=== PATIENT | male | born 1960 | race Caucasian/White ===

== ENCOUNTER 2021-10-04 19:39 | Emergency (ER) | payer BC, SELFPAY ==
[2021-10-04 19:41] VITALS: BP 171/86; PULSE 118; RESP 18; TEMP 37; O2SAT 96
[2021-10-04 19:51] VITALS: BP 165/85; PULSE 111; O2SAT 97
[2021-10-04 20:02] VITALS: BP 147/80; PULSE 108; O2SAT 98
[2021-10-04] MEDS: SODIUM CHLORIDE 0.9% IV 1,000 ML 999 ML IV CONT (20:03)
[2021-10-04 20:09] LABS: Basophils Absolute Auto 0.1 K/mm3 (0.0-0.1); Basophils Percent Auto 0.4 % (0.2-1.2); Eosinophils Absolute Auto 0.1 K/mm3 (0-0.3); Eosinophils Percent Auto 0.5 % (0-4.4); Hematocrit 49.7 % (42.0-52.0); Hemoglobin 16.3 g/dL (14.0-18.0); Immature Granulocyte Percent A 0.7 % (0-0.5); Lymphocytes Absolute Auto 0.69 K/mm3 (0.9-3.2); Mean Corpuscular HGB Conc 32.8 g/dl (32-36); Mean Corpuscular Hemoglobin 30.3 pg (26-34); Mean Corpuscular Volume 92.4 fl (80-100); Mean Platelet Volume 10.1 fl (7.4-10.4); Monocytes Percent Auto 7.1 % (2.6-8.5); Neutrophils Absolute Auto 11.9 K/mm3 (1.3-6.7); Neutrophils Percent Auto 86.3 % (45.5-73.1); Platelet Count Result 168 k/mm3 (150-375); Red Blood Count 5.38 M/mm3 (4.6-6.20); Red Cell Distribution Width 12.6 % (11.5-14.5); White Blood Count 13.8 K/mm3 (4.5-10.0)
[2021-10-04 20:21] LABS: Alanine Aminotransferase 23 U/L (4-50); Albumin Level 4.4 g/dL (3.5-5.1); Alkaline Phosphatase 104 U/L (38-126); Anion Gap 10 mmol/L (8-16); Aspartate Amino Transferase 24 U/L (17-59); Blood Urea Nitrogen 16 mg/dL (9-20); Calcium 9.8 mg/dL (8.4-10.2); Carbon Dioxide 22 mmol/L (22-30); Chloride 105 mmol/L (98-107); Estimated CRCL calculation 65 ml/min; Estimated Glomerular Filt Rate > 60; Glucose 157 mg/dL (65-110); Potassium 4.1 mmol/L (3.4-5.0); Sodium 137 mmol/L (137-145)
[2021-10-04 20:22] LABS: Lactic Acid Reflex 0.9 mmol/L (0.7-2.0)
[2021-10-04 21:00] VITALS: BP 142/76; PULSE 98; O2SAT 95
[2021-10-04 21:01] VITALS: BP 142/76
--- NOTE | 2021-10-04 21:58 | ED.MALEGU ---
HPI - Male Genitourinary General Chief complaint: Urogenital-Male Stated complaint: uti symptoms, fever Time Seen by Provider: 10/04/21 19:44 Source: patient History of Present Illness HPI Narrative: Patient presents with a urinary tract infection. Seen by his primary care doctor yesterday started on Bactrim he is continued have symptoms today and developing a fever to 102 he was concerned so he came to the ER for further evaluation. Patient ports abdominal pain that is constant achy radiates to his back no clear aggravating or alleviating factors. Reports his initial abdominal pain and back pain with onset of symptoms have improved over the past 24 hours. Denies any nausea or vomiting. Denies any cough or congestion. Related Data Home Medications Medication Instructions Recorded Confirmed B-complex with vitamin C 1 tablet PO DAILY 09/11/19 10/03/21 acetaminophen 325 mg tablet 650 mg PO ONCE PRN tablet 09/11/19 10/03/21 magnesium oxide 500 mg tablet 500 mg PO DAILY 09/11/19 10/03/21 omega-3 fatty acids 1,000 mg 1,000 mg PO DAILY 09/11/19 10/03/21 capsule vitamin B complex 1 tablet PO DAILY 09/11/19 10/03/21 zinc 50 mg tablet 50 mg PO DAILY 09/11/19 10/03/21 cholecalciferol (vitamin D3) 50 50 mcg PO DAILY 04/06/21 10/03/21 mcg (2,000 unit) capsule Allergies Allergy/AdvReac Type Severity Reaction Status Date / Time ciprofloxacin Allergy Unknown Unknown Verified 10/04/21 19:45 Penicillins Allergy Unknown Unknown Verified 10/04/21 19:45 Review of Systems Review of Systems: CONSTITUTIONAL: Denies fever, chills, or sweats. EYES: Denies visual changes, redness, or discharge. ENT: Denies rhinorrhea, congestion, sore throat, or otalgia. CARDIOVASCULAR: Denies chest pain, palpitations, or edema. RESPIRATORY: Denies cough or dyspnea. GASTROINTESTINAL: Reports abdominal pain that radiates to the back GENITOURINARY: Reports mild dysuria SKIN: Denies rash or itching. MUSCULOSKELETAL: Denies joint pain, or myalgia. NEUROLOGIC: Denies headache, numbness, dizziness, or weakness. PSYCHIATRIC: Denies anxiety or depression. All systems reviewed & are unremarkable except as noted in HPI and below PMFSH Past Medical History Medical History BPH NOS w/o ur obs/LUTS Chronic back pain CKD (chronic kidney disease) stage 3, GFR 30-59 ml/min Dyslipidemia Essential (primary) hypertension Hypertension Hypogonadism in male Hypothyroidism (acquired) Idiopathic peripheral neuropathy Nasal polyps 2008 Neck pain Open fracture of distal phalanx 07/2011 VIRAJ (obstructive sleep apnea) Secondary polycythemia Spinal stenosis Unspecified osteoarthritis, unspecified site Vitamin D deficiency Surgical History Surgical History H/O removal of cyst History of appendectomy 2004 History of cervical discectomy 09/2006 History of neck surgery C5-C6 2006 History of sinus surgery 09/2008 Social History Social History Smoking status: Never smoker Second hand tobacco smoke exposure: No Alcohol intake: never Substance use: never Substance use type: does not use Exam Narrative: GENERAL: Well-appearing, well-nourished, and in no acute distress. HEAD: Normocephalic, atraumatic. EYES: PERRLA and EOMI. ENT: Nares clear, no rhinorrhea or epistaxis. Mucous membranes moist. NECK: Supple. No masses. No JVD ABDOMEN: Minimal pain with palpation to suprapubic area soft, EXTREMITIES: Normal range of motion. No edema. SKIN: Warm, dry, no rash. NEURO: No focal deficits. Alert and oriented x3. PSYCH: Normal mood and affect. Course Reevaluation(s) Reevaluation #1: Patient reports feeling much improved results and plan reviewed with patient. Patient is comfortable outpatient plan. Vital Signs Vital signs: Vital Signs Temperature 37.0 C 10/04/21 19:41 Pulse Rate
[2021-10-04 22:00] VITALS: BP 135/76; TEMP 37
== END 2021-10-04 22:20 | disposition home or self-care (01) ==
PROVIDERS: Emergency Provider Emergency Medicine; PCP Family Medicine
DX: N39.0 Urinary tract infection, site not specified (principal); R31.9 Hematuria, unspecified; D72.829 Elevated white blood cell count, unspecified; R10.30 Lower abdominal pain, unspecified; M54.9 Dorsalgia, unspecified; M19.90 Unspecified osteoarthritis, unspecified site; I12.9 Hypertensive chronic kidney disease with stage 1 through stage 4 chronic kidney disease, or unspecified chronic kidney disease; N18.30 Chronic kidney disease, stage 3 unspecified; E78.5 Hyperlipidemia, unspecified; E03.9 Hypothyroidism, unspecified; E55.9 Vitamin D deficiency, unspecified; G60.9 Hereditary and idiopathic neuropathy, unspecified; G47.33 Obstructive sleep apnea (adult) (pediatric)
CPT/HCPCS: 36415; 80053; 83605; 85025; 96361; 96374; 99284; J0131; J7030

== ENCOUNTER 2021-10-05 09:01 | Emergency (ER) | payer BC, SELFPAY ==
--- NOTE | ~2021-10-05 | CT_ITS ---
EXAMINATION: CT abdomen pelvis w con INDICATION: Fever TECHNIQUE: Computed tomographic images of the abdomen and pelvis were obtained after the administrati on of 100 cc of Omnipaque 350 intravenous contrast. The dose-length product (DLP) was 776.59 mGy-cm. Automated exposure control and iterative reconstruction technique were employed. COMPARISON: 08/26/2013 FINDINGS: Minimal dependent atelectasis is present in the lung bases. The heart size is normal. The l iver, spleen, pancreas, gallbladder, and adrenal glands are normal. There is mild urothelial enhancem ent in the kidneys and ureters. No pathologically enlarged abdominal or pelvic lymph nodes are identi fied. There is no free intraperitoneal gas or evidence of bowel obstruction. There is mild lumbar spo ndylosis. There is a small fat-containing umbilical hernia. IMPRESSION: 1. Urothelial enhancement in the kidneys and ureters, consistent with urinary tract infection. Reviewed, dictated and finalized at location A. IMPRESSION: 1. Urothelial enhancement in the kidneys and ureters, consistent with urinary t ract infection.
[2021-10-05 09:06] VITALS: BP 131/79; PULSE 109; RESP 16; TEMP 37; O2SAT 97
--- NOTE | 2021-10-05 09:19 | ED.MALEGU ---
HPI - Male Genitourinary General Chief complaint: Urogenital-Male Stated complaint: bladder infection Time Seen by Provider: 10/05/21 09:04 History of Present Illness HPI Narrative: 61-year-old male presents the emergency room for evaluation unresolved urinary tract infection, back pain, nausea vomiting. Patient states Sunday he was diagnosed at his doctor's office with a urinary tract infection and was prescribed Bactrim. Patient was evaluated yesterday in the emergency room for similar symptoms but was also complaining of abdominal pain, back pain and vomiting. Patient states that he was given a liter of fluid and some antiemetics and sent home. Patient returns today complaining of fever, chills, worsening back pain, and nausea vomiting. Related Data Home Medications Medication Instructions Recorded Confirmed B-complex with vitamin C 1 tablet PO DAILY 09/11/19 10/03/21 acetaminophen 325 mg tablet 650 mg PO ONCE PRN tablet 09/11/19 10/03/21 magnesium oxide 500 mg tablet 500 mg PO DAILY 09/11/19 10/03/21 omega-3 fatty acids 1,000 mg 1,000 mg PO DAILY 09/11/19 10/03/21 capsule vitamin B complex 1 tablet PO DAILY 09/11/19 10/03/21 zinc 50 mg tablet 50 mg PO DAILY 09/11/19 10/03/21 cholecalciferol (vitamin D3) 50 50 mcg PO DAILY 04/06/21 10/03/21 mcg (2,000 unit) capsule Allergies Allergy/AdvReac Type Severity Reaction Status Date / Time ciprofloxacin Allergy Unknown Unknown Verified 10/05/21 09:11 Penicillins Allergy Unknown Unknown Verified 10/05/21 09:11 Review of Systems Review of Systems: CONSTITUTIONAL: Reports fever, chills EYES: Denies visual changes, redness, or discharge. ENT: Denies rhinorrhea, congestion, sore throat, or otalgia. CARDIOVASCULAR: Denies chest pain, palpitations, or edema. RESPIRATORY: Denies cough or dyspnea. GASTROINTESTINAL: Reports abdominal pain, back pain, nausea, vomiting GENITOURINARY: Reports dysuria SKIN: Denies rash or itching. MUSCULOSKELETAL: Denies back pain, joint pain, or myalgia. NEUROLOGIC: Denies headache, numbness, dizziness, or weakness. PSYCHIATRIC: Denies anxiety or depression. [facility] Past Medical History Medical History BPH NOS w/o ur obs/LUTS Chronic back pain CKD (chronic kidney disease) stage 3, GFR 30-59 ml/min Dyslipidemia Essential (primary) hypertension Hypertension Hypogonadism in male Hypothyroidism (acquired) Idiopathic peripheral neuropathy Nasal polyps 2009 Neck pain Open fracture of distal phalanx 07/2011 VIRAJ (obstructive sleep apnea) Secondary polycythemia Spinal stenosis Unspecified osteoarthritis, unspecified site Vitamin D deficiency Surgical History Surgical History H/O removal of cyst History of appendectomy 2004 History of cervical discectomy 09/2006 History of neck surgery C5-C6 2006 History of sinus surgery 09/2008 Social History Social History Smoking status: Never smoker Second hand tobacco smoke exposure: No Alcohol intake: never Substance use: never Substance use type: does not use Exam Narrative: GENERAL: Well-appearing, well-nourished, and in no acute distress. HEAD: Normocephalic, atraumatic. EYES: PERRLA and EOMI. CHEST: Clear to auscultation. No respiratory distress. No wheezes rales or rhonchi HEART: Regular rate and rhythm. No murmur heard. Normal peripheral pulses. ABDOMEN: CVA tenderness bilaterally EXTREMITIES: Normal range of motion. No edema. SKIN: Warm, dry, no rash. NEURO: No focal deficits. Alert and oriented x3. PSYCH: Normal mood and affect. Course Vital Signs Vital signs: Vital Signs Temperature 37.0 C 10/05/21 09:06 Pulse Rate 109 H 10/05/21 09:06 Respiratory Rate 16 10/05/21 09:06 Blood Pressure 131/79 10/05/21 09:06 Pulse Oximetry 97 10/05/21 09:06 Temperature 37.0 C 10/05/21 09:
[2021-10-05 09:36] LABS: Hematocrit 45.4 % (42.0-52.0); Mean Corpuscular Hemoglobin 30.4 pg (26-34); Mean Corpuscular Volume 91.9 fl (80-100); Mean Platelet Volume 9.8 fl (7.4-10.4); Platelet Count Result 152 k/mm3 (150-375); Red Blood Count 4.94 M/mm3 (4.6-6.20); Red Cell Distribution Width 12.7 % (11.5-14.5); White Blood Count 14.2 K/mm3 (4.5-10.0)
[2021-10-05] MEDS: ONDANSETRON INJ 4 MG/2 ML VIAL IV PUSH (09:40)
[2021-10-05] MEDS: SODIUM CHLORIDE 0.9% IV 1,000 ML 999 ML IV CONT (09:41)
[2021-10-05 09:49] LABS: Alanine Aminotransferase 21 U/L (4-50); Albumin Level 3.9 g/dL (3.5-5.1); Alkaline Phosphatase 105 U/L (38-126); Anion Gap 7 mmol/L (8-16); Aspartate Amino Transferase 22 U/L (17-59); Bilirubin,Total 1.4 mg/dL (0.2-1.3); Blood Urea Nitrogen 15 mg/dL (9-20); Calcium 9.2 mg/dL (8.4-10.2); Carbon Dioxide 22 mmol/L (22-30); Chloride 106 mmol/L (98-107); Estimated CRCL calculation 62 ml/min; Estimated Glomerular Filt Rate > 60; Glucose 168 mg/dL (65-110); Potassium 3.4 mmol/L (3.4-5.0); Sodium 135 mmol/L (137-145)
[2021-10-05 10:08] LABS: Band Neutrophils Percent 13 % (0-6); Lymphocytes Absolute Manual 0.85 K/mm3 (1.1-4.5); Monocytes Absolute Manual 0.85 K/mm3 (0.1-0.90); Monocytes Percent Manual 6 % (3-9); Neutrophils Absolute Manual 12.49 K/mm3 (1.3-6.7); Neutrophils Percent Manual 75 % (46-73); Total Cells Counted 100
[2021-10-05] MEDS: KETOROLAC 30 MG/ML VIAL (*BKC) IV PUSH (11:45)
== END 2021-10-05 11:45 | disposition home or self-care (01) ==
PROVIDERS: Emergency Provider Nurse Practitioner Family; PCP Family Medicine
DX: N39.0 Urinary tract infection, site not specified (principal); N40.0 Benign prostatic hyperplasia without lower urinary tract symptoms; I12.9 Hypertensive chronic kidney disease with stage 1 through stage 4 chronic kidney disease, or unspecified chronic kidney disease; N18.30 Chronic kidney disease, stage 3 unspecified; E78.5 Hyperlipidemia, unspecified; E03.9 Hypothyroidism, unspecified; G47.33 Obstructive sleep apnea (adult) (pediatric); D75.1 Secondary polycythemia; M19.90 Unspecified osteoarthritis, unspecified site; E55.9 Vitamin D deficiency, unspecified
CPT/HCPCS: 36415; 74177; 80053; 85025; 96361; 96365; 96375; 99284; J0131; J0696; J1885; J2405; J7030; Q9967

== ENCOUNTER 2021-10-19 14:40 | Inpatient (IN) | payer MEDICARE, BC, SELFPAY ==
[2021-10-19] VITALS (7 sets, daily range): BP systolic 106–129; BP diastolic 58–72; PULSE 83–122; RESP 16–20; TEMP 36.8–36.9; O2SAT 95–99; BMI 29.5
--- NOTE | ~2021-10-19 | CT_ITS ---
EXAMINATION: CT abdomen pelvis w con DATE: 10/19/2021 16:45 INDICATION: Lower abdominal and lower back pain TECHNIQUE: Computed tomography (CT) of the abdomen and pelvis was performed with 100 mL Omnipaque-300 intravenous contrast. Automated exposure control and iterative reconstruction technique were employe d. The dose-length product was 868.48 mGy-cm. COMPARISON: 10/05/2021. FINDINGS: Lower thorax: Unremarkable Liver: Mildly enlarged and low density. No mass. Biliary/Gallbladder: Gallbladder is normal. No bile duct dilation. Pancreas: No mass or duct dilation. Fatty infiltration. Spleen: Normal. Adrenals:No mass. Kidneys: Nonobstructive right mid pole calcification. Mild bilateral perinephric stranding. Mild bila teral ureterectasis and ureteral mucosal enhancement. GI tract: No small or large bowel dilation. Appendix not visualized Mesentery/Peritoneum: No ascites, mass, or free air. Retroperitoneum: No mass. Pelvis: Bladder distention with wall thickening and mild inflammatory change. Prostatomegaly. Soft Tissues: Soft tissues and body wall unremarkable. Bones: No acute osseous finding. IMPRESSION: Hepatomegaly and steatosis. Possible cystitis with bilateral ascending infection. Reviewed, dictated and finalized at location K. IMPRESSION: Hepatomegaly and steatosis. Possible cystitis with bilateral ascending infectio n.
--- NOTE | 2021-10-19 15:09 | PC.NURSE ---
pt unable to provide PMH or PSH d/t pain. pt alert and oriented, but noncompliant with assessment.
[2021-10-19 15:57] LABS: Basophils Absolute Auto 0.1 K/mm3 (0.0-0.1); Basophils Percent Auto 0.7 % (0.2-1.2); Eosinophils Percent Auto 0.1 % (0-4.4); Hematocrit 46.2 % (42.0-52.0); Hemoglobin 15.2 g/dL (14.0-18.0); Immature Granulocyte Absolute 0.19 K/mm3 (0.00-0.031); Immature Granulocyte Percent A 1.1 % (0-0.5); Lymphocytes Absolute Auto 0.56 K/mm3 (0.9-3.2); Lymphocytes Percent Auto 3.2 % (18.3-44.2); Mean Corpuscular HGB Conc 32.9 g/dl (32-36); Mean Corpuscular Hemoglobin 29.9 pg (26-34); Mean Corpuscular Volume 90.9 fl (80-100); Mean Platelet Volume 9.3 fl (7.4-10.4); Monocytes Absolute Auto 1.3 K/mm3 (0.1-0.6); Monocytes Percent Auto 7.5 % (2.6-8.5); Neutrophils Absolute Auto 15.4 K/mm3 (1.3-6.7); Neutrophils Percent Auto 87.4 % (45.5-73.1); Platelet Count Result 302 k/mm3 (150-375); Red Blood Count 5.08 M/mm3 (4.6-6.20); Red Cell Distribution Width 12.4 % (11.5-14.5); White Blood Count 17.6 K/mm3 (4.5-10.0)
[2021-10-19 16:07] LABS: Alanine Aminotransferase 26 U/L (6-50); Albumin Level 4.1 g/dL (3.5-5.1); Alkaline Phosphatase 85 U/L (38-126); Anion Gap 15 mmol/L (8-16); Aspartate Amino Transferase 29 U/L (17-59); Bilirubin,Total 1.7 mg/dL (0.2-1.3); Blood Urea Nitrogen 20 mg/dL (9-20); Calcium 9.6 mg/dL (8.4-10.2); Carbon Dioxide 19 mmol/L (22-30); Chloride 104 mmol/L (98-107); Estimated CRCL calculation 72 ml/min; Estimated Glomerular Filt Rate > 60; Glucose 165 mg/dL (65-110); Potassium 3.8 mmol/L (3.4-5.0); Sodium 138 mmol/L (137-145)
[2021-10-19] MEDS: SODIUM CHLORIDE 0.9% IV 1,000 ML 999 ML IV CONT (16:09)
[2021-10-19] MEDS: ONDANSETRON INJ 4 MG/2 ML VIAL IV PUSH ×2 (16:11→21:34)
[2021-10-19] MEDS: HYDROmorphone HCL INJ (*CRX) 1 MG/ML SYR 0.5 MG IV PUSH ×2 (16:11→21:30)
[2021-10-19 16:42] LABS: Appearance Urine Slightly Cloudy (Clear); Bilirubin Urine Negative (Negative); Blood Urine 1+ (Negative); Color Urine Yellow (Yellow); Glucose Urine UA Negative (Negative); Ketones Urine 2+ mg/dL (Negative); Leukocyte Esterase Ur 1+ LEU/UL (Negative); Nitrate Urine Positive (Negative); Protein Urine 2+ mg/dL (Negative); Specific Grav Ur 1.015 (1.001-1.035); Urobilinogen Urine 0.2 mg/dL (<2.0); pH Urine 7.5 (5.0-9.0)
[2021-10-19 16:47] LABS: Lactic Acid Reflex 2.7 mmol/L (0.7-2.0)
[2021-10-19 16:53] LABS: CRP 17.7 mg/dL (<1.0); Lipase 51 U/L (23-300)
--- NOTE | 2021-10-19 16:59 | ED.GENADULT ---
HPI - General Adult General Chief complaint: Back Pain/Injury Stated complaint: back pain Time Seen by Provider: 10/19/21 15:24 Source: patient, family, EMS and RN notes reviewed Mode of arrival: ambulatory Limitations: clinical condition History of Present Illness HPI narrative: Patient is 61 years old white male presented to the ED with pain at the flank area bilaterally started October 15. Gradually got worse. Was seen by his family physician today and his urine showed infection, was discharged home on antibiotic. On arrival to home started having nausea, vomiting, shaking, cold and hot feeling, called 911. The is telling me that patient been having intermittent urinary tract infection since October's first. Was different courses of antibiotic. Related Data Home Medications Medication Instructions Recorded Confirmed B-complex with vitamin C 1 tablet PO DAILY 09/11/19 10/19/21 acetaminophen 325 mg tablet 650 mg PO ONCE PRN tablet 09/11/19 10/19/21 magnesium oxide 500 mg tablet 500 mg PO DAILY 09/11/19 10/19/21 omega-3 fatty acids 1,000 mg 1,000 mg PO DAILY 09/11/19 10/19/21 capsule vitamin B complex 1 tablet PO DAILY 09/11/19 10/19/21 zinc 50 mg tablet 50 mg PO DAILY 09/11/19 10/19/21 cholecalciferol (vitamin D3) 50 50 mcg PO DAILY 04/06/21 10/19/21 mcg (2,000 unit) capsule Allergies Allergy/AdvReac Type Severity Reaction Status Date / Time ciprofloxacin Allergy Unknown Unknown Verified 10/19/21 10:57 Penicillins Allergy Unknown Unknown Verified 10/19/21 10:57 Review of Systems Review of Systems: All systems reviewed & are unremarkable except as noted in HPI and below PMFSH Past Medical History Medical History BPH NOS w/o ur obs/LUTS Chronic back pain CKD (chronic kidney disease) stage 3, GFR 30-59 ml/min Dyslipidemia Essential (primary) hypertension Hypertension Hypogonadism in male Hypothyroidism (acquired) Idiopathic peripheral neuropathy Nasal polyps 2008 Neck pain Open fracture of distal phalanx 07/2011 VIRAJ (obstructive sleep apnea) Secondary polycythemia Spinal stenosis Unspecified osteoarthritis, unspecified site Vitamin D deficiency Surgical History Surgical History H/O removal of cyst History of appendectomy 2004 History of cervical discectomy 09/2006 History of neck surgery C5-C6 2006 History of sinus surgery 09/2008 Social History Social History Smoking status: Never smoker Second hand tobacco smoke exposure: No Alcohol intake: never Substance use: never Substance use type: does not use Exam Narrative: General appearance: Well-developed, well-nourished, in pain, moaning, unable to talk Skin: Normal color Head: Normocephalic, nontraumatic Eyes: Clear conjunctiva ENT: Oropharynx normal, ears normal, nose normal Neck: Supple, nontender Chest and respiratory: Airway patent, no respiratory distress, no accessory muscle use Heart: Regular rate/rhythm Abdomen: Soft, nontender, no organomegaly, quiet bowel sounds Vascular: Normal peripheral pulses, normal capillary refill. Musculoskeletal: Normal range of motion, nontender back Neurologic: Alert and oriented ?3, [employer] is normal as tested, no gross motor deficit Course Consultations Consultation #1: Sarah hospitalist accepted patient admission Date: 10/19/21 Time: 17:53 Vital Signs Vital signs: Vital Signs Temperature 36.8 C 10/19/21 14:42 Pulse Rate 122 H 10/19/21 14:42 Respiratory Rate 18 10/19/21 14:42 Blood Pressure 106/59 L 10/19/21 14:42 Pulse Oximetry
[2021-10-19 17:16] LABS: Erythrocyte Sedimentation Rate 17 mm/hr (0-20)
[2021-10-19 17:26] LABS: Bacteria Urine Trace /hpf; Squamous Epithelial Cell Urine Few /hpf (Few); WBC Urine >75 /hpf
[2021-10-19 17:39] LABS: Add Urine Microscopic? YES
--- NOTE | 2021-10-19 18:29 | PC.NURSE ---
EDP made aware of bladder scan results. EDP to order sehpherd placement.
[2021-10-19 19:35] LABS: Reflex Lactic Acid Yes or No Add Lactic
[2021-10-19 20:23] LABS: Lactic Acid 1.3 mmol/L (0.7-2.0)
[2021-10-19] MEDS: SODIUM CHLORIDE 0.9% IV 1,000 ML 125 ML IV CONT (21:30)
--- NOTE | 2021-10-19 21:50 | PM.IMHP ---
H&P: HPI History of Present Illness Date/Time: Patient was placed observation status for expected length of stay less than 23 hours for management, will plan to re-evaluate tomorrow for improvement. 10/19/21 21:50 Chief Complaint: Flank pain Narrative: Mr. Sherman Is a 61-year-old gentleman who presented to the emergency room with complaints of flank pain. Patient has had multiple bouts with urinary tract infections since October 02. Patient had a urinalysis performed on October 02 and culture showed greater than 100,000 colonies of E coli. Patient's spouse believes that before culture had returned he was placed on Bactrim. Patient's states that after the culture had returned he was then placed on cephalexin. Patient states that he was feeling significantly improved and there was a repeat urinalysis performed on 10/14/2021 at his doctor's office and he was told was negative. Patient states that on Sunday of this week he began having trouble urinating. Patient states that he was having difficulty initiating his stream and then he would have a very weak stream of urine. Patient was to see Urology on 11/03/2021 for this issue. Patient states he does have a known history of BPH and had been taking 2 medications previously but he stopped both of them because he did not want take them any longer. Patient states on Sunday he then called his primary care provider and was seen there today and had a urinalysis performed and it was noted the urinalysis was worse than the initial 1 that was performed on 10/02 and patient was given multiple medications and he did get these filled. Patient's states they went home and patient started having fever and chills and rigors and they decided to call EMS to bring patient to the emergency rooor further evaluation. upon evaluation emergency room patient was noted to have hepatomegaly and steatosis. Possible cystitis with bilateral ascending infection. Patient was complaining of intense flank pain. Patient denied any nausea or vomiting. Patient denied any dysuria, hematuria, or urgency. Patient states his only past medical history was hypothyroidism. Patient then later states that he did have a history of BPH but quit taking all of his medications because he did not want take them any longer. Review of Systems Review of Systems: A 12 point review of systems was completed patient all pertinent positive and negative per HPI the remainder are unremarkable. [facility] Past Medical History Medical History BPH NOS w/o ur obs/LUTS Chronic back pain CKD (chronic kidney disease) stage 3, GFR 30-59 ml/min Dyslipidemia Essential (primary) hypertension Hypertension Hypogonadism in male Hypothyroidism (acquired) Idiopathic peripheral neuropathy Nasal polyps 2008 Neck pain Open fracture of distal phalanx 07/2011 VIRAJ (obstructive sleep apnea) Secondary polycythemia Spinal stenosis Unspecified osteoarthritis, unspecified site Vitamin D deficiency Surgical History Surgical History H/O removal of cyst History of appendectomy 2004 History of cervical discectomy 09/2006 History of neck surgery C5-C6 2006 History of sinus surgery 09/2008 Family History Family History (Updated 10/19/21 @ 21:42 by Noreen Pozo RN) Father Acute myocardial infarction Diabetes mellitus Sibling Diabetes mellitus Social History Social History Smoking status: Never smoker Second hand tobacco smoke exposure: No Alcohol intake: never Substance use: never Substance use type: does not use Spiritual care concerns: No Meds Home Medications and Allergies Home Medications Medication Instructions Recorded Confirmed Type B-complex with vitamin C 1 tablet PO DAILY 09/11/19 10/19/21 History acetaminophen 325 mg tablet 650 mg PO ONCE PRN tablet
[2021-10-19] MEDS: HYDROmorphone HCL INJ (*CRX) 1 MG/ML SYR IV PUSH (22:36)
--- NOTE | 2021-10-19 23:07 | ADMGEN ---
This patient, Austin Sherman, was admitted to Medical Room 342-01. Patient/family oriented to hospital policies and general routines including ID bracelet, bed and alarms, visiting hours, pain management, procedures, bathroom and other care routines, personal items, smoking policy, room service/diet, and visiting hours. Information on how to activate the Rapid Response Team has been discussed. Patient/Family are encouraged to report perceived risks to care and to ask questions if they do not understand what they are told or what they should do.
[2021-10-20] MEDS: HYDROmorphone HCL INJ (*CRX) 1 MG/ML SYR IV PUSH ×8 (00:21→21:13)
--- NOTE | 2021-10-20 00:51 | PCRCNOTE ---
RT spoke with Pt. about wearing a CPAP, Pt. states they wear a CPAP at home but does not want a CPAP tonight due to pain. Rt informed Pt. to let us know if pt. changes mind, and will reevaluate tomorrow.
[2021-10-20 04:28] VITALS: BP 106/60; PULSE 97; RESP 18; TEMP 36.2; O2SAT 96
[2021-10-20] MEDS: SODIUM CHLORIDE 0.9% IV 1,000 ML 125 ML IV CONT ×3 (04:30→23:05)
[2021-10-20 05:45] LABS: Basophils Absolute Auto 0.1 K/mm3 (0.0-0.1); Basophils Percent Auto 0.4 % (0.2-1.2); Eosinophils Percent Auto 0.1 % (0-4.4); Hematocrit 45.1 % (42.0-52.0); Hemoglobin 14.6 g/dL (14.0-18.0); Immature Granulocyte Absolute 0.32 K/mm3 (0.00-0.031); Immature Granulocyte Percent A 1.5 % (0-0.5); Lymphocytes Absolute Auto 1.41 K/mm3 (0.9-3.2); Lymphocytes Percent Auto 6.6 % (18.3-44.2); Mean Corpuscular HGB Conc 32.4 g/dl (32-36); Mean Corpuscular Hemoglobin 30.4 pg (26-34); Mean Platelet Volume 9.6 fl (7.4-10.4); Monocytes Absolute Auto 1.5 K/mm3 (0.1-0.6); Monocytes Percent Auto 6.8 % (2.6-8.5); Neutrophils Absolute Auto 17.9 K/mm3 (1.3-6.7); Neutrophils Percent Auto 84.6 % (45.5-73.1); Platelet Count Result 245 k/mm3 (150-375); Red Cell Distribution Width 12.8 % (11.5-14.5); White Blood Count 21.2 K/mm3 (4.5-10.0)
[2021-10-20 06:05] LABS: Alanine Aminotransferase 20 U/L (6-50); Albumin Level 3.7 g/dL (3.5-5.1); Alkaline Phosphatase 66 U/L (38-126); Anion Gap 9 mmol/L (8-16); Aspartate Amino Transferase 22 U/L (17-59); Bilirubin,Total 1.1 mg/dL (0.2-1.3); Blood Urea Nitrogen 16 mg/dL (9-20); Calcium 8.8 mg/dL (8.4-10.2); Carbon Dioxide 24 mmol/L (22-30); Chloride 105 mmol/L (98-107); Estimated CRCL calculation 55 ml/min; Estimated Glomerular Filt Rate 56; Glucose 118 mg/dL (65-110); Magnesium 2.2 mg/dL (1.6-2.3); Potassium 4.1 mmol/L (3.4-5.0); Sodium 138 mmol/L (137-145)
[2021-10-20] MEDS: HYDROcodone/acetaminophen (*CRX) 5-325 MG TABLET 1 TAB PO ×4 (06:39→19:57)
--- NOTE | 2021-10-20 06:58 | WPDURCON ---
Assessment and Plan Assessment and plan (1) Acute PN (pyelonephritis): Code(s): N10 - Acute pyelonephritis Status: Acute (2) BPH loc w urin obs/LUTS: Code(s): N40.1 - Benign prostatic hyperplasia with lower urinary tract symptoms Status: Acute Assessment and Plan: Longstanding underlying BPH with remote history of BPH. In past pt. non-compliant with both medical management for BPH and with follow-up care. I have not seen since 2018. I suspect his current bilateral pyelonephritis is an ascending infection resulting from incomplete bladder emptying as result of BPH. Agree with Ceftriaxone pending culture results. Will check bladder scan for PVR. Suggest both Tamsulosin 0.4mg qHS and Finasteride 5mg daily - not sure he'll agree. Urology Consult Note HPI Date Seen: 10/20/21 Requesting Physician: Chris Moreno MD Primary Care Provider: Babita Enriquez MD Consult Narrative Narrative: Austin Sherman is a 61 year old male who and who in the remote past but have not seen since 2018. Since difficult patient to has known prostatic hyperplasia and history of recurrent urinary tract infections. In the past he was noncompliant both with recommendations for medical management of his BPH and noncompliant with follow-up. When I last saw him in 2018 he was on both tamsulosin and finasteride for BPH but, states currently, that he quit taking those years ago. Now, he is admitted with a history of recurrent urinary tract infection over the past several months an acute episode of probable bilateral pyelonephritis. Specifically, he presents with bilateral flank pain and on admission was to have infected looking urine and a CT scan suggesting bilateral upper urinary tract infection. There is no hydronephrosis or acute kidney disease. Review of Systems Cardiovascular: Cardiovascular: Denies chest pain, Denies lightheadedness, Denies palpitations and Denies dyspnea Respiratory: Respiratory: Denies dyspnea Gastrointestinal: Gastrointestinal: Reports abdominal pain (bilateral flank pain), Denies diarrhea, Denies nausea and Denies vomiting Genitourinary: Genitourinary: Denies hematuria, Reports oliguria and Reports dysuria Endocrine: Endocrine: Denies palpitations PMFSH Past Medical History Medical History BPH NOS w/o ur obs/LUTS Chronic back pain CKD (chronic kidney disease) stage 3, GFR 30-59 ml/min Dyslipidemia Essential (primary) hypertension Hypertension Hypogonadism in male Hypothyroidism (acquired) Idiopathic peripheral neuropathy Nasal polyps 2009 Neck pain Open fracture of distal phalanx 07/2011 VIRAJ (obstructive sleep apnea) Secondary polycythemia Spinal stenosis Unspecified osteoarthritis, unspecified site Vitamin D deficiency Surgical History Surgical History H/O removal of cyst History of appendectomy 2004 History of cervical discectomy 09/2006 History of neck surgery C5-C6 2006 History of sinus surgery 09/2008 Family History Family History Father Acute myocardial infarction Diabetes mellitus Sibling Diabetes mellitus Social History Social History Smoking status: Never smoker Second hand tobacco smoke exposure: No Alcohol intake: never Substance use: never Substance use type: does not use Spiritual care concerns: No Meds Home Medications and Allergies Home Medications Medication Instructions Recorded Confirmed Type levothyroxine 88 mcg tablet 88 mcg PO DAILY #90 tablet 07/18/21 10/19/21 Rx Allergies Allergy/AdvReac Type Severity Reaction Status Date / Time ciprofloxacin Allergy Unknown Unknown Verified 10/19/21 10:57 Penicillins Allergy Unknown Unknown Verified 10/19/21 10:57 Vital Signs Vital Sig
[2021-10-20] MEDS: ENOXAPARIN 40 MG/0.4 ML SYRINGE SUB-Q (08:43)
[2021-10-20] MEDS: TAMSULOSIN HCL 0.4 MG CAPSULE PO (10:43)
[2021-10-20] MEDS: LEVOTHYROXINE SODIUM 88 MCG TABLET PO (10:44)
[2021-10-20] MEDS: FINASTERIDE 5 MG TABLET PO (10:44)
--- NOTE | 2021-10-20 10:53 | PM.IMPN ---
Progress Note: A&P Assessment and Plan (1) BPH loc w urin obs/LUTS: Code(s): N40.1 - Benign prostatic hyperplasia with lower urinary tract symptoms Status: Acute Assessment and Plan: Urology following as well. I have resumed his BPH medications but he likely will not taken due to medical noncompliance (2) Acute PN (pyelonephritis): Code(s): N10 - Acute pyelonephritis Status: Acute Assessment and Plan: Cultures pending, continue IV antibiotics (3) Essential (primary) hypertension: Code(s): I10 - Essential (primary) hypertension Status: Acute Assessment and Plan: Medical noncompliance, monitor. Patient has refused all medications in past (4) CKD (chronic kidney disease) stage 3, GFR 30-59 ml/min: Qualifiers: Chronic kidney disease stage 3 subtype: stage 3a (GFR 45-59) Qualified Code(s): N18.31 - Chronic kidney disease, stage 3a Code(s): N18.3 - Chronic kidney disease, stage 3 (moderate) Status: Acute Assessment and Plan: Monitor electrolytes kidney function (5) Dyslipidemia: Code(s): E78.5 - Hyperlipidemia, unspecified Status: Acute (6) Chronic back pain: Qualifiers: Back pain location: back pain in unspecified location Back pain laterality: unspecified Qualified Code(s): M54.9 - Dorsalgia, unspecified; G89.29 - Other chronic pain Code(s): M54.9 - Dorsalgia, unspecified; G89.29 - Other chronic pain Status: Acute (7) VIRAJ (obstructive sleep apnea): Code(s): G47.33 - Obstructive sleep apnea (adult) (pediatric) Status: Acute Subjective Date/time seen: 10/20/21 10:53 still having some flank and lower abd pain Review of Systems Review of Systems: 10 point ROS negative except as stated in HPI / Subjective Exam Narrative: General: alert and oriented Psych: appropriate mood nad affect Eyes: PERRLA Neck: Trachea midline, no new lesions Skin: no changes Lungs: CTA Cardiac: Normal S1,S2, no MGR ABD: soft, nd, nt, nbs Ext: no new lesions, no cce Vasc: Pulses intact Objective Data Vital Signs Vital Signs: Vital Signs - 24 hr 10/19/21 14:42 10/19/21 17:47 10/19/21 18:40 Temperature 98.2 F 98.4 F Pulse Rate 122 H 103 H 98 Respiratory Rate 18 16 16 Blood Pressure 106/59 L 129/69 129/65 Pulse Oximetry 99 95 96 10/19/21 19:27 10/19/21 20:39 10/19/21 21:26 Temperature 98.3 F Pulse Rate 100 94 83 Respiratory Rate 18 18 20 Blood Pressure 116/72 118/58 L 125/72 Pulse Oximetry 96 96 99 10/19/21 22:11 10/20/21 04:28 Temperature 97.2 F L Pulse Rate 97 Respiratory Rate 18 Blood Pressure 106/60 Pulse Oximetry 96 96 Intake/Output Intake/Output: Intake & Output 10/17/21 10/18/21 10/19/21 10/20/21 23:59 23:59 23:59 23:59 Intake Total 1150 2820 Output Total 300 2200 Balance 850 620 Meds/Results Medications: Active Medications Generic Name Dose Route Start Last Admin Trade Name Freq PRN Reason Stop Dose Admin Acetaminophen 650 mg 10/20/21 06:31 Acetaminophen 325 Mg Tablet PO Q6H PRN Mild Pain (1-3) or Fever Hydrocodone Bitart/Acetaminophen 1 tab 10/20/21 06:30 10/20/21 10:43 Hydrocodone/Acetaminophen (*Crx) 5-325 Mg Tablet PO 1 tab Q4H PRN Administration Pain Rated 4-6 Enoxaparin Sodium 40 mg 10/20/21 09:00 10/20/21 08:43 Enoxaparin 40 Mg/0.4 Ml Syringe SUB-Q 40 mg DAILY JERAD Administration Finasteride 5 mg 10/20/21 09:00 10/20/21 10:44 Finasteride 5 Mg Tablet PO 5 mg QAM JERAD Administration Hydromorphone HCl 1 mg 10/20/21 06:31 10/20/21 08:42 Hydromorphone Hcl Inj (*Crx) 1 Mg/Ml Syr IV PUSH 1 mg Q3H PRN Administration Pain Rated 7-10 Ceftriaxone Sodium/Dextrose 1 gm in 50 mls @ 100 mls/hr 10/19/21 17:00 10/19/21 18:12 Rocephin 1 Gm/D5w 50 Ml IVPB Infused Q24H JERAD Infusion Sodium Chloride 1,000 mls @ 125 mls/hr 10/19/21 17:50 10/20/21 04:30 Normal S
[2021-10-20] MEDS: ONDANSETRON INJ 4 MG/2 ML VIAL IV PUSH (12:20)
[2021-10-20 14:00] VITALS: BP 110/56; PULSE 99; RESP 18; TEMP 36.3; O2SAT 98
[2021-10-20 20:00] VITALS: PULSE 90; RESP 20; O2SAT 98
[2021-10-20 20:51] VITALS: BP 120/62; PULSE 90; RESP 20; TEMP 36.6; O2SAT 98
[2021-10-20 21:00] VITALS: O2SAT 97
[2021-10-21] MEDS: HYDROmorphone HCL INJ (*CRX) 1 MG/ML SYR IV PUSH ×3 (02:35→13:46)
[2021-10-21 04:42] VITALS: BP 124/62; PULSE 84; RESP 18; TEMP 36.3; O2SAT 98
[2021-10-21] MEDS: LEVOTHYROXINE SODIUM 88 MCG TABLET PO (04:52)
--- NOTE | 2021-10-21 08:12 | WPDUROPN2 ---
Progress Note: A&P Assessment and Plan (1) BPH loc w urin obs/LUTS: Code(s): N40.1 - Benign prostatic hyperplasia with lower urinary tract symptoms Status: Acute (2) Acute PN (pyelonephritis): Code(s): N10 - Acute pyelonephritis Status: Acute Assessment and Plan: E. coli in urine / blood cultures without growth so far Would suggest catheter out for voiding trial Sunday or Sunday. We talked about management options for his BPH (which seems to be the underlying reason for his urinary tract infections). He is opposed to long-term medical management and would like to pursue the possibility of doing a urolift. He need outpatient evaluation prior to scheduling that procedure, however. He should be discharged on both tamsulosin and finasteride. Subjective Subjective Date/Time Seen: 10/21/21 08:12 Feeling better today Review of Systems Cardiovascular: Cardiovascular: Denies chest pain, Denies lightheadedness, Denies palpitations and Denies dyspnea Respiratory: Respiratory: Denies dyspnea Gastrointestinal: Gastrointestinal: Denies diarrhea, Denies nausea and Denies vomiting Genitourinary: Genitourinary: Denies hematuria and Denies dysuria Endocrine: Endocrine: Denies palpitations Exam Const: General: no acute distress Resp: Effort & Inspection: normal respiratory effort GI: Inspection: non-distended GI Palp: No abdominal tenderness and No Guarding due to palpation present (GI) Auscultation: normal bowel sounds Urinary Catheter: Urinary Catheter: patent and draining and urine clear Objective Data Vital Signs Vital Signs: Vital Signs - 24 hr 10/20/21 14:00 10/20/21 20:00 10/20/21 20:51 Temperature 97.3 F L 97.8 F Pulse Rate 99 90 90 Respiratory Rate 18 20 20 Blood Pressure 110/56 L 120/62 Pulse Oximetry 98 98 98 10/20/21 21:00 10/21/21 04:42 Temperature 97.3 F L Pulse Rate 84 Respiratory Rate 18 Blood Pressure 124/62 Pulse Oximetry 97 98 Intake/Output Intake/Output: Intake & Output 10/18/21 10/19/21 10/20/21 10/21/21 23:59 23:59 23:59 23:59 Intake Total 1150 6250 2750 Output Total 300 4150 1800 Balance 850 2100 950 Meds/Results Medications: Active Medications Generic Name Dose Route Start Last Admin Trade Name Freq PRN Reason Stop Dose Admin Acetaminophen 650 mg 10/20/21 06:31 Acetaminophen 325 Mg Tablet PO Q6H PRN Mild Pain (1-3) or Fever Hydrocodone Bitart/Acetaminophen 1 tab 10/20/21 06:30 10/20/21 19:57 Hydrocodone/Acetaminophen (*Crx) 5-325 Mg Tablet PO 1 tab Q4H PRN Administration Pain Rated 4-6 Enoxaparin Sodium 40 mg 10/20/21 09:00 10/20/21 08:43 Enoxaparin 40 Mg/0.4 Ml Syringe SUB-Q 40 mg DAILY JERAD Administration Finasteride 5 mg 10/20/21 09:00 10/20/21 10:44 Finasteride 5 Mg Tablet PO 5 mg QAM JERAD Administration Hydromorphone HCl 1 mg 10/20/21 06:31 10/21/21 02:35 Hydromorphone Hcl Inj (*Crx) 1 Mg/Ml Syr IV PUSH 1 mg Q3H PRN Administration Pain Rated 7-10 Ceftriaxone Sodium/Dextrose 1 gm in 50 mls @ 100 mls/hr 10/19/21 17:00 10/20/21 17:37 Rocephin 1 Gm/D5w 50 Ml IVPB Infused Q24H JERAD Infusion Sodium Chloride 1,000 mls @ 125 mls/hr 10/19/21 17:50 10/20/21 23:05 Normal Saline Iv IV CONT 125 mls/hr .Q8H JERAD Administration Levothyroxine Sodium 88 mcg 10/20/21 06:30 10/21/21 04:52 Levothyroxine Sodium 88 Mcg Tablet PO 88 mcg DAILY@0630 JERAD Administration Ondansetron HCl 4 mg 10/19/21 17:49 10/20/21 12:20 Ondansetron Inj 4 Mg/2 Ml Vial IV PUSH 4 mg Q4H PRN Administration Nausea Tamsulosin HCl 0.4 mg 10/20/21 09:00 10/20/21 10:43 Tamsulosin Hcl 0.4 Mg Capsule PO 0.4 mg QAM JERAD Administration Radiology Results: ITS Impressions Abdomen/Pelvis CT 10/19/21 16:49 IMPRESSION: Hepatomegaly and steatosis. Possible cystitis with bilateral ascending infection. Quality VTE Prophylax
[2021-10-21] MEDS: ENOXAPARIN 40 MG/0.4 ML SYRINGE SUB-Q (09:13)
[2021-10-21] MEDS: HYDROcodone/acetaminophen (*CRX) 5-325 MG TABLET 1 TAB PO (09:14)
[2021-10-21] MEDS: FINASTERIDE 5 MG TABLET PO (09:14)
[2021-10-21] MEDS: TAMSULOSIN HCL 0.4 MG CAPSULE PO (09:14)
[2021-10-21] MEDS: SODIUM CHLORIDE 0.9% IV 1,000 ML 125 ML IV CONT ×2 (09:14→22:00)
[2021-10-21] MEDS: ONDANSETRON INJ 4 MG/2 ML VIAL IV PUSH (09:21)
--- NOTE | 2021-10-21 11:56 | PM.IMPN ---
Progress Note: A&P Assessment and Plan (1) BPH loc w urin obs/LUTS: Code(s): N40.1 - Benign prostatic hyperplasia with lower urinary tract symptoms Status: Acute Assessment and Plan: Urology following as well. I have resumed his BPH medications but he likely will not taken due to medical noncompliance (2) Acute PN (pyelonephritis): Code(s): N10 - Acute pyelonephritis Status: Acute Assessment and Plan: Cultures pending, continue IV antibiotics (3) Essential (primary) hypertension: Code(s): I10 - Essential (primary) hypertension Status: Acute Assessment and Plan: Medical noncompliance, monitor. Patient has refused all medications in past (4) CKD (chronic kidney disease) stage 3, GFR 30-59 ml/min: Qualifiers: Chronic kidney disease stage 3 subtype: stage 3a (GFR 45-59) Qualified Code(s): N18.31 - Chronic kidney disease, stage 3a Code(s): N18.3 - Chronic kidney disease, stage 3 (moderate) Status: Acute Assessment and Plan: Monitor electrolytes kidney function (5) Dyslipidemia: Code(s): E78.5 - Hyperlipidemia, unspecified Status: Acute (6) Chronic back pain: Qualifiers: Back pain location: back pain in unspecified location Back pain laterality: unspecified Qualified Code(s): M54.9 - Dorsalgia, unspecified; G89.29 - Other chronic pain Code(s): M54.9 - Dorsalgia, unspecified; G89.29 - Other chronic pain Status: Acute (7) VIRAJ (obstructive sleep apnea): Code(s): G47.33 - Obstructive sleep apnea (adult) (pediatric) Status: Acute Subjective Date/time seen: 10/21/21 11:56 Pain is better. Exam Narrative: General: alert and oriented Psych: appropriate mood nad affect Eyes: PERRLA Neck: Trachea midline, no new lesions Skin: no changes Lungs: CTA Cardiac: Normal S1,S2, no MGR ABD: soft, nd, nt, nbs Ext: no new lesions, no cce Vasc: Pulses intact Objective Data Vital Signs Vital Signs: Vital Signs - 24 hr 10/20/21 14:00 10/20/21 20:00 10/20/21 20:51 Temperature 97.3 F L 97.8 F Pulse Rate 99 90 90 Respiratory Rate 18 20 20 Blood Pressure 110/56 L 120/62 Pulse Oximetry 98 98 98 10/20/21 21:00 10/21/21 04:42 Temperature 97.3 F L Pulse Rate 84 Respiratory Rate 18 Blood Pressure 124/62 Pulse Oximetry 97 98 Intake/Output Intake/Output: Intake & Output 10/18/21 10/19/21 10/20/21 10/21/21 23:59 23:59 23:59 23:59 Intake Total 1150 6250 3800 Output Total 300 4150 1800 Balance 850 2100 1999 Meds/Results Medications: Active Medications Generic Name Dose Route Start Last Admin Trade Name Freq PRN Reason Stop Dose Admin Acetaminophen 650 mg 10/20/21 06:31 Acetaminophen 325 Mg Tablet PO Q6H PRN Mild Pain (1-3) or Fever Hydrocodone Bitart/Acetaminophen 1 tab 10/20/21 06:30 10/21/21 09:14 Hydrocodone/Acetaminophen (*Crx) 5-325 Mg Tablet PO 1 tab Q4H PRN Administration Pain Rated 4-6 Enoxaparin Sodium 40 mg 10/20/21 09:00 10/21/21 09:13 Enoxaparin 40 Mg/0.4 Ml Syringe SUB-Q 40 mg DAILY JERAD Administration Finasteride 5 mg 10/20/21 09:00 10/21/21 09:14 Finasteride 5 Mg Tablet PO 5 mg QAM JERAD Administration Hydromorphone HCl 1 mg 10/20/21 06:31 10/21/21 09:21 Hydromorphone Hcl Inj (*Crx) 1 Mg/Ml Syr IV PUSH 1 mg Q3H PRN Administration Pain Rated 7-10 Ceftriaxone Sodium/Dextrose 1 gm in 50 mls @ 100 mls/hr 10/19/21 17:00 10/20/21 17:37 Rocephin 1 Gm/D5w 50 Ml IVPB Infused Q24H JERAD Infusion Sodium Chloride 1,000 mls @ 125 mls/hr 10/19/21 17:50 10/21/21 09:14 Normal Saline Iv IV CONT 125 mls/hr .Q8H JERAD Administration Levothyroxine Sodium 88 mcg 10/20/21 06:30 10/21/21 04:52 Levothyroxine Sodium 88 Mcg Tablet PO 88 mcg DAILY@0630 JERAD Administration Ondansetron HCl 4 mg 10/19/21 17:49 10/21/21 09:21 Ondansetron Inj 4 Mg/2 Ml Vial IV PUSH 4 mg
[2021-10-21 13:59] VITALS: BP 109/63; PULSE 88; RESP 20; TEMP 36.2; O2SAT 98
[2021-10-21 15:44] VITALS: O2SAT 97
[2021-10-21] MEDS: LORazepam (*CRX) 0.5 MG TABLET PO ×2 (17:30→21:37)
[2021-10-21 20:00] VITALS: PULSE 88; RESP 20; O2SAT 97
[2021-10-21 22:00] VITALS: BP 122/73; PULSE 100; RESP 18; TEMP 37.9; O2SAT 95
[2021-10-22 06:00] VITALS: BP 149/78; PULSE 90; RESP 18; TEMP 36.9; O2SAT 97
[2021-10-22] MEDS: LEVOTHYROXINE SODIUM 88 MCG TABLET PO (06:00)
[2021-10-22] MEDS: SODIUM CHLORIDE 0.9% IV 1,000 ML 125 ML IV CONT ×2 (06:00→16:15)
[2021-10-22 08:00] VITALS: PULSE 90; RESP 18; O2SAT 97
[2021-10-22] MEDS: FINASTERIDE 5 MG TABLET PO (09:32)
[2021-10-22] MEDS: TAMSULOSIN HCL 0.4 MG CAPSULE PO (09:32)
[2021-10-22] MEDS: ENOXAPARIN 40 MG/0.4 ML SYRINGE SUB-Q (09:32)
--- NOTE | 2021-10-22 09:59 | PM.IMPN ---
Progress Note: A&P Assessment and Plan (1) BPH loc w urin obs/LUTS: Code(s): N40.1 - Benign prostatic hyperplasia with lower urinary tract symptoms Status: Acute Assessment and Plan: Urology following as well. I have resumed his BPH medications but he likely will not taken due to medical noncompliance (2) Acute PN (pyelonephritis): Code(s): N10 - Acute pyelonephritis Status: Acute Assessment and Plan: Cultures pending, continue IV antibiotics Low-grade temp Overnite. Blood cultures obtained. Monitor (3) Essential (primary) hypertension: Code(s): I10 - Essential (primary) hypertension Status: Acute Assessment and Plan: Medical noncompliance, monitor. Patient has refused all medications in past (4) CKD (chronic kidney disease) stage 3, GFR 30-59 ml/min: Qualifiers: Chronic kidney disease stage 3 subtype: stage 3a (GFR 45-59) Qualified Code(s): N18.31 - Chronic kidney disease, stage 3a Code(s): N18.3 - Chronic kidney disease, stage 3 (moderate) Status: Acute Assessment and Plan: Monitor electrolytes kidney function (5) Dyslipidemia: Code(s): E78.5 - Hyperlipidemia, unspecified Status: Acute (6) Chronic back pain: Qualifiers: Back pain location: back pain in unspecified location Back pain laterality: unspecified Qualified Code(s): M54.9 - Dorsalgia, unspecified; G89.29 - Other chronic pain Code(s): M54.9 - Dorsalgia, unspecified; G89.29 - Other chronic pain Status: Acute (7) VIRAJ (obstructive sleep apnea): Code(s): G47.33 - Obstructive sleep apnea (adult) (pediatric) Status: Acute Subjective Date/time seen: 10/22/21 09:59 Feeling better today. Low-grade temp Overnite Exam Narrative: General: alert and oriented Psych: appropriate mood nad affect Eyes: PERRLA Neck: Trachea midline, no new lesions Skin: no changes Lungs: CTA Cardiac: Normal S1,S2, no MGR ABD: soft, nd, nt, nbs Ext: no new lesions, no cce Vasc: Pulses intact Objective Data Vital Signs Vital Signs: Vital Signs - 24 hr 10/21/21 13:59 10/21/21 15:44 10/21/21 20:00 Temperature 97.2 F L Pulse Rate 88 88 Respiratory Rate 20 20 Blood Pressure 109/63 Pulse Oximetry 98 97 97 10/21/21 22:00 10/22/21 06:00 Temperature 100.2 F H 98.4 F Pulse Rate 100 90 Respiratory Rate 18 18 Blood Pressure 122/73 149/78 H Pulse Oximetry 95 97 Intake/Output Intake/Output: Intake & Output 10/19/21 10/20/21 10/21/21 10/22/21 23:59 23:59 23:59 23:59 Intake Total 1150 6250 5940 1580 Output Total 300 4150 4850 2150 Balance 850 2100 1090 -570 Meds/Results Medications: Active Medications Generic Name Dose Route Start Last Admin Trade Name Freq PRN Reason Stop Dose Admin Acetaminophen 650 mg 10/20/21 06:31 Acetaminophen 325 Mg Tablet PO Q6H PRN Mild Pain (1-3) or Fever Hydrocodone Bitart/Acetaminophen 1 tab 10/20/21 06:30 10/21/21 09:14 Hydrocodone/Acetaminophen (*Crx) 5-325 Mg Tablet PO 1 tab Q4H PRN Administration Pain Rated 4-6 Enoxaparin Sodium 40 mg 10/20/21 09:00 10/22/21 09:32 Enoxaparin 40 Mg/0.4 Ml Syringe SUB-Q 40 mg DAILY JERAD Administration Finasteride 5 mg 10/20/21 09:00 10/22/21 09:32 Finasteride 5 Mg Tablet PO 5 mg QAM JERAD Administration Ceftriaxone Sodium/Dextrose 1 gm in 50 mls @ 100 mls/hr 10/19/21 17:00 10/21/21 18:07 Rocephin 1 Gm/D5w 50 Ml IVPB Infused Q24H JERAD Infusion Sodium Chloride 1,000 mls @ 125 mls/hr 10/19/21 17:50 10/22/21 06:00 Normal Saline Iv IV CONT 125 mls/hr .Q8H JERAD Administration Levothyroxine Sodium 88 mcg 10/20/21 06:30 10/22/21 06:00 Levothyroxine Sodium 88 Mcg Tablet PO 88 mcg DAILY@0630 JERAD Administration Lorazepam 0.5 mg 10/21/21 16:04 10/21/21 21:37 Lorazepam (*Crx) 0.5 Mg Tablet PO 0.5 mg TID PRN Administration Anxiety Ondansetron HCl 4 mg 05/
--- NOTE | 2021-10-22 10:30 | WPDUROPN2 ---
Progress Note: A&P Assessment and Plan (1) BPH loc w urin obs/LUTS: Code(s): N40.1 - Benign prostatic hyperplasia with lower urinary tract symptoms Status: Acute Assessment and Plan: Given low grade fever recommend maintenance of catheter. Follow cultures, agree with rocephin. Discussed importance of catheter and plan for outpatient work up with Dr. Bautista for bladder outlet obstruction surgery. Subjective Subjective Date/Time Seen: 10/22/21 10:30 Interval history: Tm 100.2, recultured. Denies pain. He understands need for catheter. Exam Const: General: cooperative, healthy appearing and comfortable Resp: Effort & Inspection: normal respiratory effort, able to speak in complete sentences, no audible wheezes and no cough GI: Inspection: normal to inspection GI Palp: No abdominal tenderness Urinary Catheter: Urinary Catheter: patent and draining and urine clear Neuro: General: oriented to person, oriented to place, oriented to time and patient oriented x3 Objective Data Vital Signs Vital Signs: Vital Signs - 24 hr 10/21/21 13:59 10/21/21 15:44 10/21/21 20:00 Temperature 97.2 F L Pulse Rate 88 88 Respiratory Rate 20 20 Blood Pressure 109/63 Pulse Oximetry 98 97 97 10/21/21 22:00 10/22/21 06:00 Temperature 100.2 F H 98.4 F Pulse Rate 100 90 Respiratory Rate 18 18 Blood Pressure 122/73 149/78 H Pulse Oximetry 95 97 Intake/Output Intake/Output: Intake & Output 10/19/21 10/20/21 10/21/21 10/22/21 23:59 23:59 23:59 23:59 Intake Total 1150 6250 5940 1580 Output Total 300 4150 4850 2150 Balance 850 2100 1090 -570 Meds/Results Medications: Active Medications Generic Name Dose Route Start Last Admin Trade Name Freq PRN Reason Stop Dose Admin Acetaminophen 650 mg 10/20/21 06:31 Acetaminophen 325 Mg Tablet PO Q6H PRN Mild Pain (1-3) or Fever Hydrocodone Bitart/Acetaminophen 1 tab 10/20/21 06:30 10/21/21 09:14 Hydrocodone/Acetaminophen (*Crx) 5-325 Mg Tablet PO 1 tab Q4H PRN Administration Pain Rated 4-6 Enoxaparin Sodium 40 mg 10/20/21 09:00 10/22/21 09:32 Enoxaparin 40 Mg/0.4 Ml Syringe SUB-Q 40 mg DAILY JERAD Administration Finasteride 5 mg 10/20/21 09:00 10/22/21 09:32 Finasteride 5 Mg Tablet PO 5 mg QAM JERAD Administration Ceftriaxone Sodium/Dextrose 1 gm in 50 mls @ 100 mls/hr 10/19/21 17:00 10/21/21 18:07 Rocephin 1 Gm/D5w 50 Ml IVPB Infused Q24H JERAD Infusion Sodium Chloride 1,000 mls @ 125 mls/hr 10/19/21 17:50 10/22/21 06:00 Normal Saline Iv IV CONT 125 mls/hr .Q8H JERAD Administration Levothyroxine Sodium 88 mcg 10/20/21 06:30 10/22/21 06:00 Levothyroxine Sodium 88 Mcg Tablet PO 88 mcg DAILY@0630 JERAD Administration Lorazepam 0.5 mg 10/21/21 16:04 10/21/21 21:37 Lorazepam (*Crx) 0.5 Mg Tablet PO 0.5 mg TID PRN Administration Anxiety Ondansetron HCl 4 mg 10/19/21 17:49 10/21/21 09:21 Ondansetron Inj 4 Mg/2 Ml Vial IV PUSH 4 mg Q4H PRN Administration Nausea Tamsulosin HCl 0.4 mg 10/20/21 09:00 10/22/21 09:32 Tamsulosin Hcl 0.4 Mg Capsule PO 0.4 mg QAM JERAD Administration Radiology Results: ITS Impressions Abdomen/Pelvis CT 10/19/21 16:49 IMPRESSION: Hepatomegaly and steatosis. Possible cystitis with bilateral ascending infection. Quality VTE Prophylaxis VTE prophylaxis: mechanical ordered and pharmacologic ordered
[2021-10-22 14:18] VITALS: BP 151/76; PULSE 83; RESP 18; TEMP 36.9; O2SAT 100
[2021-10-22 19:53] VITALS: BP 139/78; PULSE 77; RESP 18; TEMP 36.6; O2SAT 99
[2021-10-22] MEDS: LORazepam (*CRX) 0.5 MG TABLET PO (21:19)
[2021-10-23] MEDS: SODIUM CHLORIDE 0.9% IV 1,000 ML 125 ML IV CONT ×2 (04:43→16:42)
[2021-10-23 05:12] VITALS: BP 134/71; PULSE 68; RESP 18; TEMP 36.8; O2SAT 97
[2021-10-23] MEDS: LEVOTHYROXINE SODIUM 88 MCG TABLET PO (06:09)
[2021-10-23] MEDS: ENOXAPARIN 40 MG/0.4 ML SYRINGE SUB-Q (08:23)
[2021-10-23] MEDS: FINASTERIDE 5 MG TABLET PO (08:23)
[2021-10-23] MEDS: TAMSULOSIN HCL 0.4 MG CAPSULE PO (08:23)
[2021-10-23] MEDS: HYDROcodone/acetaminophen (*CRX) 5-325 MG TABLET 1 TAB PO (08:44)
--- NOTE | 2021-10-23 11:04 | WPDUROPN2 ---
Progress Note: A&P Assessment and Plan (1) BPH loc w urin obs/LUTS: Code(s): N40.1 - Benign prostatic hyperplasia with lower urinary tract symptoms Status: Acute Assessment and Plan: 10/22/2021: Given low grade fever recommend maintenance of catheter. Follow cultures, agree with rocephin. Discussed importance of catheter and plan for outpatient work up with Dr. Bautista for bladder outlet obstruction surgery. 10/23/2021: -Given stable vitals and no fever>24 hrs, can attempt trial of void. DC Plascencia, patient must void twice with PVR<200mL by bladder scan. Discussed with floor nursing. -Patient agrees to continue flomax and finasteride after discharge until he undergoes bladder outlet obstruction surgery with Dr. Bautista. Subjective Subjective Date/Time Seen: 10/23/21 11:04 Interval history: SIDNEY AF-VSS, annoyed with catheter and patient requests trial of void. He would like to continue BPH medications until he has bladder outlet obstruction surgery with Dr. Bautista. Exam Narrative: NAD, A&Ox3 RRR eWOB S/NT/ND Plascencia draining clear yellow urine. Extr with no c/c/e Objective Data Vital Signs Vital Signs: Vital Signs - 24 hr 10/22/21 14:18 10/22/21 19:53 10/23/21 05:12 Temperature 98.5 F 98 F 98.3 F Pulse Rate 83 77 68 Respiratory Rate 18 18 18 Blood Pressure 151/76 H 139/78 134/71 Pulse Oximetry 100 99 97 Intake/Output Intake/Output: Intake & Output 10/20/21 10/21/21 10/22/21 10/23/21 23:59 23:59 23:59 23:59 Intake Total 6250 5940 3660 1640 Output Total 4150 4850 4500 2400 Balance 2100 6239 -392 -491 Meds/Results Medications: Active Medications Generic Name Dose Route Start Last Admin Trade Name Freq PRN Reason Stop Dose Admin Acetaminophen 650 mg 10/20/21 06:31 Acetaminophen 325 Mg Tablet PO Q6H PRN Mild Pain (1-3) or Fever Hydrocodone Bitart/Acetaminophen 1 tab 10/20/21 06:30 10/23/21 08:44 Hydrocodone/Acetaminophen (*Crx) 5-325 Mg Tablet PO 1 tab Q4H PRN Administration Pain Rated 4-6 Enoxaparin Sodium 40 mg 10/20/21 09:00 10/23/21 08:23 Enoxaparin 40 Mg/0.4 Ml Syringe SUB-Q 40 mg DAILY JERAD Administration Finasteride 5 mg 10/20/21 09:00 10/23/21 08:23 Finasteride 5 Mg Tablet PO 5 mg QAM JERAD Administration Ceftriaxone Sodium/Dextrose 1 gm in 50 mls @ 100 mls/hr 10/19/21 17:00 10/22/21 21:30 Rocephin 1 Gm/D5w 50 Ml IVPB Infused Q24H JERAD Infusion Sodium Chloride 1,000 mls @ 125 mls/hr 10/19/21 17:50 10/23/21 04:43 Normal Saline Iv IV CONT 125 mls/hr .Q8H JERAD Administration Levothyroxine Sodium 88 mcg 10/20/21 06:30 10/23/21 06:09 Levothyroxine Sodium 88 Mcg Tablet PO 88 mcg DAILY@0630 JERAD Administration Lorazepam 0.5 mg 10/21/21 16:04 10/22/21 21:19 Lorazepam (*Crx) 0.5 Mg Tablet PO 0.5 mg TID PRN Administration Anxiety Ondansetron HCl 4 mg 10/19/21 17:49 10/21/21 09:21 Ondansetron Inj 4 Mg/2 Ml Vial IV PUSH 4 mg Q4H PRN Administration Nausea Tamsulosin HCl 0.4 mg 10/20/21 09:00 10/23/21 08:23 Tamsulosin Hcl 0.4 Mg Capsule PO 0.4 mg QAM JERAD Administration Radiology Results: ITS Impressions Abdomen/Pelvis CT 10/19/21 16:49 IMPRESSION: Hepatomegaly and steatosis. Possible cystitis with bilateral ascending infection. Quality VTE Prophylaxis VTE prophylaxis: mechanical ordered and pharmacologic ordered
--- NOTE | 2021-10-23 11:31 | PM.IMPN ---
Progress Note: A&P Assessment and Plan (1) BPH loc w urin obs/LUTS: Code(s): N40.1 - Benign prostatic hyperplasia with lower urinary tract symptoms Status: Acute Assessment and Plan: Urology following as well. I have resumed his BPH medications but he likely will not taken due to medical noncompliance (2) Acute PN (pyelonephritis): Code(s): N10 - Acute pyelonephritis Status: Acute Assessment and Plan: Repeat blood cultures pending. No more fevers Overnite. Continue Plascencia per Urology. (3) Essential (primary) hypertension: Code(s): I10 - Essential (primary) hypertension Status: Acute Assessment and Plan: Medical noncompliance, monitor. Patient has refused all medications in past (4) CKD (chronic kidney disease) stage 3, GFR 30-59 ml/min: Qualifiers: Chronic kidney disease stage 3 subtype: stage 3a (GFR 45-59) Qualified Code(s): N18.31 - Chronic kidney disease, stage 3a Code(s): N18.3 - Chronic kidney disease, stage 3 (moderate) Status: Acute Assessment and Plan: Monitor electrolytes kidney function (5) Dyslipidemia: Code(s): E78.5 - Hyperlipidemia, unspecified Status: Acute Assessment and Plan: Chronic (6) Chronic back pain: Qualifiers: Back pain location: back pain in unspecified location Back pain laterality: unspecified Qualified Code(s): M54.9 - Dorsalgia, unspecified; G89.29 - Other chronic pain Code(s): M54.9 - Dorsalgia, unspecified; G89.29 - Other chronic pain Status: Acute Assessment and Plan: Chronic (7) VIRAJ (obstructive sleep apnea): Code(s): G47.33 - Obstructive sleep apnea (adult) (pediatric) Status: Acute Subjective Date/time seen: 10/23/21 11:31 Doing okay Exam Narrative: General: alert and oriented Psych: appropriate mood nad affect Eyes: PERRLA Neck: Trachea midline, no new lesions Skin: no changes Lungs: CTA Cardiac: Normal S1,S2, no MGR ABD: soft, nd, nt, nbs Ext: no new lesions, no cce Vasc: Pulses intact Objective Data Vital Signs Vital Signs: Vital Signs - 24 hr 10/22/21 14:18 10/22/21 19:53 10/23/21 05:12 Temperature 98.5 F 98 F 98.3 F Pulse Rate 83 77 68 Respiratory Rate 18 18 18 Blood Pressure 151/76 H 139/78 134/71 Pulse Oximetry 100 99 97 Intake/Output Intake/Output: Intake & Output 10/20/21 10/21/21 10/22/21 10/23/21 23:59 23:59 23:59 23:59 Intake Total 6250 5940 3660 1640 Output Total 4150 4850 4500 2400 Balance 2100 1090 -713 -850 Meds/Results Medications: Active Medications Generic Name Dose Route Start Last Admin Trade Name Freq PRN Reason Stop Dose Admin Acetaminophen 650 mg 10/20/21 06:31 Acetaminophen 325 Mg Tablet PO Q6H PRN Mild Pain (1-3) or Fever Hydrocodone Bitart/Acetaminophen 1 tab 10/20/21 06:30 10/23/21 08:44 Hydrocodone/Acetaminophen (*Crx) 5-325 Mg Tablet PO 1 tab Q4H PRN Administration Pain Rated 4-6 Enoxaparin Sodium 40 mg 10/20/21 09:00 10/23/21 08:23 Enoxaparin 40 Mg/0.4 Ml Syringe SUB-Q 40 mg DAILY JERAD Administration Finasteride 5 mg 10/20/21 09:00 10/23/21 08:23 Finasteride 5 Mg Tablet PO 5 mg QAM JERAD Administration Ceftriaxone Sodium/Dextrose 1 gm in 50 mls @ 100 mls/hr 10/19/21 17:00 10/22/21 21:30 Rocephin 1 Gm/D5w 50 Ml IVPB Infused Q24H JERAD Infusion Sodium Chloride 1,000 mls @ 125 mls/hr 10/19/21 17:50 10/23/21 04:43 Normal Saline Iv IV CONT 125 mls/hr .Q8H JERAD Administration Levothyroxine Sodium 88 mcg 10/20/21 06:30 10/23/21 06:09 Levothyroxine Sodium 88 Mcg Tablet PO 88 mcg DAILY@0630 JERAD Administration Lorazepam 0.5 mg 10/21/21 16:04 10/22/21 21:19 Lorazepam (*Crx) 0.5 Mg Tablet PO 0.5 mg TID PRN Administration Anxiety Ondansetron HCl 4 mg 10/19/21 17:49 10/21/21 09:21 Ondansetron Inj 4 Mg/2 Ml Vial IV PUSH 4 mg Q4H PRN Administration N
--- NOTE | 2021-10-23 13:28 | PC.NURSE ---
Per urology shepherd was discontinued this a.m. Two subsequent PVR's were obtained. The first showed 0ml on the bladder scan after multiple attempts. The second showed a PVR of 137ml.
[2021-10-23] MEDS: LORazepam (*CRX) 0.5 MG TABLET PO ×2 (13:49→21:03)
[2021-10-23 14:13] VITALS: BP 137/74; PULSE 63; RESP 16; TEMP 36.7; O2SAT 100
[2021-10-23 19:40] VITALS: BP 137/66; PULSE 62; RESP 18; TEMP 36.5; O2SAT 100
[2021-10-24] MEDS: SODIUM CHLORIDE 0.9% IV 1,000 ML 125 ML IV CONT ×2 (00:57→08:59)
[2021-10-24 04:55] VITALS: BP 137/69; PULSE 63; RESP 18; TEMP 36.3; O2SAT 99
[2021-10-24] MEDS: LEVOTHYROXINE SODIUM 88 MCG TABLET PO (05:51)
[2021-10-24 06:38] LABS: Hematocrit 44.5 % (42.0-52.0); Mean Corpuscular HGB Conc 31.5 g/dl (32-36); Mean Corpuscular Hemoglobin 29.9 pg (26-34); Mean Corpuscular Volume 95.1 fl (80-100); Mean Platelet Volume 9.3 fl (7.4-10.4); Platelet Count Result 314 k/mm3 (150-375); Red Blood Count 4.68 M/mm3 (4.6-6.20); Red Cell Distribution Width 12.7 % (11.5-14.5)
--- NOTE | 2021-10-24 06:47 | WPDUROPN2 ---
Progress Note: A&P Assessment and Plan (1) BPH loc w urin obs/LUTS: Code(s): N40.1 - Benign prostatic hyperplasia with lower urinary tract symptoms Status: Acute (2) Acute PN (pyelonephritis): Code(s): N10 - Acute pyelonephritis Status: Acute Assessment and Plan: Voiding well with catheter out Discharge anytime on Tamsulosin and Finasteride Subjective Subjective Date/Time Seen: 10/24/21 06:47 Comfortable Review of Systems Cardiovascular: Cardiovascular: Denies chest pain, Denies lightheadedness, Denies palpitations and Denies dyspnea Respiratory: Respiratory: Denies dyspnea Gastrointestinal: Gastrointestinal: Denies diarrhea, Denies nausea and Denies vomiting Genitourinary: Genitourinary: Denies hematuria and Denies dysuria Endocrine: Endocrine: Denies palpitations Exam Const: General: no acute distress Resp: Effort & Inspection: normal respiratory effort GI: Inspection: non-distended GI Palp: No abdominal tenderness and No Guarding due to palpation present (GI) Auscultation: normal bowel sounds Objective Data Vital Signs Vital Signs: Vital Signs - 24 hr 10/23/21 14:13 10/23/21 19:40 10/24/21 04:55 Temperature 98.1 F 97.7 F 97.3 F L Pulse Rate 63 62 63 Respiratory Rate 16 18 18 Blood Pressure 137/74 137/66 137/69 Pulse Oximetry 100 100 99 Intake/Output Intake/Output: Intake & Output 10/21/21 10/22/21 10/23/21 10/24/21 23:59 23:59 23:59 23:59 Intake Total 5940 3660 3670 1000 Output Total 4850 4500 3100 3125 Balance 1090 -840 570 -2125 Meds/Results Medications: Active Medications Generic Name Dose Route Start Last Admin Trade Name Freq PRN Reason Stop Dose Admin Acetaminophen 650 mg 10/20/21 06:31 Acetaminophen 325 Mg Tablet PO Q6H PRN Mild Pain (1-3) or Fever Hydrocodone Bitart/Acetaminophen 1 tab 10/20/21 06:30 10/23/21 08:44 Hydrocodone/Acetaminophen (*Crx) 5-325 Mg Tablet PO 1 tab Q4H PRN Administration Pain Rated 4-6 Enoxaparin Sodium 40 mg 10/20/21 09:00 10/23/21 08:23 Enoxaparin 40 Mg/0.4 Ml Syringe SUB-Q 40 mg DAILY JERAD Administration Finasteride 5 mg 10/20/21 09:00 10/23/21 08:23 Finasteride 5 Mg Tablet PO 5 mg QAM JERAD Administration Ceftriaxone Sodium/Dextrose 1 gm in 50 mls @ 100 mls/hr 10/19/21 17:00 10/23/21 17:12 Rocephin 1 Gm/D5w 50 Ml IVPB 0 mls/hr Q24H JERAD Infusion Sodium Chloride 1,000 mls @ 125 mls/hr 10/19/21 17:50 10/24/21 00:57 Normal Saline Iv IV CONT 125 mls/hr .Q8H JERAD Administration Levothyroxine Sodium 88 mcg 10/20/21 06:30 10/24/21 05:51 Levothyroxine Sodium 88 Mcg Tablet PO 88 mcg DAILY@0630 JERAD Administration Lorazepam 0.5 mg 10/21/21 16:04 10/23/21 21:03 Lorazepam (*Crx) 0.5 Mg Tablet PO 0.5 mg TID PRN Administration Anxiety Ondansetron HCl 4 mg 10/19/21 17:49 10/21/21 09:21 Ondansetron Inj 4 Mg/2 Ml Vial IV PUSH 4 mg Q4H PRN Administration Nausea Tamsulosin HCl 0.4 mg 10/20/21 09:00 10/23/21 08:23 Tamsulosin Hcl 0.4 Mg Capsule PO 0.4 mg QAM JERAD Administration Radiology Results: ITS Impressions Abdomen/Pelvis CT 10/19/21 16:49 IMPRESSION: Hepatomegaly and steatosis. Possible cystitis with bilateral ascending infection. Quality VTE Prophylaxis VTE prophylaxis: mechanical ordered and pharmacologic ordered
[2021-10-24 06:49] LABS: Anion Gap 10 mmol/L (8-16); Blood Urea Nitrogen 12 mg/dL (9-20); Calcium 9.2 mg/dL (8.4-10.2); Carbon Dioxide 27 mmol/L (22-30); Chloride 107 mmol/L (98-107); Estimated CRCL calculation 65 ml/min; Estimated Glomerular Filt Rate > 60; Glucose 112 mg/dL (65-110); Potassium 3.6 mmol/L (3.4-5.0); Sodium 144 mmol/L (137-145)
[2021-10-24] MEDS: ENOXAPARIN 40 MG/0.4 ML SYRINGE SUB-Q (08:59)
[2021-10-24] MEDS: FINASTERIDE 5 MG TABLET PO (08:59)
[2021-10-24] MEDS: TAMSULOSIN HCL 0.4 MG CAPSULE PO (08:59)
--- NOTE | 2021-10-24 10:49 | PM.DS ---
DS: Admitting Diagnosis Discharge Date October 24, 2021 Admitting Diagnosis BPH and hydronephrosis UTI DS: Discharge Diagnosis Discharge Diagnosis (1) BPH loc w urin obs/LUTS: Code(s): N40.1 - Benign prostatic hyperplasia with lower urinary tract symptoms Status: Acute Assessment and Plan: Follow-up with Urology (2) Acute PN (pyelonephritis): Code(s): N10 - Acute pyelonephritis Status: Acute Assessment and Plan: Follow-up with Urology, antibiotics on discharge (3) Essential (primary) hypertension: Code(s): I10 - Essential (primary) hypertension Status: Acute Assessment and Plan: Medical noncompliance, monitor. Patient has refused all medications in past (4) CKD (chronic kidney disease) stage 3, GFR 30-59 ml/min: Qualifiers: Chronic kidney disease stage 3 subtype: stage 3a (GFR 45-59) Qualified Code(s): N18.31 - Chronic kidney disease, stage 3a Code(s): N18.3 - Chronic kidney disease, stage 3 (moderate) Status: Acute Assessment and Plan: Monitor electrolytes kidney function (5) Dyslipidemia: Code(s): E78.5 - Hyperlipidemia, unspecified Status: Acute Assessment and Plan: Chronic (6) Chronic back pain: Qualifiers: Back pain location: back pain in unspecified location Back pain laterality: unspecified Qualified Code(s): M54.9 - Dorsalgia, unspecified; G89.29 - Other chronic pain Code(s): M54.9 - Dorsalgia, unspecified; G89.29 - Other chronic pain Status: Acute Assessment and Plan: Chronic (7) VIRAJ (obstructive sleep apnea): Code(s): G47.33 - Obstructive sleep apnea (adult) (pediatric) Status: Acute DS: Summary Hospital Course Hospital Course: See plan and discharge diagnoses Time Spent with Patient Time attestation: Total time spent providing and/or coordinating discharge services: Exam Narrative: General: alert and oriented Psych: appropriate mood nad affect Eyes: PERRLA Neck: Trachea midline, no new lesions Skin: no changes Lungs: CTA Cardiac: Normal S1,S2, no MGR ABD: soft, nd, nt, nbs Ext: no new lesions, no cce Vasc: Pulses intact DS: Data Data Completed and Pending Labs on day of discharge: Labs from last 24 hours 10/24/21 10/24/21 06:27 06:27 WBC 7.0 RBC 4.68 Hgb 14.0 Hct 44.5 MCV 95.1 MCH 29.9 MCHC 31.5 L RDW 12.7 Plt Count 314 MPV 9.3 Sodium 144 Potassium 3.6 Chloride 107 Carbon Dioxide 27 Anion Gap 10 BUN 12 Creatinine 1.10 Estim Creat Clear Calc 65 Estimated GFR > 60 Glucose 112 H Calcium 9.2 Preliminary micro results at discharge 10/22/21 08:45 Blood Culture - Preliminary Blood 10/22/21 08:44 Blood Culture - Preliminary Blood 10/19/21 16:29 Blood Culture - Preliminary Blood 10/19/21 16:29 Blood Culture - Preliminary Blood Discharge Plan Discharge Attending physician on discharge: Chris Moreno Consulting providers: Laron Toro Discharging Clinician: Chris Moreno Patient Disposition: Home, Self-Care Activity: no preference Diet: as tolerated Patient Instructions: Antibiotic Form Stand Alone Forms: General Discharge Information Follow-up/Referrals: Nitish Bautista MD [Physician] - Discharge Medications: New cefdinir 300 mg capsule 300 mg PO Q12H Qty: 10 RF: 0 Continued levothyroxine 88 mcg tablet 88 mcg PO DAILY Qty: 90 RF: 1 Date of admission: 10/20/21 09:05 Primary Care Provider: Tomasa Enriquez Admitting Provider: Chris Moreno Attending physician on admission: Chris Moreno Condition: Stable Quality VTE Prophylaxis VTE prophylaxis: mechanical ordered and pharmacologic ordered
== END 2021-10-24 11:38 | disposition home or self-care (01) | DRG 726 ==
LOC: ANHED 17:55 → ANH3MED 20:23
PROVIDERS: Nurse Practitioner Adult Health; Admitting Provider Chiropractor; Emergency Provider Emergency Medicine; PCP Family Medicine; Visit Provider Chiropractor
DX: N40.1 Benign prostatic hyperplasia with lower urinary tract symptoms (principal); N10 Acute pyelonephritis; B96.20 Unspecified Escherichia coli [E. coli] as the cause of diseases classified elsewhere; I12.9 Hypertensive chronic kidney disease with stage 1 through stage 4 chronic kidney disease, or unspecified chronic kidney disease; N18.31 Chronic kidney disease, stage 3a; E78.5 Hyperlipidemia, unspecified; M54.9 Dorsalgia, unspecified; G89.29 Other chronic pain; G47.33 Obstructive sleep apnea (adult) (pediatric); E55.9 Vitamin D deficiency, unspecified; M48.00 Spinal stenosis, site unspecified; G60.9 Hereditary and idiopathic neuropathy, unspecified; E03.9 Hypothyroidism, unspecified; Z90.49 Acquired absence of other specified parts of digestive tract; Z91.19 Patient's noncompliance with other medical treatment and regimen
CPT/HCPCS: 36415; 74177; 80048; 80053; 81001; 83605; 83690; 83735; 85025; 85027; 85652; 86140; 87040; 87077; 87086; 87088; 87186; 96361; 96365; 96367; 96372; 96375; 96376; 99285; A9270; G0378; J0131; J0696; J1170; J1650; J2405; J7030; Q9967

== ENCOUNTER 2021-12-22 01:42 | Day surgery (SDC) | payer BC, SELFPAY ==
[2021-12-15 14:16] VITALS: BMI 28.3
--- NOTE | 2021-12-15 14:22 | PC.NURSE ---
Report to the Outpatient Waiting Room, entrance under the green pavilion located off [facility], at time 0730 on date 12/22/21. OR Time: 0930. - You and your visitor will be asked a series of questions to screen for COVID 19 for your protection. - Only one visitor is allowed at this time. - The patient visitor is requested to leave or wait in car when not with patient. - A mask is required within the hospital. Patients may have clear liquids (water, carbonated beverages, clear teas, apple juice) until 3 hours prior to surgery with a maximum of 20 ounces. - No food from midnight until time of surgery Take the following medications with a SIP of water the morning of surgery: CIPRO, LEVOTHYROXINE Medications to discontinue per physician: N/A Date to take last dose: N/A Please no make-up, nail yi, hairspray, perfume, deodorant, or body powder the day of surgery. No jewelry (including any body piercings) or valuables the day of surgery, leave them at home. Please take a shower or bath the night before, or the morning of, surgery with an antibacterial soap. Wear comfortable, loose fitting clothing. - Jewelry must be removed prior to entering the operating room. Rings and piercings that are not removed may be cut off. - The hospital will not accept responsibility for valuables. - Please leave all valuables, including medications, at home the day of surgery. If you are going home after surgery, a licensed courtesy van driver must drive you home. - NO public transportation without another adult. - We recommend that an adult stay with you for 24 hours following discharge. - We also recommend that you do not drive, make important decision, drink alcoholic beverages, or take any drugs that were not prescribed by your health care provider for at least 24 hours after your discharge time. Follow any additional instructions given to you from your surgeon. If you or anyone in your household have experienced Covid symptoms in the past week, please notify your surgeon or the nurse liaison at the phone number below for possible testing. Telephone instructions given to PT - HENRIETTA WELLS and asked if any additional questions and then verbalized understanding. Patient advised to call surgeon office or pre surgery nurse liaison [phone] if any additional questions.
--- NOTE | 2021-12-19 07:02 | PM.HPGS ---
History of Present Illness History of Present Illness Consent: Risks, benefits, and alternatives have been discussed and questions answered. Patient agrees to proceed with procedure. Chief complaint: bph Narrative: Austin Sherman is a 61 year old male has been a patient in our practice since June 2017. He has progressive prostatism that has responded only partially to combination therapy with tamsulosin and finasteride. In addition to prostatism he has trouble with recurrent urinary tract infections. Patient cystoscopy shows a 2.5 cm prostatic urethra with no median bar. Transrectal ultrasound demonstrates a 34 g prostate recent PSA was 2.4. After discussion of therapeutic options including TURP and other minimally invasive procedures he presents for a urolift. He is aware the risk of this procedure including, but not limited to, hematuria, persistent voiding symptoms, erosion of foreign body into his bladder. Review of Systems Cardiovascular: Cardiovascular: Denies chest pain, Denies lightheadedness, Denies palpitations and Denies dyspnea Respiratory: Respiratory: Denies dyspnea Gastrointestinal: Gastrointestinal: Denies diarrhea, Denies nausea and Denies vomiting Genitourinary: Genitourinary: Denies hematuria and Denies dysuria Endocrine: Endocrine: Denies palpitations PMFSH Past Medical History Medical History BPH NOS w/o ur obs/LUTS Chronic back pain CKD (chronic kidney disease) stage 3, GFR 30-59 ml/min Dyslipidemia Essential (primary) hypertension controlled with lifestyle modifications Hypogonadism in male Hypothyroidism (acquired) Idiopathic peripheral neuropathy Nasal polyps 2008 Neck pain Open fracture of distal phalanx 07/2011 VIRAJ (obstructive sleep apnea) Secondary polycythemia Spinal stenosis Unspecified osteoarthritis, unspecified site Vitamin D deficiency Surgical History Surgical History H/O removal of cyst History of appendectomy 2004 History of cervical discectomy 09/2006 History of neck surgery C5-C6 2006 History of sinus surgery 09/2008 Family History Family History Father Acute myocardial infarction Diabetes mellitus Sibling Diabetes mellitus Social History Social History Smoking status: Never smoker Second hand tobacco smoke exposure: No Alcohol intake: never Substance use: never Substance use type: does not use Spiritual care concerns: No Meds Home Medications and Allergies Home Medications Medication Instructions Recorded Confirmed Type levothyroxine 88 mcg tablet 88 mcg PO DAILY #90 tabs 07/18/21 12/15/21 Rx finasteride 5 mg tablet 5 mg PO DAILY #30 tabs 10/24/21 12/15/21 Rx tamsulosin 0.4 mg capsule 0.4 mg PO DAILY #30 caps 10/24/21 12/15/21 Rx ciprofloxacin HCl 500 mg tablet 500 mg PO Q12H 11/22/21 12/15/21 History Allergies Allergy/AdvReac Type Severity Reaction Status Date / Time Penicillins Allergy Unknown Rash Verified 12/15/21 14:15 Exam Const: General: no acute distress Resp: Effort & Inspection: normal respiratory effort GI: Inspection: non-distended GI Palp: No abdominal tenderness and No Guarding due to palpation present (GI) Auscultation: normal bowel sounds Assessment and Plan Assessment and plan (1) BPH loc w urin obs/LUTS: Code(s): N40.1 - Benign prostatic hyperplasia with lower urinary tract symptoms Status: Acute Assessment and Plan: Placement of Urolift
[2021-12-22] VITALS (8 sets, daily range): BP systolic 111–148; BP diastolic 64–102; PULSE 53–65; RESP 10–19; TEMP 36.1–36.3; O2SAT 98–100
--- NOTE | 2021-12-22 06:40 | WPDHPUPDATE1 ---
History and Physical Update Update Date/Time: 12/22/21 06:40 History and Physical has been reviewed, including an updated exam of the patient. There are NO changes in the patient's condition. Risks, benefits, and alternatives have been discussed and questions answered. Patient agrees to proceed with procedure.
[2021-12-22] MEDS: LACTATED RINGERS 1,000 ML 30 ML IV CONT (08:00)
--- NOTE | 2021-12-22 08:31 | WPDANESEPPF ---
Anes - Initial Pre Proc Eval Procedure: Operation Date: 12/22/21 09:30 Proposed Procedures p Urolift - Nitish Bautista MD Date/Time: 12/22/21 08:31 Surgeon: Nitish Bautista MD Pre Op Diagnosis: bph Patient Data Age: 61 Gender: M Height: 1.8 m Weight: 91.8 kg Last Vital Signs Temp 36.3 C L 12/22/21 07:50 Pulse 64 12/22/21 07:50 Resp 18 12/22/21 07:50 BP 143/78 H 12/22/21 07:50 Pulse Ox 100 12/22/21 07:50 O2 Del Method Room Air 12/22/21 07:50 Allergies Allergy/AdvReac Type Severity Reaction Status Date / Time Penicillins Allergy Unknown Rash Verified 12/22/21 08:06 Home Medications Medication Instructions Recorded Confirmed Type levothyroxine 88 mcg tablet 88 mcg PO DAILY #90 tabs 07/18/21 12/22/21 Rx finasteride 5 mg tablet 5 mg PO DAILY #30 tabs 10/24/21 12/22/21 Rx tamsulosin 0.4 mg capsule 0.4 mg PO DAILY #30 caps 10/24/21 12/22/21 Rx ciprofloxacin HCl 500 mg tablet 500 mg PO Q12H 11/22/21 12/22/21 History Patient hx anesthesia problems: none Family hx anesthesia problems: none Results Review: All pre-operative results and documents have been reviewed as part of the pre-operative evaluation. [facility] Past Medical History Medical History BPH NOS w/o ur obs/LUTS Chronic back pain CKD (chronic kidney disease) stage 3, GFR 30-59 ml/min Dyslipidemia Essential (primary) hypertension controlled with lifestyle modifications Hypogonadism in male Hypothyroidism (acquired) Idiopathic peripheral neuropathy Nasal polyps 2008 Neck pain Open fracture of distal phalanx 07/2011 VIRAJ (obstructive sleep apnea) Secondary polycythemia Spinal stenosis Unspecified osteoarthritis, unspecified site Vitamin D deficiency Surgical History Surgical History H/O removal of cyst History of appendectomy 2004 History of cervical discectomy 09/2006 History of neck surgery C5-C6 2007 History of sinus surgery 09/2008 Family History Family History Father Acute myocardial infarction Diabetes mellitus Sibling Diabetes mellitus Social History Social History Smoking status: Never smoker Second hand tobacco smoke exposure: No Alcohol intake: never Substance use: never Substance use type: does not use Living arrangements: with family Spiritual care concerns: No Anes - Eval Final PreProcedure Day of Procedure 12/22/21 08:31 Patient weight: overweight Heart: regular rate and rhythm Lungs: clear to auscultation Airway: Mallampati scale class II Neurological: alert and oriented Last oral intake: >/= 8 hours ASA classification: III Emergent: no Anesthetic plan: proceed Anesthesia type and monitoring: general LMA and standard monitoring Results Review: All pre-operative results and documents have been reviewed as part of the pre-operative evaluation. Informed Consent: The patient's anesthetic plan and its attendant risks and benefits were discussed with the patient/family/POA. Questions were solicited and answers provided to the satisfaction of the patient/family/POA.
[2021-12-22] MEDS: ceFAZolin 2 GM/D5W 50 ML 2 GM/50 ML BAG IVPB (09:08)
--- NOTE | 2021-12-22 09:41 | P.OP_ITS ---
Procedure Note - Detailed Date of Procedure 12/22/21 Pre-op Diagnosis BPH Post-op Diagnosis Same Procedure Performed UroLift placement Surgeon Nitish Bautista MD Description of Procedure The patient was prepped and draped in a routine fashion after the uneventful induction of a general LMA anesthetic. A 20F cystoscope was inserted into the bladder. The cystoscopy bridge was replaced with a UroLift delivery device. The first treatment site was the patient's right side approximately 1.5cm distal to the bladder neck. The distal tip of the delivery device was then angled laterally approximately 20 degrees at this position to compress the lateral lobe. The trigger was pulled, thereby deploying a needle containing the implant through the prostate. The needle was then retracted, allowing one end of the implant to be delivered to the capsular surface of the prostate. The implant was then tensioned to assure capsular seating and removal of slack monofilament. The device was then angled back toward midline and slowly advanced proximally (typically 3 to 4 mm) until cystoscopic verification of the monofilament being centered in the delivery bay. The urethral end piece was then affixed to the monofilament thereby tailoring the size of the implant. Excess filament was then severed. The delivery device was then re-advanced into the bladder. The delivery device was then replaced with cystoscope and bridge and the implant location and opening effect was confirmed cystoscopically. The same procedure was then repeated on the left side, and two additional implants were delivered just proximal to the verumontanum, again one on right and one on left side of the prostate, following the same technique. Cystoscopy then revealed a persistent area of obstruction, and two more implants were delivered in the mid- prostate. Therefore, a total of 6 implants were delivered. A final cystoscopy was conducted first to inspect the location and state of each implant and second, to confirm the presence of a continuous anterior channel was present through the prostatic urethra with irrigation flow turned off. The bladder was then filled with 150 cc irrigation fluid to assist the patient in void trial after the procedure, and all instruments were removed. At this point the cystoscope was removed and the patient was taken to the PACU in good condition.
[2021-12-22] MEDS: fentaNYL CITRATE INJ (*CRX) 100 MCG/2 ML VIAL 25 MCG IV PUSH ×4 (10:07→10:23)
[2021-12-22] MEDS: oxyCODONE HCL (*CRX) 5 MG TAB IR PO (10:56)
== END 2021-12-22 11:31 | disposition home or self-care (01) ==
PROVIDERS: PCP Family Medicine; Visit Provider Urology
PROC: 0T7D8DZ Dilation of Urethra with Intraluminal Device, Via Natural or Artificial Opening Endoscopic (ICD-10-PCS; CPT 52441; principal; 2021-12-22 09:30)
DX: N40.1 Benign prostatic hyperplasia with lower urinary tract symptoms (principal); I12.9 Hypertensive chronic kidney disease with stage 1 through stage 4 chronic kidney disease, or unspecified chronic kidney disease; N18.30 Chronic kidney disease, stage 3 unspecified; E78.5 Hyperlipidemia, unspecified; E03.9 Hypothyroidism, unspecified; E11.42 Type 2 diabetes mellitus with diabetic polyneuropathy; G47.33 Obstructive sleep apnea (adult) (pediatric); D75.1 Secondary polycythemia; E55.9 Vitamin D deficiency, unspecified; M19.90 Unspecified osteoarthritis, unspecified site
CPT/HCPCS: 52441; 52442 ×5; A9270; J0690; J2250; J2405; J2704; J3010; J7120; L8699

== ENCOUNTER 2022-01-20 00:27 | Day surgery (SDC) | payer BC, SELFPAY ==
[2022-01-10 15:48] VITALS: BMI 28.7
--- NOTE | 2022-01-19 13:18 | PM.HPGS ---
History of Present Illness History of Present Illness Consent: Risks, benefits, and alternatives have been discussed and questions answered. Patient agrees to proceed with procedure. Chief complaint: neoplasm screening Narrative: Austin Sherman is a 61 year old male who was referred for colon cancer screening. His last colonoscopy was 10 years ago. Review of Systems Review of Systems: All systems reviewed & are unremarkable except as noted in HPI and below PMFSH Past Medical History Medical History BPH NOS w/o ur obs/LUTS Chronic back pain CKD (chronic kidney disease) stage 3, GFR 30-59 ml/min Dyslipidemia Essential (primary) hypertension controlled with lifestyle modifications Hypogonadism in male Hypothyroidism (acquired) Idiopathic peripheral neuropathy Nasal polyps 2008 Neck pain Open fracture of distal phalanx 07/2011 VIRAJ (obstructive sleep apnea) Secondary polycythemia Spinal stenosis Unspecified osteoarthritis, unspecified site Vitamin D deficiency Surgical History Surgical History H/O removal of cyst History of appendectomy 2004 History of cervical discectomy 09/2006 History of neck surgery C5-C6 2006 History of sinus surgery 09/2008 Family History Family History Father Acute myocardial infarction Diabetes mellitus Sibling Diabetes mellitus Social History Social History Smoking status: Never smoker Second hand tobacco smoke exposure: No Alcohol intake: never Substance use: never Substance use type: does not use Living arrangements: with family Spiritual care concerns: No Meds Home Medications and Allergies Home Medications Medication Instructions Recorded Confirmed Type levothyroxine 88 mcg tablet 88 mcg PO DAILY #90 tabs 07/18/21 01/10/22 Rx Allergies Allergy/AdvReac Type Severity Reaction Status Date / Time Penicillins Allergy Unknown Rash Verified 01/20/22 08:27 Exam Const: General: alert Orientation/consciousness: patient oriented x3 Resp: Auscultation: clear to auscultation bilaterally Cardio: Rhythm: regular rhythm GI: GI Palp: Yes Soft to palpation and No Tenderness to palpation present (GI) Neuro: General: patient oriented x3 Assessment and Plan Assessment and plan (1) Colon cancer screening: Code(s): Z12.11 - Encounter for screening for malignant neoplasm of colon Status: Acute Assessment and Plan: Colonoscopy with possible biopsy or polypectomy or cautery or injection of substances.
[2022-01-20 08:28] VITALS: BP 147/77; PULSE 67; RESP 18; TEMP 36.2; O2SAT 100
[2022-01-20] MEDS: LACTATED RINGERS 1,000 ML 150 ML IV CONT (08:36)
--- NOTE | 2022-01-20 08:51 | WPDANESEPPF ---
Anes - Initial Pre Proc Eval Procedure: Operation Date: 01/20/22 09:30 Proposed Procedures p Screening Colonoscopy - Austin Stanton MD Date/Time: 01/20/22 08:51 Surgeon: Austin Stanton MD Pre Op Diagnosis: neoplasm screening Patient Data Age: 61 Gender: M Height: 1.8 m Weight: 92.5 kg Last Vital Signs Temp 97.2 F L 01/20/22 08:28 Pulse 67 01/20/22 08:28 Resp 18 01/20/22 08:28 BP 147/77 H 01/20/22 08:28 Pulse Ox 100 01/20/22 08:28 O2 Del Method Room Air 01/20/22 08:28 Allergies Allergy/AdvReac Type Severity Reaction Status Date / Time Penicillins Allergy Unknown Rash Verified 01/20/22 08:27 Home Medications Medication Instructions Recorded Confirmed Type levothyroxine 88 mcg tablet 88 mcg PO DAILY #90 tabs 07/18/21 01/10/22 Rx Patient hx anesthesia problems: none Family hx anesthesia problems: none Results Review: All pre-operative results and documents have been reviewed as part of the pre-operative evaluation. [facility] Past Medical History Medical History BPH NOS w/o ur obs/LUTS Chronic back pain CKD (chronic kidney disease) stage 3, GFR 30-59 ml/min Dyslipidemia Essential (primary) hypertension controlled with lifestyle modifications Hypogonadism in male Hypothyroidism (acquired) Idiopathic peripheral neuropathy Nasal polyps 2009 Neck pain Open fracture of distal phalanx 07/2011 VIRAJ (obstructive sleep apnea) Secondary polycythemia Spinal stenosis Unspecified osteoarthritis, unspecified site Vitamin D deficiency Surgical History Surgical History H/O removal of cyst History of appendectomy 2004 History of cervical discectomy 09/2006 History of neck surgery C5-C6 2006 History of sinus surgery 09/2008 Family History Family History Father Acute myocardial infarction Diabetes mellitus Sibling Diabetes mellitus Social History Social History Smoking status: Never smoker Second hand tobacco smoke exposure: No Alcohol intake: never Substance use: never Substance use type: does not use Living arrangements: with family Spiritual care concerns: No Anes - Eval Final PreProcedure Day of Procedure 01/20/22 08:51 Patient weight: overweight Heart: regular rate and rhythm Lungs: clear to auscultation Airway: Mallampati scale class II Neurological: alert and oriented Last oral intake: >/= 8 hours ASA classification: III Emergent: no Anesthetic plan: proceed Anesthesia type and monitoring: general GIVS and standard monitoring Results Review: All pre-operative results and documents have been reviewed as part of the pre-operative evaluation. Informed Consent: The patient's anesthetic plan and its attendant risks and benefits were discussed with the patient/family/POA. Questions were solicited and answers provided to the satisfaction of the patient/family/POA.
[2022-01-20 09:41] VITALS: BP 108/71; PULSE 68; RESP 22; O2SAT 97
[2022-01-20 09:51] VITALS: BP 133/86; PULSE 62; RESP 18; O2SAT 99
[2022-01-20 10:01] VITALS: BP 141/86; PULSE 59; RESP 20; O2SAT 99
== END 2022-01-20 10:11 | disposition home or self-care (01) ==
PROVIDERS: PCP Family Medicine; Visit Provider Internal Medicine Gastroenterology
PROC: 0DJD8ZZ Inspection of Lower Intestinal Tract, Via Natural or Artificial Opening Endoscopic (ICD-10-PCS; CPT 45378; principal; 2022-01-20 09:30)
DX: Z12.11 Encounter for screening for malignant neoplasm of colon (principal); E03.9 Hypothyroidism, unspecified; N40.0 Benign prostatic hyperplasia without lower urinary tract symptoms; I12.9 Hypertensive chronic kidney disease with stage 1 through stage 4 chronic kidney disease, or unspecified chronic kidney disease; N18.30 Chronic kidney disease, stage 3 unspecified; G60.9 Hereditary and idiopathic neuropathy, unspecified; G47.33 Obstructive sleep apnea (adult) (pediatric); E55.9 Vitamin D deficiency, unspecified; D75.1 Secondary polycythemia
CPT/HCPCS: 45378; J2704; J7120

== ENCOUNTER 2022-04-22 05:48 | Emergency (ER) | payer BC, SELFPAY ==
--- NOTE | ~2022-04-22 | CT_ITS ---
EXAMINATION: CT abdomen pelvis wo con DATE: 04/22/2022 06:37 INDICATION: Left flank pain TECHNIQUE: Computed tomography (CT) of the abdomen and pelvis was performed without intravenous contr ast. Automated exposure control and iterative reconstruction technique were employed. The dose-length product was 595.17 mGy-cm. COMPARISON: 06/21/2021 FINDINGS: Lung bases are clear. Heart size is normal. Atherosclerotic coronary artery calcification. No pericar dial or pleural effusion. Liver, gallbladder, spleen and bilateral adrenal glands are normal. A few s cattered pancreatic calcifications likely sequela of chronic pancreatitis. 3 mm stone in upper pole c sienna of the left kidney. There is an additional 3 mm stone in the mid left ureter with more proximal mild left hydroureteronephrosis. Right kidney and ureter are normal with no right-sided urolithiasis. Small mural calcification at the junction of the bladder and the median umbilical ligament. There is also mild prostatomegaly with combination of prostatic calcifications and brachytherapy seeds. There are couple surgical clips at the tip the cecum with nonvisualized appendix consistent with prior brielle endectomy. Bowels are normal. No free intraperitoneal gas or fluid. No pathologically enlarged abdomi nal or pelvic lymphadenopathy. Mild thoracic and lumbar spondylosis with bridging osteophytes at mult iple levels consistent with diffuse idiopathic skeletal hyperostosis (DISH). IMPRESSION: 1. Nephrolithiasis with obstructing 3 mm stone in the mid left ureter with mild left hydroureteroneph rosis. Reviewed, dictated and finalized at location A. ULATION LIBRARIAN IMPRESSION: 1. Nephrolithiasis with obstructing 3 mm stone in the mid left ureter with mild left hydroureteronephrosis.
--- NOTE | 2022-04-22 06:19 | ED.GENADULT ---
HPI - General Adult General Chief complaint: Urogenital-Male <Eddie Valdez MD - Last Filed: 04/22/22 06:22> Stated complaint: LEFT FLANK PAIN <Eddie Valdez MD - Last Filed: 04/22/22 06:22> Time Seen by Provider: 04/22/22 06:18 <Eddie Valdez MD - Last Filed: 04/22/22 06:22> History of Present Illness HPI narrative: Patient is a 61-year-old gentleman presents emerged from with chief complaint of left flank pain. Patient reports that approximately 2 days ago started having pain in the left flank area reports it radiates to his left groin. The patient states pain is sharp reports that is not improved by anything patient states it feels similar to when he had a UTI before in the past. Patient states he took 2 doses of Macrobid that he had laying around at home patient reports that he has had some nausea with this patient reports the pain has not improved by anything. <Eddie Valdez MD - Last Filed: 04/22/22 06:22> Related Data Allergies/adverse reactions: Allergies Allergy/AdvReac Type Severity Reaction Status Date / Time Penicillins Allergy Unknown Rash Verified 01/20/22 08:27 <Eddie Valdez MD - Last Filed: 04/22/22 06:22> Review of Systems Review of Systems: A 10 system review of systems was completed on the patient and is negative except for what is stated in the HPI. Nursing and ancillary documentation was reviewed. <Eddie Valdez MD - Last Filed: 04/22/22 06:22> [facility] Past Medical History Medical History: Medical History BPH NOS w/o ur obs/LUTS Chronic back pain CKD (chronic kidney disease) stage 3, GFR 30-59 ml/min Dyslipidemia Essential (primary) hypertension controlled with lifestyle modifications Hypogonadism in male Hypothyroidism (acquired) Idiopathic peripheral neuropathy Nasal polyps 2009 Neck pain Open fracture of distal phalanx 07/2011 VIRAJ (obstructive sleep apnea) Secondary polycythemia Spinal stenosis Unspecified osteoarthritis, unspecified site Vitamin D deficiency <Eddie Valdez MD - Last Filed: 04/22/22 06:22> Surgical History Surgical History: Surgical History H/O removal of cyst History of appendectomy 2004 History of cervical discectomy 09/2006 History of neck surgery C5-C6 2006 History of sinus surgery 09/2008 <Eddie Valdez MD - Last Filed: 04/22/22 06:22> Family History Family History: Family History Father Acute myocardial infarction Diabetes mellitus Sibling Diabetes mellitus <Eddie Valdez MD - Last Filed: 04/22/22 06:22> Social History Social History: Social History Smoking status: Never smoker Second hand tobacco smoke exposure: No Alcohol intake: never Substance use: never Substance use type: does not use Spiritual care concerns: No <Eddie Valdez MD - Last Filed: 04/22/22 06:22> Exam Narrative: GENERAL: Well-appearing, well-nourished, and in no acute distress. HEAD: Normocephalic, atraumatic. EYES: PERRLA and EOMI. ENT: Nares clear, no rhinorrhea or epistaxis. Mucous membranes moist. NECK: Supple. CHEST: Clear to auscultation. No respiratory distress. HEART: Regular rate and rhythm. No murmur heard. Normal peripheral pulses. ABDOMEN: Soft, nontender, nondistended, normal active bowel sounds. EXTREMITIES: Normal range of motion. No edema. SKIN: Warm, dry, no rash. NEURO: No focal deficits. Alert and oriented x3. PSYCH: Normal mood and affect. <Eddie Valdez MD - Last Filed: 04/22/22 06:22> Course Vital Signs Vital signs: Vital Signs Pulse Rate 94 04/22/22 06:54 Respiratory Rate 18 04/22/22 06:54
[2022-04-22] MEDS: ONDANSETRON INJ 4 MG/2 ML VIAL IV PUSH (06:46)
[2022-04-22] MEDS: SODIUM CHLORIDE 0.9% IV 1,000 ML 999 ML IV CONT ×2 (06:46→08:44)
[2022-04-22 06:54] VITALS: BP 189/107; PULSE 94; RESP 18; O2SAT 99
[2022-04-22 06:54] LABS: Basophils Absolute Auto 0.1 K/mm3 (0.0-0.1); Basophils Percent Auto 0.5 % (0.2-1.2); Eosinophils Absolute Auto 0.1 K/mm3 (0-0.3); Eosinophils Percent Auto 0.8 % (0-4.4); Hemoglobin 17.1 g/dL (14.0-18.0); Immature Granulocyte Absolute 0.07 K/mm3 (0.00-0.031); Immature Granulocyte Percent A 0.5 % (0-0.5); Lymphocytes Absolute Auto 1.27 K/mm3 (0.9-3.2); Mean Corpuscular HGB Conc 32.9 g/dl (32-36); Mean Corpuscular Hemoglobin 29.8 pg (26-34); Mean Corpuscular Volume 90.8 fl (80-100); Mean Platelet Volume 9.7 fl (7.4-10.4); Monocytes Absolute Auto 0.8 K/mm3 (0.1-0.6); Monocytes Percent Auto 5.5 % (2.6-8.5); Neutrophils Absolute Auto 11.8 K/mm3 (1.3-6.7); Neutrophils Percent Auto 83.7 % (45.5-73.1); Platelet Count Result 223 k/mm3 (150-375); Red Blood Count 5.73 M/mm3 (4.6-6.20); Red Cell Distribution Width 12.6 % (11.5-14.5); White Blood Count 14.1 K/mm3 (4.5-10.0)
[2022-04-22 06:55] LABS: Appearance Urine Clear (Clear); Bilirubin Urine Negative (Negative); Blood Urine 2+ (Negative); Color Urine Yellow (Yellow); Glucose Urine UA Negative (Negative); Ketones Urine Negative (Negative); Leukocyte Esterase Ur Trace LEU/UL (Negative); Nitrate Urine Negative (Negative); Protein Urine Negative (Negative); Specific Grav Ur 1.015 (1.001-1.035); Urobilinogen Urine 0.2 mg/dL (<2.0); pH Urine 5.5 (5.0-9.0)
[2022-04-22 06:56] VITALS: TEMP 36.9
[2022-04-22 07:04] LABS: Alanine Aminotransferase 25 U/L (6-50); Albumin Level 4.7 g/dL (3.5-5.1); Alkaline Phosphatase 73 U/L (38-126); Anion Gap 13 mmol/L (8-16); Aspartate Amino Transferase 27 U/L (17-59); Bilirubin,Total 0.9 mg/dL (0.2-1.3); Blood Urea Nitrogen 19 mg/dL (9-20); Calcium 9.8 mg/dL (8.4-10.2); Carbon Dioxide 28 mmol/L (22-30); Chloride 99 mmol/L (98-107); Estimated CRCL calculation 48 ml/min; Estimated Glomerular Filt Rate 47; Glucose 131 mg/dL (65-110); Lipase 58 U/L (23-300); Sodium 140 mmol/L (137-145)
[2022-04-22 07:59] LABS: Add Urine Microscopic? YES; Mucus Urine Rare /lpf; Squamous Epithelial Cell Urine Rare /hpf (Few)
[2022-04-22] MEDS: TAMSULOSIN HCL 0.4 MG CAPSULE PO (08:45)
[2022-04-22] MEDS: KETOROLAC 30 MG/ML VIAL (*BKC) IV PUSH (08:45)
[2022-04-22 09:20] VITALS: BP 159/87; PULSE 88; RESP 16; O2SAT 98
== END 2022-04-22 09:20 | disposition home or self-care (01) ==
PROVIDERS: Emergency Medicine; Emergency Provider Emergency Medicine; PCP Family Medicine
DX: N13.2 Hydronephrosis with renal and ureteral calculous obstruction (principal); I12.9 Hypertensive chronic kidney disease with stage 1 through stage 4 chronic kidney disease, or unspecified chronic kidney disease; N18.30 Chronic kidney disease, stage 3 unspecified; E03.9 Hypothyroidism, unspecified; E55.9 Vitamin D deficiency, unspecified; G60.9 Hereditary and idiopathic neuropathy, unspecified; G47.33 Obstructive sleep apnea (adult) (pediatric); N40.0 Benign prostatic hyperplasia without lower urinary tract symptoms; M19.90 Unspecified osteoarthritis, unspecified site; D75.1 Secondary polycythemia
CPT/HCPCS: 36415; 74176; 80053; 81001; 83690; 85025; 87086; 96361; 96374; 96375; 99284; A9270; J0131; J1885; J2405; J7030

== ENCOUNTER 2022-04-26 00:58 | Day surgery (SDC) | payer BC, SELFPAY ==
[2022-04-25 17:17] VITALS: BMI 28.5
--- NOTE | 2022-04-25 17:44 | PC.NURSE ---
Report to the Outpatient Waiting Room, entrance under the green pavilion located off [facility], at 1315 on 04-26-22. Planned Procedure Time: 1515. Time changes happen often and if your time is changed the preop area will call you the afternoon before. - You and your visitor will be asked to self-screen and do not enter if you have any COVID symptoms. - Only one visitor is requested with a max of two and NO children visitors are allowed at this time. - The patient visitor may be requested to leave or wait in car when not with patient due to distancing restrictions. - A mask is optional within the hospital. Patients may have clear liquids (water, carbonated beverages, clear teas, apple juice) until 3 hours prior to surgery with a maximum of 20 ounces. 1215 - No food from midnight until time of surgery - Infants may have breast milk until 4 hours before surgery, infant formula 6 hours prior to surgery. - Children will be allowed to drink immediately following surgery. If applicable, please bring a bottle or sippy cup to assist with drinking. Juice, water, soda, and popsicles are readily available. For infants on formula, please bring formula the day of surgery. Pacifiers are allowed. Take the following medications with a SIP of water the morning of surgery: levothyroxine, [place] and Zofran if needed Medications to discontinue per physician: Vitamins and supplements Date to take last dose: 04-25-22 Please no make-up, nail lao, hairspray, perfume, deodorant, or body powder the day of surgery. No jewelry (including any body piercings) or valuables the day of surgery, leave them at home. Please take a shower or bath the night before, or the morning of, surgery with an antibacterial soap. Wear comfortable, loose fitting clothing. Children are encouraged to wear pajamas. - Jewelry must be removed prior to entering the operating room. Rings and piercings that are not removed may be cut off. - The hospital will not accept responsibility for valuables. - Please leave all valuables, including medications, at home the day of surgery. If you are going home after surgery, a licensed front end loader driver must drive you home. - NO public transportation without another adult if you receive anesthesia. - We recommend that an adult stay with you for 24 hours following discharge. - We also recommend that you do not drive, make important decision, drink alcoholic beverages, or take any drugs that were not prescribed by your health care provider for at least 24 hours after your discharge time. For Pediatric surgeries, we recommend two adults accompany the child home. Follow any additional instructions given to you from your surgeon. If you or anyone in your household have experienced Covid symptoms in the past week, please notify your surgeon or the nurse liaison at the phone number below for possible testing. Telephone instructions given to Jelani Sherman and asked if any additional questions and then verbalized understanding. Patient advised to call surgeon office or pre surgery nurse liaison [phone] if any additional questions.
[2022-04-26] VITALS (8 sets, daily range): BP systolic 143–157; BP diastolic 78–89; PULSE 61–88; RESP 11–20; TEMP 36.6–36.7; O2SAT 99–100
--- NOTE | ~2022-04-26 | XR_ITS ---
EXAMINATION: XR retrograde pyelo w/stent LT DATE: 04/26/2022 15:35 FILLING STATION LABORER INDICATION: LT RETRO/STENT . TECHNIQUE: 5 fluoroscopic images of the left abdomen and pelvis were obtained during left retrograde pyelography with stent placement performed by the surgeon. I was not present in the operating room. F luoroscopy exposure time was 46 seconds. DAP [id number] [id number]. COMPARISON: CT abdomen and pelvis 04/22/2022. FINDINGS: Wire and catheter access to the left collecting system. Post stent deployment the proximal coil proje cts over the left kidney in the distal coil is partially unfolded, projecting over the bladder. IMPRESSION: Fluoroscopic documentation of left retrograde pyelography with stent placement. Please refer to the o perative note for complete procedural details . Reviewed, dictated and finalized at location K. ING STATION LABORER IMPRESSION: Fluoroscopic documentation of left retrograde pyelography with stent placement. Please refer to the operative note for complete procedural details .
--- NOTE | 2022-04-26 13:01 | PM.HPGS ---
History of Present Illness History of Present Illness Consent: Risks, benefits, and alternatives have been discussed and questions answered. Patient agrees to proceed with procedure. Chief complaint: Lt Kidney Stones Narrative: Austin Sherman is a 61 year old male well known to me with a history of urolithiasis, among other urological issues. He was in the ER several days ago with left flank pain radiating his left lower quadrant. Imaging demonstrated obstructing 3 mm left proximal to mid ureteral stone. He continues to have intermittent pain prompting our decision for endoscopic intervention. He is aware the risk including, but not limited to, adverse cardiopulmonary events, need for ureteral stent placement, ureteral injury and persistent stone fragments that could require additional procedures. Review of Systems Review of Systems: All systems reviewed & are unremarkable except as noted in HPI and below PMFSH Past Medical History Medical History BPH NOS w/o ur obs/LUTS Chronic back pain CKD (chronic kidney disease) stage 3, GFR 30-59 ml/min Dyslipidemia Essential (primary) hypertension controlled with lifestyle modifications Hypogonadism in male Hypothyroidism (acquired) Idiopathic peripheral neuropathy Nasal polyps 2008 Neck pain Open fracture of distal phalanx 07/2011 VIRAJ (obstructive sleep apnea) Secondary polycythemia Spinal stenosis Unspecified osteoarthritis, unspecified site Vitamin D deficiency Surgical History Surgical History H/O removal of cyst History of appendectomy 2004 History of cervical discectomy 09/2006 History of neck surgery C5-C6 2006 History of sinus surgery 09/2008 Family History Family History Father Acute myocardial infarction Diabetes mellitus Sibling Diabetes mellitus Social History Social History Smoking status: Former smoker Tobacco type: cigarettes Second hand tobacco smoke exposure: No Additional smoking assessment comments: only a few cigarettes here and there in the past. Not a regular smoker Alcohol intake: never Substance use: never Substance use type: does not use Living arrangements: with family Spiritual care concerns: No Meds Home Medications and Allergies Home Medications Medication Instructions Recorded Confirmed Type levothyroxine 88 mcg tablet 88 mcg PO DAILY #90 tabs 01/31/22 04/25/22 Rx hydrocodone 5 mg-acetaminophen 325 1 tablet PO Q4H #20 tabs 04/22/22 04/25/22 Rx mg tablet ondansetron HCl 4 mg tablet 4 mg PO Q4H 3 doses #10 tabs 04/22/22 04/25/22 Rx tamsulosin 0.4 mg capsule (Flomax) 0.4 mg PO DAILY #10 caps 04/22/22 04/25/22 Rx cholecalciferol (vitamin D3) 125 125 mcg PO DAILY 04/25/22 04/25/22 History mcg (5,000 unit) tablet (Vitamin D3) ibuprofen 200 mg tablet 400 mg PO Q6H PRN Pain, Moderate 04/25/22 04/25/22 History omega-3 fatty acids 1,000 mg PO DAILY 04/25/22 04/25/22 History vitamin B complex (B 1 tablet PO DAILY 04/25/22 04/25/22 History Complex-Vitamin B12 tablet) Allergies Allergy/AdvReac Type Severity Reaction Status Date / Time Penicillins Allergy Intermediate Rash Verified 04/25/22 17:13 Exam Const: General: no acute distress Resp: Effort & Inspection: normal respiratory effort GI: Inspection: non-distended GI Palp: No abdominal tenderness and No Guarding due to palpation present (GI) Auscultation: normal bowel sounds Assessment and Plan Assessment and plan (1) Left ureteral stone: Code(s): N20.1 - Calculus of ureter Status: Acute Assessment and Plan: Cystoscopy, left ureteroscopy with stone extraction, possible laser lithotripsy, retrograde pyelogram and stent placement
[2022-04-26] MEDS: LACTATED RINGERS 1,000 ML 30 ML IV CONT (14:15)
--- NOTE | 2022-04-26 14:49 | WPDANESEPPF ---
Anes - Initial Pre Proc Eval Procedure: Operation Date: 04/26/22 15:15 Proposed Procedures p Cystoscopy, Left Ureteroscopy, Left Retrograde Pyelogram, Left Stone Extraction, Possible Left Stent Placement, Possible Holmium Laser - Nitish Bautista MD Date/Time: 04/26/22 14:49 Surgeon: Nitish Bautista MD Pre Op Diagnosis: Lt Kidney Stones Patient Data Age: 61 Gender: M Height: 1.8 m Weight: 94.4 kg Last Vital Signs Temp 36.6 C 04/26/22 13:58 Pulse 79 04/26/22 13:58 Resp 20 04/26/22 13:58 BP 147/83 H 04/26/22 13:58 Pulse Ox 99 04/26/22 13:58 O2 Del Method Room Air 04/26/22 13:58 Allergies Allergy/AdvReac Type Severity Reaction Status Date / Time Penicillins Allergy Intermediate Rash Verified 04/26/22 13:57 Home Medications Medication Instructions Recorded Confirmed Type levothyroxine 88 mcg tablet 88 mcg PO DAILY #90 tabs 01/31/22 04/26/22 Rx hydrocodone 5 mg-acetaminophen 325 1 tablet PO Q4H #20 tabs 04/22/22 04/26/22 Rx mg tablet ondansetron HCl 4 mg tablet 4 mg PO Q4H 3 doses #10 tabs 04/22/22 04/25/22 Rx tamsulosin 0.4 mg capsule (Flomax) 0.4 mg PO DAILY #10 caps 04/22/22 04/26/22 Rx cholecalciferol (vitamin D3) 125 125 mcg PO DAILY 04/25/22 04/26/22 History mcg (5,000 unit) tablet (Vitamin D3) ibuprofen 200 mg tablet 400 mg PO Q6H PRN Pain, Moderate 04/25/22 04/26/22 History omega-3 fatty acids 1,000 mg PO DAILY 04/25/22 04/26/22 History vitamin B complex (B 1 tablet PO DAILY 04/25/22 04/26/22 History Complex-Vitamin B12 tablet) Patient hx anesthesia problems: none Family hx anesthesia problems: none Results Review: All pre-operative results and documents have been reviewed as part of the pre-operative evaluation. [facility] Past Medical History Medical History BPH NOS w/o ur obs/LUTS Chronic back pain CKD (chronic kidney disease) stage 3, GFR 30-59 ml/min Dyslipidemia Essential (primary) hypertension controlled with lifestyle modifications Hypogonadism in male Hypothyroidism (acquired) Idiopathic peripheral neuropathy Nasal polyps 2009 Neck pain Open fracture of distal phalanx 07/2011 VIRAJ (obstructive sleep apnea) Secondary polycythemia Spinal stenosis Unspecified osteoarthritis, unspecified site Vitamin D deficiency Surgical History Surgical History H/O removal of cyst History of appendectomy 2004 History of cervical discectomy 09/2006 History of neck surgery C5-C6 2006 History of sinus surgery 09/2008 Family History Family History Father Acute myocardial infarction Diabetes mellitus Sibling Diabetes mellitus Social History Social History Smoking status: Former smoker Tobacco type: cigarettes Second hand tobacco smoke exposure: No Additional smoking assessment comments: only a few cigarettes here and there in the past. Not a regular smoker Alcohol intake: never Substance use: never Substance use type: does not use Living arrangements: with family Spiritual care concerns: No Anes - Eval Final PreProcedure Day of Procedure 04/26/22 14:49 Patient weight: overweight Heart: regular rate and rhythm Lungs: clear to auscultation Airway: Mallampati scale class II Neurological: alert and oriented Last oral intake: >/= 8 hours ASA classification: III Emergent: no Anesthetic plan: proceed Anesthesia type and monitoring: general LMA and standard monitoring Results Review: All pre-operative results and documents have been reviewed as part of the pre-operative evaluation. Informed Consent: The patient's anesthetic plan and its attendant risks and benefits were discussed with the patient/family/POA. Questions were solicited and answers provided to the satisfaction
[2022-04-26] MEDS: fentaNYL CITRATE INJ (*CRX) 100 MCG/2 ML VIAL 50 MCG IV PUSH (15:00)
--- NOTE | 2022-04-26 15:29 | WPDHPUPDATE1 ---
History and Physical Update Update Date/Time: 04/26/22 15:29 History and Physical has been reviewed, including an updated exam of the patient. There are NO changes in the patient's condition. Risks, benefits, and alternatives have been discussed and questions answered. Patient agrees to proceed with procedure.
[2022-04-26] MEDS: ceFAZolin 2 GM/D5W 50 ML 2 GM/50 ML BAG IVPB (15:35)
[2022-04-26] MEDS: LIDOCAINE HCL 2% GEL UROJET 10 ML PKG MUCOUS MEM (15:50)
--- NOTE | 2022-04-26 16:18 | W.PM.PROC2 ---
Procedure Note - Detailed Date of Procedure 04/26/22 Pre-op Diagnosis Left ureteral and renal stones Post-op Diagnosis Same Procedure Performed Cystoscopy, left ureteroscopy with laser lithotripsy, stone extraction and left ureteral stent placement Surgeon Nitish Bautista MD Anesthesia General Description of Procedure Patient is brought to the operative suite where he has prepped and draped in routine sterile fashion while in a dorsal lithotomy position after the uneventful induction of a general LMA anesthetic. 2% xylocaine jelly was introduced intraurethrally. Cystoscopy is undertaken with a 19 F rigid cystoscope. He has moderate lateral lobe hyperplasia with a 2 cm prostatic urethra. There was no intravesical foreign body or neoplasm. He has a single orthotopic ureteral orifice bilaterally. A 0.035 in glidewire was advanced into the left renal pelvis and the distal ureter was dilated with an 8 F 10 F ureteral dilator. Ureteroscopy was undertaken with a 7.5 F flexible ureteral scope. His 6 mm stone is still in the left proximal ureter. There was moderate ureteral edema. Using a 273 micron holmium laser fiber I dusted the stone and removed all significant pieces with a 1.9 F escape disposable stone basket. He had a smaller stone in his left kidney that I also lasered into small fragments. A 4.8 F double-J ureteral stent was positioned with the proximal coil in the kidney and distal coil in the bladder. Scopes and wires removed the patient was taken recovery room good condition. Drains Yes Packing No Pathology Yes Complications No immediate complications Condition Stable
== END 2022-04-26 17:50 | disposition home or self-care (01) ==
PROVIDERS: PCP Family Medicine; Visit Provider Urology
PROC: (CPT 52352; principal; 2022-04-26 15:15)
DX: N20.2 Calculus of kidney with calculus of ureter (principal); N40.0 Benign prostatic hyperplasia without lower urinary tract symptoms; I12.9 Hypertensive chronic kidney disease with stage 1 through stage 4 chronic kidney disease, or unspecified chronic kidney disease; N18.30 Chronic kidney disease, stage 3 unspecified; E03.9 Hypothyroidism, unspecified; G62.9 Polyneuropathy, unspecified; G47.33 Obstructive sleep apnea (adult) (pediatric); E55.9 Vitamin D deficiency, unspecified; M19.90 Unspecified osteoarthritis, unspecified site; E78.5 Hyperlipidemia, unspecified
CPT/HCPCS: 52356; 74420; 82365; 88300; A9270; C1769; C2617; J0690; J1100; J2250; J2405; J2704; J3010; J7120

== ENCOUNTER 2022-08-30 19:54 | Emergency (ER) | payer BC, SELFPAY ==
--- NOTE | 2022-08-30 20:01 | ED.UPPEXIN ---
HPI - Extremity Injury (Upper) General Chief Complaint: Extremity Injury, Upper Stated Complaint: Finger Injury Lt Hand Time Seen by Provider: 08/30/22 20:13 Source: patient and RN notes reviewed Mode of arrival: ambulatory Limitations: no limitations History of Present Illness HPI narrative: 61-year-old male presents with concern for injury to the 2nd digit of left hand. Reports he smashed the finger mid to by for this morning. Reports is bruised and swollen. He reports he worked all day without much pain. He has concern for the bruising and the swelling. MD complaint: injury to: left and finger Related Data Allergies Allergy/AdvReac Type Severity Reaction Status Date / Time Penicillins AdvReac Mild Rash Verified 08/30/22 19:56 Review of Systems Review of Systems: CONSTITUTIONAL: Denies malaise, chills, sweats, or fever. SKIN: Denies rash or itching, open skin, laceration, abrasion, redness, warmth MUSCULOSKELETAL: Reports bruising and swelling of the tip of the 2nd digit of the left hand NEUROLOGIC: Denies numbness, weakness All systems reviewed & are unremarkable except as noted in HPI and below PMFSH Past Medical History Medical History BPH NOS w/o ur obs/LUTS Chronic back pain CKD (chronic kidney disease) stage 3, GFR 30-59 ml/min Dyslipidemia Essential (primary) hypertension controlled with lifestyle modifications Hypogonadism in male Hypothyroidism (acquired) Idiopathic peripheral neuropathy Left ureteral stone (~04/2022) Nasal polyps 2008 Neck pain Open fracture of distal phalanx 07/2011 VIRAJ (obstructive sleep apnea) Secondary polycythemia Spinal stenosis Unspecified osteoarthritis, unspecified site Vitamin D deficiency Surgical History Surgical History H/O removal of cyst History of appendectomy 2004 History of cervical discectomy 09/2006 History of cystoscopy (~04/2022) Cystoscopy, left ureteroscopy with laser lithotripsy, stone extraction and left ureteral stent placement History of neck surgery C5-C6 2006 History of prostate surgery (~12/2021) UroLift placement History of sinus surgery 09/2008 Family History Family History Father Acute myocardial infarction Diabetes mellitus Sibling Diabetes mellitus Social History Social History Smoking status: Former smoker Tobacco type: cigarettes Second hand tobacco smoke exposure: No Additional smoking assessment comments: only a few cigarettes here and there in the past. Not a regular smoker Alcohol intake: never Substance use: never Substance use type: does not use Lack of Transportation: No Lack of Food: Never True Current Housing: I Have Housing Concerned About Future Housing: No Difficulty Paying Gas/Electric Bills: No Difficulty Paying for Meds: No Currently Unemployed: No Education: High School Diploma/GED Difficulty w/ Childcare or Family Care: No Living arrangements: with family Spiritual care concerns: No Comments At time of signature, agree with nursing past medical, surgical, social and family history. There is no relevant family history pertinent to the presenting complaint Exam Narrative: GENERAL: Well-appearing, well-nourished, and in no acute distress. HEAD: Normocephalic EYES: PERRLA, conjunctivae clear NECK: Supple. CHEST: Speaks in full sentences. No respiratory distress. HEART: Regular rate and rhythm. Normal and equal peripheral pulses. EXTREMITIES: 2nd digit of left hand has gross normal strength and sensation. 5/5 strength with digit flexion, extension. Range of motion normal. No clubbing, cyanosis. Distal digit is mildly edematous and ecchymotic circumferentially with mild tenderness. Skin intact. Normal digital cascade with flexion of fingers, medi
[2022-08-30 20:06] VITALS: BP 157/82; PULSE 91; RESP 18; TEMP 36.5; O2SAT 100
== END 2022-08-30 20:24 | disposition home or self-care (01) ==
PROVIDERS: Emergency Provider Nurse Practitioner; PCP Family Medicine
DX: S60.022A Contusion of left index finger without damage to nail, initial encounter (principal); X58.XXXA Exposure to other specified factors, initial encounter; N40.0 Benign prostatic hyperplasia without lower urinary tract symptoms; I12.9 Hypertensive chronic kidney disease with stage 1 through stage 4 chronic kidney disease, or unspecified chronic kidney disease; N18.30 Chronic kidney disease, stage 3 unspecified; E78.5 Hyperlipidemia, unspecified; G60.9 Hereditary and idiopathic neuropathy, unspecified; M48.00 Spinal stenosis, site unspecified; M19.90 Unspecified osteoarthritis, unspecified site
CPT/HCPCS: 99212; G0463

== ENCOUNTER 2022-09-29 06:52 | Outpatient (CLI) | payer BC, SELFPAY ==
--- NOTE | ~2022-09-29 | XR_ITS ---
Supine and upright views of the abdomen Clinical history: History renal stones COMPARISON: 10/18/2022 Findings: Bowel gas pattern is nonspecific. No evidence for obstruction or free air. Possible tiny le ft upper pole renal stone. Osseous structures are intact. Impression: Possible tiny left upper pole renal stone. Reviewed, dictated and finalized at location . Impression: Possible tiny left upper pole renal stone.
== END 2022-09-29 06:53 | disposition home or self-care (01) ==
PROVIDERS: PCP Family Medicine; Visit Provider Urology
DX: N20.1 Calculus of ureter (principal)
CPT/HCPCS: 74018

== ENCOUNTER 2022-11-29 14:29 | Emergency (ER) | payer BC, SELFPAY ==
[2022-11-29] VITALS (10 sets, daily range): BP systolic 159–183; BP diastolic 83–104; PULSE 84–92; RESP 13–26; O2SAT 94–98
--- NOTE | ~2022-11-29 | CT_ITS ---
EXAMINATION: CT brain wo con DATE: 11/29/2022 14:44 INDICATION: Left-sided numbness TECHNIQUE: Computed tomography (CT) of the head was performed without intravenous contrast. Sagittal and coronal reconstructions were performed. The mA was adjusted according to patient size. Iterative reconstruction technique was employed. The dose-length product was 605.33 mGy-cm. COMPARISON: None FINDINGS: No acute intracranial hemorrhage, acute infarction or abnormal extra axial fluid collection. Ventricl es are normal and symmetric. No mass/mass effect. Moderate scattered mucosal thickening in the parana ailin sinuses with small amount of posterior layering mucus/fluid in the right maxillary sinus. The orb its and mastoid air cells are normal. IMPRESSION: 1. No acute intracranial process. 2. Sinus disease with dependently layering fluid/mucus in the right maxillary sinus which could be se en with acute sinusitis. Reviewed, dictated and finalized at location A. IMPRESSION: 1. No acute intracranial process. 2. Sinus disease with dependently layering fluid/mucus in the right maxillary s inus which could be seen with acute sinusitis.
--- NOTE | ~2022-11-29 | XR_ITS ---
EXAMINATION: XR chest 1V portable INDICATION: Hypertension TECHNIQUE: Portable AP chest at 1525 hours COMPARISON: None available FINDINGS: The lungs are free of acute opacities. No pleural effusion or pneumothorax. The cardiomedia stinal silhouette is normal. Surgical changes are noted in the lower cervical spine. IMPRESSION: 1. No acute cardiopulmonary abnormality. Reviewed, dictated and finalized at location []
--- NOTE | 2022-11-29 14:38 | ECG_ITS ---
Measurements Intervals [place] Rate: 87 P: 44 VT: 196 QRS: -72 QRSD: 109 T: 11 QT: 345 QTc: 416 Interpretive Statements SINUS RHYTHM LEFT ANTERIOR FASCICULAR BLOCK [QRS AXIS <= -45, QR IN I, RS IN II] NO PREVIOUS ECG AVAILABLE FOR COMPARISON Electronically Signed On 11-30-2022 11:40:08 CDT by Frankie Lawrence M.D.
[2022-11-29 14:45] LABS: Glucose Point of Care 155 mg/dl (65-105)
--- NOTE | 2022-11-29 14:50 | ED.NEUROSD ---
HPI - Neuro Symptoms/Deficit General Chief Complaint: Neuro Symptoms/Deficit Stated Complaint: neuro symptoms Time Seen by Provider: 11/29/22 14:50 Source: patient and family History of Present Illness HPI Narrative: 62 years old white male noticed that the right eye been tearing yesterday and today. Around noon today his noticed that he had facial asymmetry with right facial drooping. Patient denies any fever, chills, nausea, vomiting, headache, numbness or tingling anywhere else except the right face. Last time was seen by his family physician 6 months ago, his blood pressure was okay at that time, today was seen by his family physician again for possible sinus infection and his blood pressure was elevated and was told to watch it a on arrival to the ED blood pressure was 183/104. With central chest discomfort, patient stated me very stressed and anxious and that is why my chest hurt Related Data Allergies Allergy/AdvReac Type Severity Reaction Status Date / Time Penicillins AdvReac Mild Rash Verified 11/29/22 08:47 Review of Systems Review of Systems: All systems reviewed & are unremarkable except as noted in HPI and below PMFSH Past Medical History Medical History BPH NOS w/o ur obs/LUTS Chronic back pain CKD (chronic kidney disease) stage 3, GFR 30-59 ml/min Dyslipidemia Essential (primary) hypertension controlled with lifestyle modifications Hypogonadism in male Hypothyroidism (acquired) Idiopathic peripheral neuropathy Left ureteral stone (~04/2022) Nasal polyps 2009 Neck pain Open fracture of distal phalanx 07/2011 VIRAJ (obstructive sleep apnea) Secondary polycythemia Spinal stenosis Unspecified osteoarthritis, unspecified site Vitamin D deficiency Surgical History Surgical History H/O removal of cyst History of appendectomy 2004 History of cervical discectomy 09/2006 History of cystoscopy (~04/2022) Cystoscopy, left ureteroscopy with laser lithotripsy, stone extraction and left ureteral stent placement History of neck surgery C5-C6 2006 History of prostate surgery (~12/2021) UroLift placement History of sinus surgery 09/2008 Family History Family History Father Acute myocardial infarction Diabetes mellitus Sibling Diabetes mellitus Social History Social History Smoking status: Never smoker Tobacco type: cigarettes Second hand tobacco smoke exposure: No Additional smoking assessment comments: only a few cigarettes here and there in the past. Not a regular smoker Alcohol intake: never Substance use: never Substance use type: does not use Lack of Transportation: No Lack of Food: Never True Current Housing: I Have Housing Concerned About Future Housing: No Difficulty Paying Gas/Electric Bills: No Difficulty Paying for Meds: No Currently Unemployed: No Education: High School Diploma/GED Difficulty w/ Childcare or Family Care: No Living arrangements: with family Spiritual care concerns: No Exam Narrative: General appearance: Well-developed, well-nourished Skin: Normal color Head: Normocephalic, nontraumatic Eyes: Clear conjunctiva ENT: Oropharynx normal, ears normal, nose normal Neck: Supple, nontender Chest and respiratory: Airway patent, no respiratory distress, no accessory muscle use Heart: Regular rate/rhythm Abdomen: Soft, nontender, no organomegaly, quiet bowel sounds Vascular: Normal peripheral pulses, normal capillary refill. Musculoskeletal: Normal range of motion, nontender back Neurologic: Alert and oriented ?3, right facial drooping, unable to raise right eyebrow, unable to close right eye, tearing right eye, flat right nasolabial fold, leaking air from the right side of the mouth when he tried to puff his cheeks, right corn
[2022-11-29 15:21] LABS: Basophils Absolute Auto 0.1 K/mm3 (0.0-0.1); Basophils Percent Auto 1.1 % (0.2-1.2); Eosinophils Absolute Auto 0.3 K/mm3 (0-0.3); Eosinophils Percent Auto 3.3 % (0-4.4); Hematocrit 52.6 % (42.0-52.0); Hemoglobin 17.6 g/dL (14.0-18.0); Immature Granulocyte Absolute 0.03 K/mm3 (0.00-0.031); Immature Granulocyte Percent A 0.4 % (0-0.5); Lymphocytes Absolute Auto 2.09 K/mm3 (0.9-3.2); Lymphocytes Percent Auto 25.6 % (18.3-44.2); Mean Corpuscular HGB Conc 33.5 g/dl (32-36); Mean Corpuscular Hemoglobin 30.7 pg (26-34); Mean Corpuscular Volume 91.6 fl (80-100); Mean Platelet Volume 10.2 fl (7.4-10.4); Monocytes Absolute Auto 0.5 K/mm3 (0.1-0.6); Monocytes Percent Auto 6.6 % (2.6-8.5); Neutrophils Absolute Auto 5.2 K/mm3 (1.3-6.7); Platelet Count Result 244 k/mm3 (150-375); Red Blood Count 5.74 M/mm3 (4.6-6.20); Red Cell Distribution Width 11.9 % (11.5-14.5); White Blood Count 8.2 K/mm3 (4.5-10.0)
[2022-11-29 15:32] LABS: INR 0.9; Prothrombin Time 12.7 Seconds (11.1-14.7)
[2022-11-29 15:33] LABS: Partial Thromboplastin Time 27.8 SECONDS (22.3-36.8)
[2022-11-29 15:36] LABS: Alanine Aminotransferase 33 U/L (6-50); Albumin Level 4.6 g/dL (3.5-5.1); Alkaline Phosphatase 77 U/L (38-126); Anion Gap 9 mmol/L (8-16); Aspartate Amino Transferase 34 U/L (17-59); Bilirubin,Total 0.7 mg/dL (0.2-1.3); Blood Urea Nitrogen 15 mg/dL (9-20); Calcium 9.5 mg/dL (8.4-10.2); Carbon Dioxide 31 mmol/L (22-30); Chloride 98 mmol/L (98-107); Estimated CRCL calculation 62 ml/min; Estimated Glomerular Filt Rate 56; Glucose 133 mg/dL (65-110); Potassium 4.2 mmol/L (3.4-5.0); Sodium 138 mmol/L (137-145)
[2022-11-29] MEDS: LORazepam INJ (*CRX) 2 MG/ML VIAL 1 MG IV PUSH (15:36)
[2022-11-29 15:42] LABS: Troponin I < 0.012 ng/mL (0.000-0.034)
== END 2022-11-29 16:03 | disposition home or self-care (01) ==
PROVIDERS: Emergency Provider Emergency Medicine; PCP Family Medicine
DX: G51.0 Bell's palsy (principal); J01.00 Acute maxillary sinusitis, unspecified; I12.9 Hypertensive chronic kidney disease with stage 1 through stage 4 chronic kidney disease, or unspecified chronic kidney disease; N18.30 Chronic kidney disease, stage 3 unspecified; R07.9 Chest pain, unspecified
CPT/HCPCS: 36415; 70450; 71045; 80053; 82948; 84484; 85025; 85610; 85730; 93005; 96374; 99284; J2060

== ENCOUNTER 2022-12-12 10:26 | Emergency (ER) | payer BC, SELFPAY ==
[2022-12-12 10:41] VITALS: BP 161/85; PULSE 74; RESP 18; TEMP 36.1; O2SAT 100
[2022-12-12 10:43] VITALS: BP 161/85; PULSE 74; RESP 18; TEMP 36.1; O2SAT 100
--- NOTE | 2022-12-12 10:58 | ED.EAR ---
HPI - Ear Problem General Chief complaint: Ear Stated complaint: rt jaw and ear pain Time Seen by Provider: 12/12/22 10:58 Source: patient Mode of arrival: ambulatory Limitations: no limitations History of Present Illness HPI Narrative: 62 yo M presents with c/o R ear pain radiating into R jaw. pt was seen at [facility] 11/29 and diagnosed with bells palsy. He did steroids. maxillary sinusitis was noted on his CT scan so he was also given augmentin which he completed. he has been doing PT and today the PT told him his ear and jaw pain are most likely a muscle spasm. pt called his PCP to be seen but was told to go to urgent care to check for ear infection. pt requesting muscle relaxant. also requesting more steroids. States steroids taking inflammation off the nerves related to my bells palsy and really helped with my pain . pt grabbing at ear during exam stating very painful. has appt with neurology in february. continues to have R sided facial droop. R eye does not completely close and has been using artificial tears. he reports no worsening of his R facial droop. Al systems reviewed and negative except as noted above. Related Data Allergies Allergy/AdvReac Type Severity Reaction Status Date / Time Penicillins AdvReac Mild Rash Verified 11/29/22 08:47 Review of Systems Review of Systems: CONSTITUTIONAL: Denies fever, chills, or sweats. EYES: Denies visual changes, redness, or discharge. ENT: Denies rhinorrhea, congestion, sore throat. reports R ear and jaw pain. CARDIOVASCULAR: Denies chest pain, palpitations, or edema. RESPIRATORY: Denies cough or dyspnea. GASTROINTESTINAL: Denies abdominal pain, nausea, vomiting, or diarrhea. GENITOURINARY: Denies dysuria or hematuria. SKIN: Denies rash or itching. MUSCULOSKELETAL: Denies back pain, joint pain, or myalgia. NEUROLOGIC: Denies headache, numbness, or weakness. PSYCHIATRIC: Denies anxiety or depression. All other systems reviewed are negative, except as documented in HPI. [facility] Past Medical History Medical History BPH NOS w/o ur obs/LUTS Chronic back pain CKD (chronic kidney disease) stage 3, GFR 30-59 ml/min Dyslipidemia Essential (primary) hypertension controlled with lifestyle modifications Hypogonadism in male Hypothyroidism (acquired) Idiopathic peripheral neuropathy Left ureteral stone (~04/2022) Nasal polyps 2009 Neck pain Open fracture of distal phalanx 07/2011 VIRAJ (obstructive sleep apnea) Secondary polycythemia Spinal stenosis Unspecified osteoarthritis, unspecified site Vitamin D deficiency Surgical History Surgical History H/O removal of cyst History of appendectomy 2005 History of cervical discectomy 09/2006 History of cystoscopy (~04/2022) Cystoscopy, left ureteroscopy with laser lithotripsy, stone extraction and left ureteral stent placement History of neck surgery C5-C6 2006 History of prostate surgery (~12/2021) UroLift placement History of sinus surgery 09/2008 Family History Family History Father Acute myocardial infarction Diabetes mellitus Sibling Diabetes mellitus Social History Social History Smoking status: Never smoker Tobacco type: cigarettes Second hand tobacco smoke exposure: No Additional smoking assessment comments: only a few cigarettes here and there in the past. Not a regular smoker Alcohol intake: never Substance use: never Substance use type: does not use Lack of Transportation: No Lack of Food: Never True Current Housing: I Have Housing Concerned About Future Housing: No Difficulty Paying Gas/Electric Bills: No Difficulty Paying for Meds: No Currently Unemployed: No Education: High School Diploma/GED Difficulty w/ Childcare or Family Care: No Living arrangements: w
== END 2022-12-12 11:25 | disposition home or self-care (01) ==
PROVIDERS: Emergency Provider Nurse Practitioner Family; PCP Family Medicine
DX: G51.0 Bell's palsy (principal); N18.30 Chronic kidney disease, stage 3 unspecified; E78.5 Hyperlipidemia, unspecified; I12.9 Hypertensive chronic kidney disease with stage 1 through stage 4 chronic kidney disease, or unspecified chronic kidney disease; E03.9 Hypothyroidism, unspecified
CPT/HCPCS: 99211; G0463

== ENCOUNTER 2022-12-27 10:30 | Outpatient (RCR) | payer BC, SELFPAY ==
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
--- NOTE | 2022-12-04 11:12 | OPREHPOC ---
Outpatient Therapy Plan of Care This is a Multidisciplinary Plan of Care that may contain components documented by all disciplines (PT, OT, and ST.) PT Problem 1 PT Problem #1 Knowledge Deficit PT Goal 1 Goal Pt will be independent in home program Target Visit 6 PT Problem 2 PT Problem #2 Impaired Strength PT Goal 1 Goal Pt will demo 50% improvement in tested facial actions Target Visit 6 PT Goal 2 Goal Pt will demo 75% improvement in facial actions Target Visit 12 PT Problem 3 PT Problem #3 Impaired Coordination PT Goal 1 Goal Pt will demo ability to perform a pucker of lips without deviation Target Visit 12 PT Problem 4 PT Problem #4 Impaired Strength PT Goal 1 Goal Pt will demo ability to perform bilateral puffed cheeks without airloss. Target Visit 12
--- NOTE | 2022-12-27 16:53 | PTOPDC ---
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 Pain is still worst at evening time, was throbbing badly woke him up and 3 am multiple nights. Took some ibuprofen last night and this helped but still wakes up with pain. Pt did 2 rounds of steroids for Lopez's Palsy and didn't have pain until after ceased the steroids. Pt reports is doing good with eating. Still has some droop but is happy with progress. Exercises and makes a lot of faces so is good exercise for his face. No issues with drooling food intake, or food pocketing. Reports everybody says I look good . right eyelid has not come down as it was previously. Self-percieved improvement: 90% in Lopez's Palsy Reported Pain Level Pain Score 2: Self Report Assessment PT Clinical Summary Pt has attended therapy consistently for Lopez's Palsy right sided facial weakness for 10 visits. Pt reports 2 rounds of steroids for this diagnosis , first prior to and second during therapy plan of care. Pt notes has had increased pain in right jaw and neck since after completion of steroid round. Screening today and history review shows decreased cervical ROM, multiple areas of increased muscle tone and tenderness, and temporomandibular clicking/deviation. Pt was educated on possibly attempting therapy for this as does not appear related directly to Lopez's Palsy as cause of jaw pain. Also suggested pt consider discussing neck therapy with pain management doctor as well as neurologist and primary care as options for referral source. Pt's presentation from his therapy for facial weakness however is greatly improved. Multiple muscle groups had no trace movement during initial evaluation and today's presentation pt appears 90% back to normal with muscle activation. Cont to demo some slight decreased range, decreased endurance of facial musculature, and slight abnormality with resting tone. However pt was also educated that he has yet to see a plateau in his progress, to continue his home exerci
== END 2022-12-29 11:04 | disposition home or self-care (01) ==
LOC: ANHHIPT 10:30
PROVIDERS: PCP Family Medicine; Visit Provider Family Medicine
DX: G51.0 Bell's palsy (principal)
CPT/HCPCS: 97014; 97110; 97112; 97140; 97162; G0283

== ENCOUNTER 2023-08-14 13:17 | Emergency (ER) | payer BC, SELFPAY ==
[2023-08-14 13:27] VITALS: BP 174/91; PULSE 88; RESP 20; TEMP 36.1; O2SAT 100
--- NOTE | 2023-08-14 13:32 | ED.CHESTPAIN ---
HPI - Chest Pain General Chief Complaint: Chest Pain Stated Complaint: chest pain Time Seen by Provider: 08/14/23 13:26 Source: patient Mode of arrival: ambulatory Limitations: no limitations History of Present Illness HPI narrative: 62-year-old male presents with concern of for chest pain. He reports chest pain started about an hour ago, reports it radiates to the left arm. He denies shortness of breath, nausea, back pain. He denies injury or trauma. He reports he has had EKGs in the past that showed a ?old heart attack? he cannot remember ever having a heart attack. He went to the emergency room at [facility] but the wait was too long so he came here. complaint: chest pain Related Data Allergies Allergy/AdvReac Type Severity Reaction Status Date / Time Penicillins AdvReac Mild Rash Verified 08/14/23 13:26 Review of Systems Review of Systems: CONSTITUTIONAL: Denies malaise CARDIOVASCULAR: Reports chest pain. Denioes palpitations or edema. RESPIRATORY: Denies cough or dyspnea. GASTROINTESTINAL: Denies abdominal pain, nausea, vomiting, NEUROLOGIC: Denies numbness, weakness, or headache. All systems reviewed & are unremarkable except as noted in HPI and below PMFSH Past Medical History Medical History BPH NOS w/o ur obs/LUTS Chronic back pain CKD (chronic kidney disease) stage 3, GFR 30-59 ml/min Dyslipidemia Essential (primary) hypertension controlled with lifestyle modifications Hypogonadism in male Hypothyroidism (acquired) Idiopathic peripheral neuropathy Left ureteral stone (~04/2022) Nasal polyps 2008 Neck pain Open fracture of distal phalanx 07/2011 VIRAJ (obstructive sleep apnea) Secondary polycythemia Spinal stenosis Unspecified osteoarthritis, unspecified site Vitamin D deficiency Surgical History Surgical History H/O removal of cyst History of appendectomy 2004 History of cervical discectomy 09/2006 History of cystoscopy (~04/2022) Cystoscopy, left ureteroscopy with laser lithotripsy, stone extraction and left ureteral stent placement History of neck surgery C5-C6 2007 History of prostate surgery (~12/2021) UroLift placement History of sinus surgery 09/2008 Family History Family History Father Acute myocardial infarction Diabetes mellitus Sibling Diabetes mellitus Social History Social History Smoking status: Never smoker Tobacco type: cigarettes Second hand tobacco smoke exposure: No Additional smoking assessment comments: only a few cigarettes here and there in the past. Not a regular smoker Alcohol intake: never Substance use: never Substance use type: does not use Lack of Transportation: No Lack of Food: Never True Current Housing: I Have Housing Concerned About Future Housing: No Difficulty Paying Gas/Electric Bills: No Difficulty Paying for Meds: No Currently Unemployed: No Education: High School Diploma/GED Difficulty w/ Childcare or Family Care: No Living arrangements: with family Spiritual care concerns: No Comments At time of signature, agree with nursing past medical, surgical, social and family history. There is no relevant family history pertinent to the presenting complaint Exam Narrative: GENERAL: Well-appearing, well-nourished, and in no acute distress. HEAD: Normocephalic, atraumatic. EYES: PERRLA, sclera clear, and EOMI. No nystagmus. ENT: Nares clear. Mucous membranes moist. NECK: Supple. CHEST: No respiratory distress. Clear to auscultation. No bony deformities, no asymmetry. Speaks in full sentences. HEART: Regular rate and rhythm. No murmur heard. Normal peripheral pulses. NEURO: Alert and oriented x3. PSYCH: Normal mood and affect Course Course Emergency Course: Patient is aware
[2023-08-14] MEDS: ASPIRIN 325 MG TABLET PO (13:36)
--- NOTE | 2023-08-14 13:47 | ECG_ITS ---
Measurements Intervals [place] Rate: 91 P: 36 NE: 216 QRS: -60 QRSD: 86 T: 17 QT: 341 QTc: 420 Interpretive Statements SINUS RHYTHM WITH FIRST DEGREE AV BLOCK PATTERN CONSISTENT WITH PULMONARY DISEASE INFERIOR ST ELEVATION MYOCARDIAL INFARCT- ACUTE POSTERIOR INFARCT, ACUTE BASELINE ARTIFACT- I, III, AVL, AVF, V5-V5 ABNORMAL ECG COMPARED TO ECG 11/29/2022 14:54:20 FIRST DEGREE AV BLOCK NOW PRESENT STEMI NOW PRESENT Electronically Signed On 08-14-2023 14:44:18 CDT by Farhat Flynn D.O.
--- NOTE | 2023-08-14 14:12 | WPDMODSED ---
Moderate Sedation Note-Pt Data Patient Data Diagnosis: STEMI Present Complaint: STEMI Procedure to be performed/Plan: Coronary angiography, left heart cath, +/- PCI Allergies Allergy/AdvReac Type Severity Reaction Status Date / Time Penicillins AdvReac Mild Rash Verified 08/14/23 13:26 Home Medications Medication Instructions Recorded Confirmed Type artificial tears with lanolin eye 1 applic RIGHT EYE HS #3.5 grams 11/29/22 08/14/23 Rx ointment artificial 1 drp RIGHT EYE QID PRN dry eyes 11/29/22 08/14/23 Rx tears([id number]-[id number]) #15 mL 0.1 %-0.3 %-0.2 % eye drops levothyroxine 88 mcg tablet 88 mcg PO DAILY #90 tabs 07/23/23 08/14/23 Rx Sedation/Anesthesia: No previous sedation/anesthesia problems (including family history). [facility] Past Medical History Medical History BPH NOS w/o ur obs/LUTS Chronic back pain CKD (chronic kidney disease) stage 3, GFR 30-59 ml/min Dyslipidemia Essential (primary) hypertension controlled with lifestyle modifications Hypogonadism in male Hypothyroidism (acquired) Idiopathic peripheral neuropathy Left ureteral stone (~04/2022) Nasal polyps 2008 Neck pain Open fracture of distal phalanx 07/2011 VIRAJ (obstructive sleep apnea) Secondary polycythemia Spinal stenosis Unspecified osteoarthritis, unspecified site Vitamin D deficiency Surgical History Surgical History H/O removal of cyst History of appendectomy 2004 History of cervical discectomy 09/2006 History of cystoscopy (~04/2022) Cystoscopy, left ureteroscopy with laser lithotripsy, stone extraction and left ureteral stent placement History of neck surgery C5-C6 2006 History of prostate surgery (~12/2021) UroLift placement History of sinus surgery 09/2008 Family History Family History Father Acute myocardial infarction Diabetes mellitus Sibling Diabetes mellitus Social History Social History Smoking status: Never smoker Tobacco type: cigarettes Second hand tobacco smoke exposure: No Additional smoking assessment comments: only a few cigarettes here and there in the past. Not a regular smoker Alcohol intake: never Substance use: never Substance use type: does not use Lack of Transportation: No Lack of Food: Never True Current Housing: I Have Housing Concerned About Future Housing: No Difficulty Paying Gas/Electric Bills: No Difficulty Paying for Meds: No Currently Unemployed: No Education: High School Diploma/GED Difficulty w/ Childcare or Family Care: No Living arrangements: with family Spiritual care concerns: No Mod Sed Physical Exam Physical Exam Pre Procedural Exam: Normal: Appearance, Lungs, Heart Rate, Heart Rhythm, Extremities and Skin Hours since solid foods: 0 Hours since liquid intake: 0 Mallampati Classification: class III Internal Medicine - PN: Obj Da Vital Signs Vital Signs: Vital Signs - 24 hr 08/14/23 13:27 Temperature 36.1 C L Pulse Rate 88 Respiratory Rate 20 Blood Pressure 174/91 H Pulse Oximetry 100 Oxygen Delivery Room Air ASA Classification/Sedation ASA Classification/Sedation ASA Class: IV Emergent: Yes Risks: Risks, benefits and alternatives explained and patient/family accepted plan for sedation. Patient re-evaluated immediately prior to sedation.
== END 2023-08-14 13:46 | disposition short-term general hospital (02) ==
PROVIDERS: Emergency Provider Nurse Practitioner
DX: R07.9 Chest pain, unspecified (principal); I12.9 Hypertensive chronic kidney disease with stage 1 through stage 4 chronic kidney disease, or unspecified chronic kidney disease; N18.30 Chronic kidney disease, stage 3 unspecified; E78.5 Hyperlipidemia, unspecified; E03.9 Hypothyroidism, unspecified
CPT/HCPCS: 93005; 99215; A9270; G0463

== ENCOUNTER 2023-08-14 13:58 | Inpatient (IN) | payer MEDICARE, BC, SELFPAY ==
[2023-08-14] VITALS (14 sets, daily range): BP systolic 108–163; BP diastolic 55–113; PULSE 58–88; RESP 14–20; TEMP 36.4–36.8; O2SAT 97–100; BMI 31.9
--- NOTE | 2023-08-14 14:01 | ECG_ITS ---
Measurements Intervals [place] Rate: 89 P: 36 [place]: 213 QRS: -58 QRSD: 117 T: 23 QT: 360 QTc: 439 Interpretive Statements SINUS RHYTHM WITH FIRST DEGREE AV BLOCK LEFT AXIS DEVIATION PATTERN CONSISTENT WITH PULMONARY DISEASE INFERIOR ST ELEVATION MYOCARDIAL INFARCT- ACUTE POSTERIOR INFARCT- ACUTE ABNORMAL ECG COMPARED TO ECG 11/29/2022 14:54:20 FIRST DEGREE AV BLOCK NOW PRESENT Electronically Signed On 08-14-2023 14:45:51 CDT by Farhat Flynn D.O.
--- NOTE | 2023-08-14 14:02 | ED.CHESTPAIN ---
HPI - Chest Pain General Chief Complaint: Chest Pain Stated Complaint: poss stemi Time Seen by Provider: 08/14/23 14:01 History of Present Illness HPI narrative: 62-year-old male with history of hypothyroidism presenting as a STEMI. Developed chest pain and pressure about 90 minutes ago. Went to Urgent Care we obtained an EKG that was concerning for STEMI so EMS was called for transfer. Repeat EKGs continue to show elevations in leads 2, 3, AVF reciprocal changes in V2 and aVL. EMS gave the patient a dose of nitro and he has received 2 doses of 324mg of aspirin. STEMI alert called and cardiology is at bedside on his arrival. Related Data Home Medications Medication Instructions Recorded Confirmed hydrocodone 7.5 mg-acetaminophen 1 tablet PO Q6H PRN Pain 08/14/23 08/14/23 325 mg tablet Allergies Allergy/AdvReac Type Severity Reaction Status Date / Time No Known Allergies Allergy Verified 08/14/23 16:55 Review of Systems Review of Systems: All systems reviewed & are unremarkable except as noted in HPI and below PMFSH Past Medical History Medical History BPH NOS w/o ur obs/LUTS Chronic back pain CKD (chronic kidney disease) stage 3, GFR 30-59 ml/min Dyslipidemia Essential (primary) hypertension controlled with lifestyle modifications Hypogonadism in male Hypothyroidism (acquired) Idiopathic peripheral neuropathy Left ureteral stone (~04/2022) Nasal polyps 2009 Neck pain Open fracture of distal phalanx 07/2011 VIRAJ (obstructive sleep apnea) Secondary polycythemia Spinal stenosis Unspecified osteoarthritis, unspecified site Vitamin D deficiency Surgical History Surgical History H/O removal of cyst History of appendectomy 2004 History of cervical discectomy 09/2006 History of cystoscopy (~04/2022) Cystoscopy, left ureteroscopy with laser lithotripsy, stone extraction and left ureteral stent placement History of neck surgery C5-C6 2006 History of prostate surgery (~12/2021) UroLift placement History of sinus surgery 09/2008 Family History Family History Father Diabetes mellitus Acute myocardial infarction Chronic obstructive pulmonary disease Congestive heart failure Hypertension Sibling Diabetes mellitus Mother Acute myocardial infarction Pulmonary fibrosis Hypertension Other Melanoma Social History Social History Smoking status: Never smoker Tobacco type: cigarettes Second hand tobacco smoke exposure: No Additional smoking assessment comments: only a few cigarettes here and there in the past. Not a regular smoker Alcohol intake: never Substance use: never Substance use type: does not use Do You Feel Safe in your Home?: Yes Lack of Transportation: No Lack of Food: Never True Current Housing: I Have Housing Concerned About Future Housing: No Difficulty Paying Gas/Electric Bills: No Difficulty Paying for Meds: No Currently Unemployed: No Education: Trade/Vocational Certificate Difficulty w/ Childcare or Family Care: No Living arrangements: with family Spiritual care concerns: No Exam Narrative: GENERAL: Nontoxic, no acute distress HEAD: Normocephalic, atraumatic. EYES: PERRLA and EOMI. ENT: grossly unremarkable NECK: Supple. CHEST: Clear to auscultation. No respiratory distress. HEART: tachycardic, regular rhythm Normal peripheral pulses. ABDOMEN: Soft, nontender, nondistended EXTREMITIES: No edema. SKIN: Warm, dry, no rash. NEURO: No focal deficits. Alert and oriented x3. PSYCH: Normal mood and affect. Course Vital Signs Vital signs: Vital Signs Temperature 98.2 F 08/14/23 14:03 Pulse Rate 86 08/14/23 14:03 Respiratory Rate 20 08/14/23 14:03 Blood Pressure 163/113 H 08/14/23 14:03 Pu
--- NOTE | 2023-08-14 14:07 | PC.NURSE ---
1352 STEMI paged O/H [phone] Rommel sent [phone] Called Interventional Cardio-Dr. Lawrence [phone] Called [facility] for Standby
[2023-08-14] MEDS: TICAGRELOR 90 MG TABLET 180 MG PO (14:08)
--- NOTE | 2023-08-14 14:13 | WPDMODSED ---
Moderate Sedation Note-Pt Data Patient Data Diagnosis: STEMI Present Complaint: STEMI Procedure to be performed/Plan: Coronary angiography, left heart cath, +/- PCI Allergies Allergy/AdvReac Type Severity Reaction Status Date / Time Penicillins AdvReac Mild Rash Verified 08/14/23 13:26 Home Medications Medication Instructions Recorded Confirmed Type artificial tears with lanolin eye 1 applic RIGHT EYE HS #3.5 grams 11/29/22 08/14/23 Rx ointment artificial 1 drp RIGHT EYE QID PRN dry eyes 11/29/22 08/14/23 Rx tears(xqcvgth-bxfrifri-prbymki) #15 mL 0.1 %-0.3 %-0.2 % eye drops levothyroxine 88 mcg tablet 88 mcg PO DAILY #90 tabs 07/23/23 08/14/23 Rx Sedation/Anesthesia: No previous sedation/anesthesia problems (including family history). [facility] Past Medical History Medical History BPH NOS w/o ur obs/LUTS Chronic back pain CKD (chronic kidney disease) stage 3, GFR 30-59 ml/min Dyslipidemia Essential (primary) hypertension controlled with lifestyle modifications Hypogonadism in male Hypothyroidism (acquired) Idiopathic peripheral neuropathy Left ureteral stone (~04/2022) Nasal polyps 2008 Neck pain Open fracture of distal phalanx 07/2011 VIRAJ (obstructive sleep apnea) Secondary polycythemia Spinal stenosis Unspecified osteoarthritis, unspecified site Vitamin D deficiency Surgical History Surgical History H/O removal of cyst History of appendectomy 2004 History of cervical discectomy 09/2006 History of cystoscopy (~04/2022) Cystoscopy, left ureteroscopy with laser lithotripsy, stone extraction and left ureteral stent placement History of neck surgery C5-C6 2006 History of prostate surgery (~12/2021) UroLift placement History of sinus surgery 09/2008 Family History Family History Father Acute myocardial infarction Diabetes mellitus Sibling Diabetes mellitus Social History Social History Smoking status: Never smoker Tobacco type: cigarettes Second hand tobacco smoke exposure: No Additional smoking assessment comments: only a few cigarettes here and there in the past. Not a regular smoker Alcohol intake: never Substance use: never Substance use type: does not use Lack of Transportation: No Lack of Food: Never True Current Housing: I Have Housing Concerned About Future Housing: No Difficulty Paying Gas/Electric Bills: No Difficulty Paying for Meds: No Currently Unemployed: No Education: High School Diploma/GED Difficulty w/ Childcare or Family Care: No Living arrangements: with family Spiritual care concerns: No Mod Sed Physical Exam Physical Exam Pre Procedural Exam: Normal: Appearance, Heart Rate, Heart Rhythm, Neuro Exam, Extremities and Skin Hours since solid foods: 0 Hours since liquid intake: 0 Mallampati Classification: class III Internal Medicine - PN: Obj Da Vital Signs Vital Signs: Vital Signs - 24 hr 08/14/23 14:03 08/14/23 14:03 Temperature 36.8 C Pulse Rate 86 Respiratory Rate 20 Blood Pressure 163/113 H Pulse Oximetry 98 98 Oxygen Delivery Room Air Room Air Labs 08/14/23 14:06 08/14/23 14:06 ASA Classification/Sedation ASA Classification/Sedation ASA Class: IV Emergent: Yes Risks: Risks, benefits and alternatives explained and patient/family accepted plan for sedation. Patient re-evaluated immediately prior to sedation.
[2023-08-14 14:14] LABS: Basophils Absolute Auto 0.1 K/mm3 (0.0-0.1); Basophils Percent Auto 1.1 % (0.2-1.2); Eosinophils Absolute Auto 0.2 K/mm3 (0-0.3); Eosinophils Percent Auto 2.5 % (0-4.4); Hematocrit 51.6 % (42.0-52.0); Hemoglobin 16.3 g/dL (14.0-18.0); Immature Granulocyte Absolute 0.02 K/mm3 (0.00-0.031); Immature Granulocyte Percent A 0.2 % (0-0.5); Lymphocytes Absolute Auto 1.62 K/mm3 (0.9-3.2); Lymphocytes Percent Auto 19.4 % (18.3-44.2); Mean Corpuscular HGB Conc 31.6 g/dl (32-36); Mean Corpuscular Hemoglobin 29.5 pg (26-34); Mean Corpuscular Volume 93.3 fl (80-100); Mean Platelet Volume 9.9 fl (7.4-10.4); Monocytes Absolute Auto 0.6 K/mm3 (0.1-0.6); Monocytes Percent Auto 6.6 % (2.6-8.5); Neutrophils Absolute Auto 5.9 K/mm3 (1.3-6.7); Neutrophils Percent Auto 70.2 % (45.5-73.1); Platelet Count Result 251 k/mm3 (150-375); Red Blood Count 5.53 M/mm3 (4.6-6.20); Red Cell Distribution Width 12.4 % (11.5-14.5); White Blood Count 8.4 K/mm3 (4.5-10.0)
--- NOTE | 2023-08-14 14:14 | PM.IMHP ---
H&P: HPI History of Present Illness Date/Time: 08/14/23 14:14 Chief Complaint: Chest pain Narrative: Patient is a 62 year old male with hypertension, hyperlipidemia, hypothyroidism, VIRAJ, BPH who was seen at [facility] for chest pain that began around 12:45PM today. EKG concerning for inferior ST elevations, therefore, patient transferred to [place] ER, where repeat EKG here concerning for inferior ST elevations. STEMI team activated. Patient still having chest pain upon arrival to the ER. Review of Systems Review of Systems: All systems reviewed & are unremarkable except as noted in HPI and below (HPI) [facility] Past Medical History Medical History (Updated 08/14/23 @ 16:16 by Frankie Lawrence MD) BPH NOS w/o ur obs/LUTS Chronic back pain CKD (chronic kidney disease) stage 3, GFR 30-59 ml/min Dyslipidemia Essential (primary) hypertension controlled with lifestyle modifications Hypogonadism in male Hypothyroidism (acquired) Idiopathic peripheral neuropathy Left ureteral stone (~04/2022) Nasal polyps 2008 Neck pain Open fracture of distal phalanx 07/2011 VIRAJ (obstructive sleep apnea) Secondary polycythemia Spinal stenosis Unspecified osteoarthritis, unspecified site Vitamin D deficiency Surgical History Surgical History H/O removal of cyst History of appendectomy 2004 History of cervical discectomy 09/2006 History of cystoscopy (~04/2022) Cystoscopy, left ureteroscopy with laser lithotripsy, stone extraction and left ureteral stent placement History of neck surgery C5-C6 2006 History of prostate surgery (~12/2021) UroLift placement History of sinus surgery 09/2008 Family History Family History (Updated 08/14/23 @ 16:39 by Brigitte Valles, RN) Father Diabetes mellitus Acute myocardial infarction Chronic obstructive pulmonary disease Congestive heart failure Hypertension Sibling Diabetes mellitus Mother Acute myocardial infarction Pulmonary fibrosis Hypertension Other Melanoma Social History Social History Smoking status: Never smoker Tobacco type: cigarettes Second hand tobacco smoke exposure: No Additional smoking assessment comments: only a few cigarettes here and there in the past. Not a regular smoker Alcohol intake: never Substance use: never Substance use type: does not use Do You Feel Safe in your Home?: Yes Lack of Transportation: No Lack of Food: Never True Current Housing: I Have Housing Concerned About Future Housing: No Difficulty Paying Gas/Electric Bills: No Difficulty Paying for Meds: No Currently Unemployed: No Education: Trade/Vocational Certificate Difficulty w/ Childcare or Family Care: No Living arrangements: with family Spiritual care concerns: No Meds Home Medications and Allergies Home Medications Medication Instructions Recorded Confirmed Type artificial tears with lanolin eye 1 applic RIGHT EYE HS #3.5 grams 11/29/22 08/14/23 Rx ointment artificial 1 drp RIGHT EYE QID PRN dry eyes 11/29/22 08/14/23 Rx tears(qszefzj-jjdkyctj-isclhyd) #15 mL 0.1 %-0.3 %-0.2 % eye drops levothyroxine 88 mcg tablet 88 mcg PO DAILY #90 tabs 07/23/23 08/14/23 Rx Allergies Allergy/AdvReac Type Severity Reaction Status Date / Time Penicillins AdvReac Mild Rash Verified 08/14/23 13:26 Vital Signs Vital Signs - 24 hr 08/14/23 14:03 08/14/23 14:03 Temperature 36.8 C Pulse Rate 86 Respiratory Rate 20 Blood Pressure 163/113 H Pulse Oximetry 98 98 Oxygen Delivery Room Air Room Air Exam Const: General: no acute distress HENMT: Mouth: Yes moist mucous membranes Eyes: General: appearance normal, both eyes and all related structures Sclera: sclerae normal Neck: Neck: supple Resp: Effort & Inspection: normal respiratory effort Cardio: Rate: regular rate Rhythm: regular rhythm S
[2023-08-14 14:26] LABS: Prothrombin Time 13.3 Seconds (11.1-14.7)
[2023-08-14 14:27] LABS: Partial Thromboplastin Time 28.2 Seconds (22.3-36.8)
[2023-08-14 14:28] LABS: Alanine Aminotransferase 32 U/L (6-50); Albumin Level 4.7 g/dL (3.5-5.1); Alkaline Phosphatase 68 U/L (38-126); Anion Gap 9 mmol/L (8-16); Aspartate Amino Transferase 35 U/L (17-59); Bilirubin,Total 0.8 mg/dL (0.2-1.3); Blood Urea Nitrogen 14 mg/dL (9-20); Calcium 9.7 mg/dL (8.4-10.2); Carbon Dioxide 25 mmol/L (22-30); Chloride 105 mmol/L (98-107); Estimated CRCL calculation 77 ml/min; Estimated Glomerular Filt Rate > 60; Glucose 252 mg/dL (65-110); Sodium 139 mmol/L (137-145)
[2023-08-14 14:46] LABS: Troponin I 0.092 ng/mL (0.000-0.034)
--- NOTE | 2023-08-14 16:22 | WPDCARDPROC ---
Cardiac Cath Procedure Note Date of procedure:: 08/14/23 Performing physician:: CATHETERIZATION LABORATORY REPORT Procedure Date: 08/14/2023 Oven Laborer: Frankie Lawrence M.D., [facility]? Referring Physician: Vianney Stein MD ([facility]) Anesthesia: Versed and Fentanyl were ordered and given in my presence at 14:22, procedure ended at 16:08. Supervision of nurse monitored moderate sedation with Versed and Fentanyl was provided for 106 minutes. Total of Versed 2mg, Fentanyl 150mcg, Morphine 2mg IV were administered by the Publications Production Supervisor RN Katie Sabillon. Pre-op Diagnosis: Inferior STEMI Post-op Diagnosis: 1. Co-dominant coronary artery system 2. The distal apical LAD has a significant 80-90% stenosis. This is best suited for medical management. 3. The left circumflex artery is a co-dominant vessel. OM-1 is a large caliber branch with significant 80-90% stenosis in the proximal portion. OM-2 is a small caliber branch that is subtotally occluded in its proximal portion with faint antegrade flow. Attempted to wire OM-2, however, was difficult to wire despite multiple attempts. Subsequent angiogram showed that the vessel had completely occluded off. Given this and the small caliber nature of the vessel, we did not pursue further intervention on this branch. S/p successful PCI of OM-1 with LETTY x 1 (2.75mm x 22mm Orsiro LETTY) 4. Successful PCI of proximal and mid RCA with LETTY x 2 (3.0mm x 22mm Orsiro LETTY post dilated to 3.5mm and 4.0mm x 13mm Orsiro LETTY in an overlapping fashion). The distal RCA at the bifurcation has a 70% stenosis. The RPDA is a very small caliber branch. The RPLV is a small caliber branch with diffuse mild disease. Given the small caliber branches, elected to only balloon angioplasty the distal RCA bifurcation with successful results. Procedure(s): 1. Moderate sedation 2. Ultrasound-guided access of the right common femoral artery 3. Coronary angiography 4. IVUS of OM 5. PCI of OM-1 with LETTY x 1 (2.75mm x 22mm Orsiro LETTY) 6. PCI of proximal and mid RCA with LETTY x 2 (3.0mm x 22mm Orsiro LETTY post dilated to 3.5mm and 4.0mm x 13mm Orsiro LETTY in an overlapping fashion). 7. IVUS of RCA 8. Balloon angioplasty of distal RCA bifurcation 9. Angioseal closure of the right common femoral artery Access Site: Right common femoral artery Brief History and Clinical Indications: Patient is a 62 year old male who is referred for [facility] for STEMI. All risks, benefits and alternatives to left heart catheterization with or without percutaneous coronary intervention was discussed at length with the patient. Risk of complications including but not limited to bleeding, infection, arrhythmia, stroke, worsening kidney function, blood loss, groin hematoma, limb loss, emergency coronary artery bypass grafting, and even were discussed with the patient and all questions were answered. The patient understood and wished to proceed. Time out called, patient name, date of , medical record number, allergies, procedure performed, identify Oven Laborer, patient and staff member concurred with accurate data, procedure carried on. Findings: LEFT HEART CATHETERIZATION FINDINGS: 1. Left main: The left main coronary artery is widely patent without any significant obstructive disease. 2. Left anterior descending: The LAD has diffuse mild disease. The first diagonal branch is a small caliber branch with 90-99% ostial disease. The second diagonal branch is a large caliber branch with luminal irregularities. The distal apical LAD has a significant 80-90% stenosis. 3. Left circumflex: The left circumflex artery is a co-dominant vessel with luminal irregularities. OM-1 is a large caliber branch with significant 80-90% stenosis in the proximal portion. OM-2 is a small caliber branch that is subtotally occluded in its proximal portion with faint antegrade flow. The LPDA has diffuse mild disease. 4. Right coronary artery: The RCA is a co-
[2023-08-14] MEDS: ATORVASTATIN 40 MG TABLET 80 MG PO (16:32)
[2023-08-14] MEDS: SODIUM CHLORIDE 0.9% IV 1,000 ML 125 ML IV CONT (16:32)
--- NOTE | 2023-08-14 16:42 | ADMGEN ---
This patient, Austin Sherman, was admitted to Intensive Care Unit-2. Patient/family oriented to hospital policies and general routines including ID bracelet, bed and alarms, visiting hours, pain management, procedures, bathroom and other care routines, personal items, smoking policy, room service/diet, and visiting hours. Information on how to activate the Rapid Response Team has been discussed. Patient/Family are encouraged to report perceived risks to care and to ask questions if they do not understand what they are told or what they should do.
[2023-08-14 16:44] LABS: Cholesterol 203 mg/dL (0-200); HDL Direct 29 mg/dL; Triglycerides 251 mg/dL (<150)
[2023-08-14 16:55] LABS: LDL Cholesterol Direct 143 mg/dL
[2023-08-14 17:16] LABS: Thyroid Stimulating Hormone 0.996 uIU/mL (0.465-4.680)
[2023-08-14 17:24] LABS: Hemoglobin A1C 5.6 % (<5.7)
[2023-08-14] MEDS: HYDROcodone/acetaminophen (*CRX) 7.5-325 MG TABLET 1 TAB PO (17:24)
[2023-08-14] MEDS: METOPROLOL SUCCINATE EXT REL 25 MG TABCR PO (17:24)
[2023-08-14 17:34] LABS: Basophils Absolute Auto 0.1 K/mm3 (0.0-0.1); Basophils Percent Auto 0.6 % (0.2-1.2); Eosinophils Absolute Auto 0.1 K/mm3 (0-0.3); Eosinophils Percent Auto 0.8 % (0-4.4); Hematocrit 47.9 % (42.0-52.0); Hemoglobin 15.5 g/dL (14.0-18.0); Immature Granulocyte Absolute 0.04 K/mm3 (0.00-0.031); Immature Granulocyte Percent A 0.3 % (0-0.5); Lymphocytes Absolute Auto 1.37 K/mm3 (0.9-3.2); Lymphocytes Percent Auto 11.9 % (18.3-44.2); Mean Corpuscular HGB Conc 32.4 g/dl (32-36); Mean Corpuscular Hemoglobin 29.8 pg (26-34); Mean Corpuscular Volume 92.1 fl (80-100); Mean Platelet Volume 9.7 fl (7.4-10.4); Monocytes Absolute Auto 0.6 K/mm3 (0.1-0.6); Monocytes Percent Auto 5.4 % (2.6-8.5); Neutrophils Absolute Auto 9.3 K/mm3 (1.3-6.7); Platelet Count Result 251 k/mm3 (150-375); Red Cell Distribution Width 12.4 % (11.5-14.5); White Blood Count 11.5 K/mm3 (4.5-10.0)
[2023-08-14 17:43] LABS: Anion Gap 9 mmol/L (8-16); Blood Urea Nitrogen 13 mg/dL (9-20); Calcium 9.6 mg/dL (8.4-10.2); Carbon Dioxide 25 mmol/L (22-30); Chloride 104 mmol/L (98-107); Estimated CRCL calculation 81 ml/min; Estimated Glomerular Filt Rate > 60; Glucose 142 mg/dL (65-110); Potassium 4.3 mmol/L (3.4-5.0); Sodium 138 mmol/L (137-145)
[2023-08-14 18:00] LABS: Troponin I 0.466 ng/mL (0.000-0.034)
[2023-08-14 19:34] LABS: MRSA (PCR) NOT DETECTED (NOT DETECTE)
[2023-08-14] MEDS: TICAGRELOR 90 MG TABLET PO (20:52)
[2023-08-14] MEDS: ACETAMINOPHEN 325 MG TABLET 650 MG PO (20:52)
[2023-08-15] VITALS (7 sets, daily range): BP systolic 108–150; BP diastolic 65–83; PULSE 54–79; RESP 13–22; TEMP 36.7–36.8; O2SAT 98–99
--- NOTE | 2023-08-15 | ECHO_ITS ---
Patient Info Name: Austin Sherman Age: 62 years : 1960 Gender: Male Ht: 71 in Wt: 247 lbs BSA: 2.41 m2 HR: 59 bpm BP: 108 / 65 mmHg Heart Rhythm: Sinus Rhythm Technical Quality: Fair Exam Date: 08/15/2023 8:59 AM Exam Location: Echo Lab Patient Status: Inpatient Admit Date: 08/14/2023 Staff Ordering Physician: Frankie Lawrence MD (ernestine/patito) Manager Patient: Coco Salas RDCS Attending Provider: Frankie Lawrence MD (ernestine/patito) Referring Physician: Howard EVANGELISTA; Exam Type: CA echo dop color flow w con Study Info Indications - stemi Complete two-dimensional, color flow and Doppler transthoracic echocardiogram is performed with contrast to opacify the left ventricle and to improve the deliniation of the left ventricle endocardial borders. Contrast/Agitated Saline Contrast/Ag. Saline: Definity Amount: 2.00 ml Administered By: oCco Salas RDCS Existing IV Access: Yes IV Access Condition: patent with no signs of infiltration Summary 1. Left ventricular chamber dimension is normal. 2. Left ventricular systolic function is normal, estimated at 60-65%. 3. There is mildly increased left ventricular wall thickness. 4. The left ventricular diastolic function is grade I diastolic dysfunction. 5. Right ventricular systolic function is normal. 6. No significant valvular disease. Left Ventricle Left ventricular chamber dimension is normal. Left ventricular systolic function is normal, estimated at 60-65%. There is mildly increased left ventricular wall thickness. The left ventricular diastolic function is grade I diastolic dysfunction. Right Ventricle Right ventricular chamber dimension is normal. Right ventricular systolic function is normal. Left Atria Left atrial chamber dimension is normal. Right Atria Right atrial chamber dimension is normal. Atrial Septum Intact interatrial septum visualized by color flow imaging. Aortic Valve The aortic valve is trileaflet. There is no aortic valve stenosis. There is trace aortic valve regurgitation. There is mild aortic valve calcification. Pulmonic Valve The pulmonic valve is not well visualized. Mitral Valve There is trace mitral valve regurgitation. Tricuspid Valve There is trace tricuspid valve regurgitation. Pericardium/Pleural The pericardium appears epicardial fat pad. There is no pericardial effusion. Inferior Vena Cava Normal inferior vena cava with >50% collapse upon inspiration consistent with normal right atrial pressure, 3 mmHg. Aorta The aortic root size at the sinus of Valsalva is normal. Left Ventricular Outflow Tract Name Value Normal LVOT 2D LVOT Diameter 1.99 cm LVOT Doppler LVOT Peak Gradient 7 mmHg LVOT Mean Gradient 4 mmHg LVOT VTI 26.49 cm LVOT VTI/AV VTI Ratio 0.88 LVOT Stroke Volume 82.39 ml LVOT CO 5.85 l/min LVOT CI 2.43 L/min/m2 Pulmonic Valve Name
[2023-08-15] MEDS: LEVOTHYROXINE SODIUM 88 MCG TABLET PO (05:54)
--- NOTE | 2023-08-15 07:00 | ECG_ITS ---
Measurements Intervals [place] Rate: 66 P: 19 SC: 212 QRS: -51 QRSD: 89 T: -34 QT: 364 QTc: 382 Interpretive Statements SINUS RHYTHM WITH FIRST DEGREE AV BLOCK PATTERN CONSISTENT WITH PULMONARY DISEASE VOLTAGE CRITERIA FOR LVH INFERIOR INFARCT, AGE INDETERMINATE CONSIDER LATERAL INFARCT, AGE INDETERMINATE BASELINE ARTIFACT- I, II, AVR, AVL, AVF, V1, V4-V6 ABNORMAL ECG COMPARED TO ECG 08/14/2023 14:04:39 NO SIGNIFICANT CHANGES Electronically Signed On 08-15-2023 9:09:07 CDT by Farhat Flynn D.O.
[2023-08-15] MEDS: ASPIRIN 81 MG ENTERIC TABLET PO (07:54)
[2023-08-15] MEDS: METOPROLOL SUCCINATE EXT REL 25 MG TABCR PO (07:54)
[2023-08-15] MEDS: ATORVASTATIN 40 MG TABLET 80 MG PO (07:54)
[2023-08-15] MEDS: TICAGRELOR 90 MG TABLET PO (07:54)
--- NOTE | 2023-08-15 08:17 | WPDCNINT ---
Assessment and Plan Assessment and plan (1) Essential (primary) hypertension: Code(s): I10 - Essential (primary) hypertension Status: Acute Assessment and Plan: Metoprolol start (2) STEMI (ST elevation myocardial infarction): Code(s): I21.3 - ST elevation (STEMI) myocardial infarction of unspecified site Status: Acute Assessment and Plan: Inferior STEMI status post PCI 5. PCI of OM-1 with LETTY x 1 (2.75mm x 22mm Orsiro LETTY) 6. PCI of proximal and mid RCA with LETTY x 2 (3.0mm x 22mm Orsiro LETTY post dilated to 3.5mm and 4.0mm x 13mm Orsiro LETTY in an overlapping fashion). 7. IVUS of RCA 8. Balloon angioplasty of distal RCA bifurcation Patient of chest pain-free and asymptomatic Continue aspirin beta-lawanda statin Brilinta Echo ordered and pending Continue telemetry monitoring Transfer out of ICU today (3) Dyslipidemia: Code(s): E78.5 - Hyperlipidemia, unspecified Status: Acute Assessment and Plan: Patient started on Lipitor (4) VIRAJ (obstructive sleep apnea): Code(s): G47.33 - Obstructive sleep apnea (adult) (pediatric) Status: Acute Assessment and Plan: CPAP ordered (5) Hypothyroidism (acquired): Code(s): E03.9 - Hypothyroidism, unspecified Status: Acute Assessment and Plan: Continue levothyroxine. TSH is normal range Plan DVT prophylaxis -patient ambulating Nutrition -heart healthy diet ordered Code Status - Full Code Transfer out of ICU today Editor News Consult Note Consult date: 08/15/23 Reason for consult: STEMI HPI: Austin Sherman is a 62 year old male with past medical history of hypertension hyperlipidemia hypothyroidism, neuropathy, BPH, VIRAJ yesterday presented to ER from [facility] with chief complaint of chest pain. Patient states chest pain started while he was eating lunch and was in the middle of the chest 8 out 10 severe sharp in quality radiated to left arm and was associated with nausea. [facility] and then to ER and was diagnosed with inferior STEMI. He was taken to cardiac catheterization lab and underwent 5. PCI of OM-1 with LETTY x 1 (2.75mm x 22mm Orsiro LETTY) 6. PCI of proximal and mid RCA with LETTY x 2 (3.0mm x 22mm Orsiro LETTY post dilated to 3.5mm and 4.0mm x 13mm Orsiro LETTY in an overlapping fashion). 7. IVUS of RCA 8. Balloon angioplasty of distal RCA bifurcation Patient states that initially chest pain improved but persisted but overnight completely resolved. At this point he denies any chest pain shortness a breath nausea vomiting. Review of system was positive for chronic neuropathy pain in both legs. Chronic nerve pain in both arms from cervical stenosis which he states is unchanged. Patient denies fever, chest pain, shortness of breath, cough, nausea vomiting, abdominal pain,, diarrhea, headache or constipation.. All other systems were reviewed and were negative Review of Systems Review of Systems: All systems reviewed & are unremarkable except as noted in HPI and below (hpi) [facility] Past Medical History Medical History BPH NOS w/o ur obs/LUTS Chronic back pain CKD (chronic kidney disease) stage 3, GFR 30-59 ml/min Dyslipidemia Essential (primary) hypertension controlled with lifestyle modifications Hypogonadism in male Hypothyroidism (acquired) Idiopathic peripheral neuropathy Left ureteral stone (~04/2022) Nasal polyps 2008 Neck pain Open fracture of distal phalanx 07/2011 VIRAJ (obstructive sleep apnea) Secondary polycythemia Spinal stenosis Unspecified osteoarthritis, unspecified site Vitamin D deficiency Surgical History Surgical History H/O removal of cyst History of appendectomy 2004 History of cervical discectomy 09/2006 History of cystoscopy (~04/2022) Cystoscopy, left ureteroscopy with laser lithotripsy, stone extraction and left
--- NOTE | 2023-08-15 09:54 | PM.DS ---
DS: Admitting Diagnosis Discharge Date 08/15/2023 Admitting Diagnosis Inferior STEMI DS: Discharge Diagnosis Discharge Diagnosis (1) STEMI (ST elevation myocardial infarction): Code(s): I21.3 - ST elevation (STEMI) myocardial infarction of unspecified site Status: Acute (2) Essential (primary) hypertension: Code(s): I10 - Essential (primary) hypertension Status: Acute (3) Dyslipidemia: Code(s): E78.5 - Hyperlipidemia, unspecified Status: Acute (4) Hypothyroidism (acquired): Code(s): E03.9 - Hypothyroidism, unspecified Status: Acute DS: Summary Hospital Course Reason for hospitalization: Inferior STEMI Hospital Course: Patient presented with an acute inferior STEMI. Emergent cardiac catheterization showed: 1. Co-dominant coronary artery system 2. The distal apical LAD has a significant 80-90% stenosis. This is best suited for medical management. 3. The left circumflex artery is a co-dominant vessel. OM-1 is a large caliber branch with significant 80-90% stenosis in the proximal portion. OM-2 is a small caliber branch that is subtotally occluded in its proximal portion with faint antegrade flow. Attempted to wire OM-2, however, was difficult to wire despite multiple attempts. Subsequent angiogram showed that the vessel had completely occluded off. Given this and the small caliber nature of the vessel, we did not pursue further intervention on this branch. S/p successful PCI of OM-1 with LETTY x 1 (2.75mm x 22mm Orsiro LETTY) 4. Successful PCI of proximal and mid RCA with LETTY x 2 (3.0mm x 22mm Orsiro LETTY post dilated to 3.5mm and 4.0mm x 13mm Orsiro LETTY in an overlapping fashion). The distal RCA at the bifurcation has a 70% stenosis. The RPDA is a very small caliber branch. The RPLV is a small caliber branch with diffuse mild disease. Given the small caliber branches, elected to only balloon angioplasty the distal RCA bifurcation with successful results. Patient did well after PCI. Echocardiogram showed normal LVEF 60-65%, no significant valvular disease. Patient to be on ASA 81mg once daily indefinitely. Loaded with Brilinta 180mg x 1 in the ED, continue with Brilinta 90mg BID for at least 1 year. Discussed starting statin, however, patient, states he has tried statins in the past and has tried Zetia and did not tolerate them at all because of muscle aches and pains. Will need to get him started on Repatha or Leqvio as an outpatient. Started beta lawanda Started Losartan for elevated blood pressures. Referral to cardiac rehab placed. Status at Discharge Cognitive/behavioral status at discharge: Stabe Functional status at discharge: independent ambulation Overall status at discharge: patient is back to baseline Time Spent with Patient Time attestation: Total time spent providing and/or coordinating discharge services: Exam Const: General: comfortable and no acute distress HENMT: Mouth: Yes moist mucous membranes Eyes: General: appearance normal, both eyes and all related structures Sclera: sclerae normal Neck: Neck: supple Resp: Effort & Inspection: normal respiratory effort Cardio: Rate: regular rate Rhythm: regular rhythm Skin: General skin exam: normal color Psych: Mental Status: mental status grossly normal Affect: normal affect DS: Data Data Completed and Pending Completed studies during hospitalization: Cardiac Cath Procedure Note Date of procedure:: 08/14/23 Performing physician:: CATHETERIZATION LABORATORY REPORT Procedure Date: 08/14/2023 Locomotive Electrician:?Frankie Lawrence M.D., [facility]? Referring Physician:?Vianney Stein MD ([facility]) Anesthesia: Versed and Fentanyl were ordered and given in my presence at 14:22, procedure ended at 16:08. Supervision of nurse monitored moderate sedation with Versed and Fentanyl was provided for 106 minutes. Total of Versed 2mg, Fentanyl 150mcg, Morphine 2mg IV were administered by the Pearl Stringer RN Ca
[2023-08-15] MEDS: PERFLUTREN LIPID MICROSPHERES 1.5 ML VIAL DILUTED TO 10 ML TOTAL VOLUME IV PUSH (10:25)
--- NOTE | 2023-08-15 10:47 | IVDEFINITY ---
Prior to administration of IV Definity the patient was educated on the risks and benefits of the imaging enhancing agent including potential adverse side effects. The patient verbalized understanding. Allergies were verified. No exclusion criteria were identified and at least one of the following inclusion criteria were met: 1) physician request, 2) patient technically difficult to image (per the [place] [employer]chocardi[employer] guidelines of two or more segments not discernable within the apical view), or 3) questionable left ventricular function. ?
[2023-08-15] MEDS: LOSARTAN POTASSIUM 25 MG TABLET PO (11:51)
== END 2023-08-15 12:44 | disposition home or self-care (01) | DRG 322 ==
LOC: ANHED 14:22 → ANHICU 14:36
PROVIDERS: Internal Medicine; Admitting Provider Internal Medicine; Emergency Provider Emergency Medicine; Visit Provider Internal Medicine
PROC: 02703Z6 Dilation of Coronary Artery, One Artery, Bifurcation, Percutaneous Approach (ICD-10-PCS; CPT 93454; principal; 2023-08-14 14:15)
PROC: 02703Z6 Dilation of Coronary Artery, One Artery, Bifurcation, Percutaneous Approach (ICD-10-PCS; 2023-08-14 14:15)
PROC: 02703Z6 Dilation of Coronary Artery, One Artery, Bifurcation, Percutaneous Approach (ICD-10-PCS; 2023-08-14 14:15)
PROC: 02703Z6 Dilation of Coronary Artery, One Artery, Bifurcation, Percutaneous Approach (ICD-10-PCS; 2023-08-14 14:15)
PROC: 02703Z6 Dilation of Coronary Artery, One Artery, Bifurcation, Percutaneous Approach (ICD-10-PCS; CPT 92979; 2023-08-14 14:15)
PROC: 02703Z6 Dilation of Coronary Artery, One Artery, Bifurcation, Percutaneous Approach (ICD-10-PCS; 2023-08-14 14:15)
DX: I21.19 ST elevation (STEMI) myocardial infarction involving other coronary artery of inferior wall (principal); I25.10 Atherosclerotic heart disease of native coronary artery without angina pectoris; I12.9 Hypertensive chronic kidney disease with stage 1 through stage 4 chronic kidney disease, or unspecified chronic kidney disease; N18.30 Chronic kidney disease, stage 3 unspecified; E78.5 Hyperlipidemia, unspecified; N40.0 Benign prostatic hyperplasia without lower urinary tract symptoms; E03.9 Hypothyroidism, unspecified; G47.33 Obstructive sleep apnea (adult) (pediatric); G60.9 Hereditary and idiopathic neuropathy, unspecified
CPT/HCPCS: 36415; 80048; 80053; 80061; 83036; 84443; 84484; 85025; 85610; 85730; 87641; 92978; 92979; 93005; 93454; 99215; 99285; A9270; C1725; C1753; C1760; C1769; C1874; C1887; C1894; C8929; C9600; C9606; G0269; G0463; J0583; J1200; J1644; J2250; J2270; J3010; J7030; Q9957

== ENCOUNTER 2024-08-25 09:53 | Outpatient (CLI) | payer MEDICARE, BC, SELFPAY ==
--- NOTE | ~2024-08-25 | CT_ITS ---
EXAMINATION: CT abdomen pelvis wo/w con DATE: 08/25/2024 10:37 INDICATION: Gross hematuria. TECHNIQUE: Computed tomography (CT) of the abdomen and pelvis was performed without and with intraven ous contrast using a total of 130 mL Omnipaque-350 intravenous contrast with a double-bolus technique for simultaneous opacification of the renal parenchyma and renal collecting system. Automated exposu re control and iterative reconstruction technique were employed. The dose-length product was 2283.66 mGy-cm. COMPARISON: CT abdomen and pelvis 04/22/2022 FINDINGS: The visualized portions of the lung bases demonstrate minimal atelectasis. No pleural effusion. The h eart size is normal. There are coronary artery calcifications. No pericardial effusion. There is diff use hepatic steatosis. The gallbladder, spleen, pancreas, and adrenal glands are normal. There is cor tical thinning of the kidneys. There are 5 mm and 6 mm stones in left kidney. There is a 13 mm stone in left renal pelvis. There is mild left hydronephrosis. There is fat stranding around left renal pel vis and urothelial thickening involving left renal pelvis, consistent with inflammation. The ureters are well opacified. There is diffuse bladder wall thickening, likely secondary to chronic outlet obst ruction from the mildly enlarged prostate. There are brachytherapy seeds in the prostate. There is a left inguinal hernia containing fat. There are no dilated loops of bowel. There are changes of append ectomy. There are no pathologically enlarged lymph nodes. There is no free intraperitoneal fluid. The re is moderate lumbar spondylosis. There are bridging endplate osteophytes at multiple levels in the spine, consistent with diffuse idiopathic skeletal hyperostosis (DISH). IMPRESSION: 1. 13 mm stone in left renal pelvis with inflammation and mild left hydronephrosis. 2. Nonobstructing left kidney stones. Reviewed, dictated and finalized at location A. IMPRESSION: 1. 13 mm stone in left renal pelvis with inflammation and mild left hydronephro sis. 2. Nonobstructing left kidney stones.
[2024-08-25 10:22] LABS: Estimated Glomerular Filt Rate 47
--- OUTSIDE RECORDS SUMMARY | 2024-08-25 11:13 | XMS_ITS | Encounter Summary ---
Author Organization [facility] Address [address] [place] [address] Care Team Providers Care Harvester Operator Name Role Phone Nitish Izquierdo DO Primary Care Provider [phone] Greta Garnica MD Unavailable [phone] Encounter Details Date Type Department Care Team (Late Contact Info) Description 09/01/2023 MyChart Message Enc [facility] Multispecialty Care - [facility] [address], [address] [place] [phone] Samantha Beltran APRN [address] [facility] [address] [place] [address] Stimulator Social History Tobacco Use Types Packs/Day Years Used Date Smoking Tobacco: Never Smokeless Tobacco: Never Alcohol Use Standard Drinks/Week Comments Not Currently 0 (1 standard drink = 0.6 oz pur e alcohol) PHQ-2 Answer Date Recorded Patient Health Questionnaire-2 Score 0 04/04/2023 Sex and Gender Information Value Date Recorded Sex Assigned at Male 12/26/2022 9:36 AM CDT Legal Sex Male 4:34 PM CDT Gender Identity Male 12/26/2022 9:36 AM CDT Sexual Orientation Straight 12/26/2022 9: 36 AM CDT documented as of this encounter Plan of Treatment Upcoming Encounters Date Type Department Care Team (Late st Contact Info) Description 08/28/2024 8:00 AM CDT Office Visit [facility] Multispecialty Care - [facility] [address], [address] [place] [address] Ethan Bermeo MD 3 [facility] [place] [place] [address] 09/03/2024 8:00 AM CDT Office Visit [facility] [address] [place] [address] Nitish Izquierdo DO [address] [place], [place] [id number] 09/19/2024 9:30 AM CDT Office Visit [facility] [address] [facility] [place] [address] [place] [address] Greta Garnica MD Three [facility]. [address] [place] [address] 04/07/2025 7:00 AM CHEMICAL MACHINE TENDER Office Visit [address] [address] Nitish Izquierdo DO [address] [place], [place] [id number] 04/09/2025 9:00 AM CHEMICAL MACHINE TENDER Office Visit [address] [address] Nitish Izquierdo DO [address] [place], [place] [id number] documented as of this encounter Visit Diagnoses Not on filedocumented in this encounter Care Teams Harvester Operator Relationship Specialty Start Date End Date Nitish Izquierdo DO 3 [facility] [address] [place] [phone] PCP - General FAMILY PRACTICE 04/03/23 Greta Garnica MD Three [facility]. [facility] [address] [place], [place] [id number] Consulting Physician INTERVENTIONAL CARDIOLOGY 08/30/23 documented as of this encounter
--- OUTSIDE RECORDS SUMMARY | 2024-08-25 11:13 | XMS_ITS | Encounter Summary ---
Author Organization [facility] Address [address] [place] [address] Care Team Providers Care Aluminum Molder Name Role Phone Nitish Izquierdo DO Primary Care Provider [phone] Greta Garnica MD Unavailable [phone] Encounter Details Date Type Department Care Team (Latest Contact Info) Description 09/21/2023 MyChart Message Enc [facility] Multispecialty Care - [facility] [address], [address] [place] [phone] Samantha Beltran APRN 3 [facility] [address] [place] [address] Up coming surgery Social History Tobacco Use Types Packs/Day Years [...] Description 08/28/2024 8:00 AM CDT Office Visit [facility] Multispecialty Care - [facility] [address], [address] [place] [address] Ethan Bermeo MD 3 [facility] [place] [address] 09/03/2024 8:00 AM CDT Office Visit [facility] [address] [place] [address] Nitish Izquierdo DO [address] [place], [place] [id number] 09/19/2024 9:30 AM CDT Office Visit [facility] THREE [facility] [place] [place] [address] Greta Garnica MD Three [facility]. [address] [place] [address] 04/07/2025 7:00 AM NEUROPATHOLOGIST Office Visit [address] [address] Nitish Izquierdo DO [address] [place], [place] [id number] 04/09/2025 9:00 AM NEUROPATHOLOGIST Office Visit [address] [address] Nitish Izquierdo DO [address] [place] [id number] documented as of this encounter Visit Diagnoses Not on filedocumented in this encounter Care Teams Aluminum Molder Relationship Specialty Start Date End Date Nitish Izquierdo DO 3 [facility] [address] [place] [phone] PCP - General FAMILY PRACTICE 04/03/23 Greta Garnica MD Three [facility]. [facility] [address] [place], [place] [phone] Consulting Physician INTERVENTIONAL CARDIOLOGY 08/30/23 documented as of this encounter
--- OUTSIDE RECORDS SUMMARY | 2024-08-25 11:13 | XMS_ITS | Clinical Summary ---
Author Organization [facility] Address [address] [place] [address] Care Team Providers Care Radiology Services Manager Name Role Phone Nitish Izquierdo DO Primary Care Provider [phone] Greta Garnica MD Unavailable [phone] Allergies Active Allergy Reactions Criticality Noted Date Comments Pravastatin Myalgias 11/26/2023 Medications BONE STIMULATOR, DME,Indications:S aye stenosis of cervical region Wear 4 hours daily. Can break up into multiple sessions totaling 4 hours. 1 Device 024 Active Calcium Carb-Cholecalcife rol (CALCIUM 500 + D3 OR) Take 1 tablet by mouth 2 (two) times a day. Active vitamin D3, cholecalciferol, 125 mcg capsule Take 1 capsule (125 mcg total) by mouth daily. Active Coenzyme Q10 (COQ-10) 200 MG Cap Take 200 mg by mouth daily. 30 capsule 3 024 Active oxyCODONE-acetami nophen (PERCOCET) 5-325 MG tabletIndications :Acute Pain < 7 Day Supply Take 1-2 tablets by mouth every 6 (six) hours as needed for Pain. Indications: Acute Pain < 7 Day Supply 50 tablet 024 Active naloxone (NARCAN) 4 MG/0.1ML nasal sprayIndications: S/P cervical spinal fusion 1 spray by Nasal route as needed for Opioid reversal. may repeat every 2 to 3 minutes in alternating nostrils until medical assistance becomes available 1 each 024 2024 Active diazePAM (VALIUM) 5 MG tabletIndications :S/P cervical spinal fusion Take 2 tablets (10 mg total) by mouth every 6 (six) hours as needed (Spasms). 30 tablet 024 Active metoprolol succinate ER (TOPROL-XL) 25 MG 24 hr tablet Take 1 tablet (25 mg total) by mouth every morning. 90 tablet 1 024 Active aspirin EC (ECOTRIN) 81 MG tablet Take 1 tablet (81 mg total) by mouth daily. 90 tablet 1 024 Active levothyroxine (SYNTHROID) 100 MCG tabletIndications :Acquired hypothyroidism Take 1 tablet (100 mcg total) by mouth every morning. 90 tablet 3 024 Active losartan (COZAAR) 50 MG tablet TAKE 1 TABLET(50 MG) BY MOUTH DAILY 90 tablet 1 025 Active clopidogrel (PLAVIX) 75 MG tablet TAKE 1 TABLET(75 MG) BY MOUTH DAILY 90 tablet 025 Active REPATHA SURECLICK 140 MG/ML injection (PEN)Indications: Coronary artery disease involving [place]a shoshone coronary artery of yomb[place] shoshone heart without angina pectoris ADMINISTER 1 ML(140 MG) UNDER THE SKIN EVERY 14 DAYS 2 mL 3 025 Active evolocumab (REPATHA SURECLICK) 140 MG/ML injection (PEN)Indications: Coronary artery disease involving [place]a shoshone coronary artery of y[place] shoshone heart without angina pectoris Inject 1 mL (140 mg total) into the skin every 14 (fourteen) days. 2 mL 3 024 2024 Discontinued Active Problems Problem Noted Date Diagnosed Date Pure hypercholesterolemia 03/20/2024 Right calf pain 01/09/2024 Lumbar radiculopathy 01/09/2024 S/P cervical spinal fusion 12/24/2023 Dyslipidemia 09/21/2023 Spinal stenosis of lumbar re gion without neurogenic claudication 08/27/2023 Facet hypertrophy of lumbar region 08/27/2023 Cord compression myelopathy ([facility]) Other cervical disc degenera tion, unspecified cervical region 08/27/2023 Radiculopathy, cervical region 08/27/2023 Myelomalacia ([facility]) 08/27/2023 History of fusion of cervical spine 08/27/2023 Coronary artery disease invo lving yomba shoshone coronary artery of yomba shoshone heart without angina pectoris 08/27/2023 Elevated PSA, less than 10 ng/ml 04/04/2023 Benign prostatic hyperplasia without lower urinary tract symptoms 04/04/2023 Myofascial pain syndrome 04/04/2023 Essential (primary) hypertension 04/04/2023 VIRAJ on CPAP 04/04/2023 Lumbar degenerative disc disease 04/04/2023 Class 1 obesity due to exces s calories without serious comorbidity with body mass index (BMI) of 30.0 to 30.9 in adult 04/04/2023 Mixed hyperlipidemia 04/04/2023 Acquired hypothyroidism 04/04/2023 Insomnia due to medical condition 04/04/2023 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 Resolved Problems Problem Noted Date Diagnosed Date Resolved Date Foraminal stenosis of cervical region 08/27/2023 01/09/2024 Spinal stenosis of cervical region 08/27/2023 01/09/2024 Encounters Date Type Department Care Team Description 08/11/[address] [address] Nitish Izquierdo, Information 07/28/[address] [address] Nitish Izquierdo, Structural Heart Team Notes; Orders 07/10/2024 Scan [facility] Scanned, [facility] 06/26/2024 Telephone [facility] [address] [address] Shannon Parr, ONE[place] Prior Authorization (repatha) 06/11/[address] [address] Nitish Izquierdo, DO Appointment Request (AWV- No coverage until 09/02/24. Appt. Needs rescheduled) from Last 3 Months Immunizations Name Administration Dates Next Due Influenza (Generic) 03/04/2013 Shingrix 07/20/2021,03/24/2021 Tdap (Generic) 04/10/2014 Family History Medical History Relation Comments Diabetes Father Heart Attack Father Heart Disease Father Open Heart Father Stent Cardiac Father Heart Attack Mother Heart Disease Mother Hypertension Mother Open Heart Mother Stent Cardiac Mother Cancer Sister Relation Status Comments Brother Alive Father (Age 84) Maternal Grandfather Maternal Grandmother Mother (Age 82) Paternal Grandfather Paternal Grandmother Sister (Age 65) Social History Tobacco Use Types Packs/Day Years Used Date Smoking Tobacco: Never Passive Smoke Exposure: Past Smokeless Tobacco: Never Tobacco Cessation:Counseling Given: Not Answered Alcohol Use Standard Drinks/Week Comments Not Currently 0 (1 standard drink = 0.6 oz pur e alcohol) B1300 Health Literacy Answer Date Recor ded How often do you need to hav e someone help you when you read instructions, pamphlets, or other written material from your doctor or pharmacy? Never 12/24/2023 [email or web address] Utilities Answer Date Recorded In the past 12 months has [facility] [employer], gas, oil, or water [employer] threatened to shut off services in your home? No 12/24/2023 Humiliation, Afraid, Rape, and Kick questionnair e Answer Date Recorded Within the last year, have y ou been afraid of your partner or ex-partner? No 12/24/2023 Within the last year, have y ou been humiliated or emotionally abused in other ways by your partner or ex-partner? No Within the last year, have y ou been kicked, hit, slapped, or otherwise physically hurt by your partner or ex-partner? No 12/24/2023 Within the last year, have y ou been raped or forced to have any kind of sexual activity by your partner or ex-partner? No 12/24/2023 Overall Financial Resource Strain (CARDIA) Answe r Date Recorded How hard is it for you to pa y for the very basics like food, housing, medical care, and heating? Not hard at all 12/24/2023 PHQ-2 Answer Date Recorded Patient Health Questionnaire-2 Score 0 04/09/2024 [facility] - Occupational Stress Questionnaire Answer Date Recorded Do you feel stress - tense, restless, nervous, or anxious, or unable to sleep at night because your mind is troubled all the time - these days? Not at all 12/24/2023 Exercise Vital Sign Answer Date Recorde d On average, how many days pe r week do you engage in moderate to strenuous exercise (like a brisk walk)? 0 days 12/24/2023 On average, how many minutes do you engage in exercise at this level? 0 min 12/24/2023 Hunger Vital Sign Answer Date Recorded Within the past 12 months, y ou worried that your food would run out before you got the money to buy more. Never true 12/24/19 24 Within the past 12 months, t he food you bought just didn't last and you didn't have money to get more. Never true 12/24/2023 PRAPARE - Transportation Answer Date Re corded In the past 12 months, has l ack of transportation kept you from medical appointments or from getting medications? No 12/03 In the past 12 months, has l ack of transportation kept you from meetings, work, or from getting things needed for daily living? No 12/24/2023 Housing Stability Vital Sign Answer Fadi e Recorded In the last 12 months, was t here a time when you were not able to pay the mortgage or rent on time? No 12/24/2023 In the past 12 months, how m any times have you moved where you were living? 1 12/24/2023 At any time in the past 12 m [facility], were you homeless or living in a detention (including now)? No 12/24/2023 Sex and Gender Information Value Date Recorded Sex Assigned at Male 12/26/2022 9:36 AM CDT Legal Sex Male 4:34 PM CDT Gender Identity Male 12/26/2022 9:36 AM CDT Sexual Orientation Straight 12/26/2022 9: 36 AM CDT Last Filed Vital Signs Vital Sign Reading Time Taken Comments Blood Pressure 119/78 04/09/2024 3:25 PM FIELD APPLICATION ENGINEER Pulse 71 04/09/2024 3:25 PM FIELD APPLICATION ENGINEER Temperature 36.6 C (97.8 F) 04/09/2024 3:25 PM FIELD APPLICATION ENGINEER Respiratory Rate 16 01/04/2024 12:3 4 PM CDT Oxygen Saturation 95% 04/09/2024 3:25 PM FIELD APPLICATION ENGINEER Inhaled Oxygen Concentration - - Weight 101.9 kg (224 lb 9.6 oz) 04/09/2024 3:25 PM FIELD APPLICATION ENGINEER Height 180.3 cm (5' 11 ) 04/09/2024 3:25 PM FIELD APPLICATION ENGINEER Body Mass Index 31.33 04/09/2024 3:25 PM FIELD APPLICATION ENGINEER Plan of Treatment Upcoming Encounters Date Type Department Care Team (Late st Contact Info) Description 08/28/2024 8:00 AM CDT Office Visit [facility] Mult[facility]pecialty Care - [facility] [address] [facility], [address] [place] [address] Ethan Bermeo MD [address] [place] [address] 09/03/2024 8:00 AM CDT Office Visit [address] [phone] Nitish Izquierdo DO [address] [place] [address] 09/19/2024 9:30 AM CDT Office Visit [facility] THREE [facility] [address] [place] [address] Greta Garnica MD Three [facility]. [facility] [address] [place] [address] 04/07/2025 7:00 AM FIELD APPLICATION ENGINEER Office Visit [address] [address] Nitish Izquierdo DO [address] [place] [address] 04/09/2025 9:00 AM FIELD APPLICATION ENGINEER Office Visit [address] [address] Nitish Izquierdo, DO [address] [place] [address] Health Maintenance Due Date Last Done Comments Colorectal Cancer Screening Colonoscopy (10 Years) 1958 Pneumococcal Vaccine: 65+ Years (1 of 2 - PCV) 1964 Pneumococcal Vaccine: Pediatrics (0 to 5 Years) and At-Risk Patients (6 to 64 Years) (1 of 2 - PCV) 1964 Hepatitis C 1976 RSV Immunization or 60+ Years (1 - Risk 60-74 years 1-dose series) 2018 COVID-19 Vaccine ( - 2023-2 5 season) 2024 Influenza Adult (#1) 2024 03/04/2013 DTaP, Tdap and Td Vaccines ( 2 - Td or Tdap) 04/10/2024 04/10/2014 PHQ-2 (Physician [place]) 06/04/2024 04/09/2024 Zoster Vaccines Completed 07/20/2021, 03/24/2021 Meningococcal B Vaccine Aged Out No l onger eligible based on patient's age to complete this topic Meningococcal Vaccine Aged Out No ellen ap eligible based on patient's age to complete this topic RSV Immunizations Under 20 Months Aged Out No longer eligible b ased on patient's age to complete this topic Goals Goal Patient Goal Type Associated Problems Recent Progress Patient-Stated? Author Family - family caregiver with be involved in care transitions and discharge planning Lifestyle No Danny Enriquez, RN Medical Devices Implanted Type Area Marketing Programs Specialist Device Identifier Shelf Expiration Date Model / Serial / Lot Putty Weidman Matrix Dbm/Dbf Bone 3ml - [id number] Implanted:Qty: 1 on 12/24/2023 by Ethan Bermeo MD at [facility] Bone N/A: Spine Cervical [employer] [id number] 10/11/2025 [id number] / [id number] / . Medtronic Endoskeleton Tc Interbody System Implanted:Qty: 1 on 12/24/2023 by Ethan Bermeo MD at [facility] Cage N/A: Spine Cervical [employer] [id number] 08/22/2028 [id number] -N / / [id number] Description:C4-5 Medtronic Endoskeleton Tc Interbody System Implanted:Qty: 1 on 12/24/2023 by Ethan Bermeo MD at [facility] Cage N/A: Spine Cervical [employer] [id number] 08/29/2028 0218-2900 -N / / [id number] Description:C3-4 47.5 Mm Elite Plate Implanted:Qty: 1 on 12/24/2023 by Ethan Bermeo MD at [facility] Plate N/A: Spine Cervical [employer] . [id number] / / . 4.0 X 14 Mm Screws Implanted:Qty: 6 on 12/24/2023 by Ethan Bermeo MD at [facility] Screw N/A: Spine Cervical [employer] . [id number] / / . Explanted Type Area Marketing Programs Specialist Device Identifier Shelf Expiration Date Model / Serial / Lot Plate Holding Pins Explanted:Qty: 1 on 12/24/2023 by Ethan Bermeo MD at [facility] Pin N/A: Spine Cervical [employer] . [id number] / / . Distration Pin 12mm - [id number] Explanted:Qty: 1 on 12/24/2023 by Ethan Bermeo MD at [facility] Pin N/A: Spine Cervical [employer] . DP-12-TB / / . Distration Pin 12mm - [id number] Explanted:Qty: 1 on 12/24/2023 by Ethan Bermeo MD at [facility] Pin N/A: Spine Cervical [employer] . DP-12-TB / / . [place] [address] [place] [address] MEDICARE Advance Directives * Full Code (Latest Code Status on File) Date Activated Date Inactivated Comments 12/24/2023 3:16 PM 12/27/2023 1:57 PM Care Teams Radiology Services Manager Relationship Specialty Start Date End Date Nitish Izquierdo DO 3 [facility] [address] [place] [phone] PCP - General FAMILY PRACTICE 04/03/23 Greta Garnica MD [address] [place], [place] [id number] Consulting Physician INTERVENTIONAL CARDIOLOGY 08/30/23
--- OUTSIDE RECORDS SUMMARY | 2024-08-25 11:13 | XMS_ITS | CONTINUITY OF CARE DOCUMENT ---
Author Name karen jones Address Unknown Organization [facility] Address [address] [place] [address] Phone [phone] Care Team Providers Care Information Architect Name Role Phone karen jones Unavailable Unavailable INSURANCE PROVIDERS Payer name Policy type / Coverage type [place] red green party ID [facility] [id number] insurance company [id number]
--- OUTSIDE RECORDS SUMMARY | 2024-08-25 11:13 | XMS_ITS | Clinical Summary ---
Author Organization [facility] Address [address] [place] [address] Care Team Providers Care Editor Map Name Role Phone Oneal Monzon MD Primary Care Provider [phone] Source Comments [facility] [employer],non-owned Affiliates and Associated Physician Practices is amultiple site organization consisting of ambulatory clinics and hospital sitesin [place], [place], [place] and [place]. This disclosure is being madepursuant to the Care Everywhere program and may not contain all information available regarding this patient. Last updated 18.[facility] [employer] Encounters Date Type Department Care Team Description 06/19/2024 Lab Requisition [facility] - DermPath Lab [address] [place] [address] Socorro Knight MD from Last 3 Months Social History Tobacco Use Types Packs/Day Years Used Date Smoking Tobacco: Never Assessed Sex and Gender Information Value Date Recorded Sex Assigned at Not on file Gender Identity Not on file Sexual Orientation Not on file Plan of Treatment Health Maintenance Due Date Last Done Comments COLOGUARD (AGES 45-75) - COL ON CA SCREENING 1958 COLON MONITORING 1958 COLONOSCOPY - COLON CA SCREENING 1958 CT COLONOGRAPHY - COLON CA SCREENING 1958 Colorectal Cancer Screening 1958 FIT - COLON CA SCREENING 1958 FLEX SIG - COLON CA SCREENING 1958 LIPID TESTING 1958 MEDICARE AWV 12 MONTHS 1958 HIV SCREENING 1973 HEPATITIS C SCREENING 09/02/1976 DTAP/TDAP/TD VACCINES (1 - Tdap) 1977 PNEUMOCOCCAL VACCINE 50+ (1 of 1 - PCV) 2008 ZOSTER VACCINE (1 of 2) 2008 COVID-19 VACCINE (1 - 2023-2 5 season) 2024 INFLUENZA VACCINE (#1) 2024 DEPRESSION SCREENING 06/04/2024 Respiratory Syncytial Virus (RSV) Vaccine Pt: or over 60 yrs (1 - 1-dose 75+ series) 2033 HEPATITIS B VACCINE Aged Out No longe r eligible based on patient's age to complete this topic HIB VACCINE Aged Out No longer eligi ble based on patient's age to complete this topic HPV VACCINE Aged Out No longer eligi ble based on patient's age to complete this topic MENINGOCOCCAL (Group B) VACC INE SHARED DECISION-MAKING Aged Out No longer eligibl e based on patient's age to complete this topic MENINGOCOCCAL GROUPS A/C/Y/W VACCINE Aged Out No longer eligible b ased on patient's age to complete this topic Procedures Procedure Name Priority Date/Time Associated Diagnosis Comments DERMATOPATHOLOGY Routine 06/19/2024 1:04 PM UNDERWATER PHOTOGRAPHER from Last 3 Months Results * DERMATOPATHOLOGY (06/19/2024 1:04 PM UNDERWATER PHOTOGRAPHER) Case Report Dermatopathology Report Case: [id number] Authorizing Provider: Socorro Knight MD Collected: 06/19/2024 01:04 PM Ordering Location: [facility] - Received: 06/20/2024 03:04 PM DermPath Lab Pathologist: Missy Rivera MD Specimens: A) - Skin, right ant thigh B) - Skin, right ant neck 5 3:54 PM UNDERWATER PHOTOGRAPHER DERMATOPATHOLOGY LABORATORY Final Diagnosis Specimen A. SKIN, right ant thigh: ACTINIC KERATOSIS, LICHENOID (L57.0) Specimen B. SKIN, right ant neck: ACTINIC KERATOSIS, FOCAL (L57.0) CHRONIC PERIFOLLICULITIS (L73.8) 5 3:54 PM UNDERWATER PHOTOGRAPHER DERMATOPATHOLOGY LABORATORY Clinical History A: R/O SCC B: Cyst vs NMSC 5 3:54 PM UNDERWATER PHOTOGRAPHER DERMATOPATHOLOGY LABORATORY Gross Description Specimen A: Received is one formalin filled container labeled with the patient's name and designated right ant thigh. The specimen consists of a shave biopsy measuring 7x7x1 mm. Jar 0. Specimen B: Received is one formalin filled container labeled with the patient's name and designated right ant neck. The specimen consists of a shave biopsy measuring 9x6x1 mm. Jar 0. 5 3:54 PM [facility] DERMATOPATHOLOGY LABORATORY Microscopic Description Specimen A. SKIN, right ant thigh: There is focal parakeratosis. The lower half of the epidermis shows focal disorderly maturation of keratinocytes with nuclear pleomorphism. The dermis shows a band-like, chronic inflammatory infiltrate with occasional apoptotic keratinocytes and some basal vacuolar alteration. Specimen B. SKIN, right ant neck: There is focal parakeratosis. The lower half of the epidermis shows disorderly maturation of keratinocytes with nuclear pleomorphism. 3:54 PM [facility] DERMATOPATHOLOGY LABORATORY Disclaimer An external and internal positive and negative controls are appropriate for the histochemical, immunohistochemical and immunofluorescence stain(s) in this case (if any), except where stated explicitly. The performance characteristics of the stain(s) cited in this report were developed and its performance characteristic determined by the Dermatopathology Laboratory at [facility], directed by Dr. Torrie Marin. These tests need not be, and therefore are not, approved by the [place] Food and Drug Administration. The tests are used for clinical purposes. Billing Codes Specimen Charges Stain Charges 04053 44074 1 1 3:54 PM UNDERWATER PHOTOGRAPHER DERMATOPATHOLOGY LABORATORY Embedded Images 3:54 PM UNDERWATER PHOTOGRAPHER DERMATOPATHOLOGY LABORATORY Pathology/Cytology TISSUE SPECIMEN FROM SKIN / Unknown 06/19/2024 1:04 PM UNDERWATER PHOTOGRAPHER 06/20/2024 3:04 PM UNDERWATER PHOTOGRAPHER Miscellaneous samples (specimen) TISSUE SPECIMEN FROM SKIN / Unknown 06/19/2024 1:04 PM UNDERWATER PHOTOGRAPHER 06/20/2024 3:04 PM UNDERWATER PHOTOGRAPHER Socorro Knight MD LAB - PATHOLOGY/CYT OLOGY ORDERABLES DERMATOPATHOLOGY LABORATORY [facility] - Department of Dermatology [facility] [address] [place] [address], [address] [phone] from Last 3 Months Care Teams Editor Map Relationship Specialty Start Date End Date Oneal Monzon MD [address] [place] [address] PCP - General 05/03/22
--- OUTSIDE RECORDS SUMMARY | 2024-08-25 11:13 | XMS_ITS | Encounter Summary ---
Author Organization [facility] Address [address] [place] [address] Care Team Providers Care Flight Surgeon Name Role Phone Nitish Izquierdo DO Primary Care Provider [phone] Greta Garnica MD Unavailable [phone] Encounter Details Date Type Department Care Team (Latest Contact Info) Description 10/15/2023 Concuityt Message Enc [facility] - [facility] [address] [facility], [address] [place] [phone] Samantha Beltran APRN [address] [facility] [address] [place] [address] Refill for Oxycodone/Acetamino phen Social History Tobacco Use Types Packs/Day Years [...] AM CDT documented as of this encounter Progress Notes * [employer] 10/15/2023 1:29 PM CDT Forwarding to Samantha documented in this encounter Plan of Treatment Upcoming Encounters Date Type Department Care Team (Late st Contact Info) Description 08/28/2024 8:00 AM CDT Office Visit [facility] [address] [facility], [address] [place] [address] Ethan Bermeo MD [address] [place] [address] 09/03/2024 8:00 AM CDT Office Visit [address] [phone] Nitish Izquierdo DO [address] [place] [address] 09/19/2024 9:30 AM CDT Office Visit [facility] THREE [facility] [place] [place] [address] Greta Garnica MD Three [facility]. [facility] [address] [place] [address] 04/07/2025 7:00 AM MARKETING OFFICER Office Visit [address] [phone] Nitish Izquierdo DO [address] [place] [address] 04/09/2025 9:00 AM MARKETING OFFICER Office Visit [address] [phone] Nitish Izquierdo DO [address] [place] [address] documented as of this encounter Visit Diagnoses Not on filedocumented in this encounter Care Teams Flight Surgeon Relationship Specialty Start Date End Date Nitish Izquierdo DO 3 [facility] [address] [place] [phone] PCP - General FAMILY PRACTICE 04/03/23 Greta Garnica MD Three [facility]. [facility] [address] [place], [place] [phone] Consulting Physician INTERVENTIONAL CARDIOLOGY 08/30/23 documented as of this encounter
--- OUTSIDE RECORDS SUMMARY | 2024-08-25 11:13 | XMS_ITS | Encounter Summary ---
Author Organization [facility] Address [address] [place] [address] Care Team Providers Care Board Handler Name Role Phone Nitish Izquierdo DO Primary Care Provider [phone] Greta Garnica MD Unavailable [phone] Encounter Details Date Type Department Care Team (Latest Contact Info) Description 09/21/2023 MyCePark Systemst Message Enc [facility] Medical Group Multispecialty Care - [facility] [address] [facility], [address] [place] [phone] Samantha Beltran APRN 3 [facility] [address] [place] [address] Upcoming Surgery Social History Tobacco Use Types Packs/Day Years [...] as of this encounter Progress Notes * Trixie Gupta MA - 09/21/2023 3:38 PM CDT Forwarding to Nessa documented in this encounter Plan of Treatment Upcoming Encounters Date Type Department Care Team (Late st Contact Info) Description 08/28/2024 8:00 AM CDT Office Visit [facility] Multispecialty Care - [facility] [address] [facility], [address] [place] [address] Ethan Bermeo MD [address] [place] [address] 09/03/2024 8:00 AM CDT Office Visit [address] [phone] Nitish Izquierdo DO [address] [place] [address] 09/19/2024 9:30 AM CDT Office Visit [facility] THREE [facility] [place] [address] [place] [address] Greta Garnica MD Three [facility]. [facility] [address] [place] [address] 04/07/2025 7:00 AM CHANNEL MARKETING PROGRAM MANAGER Office Visit [facility] [address] [place] [address] Nitish Izquierdo DO [address] [place] [address] 04/09/2025 9:00 AM CHANNEL MARKETING PROGRAM MANAGER Office Visit [address] [phone] Nitish Izquierdo DO [address] [place], [place] [phone] documented as of this encounter Visit Diagnoses Not on filedocumented in this encounter Care Teams Board Handler Relationship Specialty Start Date End Date Nitish Izquierdo DO 3 [facility] [address] [place] [phone] PCP - General FAMILY PRACTICE 04/03/23 Greta Garnica MD Three [facility]. [facility] [address] [place], [place] [phone] Consulting Physician INTERVENTIONAL CARDIOLOGY 08/30/23 documented as of this encounter
--- OUTSIDE RECORDS SUMMARY | 2024-08-25 11:13 | XMS_ITS | Encounter Summary ---
Author Organization [facility] Address [address] [place] [address] Care Team Providers Care Occupational Therapy Assistant Name Role Phone Oneal Monzon MD Primary Care Provider [phone] Encounter Details Date Type Department Care Team (Late st Contact Info) Description 06/19/2024 Lab Requisition [facility] - DermPath Lab [address] [facility], [facility] [place] [address] Socorro Knight MD [address] [facility] 3 [place] [address] Social History Tobacco Use Types Packs/Day Years Used Date Smoking Tobacco: Never Assessed Sex and Gender Information Value Date Recorded Sex Assigned at Not on file Gender Identity Not on file Sexual Orientation Not on file documented as of this encounter Plan of Treatment Not on file documented as of this encounter Procedures Procedure Name Priority Date/Time Associated Diagnosis Comments DERMATOPATHOLOGY Routine 06/19/2024 1:04 PM FLEECE TIER documented in this encounter Results * DERMATOPATHOLOGY (06/19/2024 1:04 PM FLEECE TIER) Case Report Dermatopathology Report Case: [id number] Authorizing Provider: Socorro Knight MD Collected: 06/19/2024 01:04 PM Ordering Location: [facility] - Received: 06/20/2024 03:04 PM DermPath Lab Pathologist: Missy Rivera MD Specimens: A) - Skin, right ant thigh B) - Skin, right ant neck 3:54 PM FLEECE TIER DERMATOPATHOLOGY LABORATORY Final Diagnosis Specimen A. SKIN, right ant thigh: ACTINIC KERATOSIS, LICHENOID (L57.0) Specimen B. SKIN, right ant neck: ACTINIC KERATOSIS, FOCAL (L57.0) CHRONIC PERIFOLLICULITIS (L73.8) 3:54 PM [facility] DERMATOPATHOLOGY LABORATORY Clinical History A: R/O SCC B: Cyst vs NMSC 3:54 PM [facility] DERMATOPATHOLOGY LABORATORY Gross Description Specimen A: Received [...] shave biopsy measuring 9x6x1 mm. Jar 0. 3:54 PM [facility] DERMATOPATHOLOGY LABORATORY Microscopic Description Specimen A. SKIN, [...] of keratinocytes with nuclear pleomorphism. 3:54 PM [facility] DERMATOPATHOLOGY LABORATORY Disclaimer An external and internal positive and negative controls are appropriate for the histochemical, immunohistochemical and immunofluorescence stain(s) in this case (if any), except where stated explicitly. The performance characteristics of the stain(s) cited in this report were developed and its performance characteristic determined by the Dermatopathology Laboratory at [facility], directed by Dr. Torrie Marin. These tests need not be, and therefore are not, approved by the [place] Food and Drug Administration. The tests are used for clinical purposes. Billing Codes Specimen Charges Stain Charges 90153 58274 1 1 3:54 PM FLEECE TIER DERMATOPATHOLOGY LABORATORY Embedded Images 3:54 PM [facility] DERMATOPATHOLOGY LABORATORY Pathology/Cytology TISSUE SPECIMEN FROM SKIN / Unknown 06/19/2024 1:04 PM FLEECE TIER 06/20/2024 3:04 PM FLEECE TIER Miscellaneous samples (specimen) TISSUE SPECIMEN FROM SKIN / Unknown 06/19/2024 1:04 PM FLEECE TIER 06/20/2024 3:04 PM FLEECE TIER Socorro Knight MD LAB - PATHOLOGY/CYT OLOGY ORDERABLES DERMATOPATHOLOGY LABORATORY [facility] - Department of Dermatology [facility], [address]rd Floor [address] [phone] documented in this encounter Visit Diagnoses Not on filedocumented in this encounter Care Teams Occupational Therapy Assistant Relationship Specialty Start Date End Date Oneal Monzon MD [address] [place] [address] PCP - General 05/03/22 documented as of this encounter
--- OUTSIDE RECORDS SUMMARY | 2024-08-25 11:13 | XMS_ITS | Encounter Summary ---
Author Organization [facility] Address [address] [place] [address] Care Team Providers Care Electronics Recycler Name Role Phone Nitish Izquierdo DO Primary Care Provider [phone] Greta Garnica MD Unavailable [phone] Encounter Details Date Type Department Care Team (Late st Contact Info) Description 11/13/2023 Abstract [facility] THREE [facility] [place] [address] [place] [address] Otilio Hall MA Social History Tobacco Use Types Packs/Day Years [...] Description 08/28/2024 8:00 AM CDT Office Visit [facility] Medical [facility] Multispecialty Care - [facility] 3 [facility], [address] [place] [phone] Ethan Bermeo MD 3 [place] [address] 09/03/2024 8:00 AM CDT Office Visit [facility] 5 [place] [phone] Nitish Izquierdo DO [address] [address] 09/19/2024 9:30 AM CDT Office Visit [facility] THREE [facility], [facility] [address] [place] [address] Greta Garnica MD Three [facility]. [facility] [address] [place] [address] 04/07/2025 7:00 AM ENTERPRISE APPLICATION ADMINISTRATOR Office Visit [facility] [address] [place] [address] Nitish Izquierdo DO [address] [place], [place] [phone] 04/09/2025 9:00 AM ENTERPRISE APPLICATION ADMINISTRATOR Office Visit [facility] [address] [place] [address] Nitish Izquierdo DO [address] [place] [address] documented as of this encounter Procedures Procedure Name Priority Date/Time Associated Diagnosis Comments LIPID PANEL Routine 11/12/2023 documented in this encounter Results * LIPID PANEL (11/12/2023) CHOLESTEROL 181 HDL 28 TRIGLYCERIDES 322 NON HDL CHOLESTEROL 153 LDL (CALCULATED) 110 11/12/2023 us Default History Genericprovider LABORATORY Final Result documented in this encounter Visit Diagnoses Not on filedocumented in this encounter Care Teams Electronics Recycler Relationship Specialty Start Date End Date Nitish Izquierdo DO 3 [facility] [address] [place] [address] PCP - General FAMILY PRACTICE 04/03/23 Greta Garnica MD Three [facility]. [facility] [address] [place] [address] Consulting Physician INTERVENTIONAL CARDIOLOGY 08/30/23 documented as of this encounter
--- OUTSIDE RECORDS SUMMARY | 2024-08-25 11:13 | XMS_ITS | Encounter Summary ---
Author Organization [facility] Address [address] [place] [address] Care Team Providers Care Chore Worker Name Role Phone Nitish Izquierdo DO Primary Care Provider [phone] Greta Garnica MD Unavailable [phone] Encounter Details Date Type Department Care Team (Latest Contact Info) Description 09/21/2023 MyChart Message Enc [facility] Medical Group Multispecialty Care - [facility] 3 [facility], [address] [place] [phone] Samantha Beltran APRN 3 [facility] [address] [place] [address] Physical Restrictions Social History Tobacco Use Types Packs/Day Years [...] Description 08/28/2024 8:00 AM CDT Office Visit [facility] Multispecialty Care - [facility] 3 [facility], [address] [place] [address] Ethan Bermeo MD 3 [place] [address] 09/03/2024 8:00 AM CDT Office Visit [facility] Family [facility] 5 [place] [address] Nitish Izquierdo DO [address] [place], [place] [phone] 09/19/2024 9:30 AM CDT Office Visit [facility] THREE [facility] [place] [address] [place] [address] Greta Garnica MD Three [facility]. [place] [address] [place] [address] 04/07/2025 7:00 AM PACKAGING INSPECTOR Office Visit [address] [address] Nitish Izquierdo DO [address] [place] [phone] 04/09/2025 9:00 AM PACKAGING INSPECTOR Office Visit [address] [address] Nitish Izquierdo DO [address] [place] [phone] documented as of this encounter Visit Diagnoses Not on filedocumented in this encounter Care Teams Chore Worker Relationship Specialty Start Date End Date Nitish Izquierdo DO 3 [facility] [address] [place] [phone] PCP - General FAMILY PRACTICE 04/03/23 Greta Garnica MD Three [facility]. [facility] [address] [place], [place] [phone] Consulting Physician INTERVENTIONAL CARDIOLOGY 08/30/23 documented as of this encounter
== END 2024-08-25 09:54 | disposition home or self-care (01) ==
PROVIDERS: PCP Family Medicine; Visit Provider Nurse Practitioner Family
DX: N13.2 Hydronephrosis with renal and ureteral calculous obstruction (principal); Z87.442 Personal history of urinary calculi
CPT/HCPCS: 74178; Q9967

== ENCOUNTER 2024-09-08 08:30 | Outpatient (CLI) | payer MEDICARE, BC, SELFPAY ==
--- NOTE | 2024-09-08 08:30 | ECG_ITS ---
Test Date: 2024-09-08 09:01:27 Measurements Intervals [place] Rate: 58 P: 10 OK: 219 QRS: -44 QRSD: 86 T: -18 QT: 373 QTc: 367 Interpretive Statements SINUS BRADYCARDIA WITH FIRST DEGREE AV BLOCK LOW QRS VOLTAGE IN PRECORDIAL LEADS POSSIBLE ANTERIOR MYOCARDIAL INFARCTION INFERIOR INFARCT, AGE INDETERMINATE BORDERLINE T WAVE ABNORMALITY- ANTERIOR LEADS BASELINE ARTIFACT- I, III, AVR, AVL, AVF ABNORMAL ECG No previous ECG available for comparison Electronically Signed On 09-08-2024 09:14:09 CDT by Farhat Flynn D.O.
--- OUTSIDE RECORDS SUMMARY | 2024-09-08 08:56 | XMS_ITS | Encounter Summary ---
Author Organization [facility] Address [address] [place] [address] Care Team Providers Care Bottler Name Role Phone Oneal Monzon MD Primary Care Provider [phone] Encounter Details Date Type Department Care Team (Late st Contact Info) Description 06/19/2024 Lab Requisition [facility] - DermPath Lab [address] [facility], [facility] [place] [address] Socorro Knight MD [address] [facility] 3 [place] [address] Social History Tobacco Use Types Packs/Day Years [...] Diagnosis Comments DERMATOPATHOLOGY Routine 06/19/2024 1:04 PM PAPER CUP MACHINE OPERATOR documented in this encounter Results * DERMATOPATHOLOGY (06/19/2024 1:04 PM PAPER CUP MACHINE OPERATOR) Case Report Dermatopathology Report Case: [id number] Authorizing Provider: Socorro Knight MD Collected: 06/19/2024 01:04 PM Ordering Location: [facility] Physician [facility] - Received: 06/20/2024 03:04 PM DermPath Lab Pathologist: Missy Rivera MD Specimens: A) - Skin, right ant thigh B) - Skin, right ant neck 3:54 PM PAPER CUP MACHINE OPERATOR DERMATOPATHOLOGY LABORATORY Final Diagnosis Specimen A. SKIN, right ant thigh: ACTINIC KERATOSIS, LICHENOID (L57.0) Specimen B. SKIN, right ant neck: ACTINIC KERATOSIS, FOCAL (L57.0) CHRONIC PERIFOLLICULITIS (L73.8) 3:54 PM [facility] DERMATOPATHOLOGY LABORATORY Clinical History A: R/O SCC B: Cyst vs NMSC 3:54 PM [facility] DERMATOPATHOLOGY LABORATORY Gross Description Specimen A: Received [...] measuring 9x6x1 mm. Jar 0. 3:54 PM [facility] DERMATOPATHOLOGY LABORATORY Microscopic Description Specimen A. SKIN, [...] of keratinocytes with nuclear pleomorphism. 3:54 PM [facility] DERMATOPATHOLOGY LABORATORY Disclaimer An external and internal positive and negative controls are appropriate for the histochemical, immunohistochemical and immunofluorescence stain(s) in this case (if any), except where stated explicitly. The performance characteristics of the stain(s) cited in this report were developed and its performance characteristic determined by the Dermatopathology Laboratory at [facility], directed by Dr. Torrie Marin. These tests need not be, and therefore are not, approved by the [place] Food and Drug Administration. The tests are used for clinical purposes. Billing Codes Specimen Charges Stain Charges 06128 48431 1 1 3:54 PM PAPER CUP MACHINE OPERATOR DERMATOPATHOLOGY LABORATORY Embedded Images 3:54 PM [facility] DERMATOPATHOLOGY LABORATORY Pathology/Cytology TISSUE SPECIMEN FROM SKIN / Unknown 06/19/2024 1:04 PM PAPER CUP MACHINE OPERATOR 06/20/2024 3:04 PM PAPER CUP MACHINE OPERATOR Miscellaneous samples (specimen) TISSUE SPECIMEN FROM SKIN / Unknown 06/19/2024 1:04 PM PAPER CUP MACHINE OPERATOR 06/20/2024 3:04 PM PAPER CUP MACHINE OPERATOR Socorro Knight MD LAB - PATHOLOGY/CYT OLOGY ORDERABLES DERMATOPATHOLOGY LABORATORY [facility] - Department of Dermatology [facility] Medicine [facility]5 [facility], 3rd Floor [address] [phone] documented in this encounter Visit Diagnoses Not on filedocumented in this encounter Care Teams Bottler Relationship Specialty Start Date End Date Oneal Monzon MD [address] [place] [address] PCP - General 05/03/22 documented as of this encounter
--- OUTSIDE RECORDS SUMMARY | 2024-09-08 08:56 | XMS_ITS | CONTINUITY OF CARE DOCUMENT ---
Author Name karen jones Address Unknown Organization [facility] Address [address] [place] [address] Phone [phone] Care Team Providers Care Jacket Preparer Name Role Phone karen jones Unavailable Unavailable INSURANCE PROVIDERS Payer name Policy type / Coverage type Shell red democrat ID [facility] [employer] insurance company [id number]
--- OUTSIDE RECORDS SUMMARY | 2024-09-08 08:56 | XMS_ITS | Clinical Summary ---
Author Organization [facility] Address [address] [place] [address] Care Team Providers Care Associate Director Qa Name Role Phone Oneal Monzon MD Primary Care Provider [phone] Source Comments [facility] [employer],non-owned Affiliates and Associated Physician Practices is amultiple site organization consisting of ambulatory clinics and hospital sitesin [place], [place], [place] and [place]. This disclosure is being madepursuant to the Care Everywhere program and may not contain all information available regarding this patient. Last updated 18.[facility] [employer] Encounters Date Type Department Care Team Description 06/19/2024 Lab Requisition [facility] Physician Group - DermPath Lab [address] [place] [address] Socorro Knight MD from Last 3 Months [...] Diagnosis Comments DERMATOPATHOLOGY Routine 06/19/2024 1:04 PM PRESS OPERATOR APPRENTICE from Last 3 Months Results * DERMATOPATHOLOGY (06/19/2024 1:04 PM PRESS OPERATOR APPRENTICE) Case Report Dermatopathology Report Case: [id number] Authorizing Provider: Socorro Knight MD Collected: 06/19/2024 01:04 PM Ordering Location: [facility] - Received: 06/20/2024 03:04 PM DermPath Lab Pathologist: Missy Rivera MD Specimens: A) - Skin, right ant thigh B) - Skin, right ant neck 5 3:54 PM PRESS OPERATOR APPRENTICE DERMATOPATHOLOGY LABORATORY Final Diagnosis Specimen A. SKIN, right ant thigh: ACTINIC KERATOSIS, LICHENOID (L57.0) Specimen B. SKIN, right ant neck: ACTINIC KERATOSIS, FOCAL (L57.0) CHRONIC PERIFOLLICULITIS (L73.8) 5 3:54 PM PRESS OPERATOR APPRENTICE DERMATOPATHOLOGY LABORATORY Clinical History A: R/O SCC B: Cyst vs NMSC 5 3:54 PM PRESS OPERATOR APPRENTICE DERMATOPATHOLOGY LABORATORY Gross Description Specimen A: Received [...] 9x6x1 mm. Jar 0. 5 3:54 PM [facility] DERMATOPATHOLOGY LABORATORY Microscopic Description Specimen [...] of keratinocytes with nuclear pleomorphism. 3:54 PM [facility] DERMATOPATHOLOGY LABORATORY Disclaimer An external and internal positive and negative controls are appropriate for the histochemical, immunohistochemical and immunofluorescence stain(s) in this case (if any), except where stated explicitly. The performance characteristics of the stain(s) cited in this report were developed and its performance characteristic determined by the Dermatopathology Laboratory at [facility], directed by Dr. Torrie Marin. These tests need not be, and therefore are not, approved by the [place] Food and Drug Administration. The tests are used for clinical purposes. Billing Codes Specimen Charges Stain Charges 08337 60426 1 1 3:54 PM PRESS OPERATOR APPRENTICE DERMATOPATHOLOGY LABORATORY Embedded Images 3:54 PM PRESS OPERATOR APPRENTICE DERMATOPATHOLOGY LABORATORY Pathology/Cytology TISSUE SPECIMEN FROM SKIN / Unknown 06/19/2024 1:04 PM PRESS OPERATOR APPRENTICE 06/20/2024 3:04 PM PRESS OPERATOR APPRENTICE Miscellaneous samples (specimen) TISSUE SPECIMEN FROM SKIN / Unknown 06/19/2024 1:04 PM PRESS OPERATOR APPRENTICE 06/20/2024 3:04 PM PRESS OPERATOR APPRENTICE Socorro Knight MD LAB - PATHOLOGY/CYT OLOGY ORDERABLES DERMATOPATHOLOGY LABORATORY [facility] - Department of Dermatology [facility] Medicine [address] [place] [address], [address] [phone] from Last 3 Months Care Teams Associate Director Qa Relationship Specialty Start Date End Date Oneal Monzon MD [address] [place] [address] PCP - General 05/03/22
[2024-09-08 10:49] LABS: Prothrombin Time 13.2 Seconds (11.1-14.7)
[2024-09-08 10:50] LABS: Partial Thromboplastin Time 29.1 Seconds (22.3-36.8)
== END 2024-09-08 08:31 | disposition home or self-care (01) ==
LOC: ANHSURGERY 08:36
PROVIDERS: Visit Provider Urology
DX: R94.31 Abnormal electrocardiogram [ECG] [EKG] (principal); R00.1 Bradycardia, unspecified; N20.0 Calculus of kidney; I10 Essential (primary) hypertension
CPT/HCPCS: 36415; 85610; 85730; 87086; 93005

== ENCOUNTER 2024-09-12 00:22 | Day surgery (SDC) | payer MEDICARE, BC, SELFPAY ==
--- NOTE | 2024-09-05 11:46 | PC.NURSE ---
Report to the Outpatient Waiting Room, entrance under the green pavilion located off [facility], at time __6:30 am on date __09/12/24 . Planned Procedure Time: __8:30 am .? Time changes happen often and if your time is changed the preop area will call you the afternoon before. - You and your visitor will be asked to self-screen and do not enter if you have any COVID symptoms. Please call surgeon if you need to reschedule. - A mask is optional within the hospital at this time. Patients may have clear liquids (water, carbonated beverages, clear teas, apple juice) until 3 hours prior to surgery ( 5:30 AM) with a maximum of 20 ounces. - No food from midnight until time of surgery and no smoking, or chewing tobacco (or any form of nicotine). No chewing gum, candy or mints. Take only the following medications with a SIP of water on the morning of surgery: ___LEVOTHYROXINE DO NOT STOP ANY OF YOUR OTHER PRESCRIPTION MEDICATIONS PRIOR TO SURGERY EXCEPT THE FOLLOWING Hold all vitamins and supplements for 3 days per anesthesiologist. Medications to discontinue per physician ____PT STATES HOLD ASPIRIN AND PLAVIX 7 DAYS STATES RILEY IS CHECKING WITH [employer]ER[employer] INSTRUCTIONAL ASSISTANT DR SNIDER Date to take last dose 09/04/24 Please no make-up, nail citizen of [place], hairspray, perfume, deodorant, or body powder the day of surgery.? No jewelry (including any body piercings) or valuables the day of surgery, leave them at home.? Please take a shower or bath the night before, or the morning of, surgery with an antibacterial soap.? Wear comfortable, loose fitting clothing.? Children are encouraged to wear pajamas. - Jewelry must be removed prior to entering the operating room.? Rings and piercings that are not removed may be cut off. - The hospital will not accept responsibility for valuables.? - Please leave all valuables, including medications, at home the day of surgery. If you are going home after surgery, a licensed charter and tour bus driver must drive you home.? - NO public transportation without another adult if you receive anesthesia. - We recommend that an adult stay with you for 24 hours following discharge. - We also recommend that you do not drive, make important decision, drink alcoholic beverages, or take any drugs that were not prescribed by your health care provider for at least 24 hours after your discharge time. Follow any additional instructions given to you from your surgeon. Telephone instructions given to __PATIENT and asked if any additional questions and then verbalized understanding. Patient advised to call surgeon office or pre surgery nurse liaison [phone] if any additional questions.
[2024-09-05 12:17] VITALS: BMI 31.4
[2024-09-12] VITALS (8 sets, daily range): BP systolic 110–134; BP diastolic 64–73; PULSE 56–78; RESP 13–18; TEMP 36.2–36.4; O2SAT 98–100; BMI 31.3
--- NOTE | ~2024-09-12 | XR_ITS ---
Supine and upright views of the abdomen Clinical history: Renal stone, lithotripsy COMPARISON: CT dated 08/25/2024 Findings: Bowel gas pattern is nonspecific. No evidence for obstruction or free air. 14 mm ovoid ston e present in the region of the left renal pelvis. Probable additional subcentimeter left renal stones present. Probable tiny subcentimeter right renal stones present. Suggestion of a 4 mm calcification to the right of the L4-L5 disc space, which could reflect mid right ureteral stone. Osseous structure s are intact. Impression: Left nephrolithiasis, as above, with 14 mm stone in the left renal pelvis region. Calcifications projecting right of the L4-L5 disc space. Mid right ureteral stones are potential cons ideration. Correlate clinically. Reviewed, dictated and finalized at [facility]. Impression: Left nephrolithiasis, as above, with 14 mm stone in the left renal pelvis regio n. Calcifications projecting right of the L4-L5 disc space. Mid right ureteral sto lul are potential consideration. Correlate clinically.
--- OUTSIDE RECORDS SUMMARY | 2024-09-12 00:25 | XMS_ITS | Encounter Summary ---
Author Organization [facility] - [facility] Address [address] [place] [address] Care Team Providers Care Cardiovascular Operating Room Nurse Name Role Phone Nitish Izquierdo DO Primary Care Provider [phone] Greta Garnica MD Unavailable [phone] Ethan Bermeo MD Unavailable [phone] Nitish Bautista MD Unavailable [phone] Encounter Details Date Type Department Care Team (Late st Contact Info) Description 09/01/2023 MyChart Message Enc [facility] Medical Group Multispecialty Care - [facility] [address] [facility], [address] [place] [address] Samantha Beltran APRN 3 [facility] [address] [place], [place] [phone] Stimulator Social History Tobacco Use Types Packs/Day [...] Care Team (Late st Contact Info) Description 09/19/2024 9:30 AM CDT Office Visit [facility] [address] [facility] [address] [address], [place] [address] [place] [address] Greta Garnica MD [address] [place] [address] [place] [address] 12/16/2024 8:45 AM CDT Appointment [place] [address] Ethan Bermeo MD 3 [place] [address] 12/18/2024 8:00 AM CDT Office Visit [facility] Multispecialty Care - [facility] [address] [facility], [address] [place] [address] Ethan Bermeo MD 3 [place] [address] 04/07/2025 7:00 AM TELECOM NETWORK MANAGER Office Visit [facility] Family [facility] [address] [place] [address] Nitish Izquierdo, DO [address] [place] [address] 04/09/2025 9:00 AM TELECOM NETWORK MANAGER Office Visit [facility] [address] [place] [address] Nitish Izquierdo DO [address] [address] 09/16/2025 8:00 AM CDT Office Visit [facility] Medical Group Family [facility] - [place] [address] [place] [address] Nitish Izquierdo DO 5 [place] [address] documented as of this encounter Visit Diagnoses Not on filedocumented in this encounter Care Teams Cardiovascular Operating Room Nurse Relationship Specialty Start Date End Date Nitish Izquierdo DO 3 [facility] [address] [place] [address] PCP - General FAMILY PRACTICE 04/03/23 Greta Garnica MD Three [facility] [address] [place] [address] Consulting Physician INTERVENTIONAL CARDIOLOGY 08/30/23 Ethan Bermeo MD 1 [place] [address] Surgeon NEUROLOGICAL SURGERY 09/03/24 Nitish Bautista MD [address] [facility] [address] [place] [address] Consulting Physician UROLOGY 09/03/24 documented as of this encounter
--- OUTSIDE RECORDS SUMMARY | 2024-09-12 00:25 | XMS_ITS | Encounter Summary ---
Author Organization [facility] - [facility] Address [address] [place] [address] Care Team Providers Care Infrastructure Director Name Role Phone Nitish Izquierdo DO Primary Care Provider [phone] Greta Garnica MD Unavailable [phone] Ethan Bermeo MD Unavailable [phone] Nitish Bautista MD Unavailable [phone] Encounter Details Date Type Department Care Team (Latest Contact Info) Description 10/15/2023 Arsenal Vas[employer] Message Enc [facility] Medical Group Multispecialty Care - [facility] [address] [facility], [address] [place] [address] Samantha Beltran APRN 3 [facility] [address] [place], [place] [phone] Refill for Oxycodone/Acetamino phen Social History Tobacco [...] Progress Notes * Trixie Gupta MA - 10/15/2023 1:29 PM CDT Forwarding to [facility] documented in this encounter Plan of Treatment Upcoming Encounters Date Type Department Care Team (Late st Contact Info) Description 09/19/2024 9:30 AM CDT Office Visit [facility] THREE [facility], [place] [address] [place] [address] Greta Garnica MD Three [facility]. [place] [address] [place] [address] 12/16/2024 8:45 AM CDT [place] [address] Ethan Bermeo MD 3 [place] [address] 12/18/2024 8:00 AM CDT Office Visit [facility] Multispecialty Care - [facility] [address] [facility], [address] [place] [address] Ethan Bermeo MD 3 [place] [address] 04/07/2025 7:00 AM MACHINE QUILT STUFFER Office Visit [facility] Family Medicine - [place] [address] [place] [address] Nitish Izquierdo DO [place] [phone] 04/09/2025 9:00 AM MACHINE QUILT STUFFER Office Visit [facility] 5 [place] [address] Nitish Izquierdo DO 5 [place], [place] [phone] 09/16/2025 8:00 AM CDT Office Visit [facility] [address] [place] [address] Nitish Izquierdo DO 5 [place], [place] [phone] documented as of this encounter Visit Diagnoses Not on filedocumented in this encounter Care Teams Infrastructure Director Relationship Specialty Start Date End Date Nitish Izquierdo DO 3 [facility] [address] [place] [address] PCP - General FAMILY PRACTICE 04/03/23 Greta Garnica MD Three [facility] [address] [place], [place] [phone] Consulting Physician INTERVENTIONAL CARDIOLOGY 08/30/23 Ethan Bermeo MD 1 [place] [address] Surgeon NEUROLOGICAL SURGERY 09/03/24 Nitish Bautista MD [address] [facility] [address] [facility] [address] [place] [address] Consulting Physician UROLOGY 09/03/24 documented as of this encounter
--- OUTSIDE RECORDS SUMMARY | 2024-09-12 00:25 | XMS_ITS | Clinical Summary ---
Author Organization [facility] Address [address] [place] [address] Care Team Providers Care Claims Specialist Name Role Phone Oneal Monzon MD Primary Care Provider [phone] Source Comments [facility] [employer],non-owned Affiliates and Associated Physician Practices is amultiple site organization consisting of ambulatory clinics and hospital sitesin [place], [place], [place] and [place]. This disclosure is being madepursuant to the Care Everywhere program and may not contain all information available regarding this patient. Last updated 18.[facility] [employer] Encounters Date Type Department Care Team Description 06/19/2024 Lab Requisition [facility] Physician Group - DermPath Lab [address] [place] [address] Socorro Knight MD from Last 3 Months [...] VACCINE (1 - 2023-2 5 season) 2024 DEPRESSION SCREENING 06/04/2024 INFLUENZA VACCINE (Season Ended) 2025 Respiratory Syncytial Virus (RSV) Vaccine Pt: or [...] Diagnosis Comments DERMATOPATHOLOGY Routine 06/19/2024 1:04 PM ANGLE SHEAR SET UP OPERATOR from Last 3 Months Results * DERMATOPATHOLOGY (06/19/2024 1:04 PM ANGLE SHEAR SET UP OPERATOR) Case Report Dermatopathology Report Case: [id number] Authorizing Provider: Socorro Knight MD Collected: 06/19/2024 01:04 PM Ordering Location: [facility] Phys[facility] - Received: 06/20/2024 03:04 PM DermPath Lab Pathologist: Missy Rivera MD Specimens: A) - Skin, right ant thigh B) - Skin, right ant neck 5 3:54 PM ANGLE SHEAR SET UP OPERATOR DERMATOPATHOLOGY LABORATORY Final Diagnosis Specimen A. SKIN, right ant thigh: ACTINIC KERATOSIS, LICHENOID (L57.0) Specimen B. SKIN, right ant neck: ACTINIC KERATOSIS, FOCAL (L57.0) CHRONIC PERIFOLLICULITIS (L73.8) 5 3:54 PM ANGLE SHEAR SET UP OPERATOR DERMATOPATHOLOGY LABORATORY Clinical History A: R/O SCC B: Cyst vs NMSC 5 3:54 PM ANGLE SHEAR SET UP OPERATOR DERMATOPATHOLOGY LABORATORY Gross Description Specimen A: Received [...] 9x6x1 mm. Jar 0. 5 3:54 PM [facility] DERMATOPATHOLOGY LABORATORY Microscopic Description Specimen A. [...] of keratinocytes with nuclear pleomorphism. 3:54 PM [facility] DERMATOPATHOLOGY LABORATORY Disclaimer An external and internal positive and negative controls are appropriate for the histochemical, immunohistochemical and immunofluorescence stain(s) in this case (if any), except where stated explicitly. The performance characteristics of the stain(s) cited in this report were developed and its performance characteristic determined by the Dermatopathology Laboratory at [facility], directed by Dr. Torrie Marin. These tests need not be, and therefore are not, approved by the [place] Food and Drug Administration. The tests are used for clinical purposes. Billing Codes Specimen Charges Stain Charges 96448 [id number] 1 1 3:54 PM ANGLE SHEAR SET UP OPERATOR DERMATOPATHOLOGY LABORATORY Embedded Images 3:54 PM ANGLE SHEAR SET UP OPERATOR DERMATOPATHOLOGY LABORATORY Pathology/Cytology TISSUE SPECIMEN FROM SKIN / Unknown 06/19/2024 1:04 PM ANGLE SHEAR SET UP OPERATOR 06/20/2024 3:04 PM ANGLE SHEAR SET UP OPERATOR Miscellaneous samples (specimen) TISSUE SPECIMEN FROM SKIN / Unknown 06/19/2024 1:04 PM ANGLE SHEAR SET UP OPERATOR 06/20/2024 3:04 PM ANGLE SHEAR SET UP OPERATOR Socorro Knight MD LAB - PATHOLOGY/CYT OLOGY ORDERABLES DERMATOPATHOLOGY LABORATORY [facility] - Department of Dermatology [facility] Medicine [address] [place] [address], [address] [phone] from Last 3 Months Care Teams Claims Specialist Relationship Specialty Start Date End Date Oneal Monzon MD [address] [place] [address] PCP - General 05/03/22
--- OUTSIDE RECORDS SUMMARY | 2024-09-12 00:25 | XMS_ITS | Encounter Summary ---
Author Organization [facility] Address [address] [place] [address] Care Team Providers Care Channel Rebuilder Name Role Phone Nitish Izquierdo DO Primary Care Provider [phone] Greta Garnica MD Unavailable [phone] Ethan Bermeo MD Unavailable [phone] Nitish Bautista MD Unavailable [phone] Encounter Details Date Type Department Care Team (Latest Contact Info) Description 09/21/2023 MyCPlink Searcht Message Enc [facility] Medical Group Multispecialty Care - [facility] [address] [facility], [address] [place] [address] Samantha Beltran APRN 3 [facility] [address] [place] [address] Upcoming Surgery Social History Tobacco Use Types [...] Description 09/19/2024 9:30 AM CDT Office Visit [facility] [address] [facility] [address] [place] [address] Greta Garnica MD Three [facility]. [facility] [address] [place] [address] 12/16/2024 8:45 AM CDT Appointment [facility] [address] Ethan Bermeo MD 3 [place] [address] 12/18/2024 8:00 AM CDT Office Visit [facility] Multispecialty Care - [facility] [address] [facility], [address] [place] [address] Ethan Bermeo MD 3 [place] [address] 04/07/2025 7:00 AM FACULTY PHYSICIAN Office Visit [facility] Family Medicine - [place] 5 [place] [address] Nitish Izquierdo DO 5 [place] [address] 04/09/2025 9:00 AM FACULTY PHYSICIAN Office Visit [facility] 5 [place] [address] Nitish Izquierdo DO [address] [place] [address] 09/16/2025 8:00 AM CDT Office Visit [facility] 5 [place] [address] Nitish Izquierdo DO [address] [place], [place] [address] documented as of this encounter Visit Diagnoses Not on filedocumented in this encounter Care Teams Channel Rebuilder Relationship Specialty Start Date End Date Nitish Izquierdo DO 3 [facility] [address] [place] [address] PCP - General FAMILY PRACTICE 04/03/23 Greta Garnica MD Three [facility] [address] [place], [place] [address] Consulting Physician INTERVENTIONAL CARDIOLOGY 08/30/23 Ethan Bermeo MD 1 [place], [place] [address] Surgeon NEUROLOGICAL SURGERY 09/03/24 Nitish Bautista MD [address] [facility] [address] [facility] [address] [place] [address] Consulting Physician UROLOGY 09/03/24 documented as of this encounter
--- OUTSIDE RECORDS SUMMARY | 2024-09-12 00:25 | XMS_ITS | Encounter Summary ---
Author Organization [facility] - [facility] Address [address] [place] [address] Care Team Providers Care Cook Ship Name Role Phone Nitish Izquierdo DO Primary Care Provider [phone] Greta Garnica MD Unavailable [phone] Ethan Bermeo MD Unavailable [phone] Nitish Bautista MD Unavailable [phone] Encounter Details Date Type Department Care Team (Latest Contact Info) Description 09/21/2023 MyCE-Buyt Message Enc [facility] Medical Group Multispecialty Care - [facility] [address] [facility], [address] [place] [address] Samantha Beltran APRN 3 [facility] [address] [place] [address] Up coming surgery Social History Tobacco Use [...] 09/19/2024 9:30 AM CDT Office Visit [facility] [address] [facility] [address], [place] [address] [place] [address] Greta Garnica MD Three [facility]. [place] [address] [place] [address] 12/16/2024 8:45 AM CDT Appointment [facility] [place] [address] Ethan Bermeo MD 3 [place] [address] 12/18/2024 8:00 AM CDT Office Visit [facility] Multispecialty Care - [facility] [address] [facility], [address] [place] [address] Ethan Bermeo MD 3 [place] [address] 04/07/2025 7:00 AM CAR CARDER Office Visit [facility] Family [facility] 5 [place] [address] Nitish Izquierdo DO [address] [place] [address] 04/09/2025 9:00 AM CAR CARDER Office Visit [facility] 5 [place] [address] Nitish Izquierdo DO [address] [place] [address] 09/16/2025 8:00 AM CDT Office Visit [facility] Medical Group Family Medicine - [place] 5 [place] [address] Nitish Izquierdo DO 5 [place] [address] documented as of this encounter Visit Diagnoses Not on filedocumented in this encounter Care Teams Cook Ship Relationship Specialty Start Date End Date Nitish Izquierdo DO 3 [facility] [address] [place] [phone] PCP - General FAMILY PRACTICE 04/03/23 Greta Garnica MD Three [facility] [address] [place], [place] [phone] Consulting Physician INTERVENTIONAL CARDIOLOGY 08/30/23 Ethan Bermeo MD 1 [place] [address] Surgeon NEUROLOGICAL SURGERY 09/03/24 Nitish Bautista MD [address] [facility] [address] [facility] [address] [place] [address] Consulting Physician UROLOGY 09/03/24 documented as of this encounter
--- OUTSIDE RECORDS SUMMARY | 2024-09-12 00:25 | XMS_ITS | Encounter Summary ---
Author Organization [facility] Address [address] [place] [address] Care Team Providers Care Is Manager Name Role Phone Nitish Izquierdo DO Primary Care Provider [phone] Greta Garnica MD Unavailable [phone] Ethan Bermeo MD Unavailable [phone] Nitish Bautista MD Unavailable [phone] Reason for Visit * Reason Comments Medicare Wellness Patient presents tod for their Medicare Annual Wellness Visit. Encounter Details Date Type Department Care Team (Late st Contact Info) Description 09/03/2024 8:00 AM CDT Office Visit [facility] Family Medicine [address] [address] Nitish Izquierdo DO [address] [place] [id number] Medicare Wellness (Patient presents today for their Medicare Annual Wellness Visit.) Social History Tobacco Use Types Packs/Day Years Used Date Smoking Tobacco: Never Passive Smoke Exposure: Past Smokeless Tobacco: Never Tobacco Cessation:Counseling Given: No Alcohol Use Standard Drinks/Week Comments Not Currently 0 (1 standard drink = 0.6 oz pur e alcohol) B1300 Health Literacy Answer Date Recor ded How often do you need to hav e someone help you when you read instructions, pamphlets, or other written material from your doctor or pharmacy? Never 12/24/2023 [facility] Utilities Answer Date Recorded In the past 12 months has th e [employer], gas, oil, or water [employer] threatened to shut off services in your [...] by your partner or ex-partner? No 12/24/2023 AUDIT-C Answer Date Recorded Q1: How often do you have a drink containing alcohol? Never 09/02/2024 Q2: How many drinks containi ng alcohol do you have on a typical day when you are drinking? Patient does not drink Q3: How often do you have si x or more drinks on one occasion? Never 09/02/2024 Overall Financial Resource Strain (CARDIA) Answe r Date Recorded How hard is it for you to pa y for the very basics like food, housing, medical care, and heating? Not hard at all 12/24/2023 PHQ-2 Answer Date Recorded Patient Health Questionnaire-2 Score 0 09/02/2024 [facility] - Occup[facility] Stress [...] the money to buy more. Never true 07/22/20 24 Within the past 12 months, t [...] any time in the past 12 m [facility], were you homeless or living in a correction (including now)? No 12/24/2023 Sex and Gender Information Value Date Recorded Sex Assigned at Male 12/26/2022 9:36 AM CDT Legal Sex Male 4:34 PM CDT Gender Identity Male 12/26/2022 9:36 AM CDT Sexual Orientation Straight 12/26/2022 9: 36 AM CDT documented as of this encounter Last Filed Vital Signs Vital Sign Reading Time Taken Comments Blood Pressure 121/77 09/03/2024 8:12 AM CDT Pulse 75 09/03/2024 8:12 AM CDT Temperature 37.2 C (98.9 F) 09/03/2024 8:12 AM CDT Respiratory Rate 16 09/03/2024 8:12 AM CDT Oxygen Saturation 98% 09/03/2024 8:12 AM CDT Inhaled Oxygen Concentration - - Weight 104.3 kg (229 lb 14.4 oz) 09/03/2024 8:12 AM CDT Height 180.3 cm (5' 11 ) 09/03/2024 8:12 AM CDT Body Mass Index 32.06 09/03/2024 8:12 AM CDT documented in this encounter Functional Status * Are you deaf or do you have serious difficulty hearing Answer Date of Assessment Author Status No 12/24/2023 3:25 PM CDT Marcia Haddad RN Active * Are you blind or do you have serious difficulty seeing, even when wearing glasses? Answer Date of Assessment Author Status No 12/24/2023 3:25 PM CDT Marcia Haddad RN Active * Do you have serious difficulty walking or climbing stairs? Answer Date of Assessment Author Status No 12/24/2023 3:25 PM CDT Marcia Haddad RN Active * Do you have difficulty dressing or bathing? Answer Date of Assessment Author Status No 12/24/2023 3:25 PM CDT Marcia Haddad RN Active * Because of a physical, mental, or emotional condition, do you have difficulty doing errands alone such as visiting a doctor's office or shopping? Answer Date of Assessment Author Status No 12/24/2023 3:25 PM MAGIT Marcia Haddad RN Active documented as of this encounter Mental Status * Because of a physical, mental, or emotional condition, do you have serious difficulty concentrating, remembering, or making decisions? Answer Entry Date Author Status No 12/24/2023 3:25 PM MAGIT Marcia Haddad RN Active documented in this encounter Patient Instructions * Patient Instructions* Margarita Theodore RN - 09/03/2024 8:00 AM CDT Images from the original note were not included. PERSONALIZED PREVENTION PLAN FOR [place] (Excerpt from [place] Statutory Short Form Power of Sales Service Coordinator for Health Care.) WHAT WILL HAPPEN IF I DO NOT CHOOSE A HEALTH CARE AGENT If you become unable to make your own health care decisions and have not named an agent in writing,your physician and other health care providers will ask a family member, friend, or guardian to make decisions for you. In [place], a law directs which of these individuals will be consulted. In that law, each of these individuals is called a surrogate There are reasons why you may want to name an agent rather than rely on a surrogate: - The person or people listed by this law may not be who you would want to make decisions for you. - Some family members or friends might not be able or willing to make decisions as you would want them to. - Family members and friends may disagree with one another about the best decisions. - Under some circumstances, a surrogate may not be able to make the same kinds of decisions that anagent can make. These are your preventive care screenings with due dates. Health Maintenance Topic Date Due Colorectal Cancer Screening Colonoscopy (10 Years) Never done Pneumococcal Vaccine: Pediatrics (0 to 5 Years) and At-Risk Patients (6 to 64 Years) (1 of 2 - PCV)Never done Pneumococcal Vaccine: 65+ Years (1 of 2 - PCV) Never done Hepatitis C Never done RSV Immunization or 60+ Years (1 - Risk 60-74 years 1-dose series) Never done COVID-19 Vaccine ( - 2023- season) Never done DTaP, Tdap and Td Vaccines (2 - Td or Tdap) 04/10/2024 Zoster Vaccines Completed PHQ-2 (KSKT) Completed Meningococcal Vaccine Aged Out Meningococcal B Vaccine Aged Out RSV Immunizations Under 20 Months Aged Out Recommended Covered Preventative Services Your PCP and clinical team will review the list below of recommended Medicare Part B Covered Preventative Services and follow up with you on future scheduling of any additional services COLORECTAL CANCER SCREENINGS Medicare covers these screenings to help find precancerous growths or find cancer early, when treatment is most effective. One or more of these tests may be covered: Multi-target stool DNA test: This lab test is generally covered once every 3 years if you meet all of these conditions: Are between ages 50-85. Show no signs or symptoms of colorectal disease including, but not limited to, lower gastrointestinal pain, blood in stool, positive guaiac fecal occult blood test or fecal immunochemical test. At average risk for developing colorectal cancer, meaning: Have no personal history of adenomatous polyps, colorectal cancer, inflammatory bowel disease, including Crohn???s Diseaseand ulcerative colitis. Have no family history of colorectal cancer or adenomatous polyps, familialadenomatous polyposis, or hereditary nonpolyposis colorectal cancer. You pay nothing for the test if the doctor or other qualified health care provider accepts assignment. Screening fecal occult blood test: This test is covered once every 12 months if you???re 50 or older. You pay nothing for the test if the doctor or other qualified health care provider accepts assignment. Screening flexible sigmoidoscopy: This test is generally covered once every 48 months if you???re 50 or older, or 120 months after a previous screening colonoscopy for those not at high risk. You paynothing for the test if the doctor or other qualified health care provider accepts assignment Screening colonoscopy: This test is generally covered once every 120 months (high risk every 24 months) or 48 months after a previous flexible sigmoidoscopy. There???s no minimum age. You pay nothingfor the test if the doctor or other qualified health care provider accepts assignment. Note: If a po lyp or other tissue is found and removed during the colonoscopy, you may have to pay 20% of the Medicare-approved amount for the doctor???s services and a copayment in a hospital outpatient setting. The Part B deductible doesn???t apply. Screening barium enema: This test is generally covered once every 48 months if you???re 50 or older(high risk every 24 months) when used instead of a sigmoidoscopy or colonoscopy. You pay 20% of theMedicare-approved amount for the doctor services. In a hospital outpatient setting, you also pay the hospital a copayment. The Part B deductible doesn???t apply. HEPATITIS C SCREENING TEST Medicare covers one Hepatitis C screening test if you meet one of these conditions: You???re at high risk because you have a current or past history of illicit injection drug use. You had a blood transfusion before 1991. You were born between [id number]. Medicare also covers yearly repeat screenings for certain people at high risk. Medicare will only cover Hepatitis C screening tests if they???re ordered by your health care provider. You pay nothing for the screening test if the doctor or other qualified health care provider accepts assignment. OBESITY SCREENING AND COUNSELING If you have a body mass index (BMI) of 30 or more, Medicare covers xdif-er-ogty individual behavioral therapy sessions to help you lose weight. This counseling may be covered if you get it in a primary care setting (like a doctor???s office), where it can be coordinated with your other care and a personalized prevention plan. You pay nothing for this service if the doctor or other qualified health care provider accepts assignment. PNEUMOCOCCAL SHOTS Medicare covers pneumococcal shots to help prevent pneumococcal infections (like certain types of pneumonia). The two shots protect against different strains of the bacteria. Medicare covers the first shot at any time, and also covers a different second shot if it???s given one year (or later) after the first shot. Talk with your doctor or other health care provider to see if you need one or bothof the pneumococcal shots. You pay nothing for these shots if the doctor or other qualified health care provider accepts assignment for giving the shots Based on your responses to the Health Risk Assessment and appointment today, your provider recommends the following: ADVANCE DIRECTIVES The Basics Written by the doctors and editors at [facility] What are advance directives? -- Advance directives are legal documents that allow you to spell out ahead of time what of types medical care you would want if you ever became unable to speak for yourself. These documents can help ensure that you get the care you want even if you have an unexpected serious illness or accident. The documents can also make things easier for the people who will need to make decisions for you if you ever become unable to make them for yourself. Are there different kinds of advance directives? -- Yes. The most useful kinds of advance directives are: Health care proxy (also called the durable power of [place] attorney for health care) - The health care proxy document allows you to choose someone to make medical decisions for you if you become unable to speak for yourself. The benefit of having this document is that it makes your choice of a decision-maker clear to your doctors and family members. When you choose a health care proxy, it is important to talk to the person you choose about the things that you do or don't want. That way your decision-maker knows what to do later on if he or she ever has to speak for you. Living will - A living will is the document that tells health care providers what type of care you want if you become unable to speak for yourself. For instance, a living will allows you to record inwriting whether you would want a feeding tube put in if you had a serious illness or accident. Do not resuscitate/do not intubate order (also called a DNR/DNI) - If you decide you do not want your heart restarted if it stops and you do not want a breathing tube put in if you stop breathing, you can ask for a DNR/DNI. This is a form that must be signed by a doctor. It tells all your health care providers that you have decided you do not want these treatments. Advance directives work best when they are part of a team effort that includes not only the person making the decisions, but also doctors, emergency health workers, and places like hospitals and nursing homes. The Physician Orders for Life Sustaining Treatment (POLST) is a form for people who already have a serious illness or are very weak and likely to need medical help. The POLST form spells out exactly what care should be given, and not given, based on your choices and wishes. It is signed by your doctor, and you can keep a copy at home to be used in the event of an emergency. A copy is also kept onfile at any hospital or other place where you might get medical care. Not every state has a POLST program. To find out if your state has one, you can go online to www.polst.org. How do I choose a health care proxy? -- Choose someone who: You know and trust Can separate his or her own wishes from your own You know would carry out your wishes if that became necessary Could be easily reached if he or she was needed Could handle it if other family members or loved ones wanted you to get treated differently than you would want Some people choose a second person as an alternate proxy, in case their first choice cannot be reached at the time decisions need to be made. Who should have an advance directive? -- Advance directives are a good idea for anyone, but they are especially important if: You are older than 65. You have a serious life-threatening illness, such as advanced cancer, or end- stage heart or liver failure. The person whom you would like as your health care proxy (decision-maker) is not a family member orlegally to you. If that is the case the person you would choose might not be allowed to make decisions for you. Unless there is a health care proxy, the law usually states that a person's closest family member has the right to make decisions for him or her. What kinds of decisions will I need to make? -- Your advance directives can have as much or as little detail as you want. But many people who have advance directives record their wishes about the following treatments: Breathing tubes - If you stop breathing or are having a very hard time breathing, you can get attached to a machine that will help you breathe. For that to happen, you will have to be intubated. That means that a tube will be put down your throat and into your lungs. Then the tube will be connected to a breathing machine. When the tube is in place, you will not be able to talk, at least at first. Plus, you will probably be sedated, meaning that you are on medicines that make you sleep. Sometimes a breathing machine is needed only for a short time. For instance, some people need the breathing machine just while they recover from a lung infection. When deciding about a breathing tube, consider whether you would want it at all, want it only for a short time, or want it no matter what. Also, keep in mind that any time a breathing machine is used, it is hard to know for sure if and when it will be able to be disconnected. Cardiopulmonary resuscitation (CPR) - If your heart stops beating suddenly, doctors might be able to restart it by pumping on your chest, putting in a breathing tube and pushing air into your lungs, giving you an electric shock (called defibrillation ), and/or giving you special medicines. Some people recover completely after having their heart restarted. Others have permanent brain damage from a lack of blood flow to the brain; this is most likely in people who have an advanced, serious illness. Feeding tubes - If you become unable to eat, you can have a tube put into your stomach or intestines that can deliver nutrients. A feeding tube can keep a person's body going while he or she heals and gets strong. But it can also keep a person alive for a long time even if there is no chance the person will recover. Can I change my mind? -- Yes. You can change your mind at any time. If you sign an advance directive and you decide you want a different kind of treatment or you no longer want the health care proxy you chose, all you have to do is tell your doctor or nurse about your new decision. If you want to name a new health care proxy or want to record new wishes, you can draw up new documents. How can I draw up an advance directive? -- The following table lists resources that can help you learn more about making your own advance directives (table 1). All topics are updated as new evidence becomes available and our peer review process is complete. This topic retrieved from [employer] on: Jun 11, 2018. Topic 77969 Version 11.0 table 1: Resources that can help you make advance directives Address Phone number Website [facility]AR [address] [place] [address] Toll-free: (144) ISZ-AAR [ ] http://assets.[facility].org/external_sites/ caregiving/multimedia/EG_AdvanceDirectives.html Aging with Dignity (Five Wishes form) [address] [place] [address] Toll-free: (961) 5WISHES [ ] www.agingwithdignity.org [employer] Toll-free: www.caringinfo.org [employer] [address] [place] [address] www.[employer].org HEALTHY DIET INFORMATION With a heart healthy food plan, you will learn to make better food choices. This diet may help you lower your blood cholesterol level, manage your blood pressure, and lower your risk for heart problems. Smaller portions may also be helpful. Sodium is a type of mineral found in many foods. It helps keep the balance of fluids in your body. Too much sodium can raise your blood pressure. It can also make you take on extra water. This is called edema. Pay careful attention to how much salt or sodium is in your food. You may need to avoid salt or eat foods with less sodium. Cholesterol is a fat-like, waxy substance in your blood. It is normal to have some cholesterol in your blood because your body makes it. You also get extra cholesterol from all animal products. Theseare foods like meats, eggs, and dairy products. Too much cholesterol can block or damage your bloodvessels. This can lead to a heart attack or stroke. Fats in your food have calories which give energy. Not all fats are bad. Some fats are healthy, like the fat found in fish, nuts, and olive oil. These are called unsaturated fats. They help manage body functions and lower cholesterol levels. Learn about the best fats to use in your diet and where to use them. Eating too much fat may make you more likely to weigh more than is healthy. This raises your risk of many heart problems. Fiber is found in plants. Meat and dairy products do not have fiber in them. Fiber can help you lower your unhealthy cholesterol level. You may need more water as you eat more fiber so you do not gethard stools. What lifestyle changes are needed? Eat a healthy diet and workout often. Try to use as many calories as you take in each day. What changes to diet are needed? Eat oily fish at least 2 times a week. These are fish like tuna, salmon, and mackerel. Limit sodium to no more than 2,300 mg of sodium per day. This is about 1 teaspoon (5 grams) of table salt. Use little or no salt when making food. Try other spices or seasoning instead. Limit how much cholesterol you eat to less than 300 mg per day. You can do this by having lean meats. Also eat lots of fruits, vegetables, and fat-free and low- fat dairy products. Limit how much trans fats you eat. Trans fats are found in many processed foods like stick margarine, shortening, and some fried foods. Also, lower how much hydrogenated fats you eat. They are used to make pastries, biscuits, cookies, crackers, chips, and many snack foods. Have no more than 1 drink per day of beer, wine, and mixed drinks (alcohol). Who should use this diet? A heart healthy diet is good for everyone. What foods are good to eat? Grains: Try to eat 6 to 8 servings of whole grain, high fiber foods each day. These are whole grainbread, cereals, brown rice, or pasta. Fruits and vegetables: Eat 4 to 5 servings each day. Try to pick many kinds and colors. Try to eat more that are fresh or frozen. Look for low sodium or salt- free if you choose canned. Rinse canned items before cooking or eating. Dried peas, beans, and lentils are also good. Dairy: Choose low fat (1%) or fat-free milk. Eat nonfat or low-fat products. Protein: Try to eat more low fat or lean meats like chicken and turkey. Eat less red meat and eat more fish, eggs, egg whites, and beans instead. Fats: Use good fats found in fish, nuts, and avocados. Try using olive oil, canola oil, and low-sodium and low-fat salad dressing and mayonnaise. Use corn, safflower, sunflower, and soybean oils. Condiments: Use low-sodium or salt-free broths, soups, soy sauce, and condiments. Pepper, herbs, spices, vinegar, lemon or point hope ira juices are great for seasoning. Sugar, cocoa powder, honey, syrup, and jams may be eaten in small amounts. Sweets: Low-fat, trans fat-free cookies, cakes, and pies; earle crackers; animal crackers; low-fatfig bars; and erik snaps. What foods should be limited or avoided? Grains: Salted breads, rolls, crackers, quick breads, self-rising flours, biscuit mixes, regular bread crumbs, instant hot cereals, commercially-prepared rice, pasta, stuffing mixes Fruits and vegetables: Commercially-prepared potatoes and vegetable mixes, regular canned vegetables and juices, vegetables frozen with sauce or pickled vegetables, processed fruits with salt or sodium Dairy: Whole milk, malted milk, chocolate milk, buttermilk Protein: Smoked, cured, salted, or canned meat, fish, or poultry such as hopson and sausages Fats: Cut back on solid fats like butter, lard, and margarine. Condiments and snacks: Salted and canned peas, beans, and olives; salted snack foods; fried foods; soda, juices, or other sweetened drinks; commercially- softened water. Miso, salsa, ketchup, barbequesauce, Worcestershire sauce, soy sauce, and teriyaki sauce are also high in salt. Sweets: High-fat baked goods such as muffins, donuts, pastries, commercial baked goods Helpful tips When you go to a grocery store, have a list or a meal plan. Do not shop when you are hungry to avoid cravings for foods. You need to know about the sodium and fat content of the food you eat. Read food labels with care. They will show you how much of each is in a serving. This amount is given as a percentage of the total amount you need each day. Reading the labels will help you make healthy food choices. Avoid fast foods. Watch your portions when eating out. Split an order or bring home half for another meal. Talk to a dietitian for help. Where can I learn more? [place] [employer] https://familydoctor.org/xguu-yoc-eawsgvdx-fdq-h-bhfqajj-heart/ [place] [employer] http://www.heart.org/HEARTORG/HealthyLiving/HealthyEating/Nutrition/Wowq-rmt-Lhd estyle-Recommendations_[facility]_305[address]_Article.jsp#.Wxf_Q6oUmUk EXERCISE As an older adult, regular physical activity is one of the most important things you can do for your health. It can prevent many of the health problems that seem to come with age. It also helps your muscles grow stronger so you can keep doing your day-to-day activities without becoming dependent onothers. Not doing any physical activity can be bad for you, no matter your age or health condition. Keep inmind, some physical activity is better than none at all. Your health benefits will also increase with the more physical activity that you do. If you're 65 years of age or older, are generally fit, and have no limiting health conditions you can follow these guidelines. For Important Health Benefits Older Adults Need at Least: 2 hours and 30 minutes ( 150 minutes) of moderate-intensity aerobic activity (i.e., brisk walking) every week and muscle-strengthening activities on 2 or more days a week that work all major muscle groups (legs, hips, back, abdomen, chest, shoulders, and arms). -or- 1 hour and 15 minutes (75 minutes) of vigorous-intensity aerobic activity (i.e., jogging or running) every week and muscle-strengthening activities on 2 or more days a week that work all major musclegroups (legs, hips, back, abdomen, chest, shoulders, and arms). -or- An equivalent mix of moderate- and vigorous-intensity aerobic activity and muscle-strengthening activities on 2 or more days a week that work all major muscle groups (legs, hips, back, abdomen, chest, shoulders, and arms). For Even Greater Health Benefits Older Adults Should Increase Their Activity to: 5 hours (300 minutes) each week of moderate-intensity aerobic activity and muscle-strengthening activities on 2 or more days a week that work all major muscle groups (legs, hips, back, abdomen, chest, shoulders, and arms). -or- 2 hours and 30 minutes (150 minutes) each week of vigorous-intensity aerobic activity and muscle-strengthening activities on 2 or more days a week that work all major muscle groups (legs, hips, back,abdomen, chest, shoulders, and arms). -or- An equivalent mix of moderate- and vigorous-intensity aerobic activity and muscle-strengthening activities on 2 or more days a week that work all major muscle groups (legs, hips, back, abdomen, chest, shoulders, and arms Aerobic activity - what counts? Aerobic activity or cardio gets you breathing harder and your heart beating faster. From pushing a sand sifter, to taking a dance class, to biking to the store - all types of activities count. As long as you're doing them at a moderate or vigorous intensity for at least 10 minutes at a time. Even something as simple as walking is a great way to get the aerobic activity you need, as long as it's at a moderately intense pace. Intensity is how hard your body is working during aerobic activity. How do you know if you're doing moderate or vigorous aerobic activity? On a 10-point scale, where sitting is 0 and working as hard as you can is 10, moderate-intensity aerobic activity is a 5 or 6. It will make you breathe harder and your heart beat faster. You'll also notice that you'll be able to talk, but not sing the words to your favorite song. Vigorous-intensity activity is a 7 or 8 on this scale. Your heart rate will increase quite a bit and you'll be breathing hard enough so that you won't be able to say more than a few words without stopping to catch your breath. You can do moderate- or vigorous-intensity aerobic activity, or a mix of the two each week. Intensity is how hard your body is working during aerobic activity. A rule of thumb is that 1 minute of vigorous-intensity activity is about the same as 2 minutes of moderate-intensity activity. Everyone's fitness level is different. This means that walking may feel like a moderately intense activity to you, but for others, it may feel vigorous. It all depends on you - the shape you're in, what you feel comfortable doing, and your health condition. What's important is that you do physical activities that are right for you and your abilities. Muscle-strengthening activities - what counts? Besides aerobic activity, you need to do things to make your muscles stronger at least 2 days a week. These types of activities will help keep you from losing muscle as you get older. To gain health benefits, muscle-strengthening activities need to be done to the point where it's hard for you to do another repetition without help. A repetition is one complete movement of an activity, like lifting a weight or doing one sit-up. Try to do 8--12 repetitions per activity that count as 1 set. Try to do at least 1 set of muscle-strengthening activities, but to gain even more benefits, do 2 or 3 sets. There are many ways you can strengthen your muscles, whether it's at home or the gym. The activities you choose should work all the major muscle groups of your body (legs, hips, back, chest, abdomen,shoulders, and arms). You may want to try: Lifting weights Working with resistance bands Doing exercises that use your body weight for resistance (push ups, sit ups) Heavy gardening (digging, shoveling) Yoga Reference: http://www.cdc.gov/physicalactivity/everyone/guidelines/olderadults.html FALL RISK Guidelines to help you prevent falls: There are several steps you can take to decrease fall risk at home. One suggestion is to remove tripping hazards like throw rugs, loose wires, clutter or other objects from the floor. Installing hand-rails for stairs and turning on night lights between the bedroom and bathroom at night are other helpful suggestions. If you have fallen in the bathroom, use of grab bars near the toilet and a shower stool or bench may help prevent a fall in this part of the home. Taking extra time when getting up from a sitting or lying position before starting to walk is especially helpful to those who have dizziness triggered by change in body position. There are also some steps that can be taken to reduce fall risk outdoors. Wearing well-fitting shoes with good traction is important when walking on either the pavement or the lawn. Avoid high heels or shoes with very thick soles, especially if you have peripheral neuropathy. If you have problems with balance or leg pain, using a cane or walker can also be helpful. Finally, be aware of possible tripping hazards outdoors including uneven pavement and slipping hazards like wet ground or pavement. PAIN During your health risk assessment you complained of pain. Pain can be an unpleasant feeling that happens in any part of the body. It can be mild or very bad. You may feel this pain always or it may just come and go. It may be dull, sharp, or throbbing. Pain can last for a long time or a short time. Pain can cause upset stomach and throwing up. When you are in pain you may not feel hungry. You may feel nervous. Pain can be acute or chronic. Acute pain tells you there may be an injury and you need to take careof yourself. Chronic pain lasts for a long period of time. What are the causes? Headache Back problems Arthritis Muscle strain Trauma, such as a blow to the body, fall, motor vehicle accident, or gunshot wound Infection Menstrual pain in women What are the main signs? Pain can be throbbing or shooting. Some people feel pain as dull and others as sharp. It may tingleor burn and shoot down an arm or leg. You may also notice that you are limited when moving a part of your body from pain. Sometimes, pain causes you to have muscle aches or spasms. Other people have headaches or are grouchy when in pain. Some people have loose stools when in pain. Some people have trouble sleeping when in pain. How does the doctor diagnose this health problem? Your doctor will ask you to talk about your pain. Tell the doctor: How your pain feels. Is it dull, sharp, burning, stabbing, or cramping? Where your pain is What causes your pain What makes your pain better or worse Your doctor may ask you to rate your pain. This means you would pick a number or picture that most closely describes your pain. The doctor may ask you to say what number your pain is between 0 and 10. Zero means you have no pain at all and 10 means you have the worst pain ever and you need to go [facility]. An exam will help your doctor find out where the pain is and what is causing it. Some simple blood tests may be done. This will help your doctor decide if any other tests are needed. How does the doctor treat this health problem? Mild drugs may be ordered to ease your pain. Sometimes, pain is a sign of some other problem in your body. In this case, drugs may not be ordered at all or only mild ones given. To treat mild to moderate pain: Acetaminophen Nonsteroidal anti-inflammatory drugs (NSAIDs) like aspirin or ibuprofen NSAIDs in a cream form can be used on the skin where you feel the pain Muscle relaxers may be used to loosen tight muscles To treat moderate to very bad pain: Weak opioid drugs like codeine Strong opioid drugs like morphine Ice, heat, rest, and elevating your painful body part may be used to ease pain and help with swelling from muscle pain. When Using Ice Place an ice pack or a bag of frozen peas wrapped in a towel over the painful part. Never put ice right on the skin. Do not leave the ice on more than 10 to 15 minutes at a time. When Using Heat Heat may be used later but not right away. Heat can make swelling worse. If your doctor tells you to use heat, put a heating pad on your painful part for no more than 20 minutes at a time. Never go to sleep with a heating pad on as this can cause lopez. Your doctor may suggest other types of pain control to help you. Some of these are massage, acupuncture, care tech, and relaxation. What drugs may be needed? The doctor may order drugs to: Help with pain and swelling Relax tight muscles Take your drugs as ordered by your doctor. Some of these drugs can be habit forming and may cause side effects. What can be done to prevent this health problem? The best thing you can do is talk to your doctor about any pain you have. Your doctor can help you make a plan to lower your pain. Some causes of pain get better by staying active and working out. Your doctor may send you to a physical therapist to help you work on strength exercises and stretching. SLEEP PROBLEMS Guidelines for good sleep hygiene: It is important to practice good sleep hygiene. Poor sleep hygiene is often a contributing factor to insomnia and may be associated with depression. A regular schedule for sleep and naps promotes good health at all ages. Older Adults: 65 or more years old should sleep 7 to 8 hours each day. General Many people have sleep problems and don't get enough sleep. You may not be able to fall asleep right away or stay asleep. You may wake up early and not be able to fall back to sleep. Sometimes, when you wake up in the morning you may not feel rested and then you may feel tired or sleepy all day. You may feel grouchy, forget things, or have trouble focusing. Sleep problems can last for a few days, weeks, or even months. For some people, sleep problems may not happen every day but a few times a week. Sleep problems may be caused by stress or a health problem. To improve your sleep, there are some simple things you can try: Teach your body that it is time to sleep. Do the same things each night before you go to bed to help you get ready for sleep. Read a book or listen to music before you fall asleep. Take a warm bath or shower to help relax you. Don't work on the computer or watch TV right before bed. The bright lights make your body think that it is time to be awake. Keep the same sleep schedule. Go to bed and get up at the same time each day, even on weekends. If you cannot fall asleep, get up and do a light activity until you feel sleepy. Try to read, writein a journal, or take deep and relaxing breaths. Create a good sleep area. Sleep in a dark and quiet room at a comfortable temperature. Use a fan or white noise machine to help block out noise. Consider ear plugs if your partner snores. Do not use your bedroom for things other than sleep or sex. Give children and pets their own separate area to sleep. Use a comfortable pillow and mattress. What you do during the day matters when you try to sleep at night. Adults and older children should avoid naps during the day. Taking a nap can make it hard to sleep at night. Avoid scary or violent TV shows, books, and computer games before bedtime. Make a list of things you need to do the next day before you go to bed. This may keep you from worrying about them. Find ways to manage stress. Learn to deep breathe and relax your muscles to help your body slow down and fall asleep. Things like yoga, meditation, or hubert chi may also be helpful. Talk to a counselorabout problems. This may help you to learn different ways to deal with and lower stress. Find time to get outside in the sun during the day. Avoid bright lights in the evening. Exercise each day, but not right before you go to bed. It is best to avoid exercise for 2 to 3 hours before bedtime. Encourage children to play quietly before bed. What will the results be? Better able to pay attention Less learning problems Fewer accidents Better overall health What lifestyle changes are needed? Do not drink or eat things with caffeine late in the day and before bedtime. Do not eat large or spicy meals close to bedtime. If you are hungry at bedtime, try a light snack of milk, sliced turkey, or fruit. Do not drink beer, wine, and mixed drinks (alcohol) before bedtime. Do not drink too much liquid before bedtime, including water. This may cause you to wake up during the night to use the bathroom. If you smoke, ask for help to limit or stop smoking. HEALTH STATUS Your Health Risk Assessment indicates you are feel you are not in good health. A healthy lifestyle helps keep the body fit and the mind alert. It helps protect you from disease, helps you fight disease, and helps prevent chronic disease (disease that doesn't go away) from getting worse. This is important as you get older and begin to notice twinges in muscles and joints and a decline in the strength and stamina you once took for granted. A healthy lifestyle includes good healthcare, good nutrition, weight control, recreation, and regular exercise. Avoid harmful substances and do what you can to keep safe. Another part of a healthy lifestyle is stay mentally active and socially involved. Good healthcare Have a physical checkup every year. If you have new symptoms, let us know right away. Don't wait until the next checkup. Take medicines exactly as prescribed and keep your medicines in a safe place. Tell us if your medicine causes problems. Healthy diet and weight control Eat 3 or 4 small, nutritious, low-fat, high-fiber meals a day. Include a variety of fruits, vegetables, and whole-grain foods. Make sure you get enough calcium in your diet. Calcium, vitamin D, and exercise help prevent osteoporosis (bone thinning). If you live alone, try eating with others when you can. That way you get a good meal and have company while you eat it. Try to keep a healthy weight. If you eat more calories than your body uses for energy, it will be stored as fat and you will gain weight. Recreation Recreation is not limited to sports and team events. It includes any activity that provides relaxation, interest, enjoyment, and exercise. Recreation provides an outlet for physical, mental, and social energy. It can give a sense of worth and achievement. It can help you stay healthy. Mental exercise and social involvement Mental and emotional health is as important as physical health. Keep in touch with friends and family. Stay as active as possible. Continue to learn and challenge yourself. Things you can do to stay mentally active are: Learn something new, like a foreign language or musical instrument. Play SCRABBLE or do crossword puzzles. If you cannot find people to play these games with you at home, you can play them with others on your computer through the Internet. Join a games club--anything from card games to chess or checkers or lawn bowling. Start a new hobby. Go back to school. Volunteer. Read. Keep up with world events. * Attachments The following attachments cannot be sent through Care Everywhere. * Fatigue (Nauruan) * Urinary incontinence in males ([place]) documented in this encounter Progress Notes * Margarita Theodore RN - 09/03/2024 8:00 AM CDT Images from the original note were not included. Medicare Annual Wellness Visit Chief Complaint: Austin is an 63-year-old male here for an annual wellness visit. Patient Care Team: Nitish Izquierdo DO as PCP - General (FAMILY PRACTICE) Greta Garnica MD as Consulting Physician (INTERVENTIONAL CARDIOLOGY) Ethan Bermeo MD as Surgeon (NEUROLOGICAL SURGERY) Nitish Bautista MD as Consulting Physician (UROLOGY) HEALTH RISK ASSESSMENT 09/02/2024 9:29 AM Medicare Wellness During the past 4 weeks, how much have you been bothered by emotional problems such as feeling anxious, depressed, irritable, sad or downhearted and blue? Not at all During the past 4 weeks, has your physical and emotional health limited your social activities withfamily friends, neighbors or groups? Not at all During the past 4 weeks, how much bodily pain have you generally had? Severe pain During the past 4 weeks, was someone able to help you if you needed and wanted help? Yes, as much as I wanted During the past 4 weeks, what was the hardest physical activity you could do for atleast 2 minutes?Moderate Can you get places out of walking distance without help? Yes Can you shop for groceries or clothes without help? Yes Can you prepare your own meals? Yes Can you do your own housework without help? Yes Can you handle your own money without help? Yes Do you need help eating, bathing, dressing, or getting around your home? No During the past 4 weeks, how would you rate your general health? Fair How have things been going for you during the past 4 weeks? Pretty well Are you having difficulties driving your car? No Do you always fasten your seatbeat when you are in a car? Yes Fall or dizzy when standing up Seldom Sexual problems Seldom Trouble eating well Never Teeth or dentures Never Problems using the telephone Never Tired or fatigued Often Do you currently smoke? No During the past 4 weeks, how many drinks of wine, beer or other alcoholic bevearges did you have? No alcohol at all Do you exercise for about 20 minutes 3 or more days a week? No, I usually do not exercise this much How often do you have trouble taking medicines the way you have been told to take them? I always take them as prescribed How confident are you that you can control and manage most of your health problems? Very confident In the past 6 months, have you experienced leaking of urine? Yes How much did leaking of urine make you change your daily activities or interfere with your sleep? Some of the time Does the patient live alone? No Does the patient have throw rugs in their home? Yes Does the patient's home have poor lighting? No Does the patient have grab bars in their bathroom? No Does the patient have handrails on stairs and steps in their home? Yes Does the patient's home have functioning smoke alarms? Yes Patient lives with his who would provide assistance if needed. He reports intermittently feeling tired or fatigued and attributes it to severe pain. Information provided on fatigue on AVS. Patient manages his medications by taking them from the bottles each day and denies any problems with this system. He reports intermittent urinary leaking after emptying his bladder or may loose control while he issleeping. Information provided on urinary incontinence on AVS. The throw rugs in patient's home are rubber backed and have not been a slip or trip hazard for him. He bathes in a walk-in shower that has a built in bench. He denies any difficulties entering or exiting with no grab bars. FALL RISK Fall Risk One or more falls in the last year:: (Patient-Rptd) No Feels unsteady when walking:: (Patient-Rptd) No Worried about falling:: (Patient-Rptd) No MINI-COG 09/03/2024 8:33 AM Mini-Cog 3 word recall 3 Clock Draw 2 Total Score = Word Recall Score + Clock Draw score 5 PHQ2/PHQ9 01/02/2023 3:03 PM 04/04/2023 9:12 AM 04/09/2024 3:26 PM 09/02/2024 9:29 AM PHQ2/PHQ 9 DEPRESSION SCREEN QUESTIONAIRE Little interest or pleasure in doing things Not at all Not at all Not at all Not at all Feeling down, depressed, or hopeless Not at all Not at all Not at all Not at all Patient Health Questionnaire-2 Score 0 0 0 0 Trouble falling or staying asleep, or sleeping too much Several days Feeling tired or having little energy Over half Poor appetite or overeating Not at all Feeling bad about yourself - or that you are a failure or have let yourself or your family down Notat all Trouble concentrating on things, such as reading the newspaper or watching television Not at all Moving or speaking so slowly that other people could have noticed? Or the opposite - being so fidgety or restless that you have been moving around a lot more than usual. Not at all Thoughts that you would be better off or hurting yourself in some way Not at all Patient Health Questionnaire-9 Score 3 How difficult have these problems made it for you to do your work, take care of things at home, or get along with other people? Not difficult at all Patient-reported SUBSTANCE USE SCREENING 09/02/2024 9:29 AM Audit C+2 Screening Q1: How often do you have a drink containing alcohol? Never Q2: How many drinks containing alcohol do you have on a typical day when you are drinking? None Q3: How often do you have six or more drinks on one occasion? Never How often have you used marijuana? 0 How often have you used an illegal drug or a prescription medication for non- medical reasons? For example, used for the feeling or experience it caused. 0 Audit-C Score 0 Substance Use Score 0 Alcohol and Substance Total Score 0 Patient-reported The ASCVD Risk score (Srinivasan LIANG, et al., 2019) failed to calculate for the following reasons: Risk score cannot be calculated because patient has a medical history suggesting prior/existing ASCVD HISTORY Past Medical History: Diagnosis Date Cervical stenosis of spine Coronary artery disease Heart attack ([facility]) 08/14/2023 3 stents, 2 angioplasties Hyperlipidemia Hypertension Hypothyroidism Kidney stone Obesity, unspecified VIRAJ (obstructive sleep apnea) CPAP Past Surgical History: Procedure Laterality Date APPENDECTOMY CARDIAC STENTS 08/14/2023 x3 EYE SURGERY KIDNEY STONE REMOVAL REMV CATARACT EXTRACAP,INSERT LENS Bilateral SCREENING COLONOSCOPY SINUS SURGERY PROC UNLISTED SPINAL FUSION,ANT,EA ADNL LEVEL C5-6 SPINE SURGERY SURG XR THUMB RT UROLIFT SYSTEM Family History Problem Relation Name Age of Onset Heart Attack Mother Bess Open Heart Mother Bess Stent Cardiac Mother Bess Heart Disease Mother Bess Hypertension Mother Bess Stent Cardiac Father Jose Guadalupe Open Heart Father Jose Guadalupe Heart Attack Father Jose Guadalupe Diabetes Father Jose Guadalupe Heart Disease Father Jose Guadalupe Cancer Sister Viviana Social History Socioeconomic History Marital status: Number of children: 0 Social History Narrative Patient lives at home with his and dog Social History Tobacco Use Smoking status: Never Passive exposure: Past Smokeless tobacco: Never Substance Use Topics Alcohol use: Not Currently Current Outpatient Medications Medication Sig Dispense Refill aspirin EC (ECOTRIN) 81 MG tablet Take 1 tablet (81 mg total) by mouth daily. 90 tablet 1 BONE STIMULATOR, DME, Wear 4 hours daily. Can break up into multiple sessions totaling 4 hours. 1 Device 0 Calcium Carb-Cholecalciferol (CALCIUM 500 + D3 OR) Take 1 tablet by mouth 2 (two) times a day. clopidogrel (PLAVIX) 75 MG tablet TAKE 1 TABLET(75 MG) BY MOUTH DAILY 90 tablet 0 Coenzyme Q10 (COQ-10) 200 MG Cap Take 200 mg by mouth daily. 30 capsule 3 levothyroxine (SYNTHROID) 100 MCG tablet Take 1 tablet (100 mcg total) by mouth every morning. 90 tablet 3 losartan (COZAAR) 50 MG tablet TAKE 1 TABLET(50 MG) BY MOUTH DAILY 90 tablet 1 metoprolol succinate ER (TOPROL-XL) 25 MG 24 hr tablet Take 1 tablet (25 mg total) by mouth every morning. 90 tablet 1 naloxone (NARCAN) 4 MG/0.1ML nasal spray 1 spray by Nasal route as needed for Opioid reversal. may repeat every 2 to 3 minutes in alternating nostrils until medical assistance becomes available 1 each PRN oxyCODONE-acetaminophen (PERCOCET) 5-325 MG tablet Take 1-2 tablets by mouth every 6 (six) hours asneeded for Pain. Indications: Chronic Pain 40 tablet 0 REPATHA SURECLICK 140 MG/ML injection (PEN) ADMINISTER 1 ML(140 MG) UNDER THE SKIN EVERY 14 DAYS 2 mL 3 vitamin D3, cholecalciferol, 125 mcg capsule Take 1 capsule (125 mcg total) by mouth daily. diazePAM (VALIUM) 5 MG tablet Take 2 tablets (10 mg total) by mouth every 6 (six) hours as needed (Spasms). (Patient not taking: Reported on 09/03/2024) 30 tablet 0 No current facility-administered medications for this visit. EXAM Filed Vitals: 09/03/24 0812 BP: 121/77 Pulse: 75 Resp: 16 Temp: 98.9 ??F (37.2 ??C) TempSrc: Core SpO2: 98% Weight: 104.3 kg (229 lb 14.4 oz) Height: 1.803 m (5' 11 ) Patient admits to problems with hearing. He has a history of tinnitus that states affects his hearing at times. ASSESSMENT AND PLAN The patient's current medical problems were reviewed. The following health maintenance schedule was reviewed with the patient and provided in printed form in the after visit summary: Health Maintenance Topic Date Due Colorectal Cancer Screening Colonoscopy (10 Years) Never done Pneumococcal Vaccine: Pediatrics (0 to 5 Years) and At-Risk Patients (6 to 64 Years) (1 of 2 - PCV)Never done Pneumococcal Vaccine: 65+ Years (1 of 2 - PCV) Never done Hepatitis C Never done RSV Immunization or 60+ Years (1 - Risk 60-74 years 1-dose series) Never done COVID-19 Vaccine (2023-25 season) Never done DTaP, Tdap and Td Vaccines (2 - Td or Tdap) 04/10/2024 Zoster Vaccines Completed PHQ-2 (Physician [place]) Completed Meningococcal Vaccine Aged Out Meningococcal B Vaccine Aged Out RSV Immunizations Under 20 Months Aged Out The patient is declining the Pneumonia, Tdap, RSV and COVID vaccines. The following list of Medicare Part B Covered Preventative Services and Identified Health Risks were discussed with the patient and will be reviewed with the patient???s PCP / care team for further follow up and scheduling. Colorectal cancer screenings (Patient states he had a colonoscopy approximately 2 years ago. Nurse will attempt to obtain documentation.) Hepatitis C screening test (Patient is declining screening) Obesity screening and counseling (BMI: 32.06) Pneumococcal shots Based on Austin's responses to the Health Risk Assessment, we disscussed the following risks. ADVANCE DIRECTIVE The patient was counseled and encouraged to create an Advance Directive. This will be further evaluated and addressed at a follow up visit. Patient does not have an advance directive. Patient does not wish to discuss Advance Care Planning. DIET The patient was counseled and encouraged to consider modifying their diet and eating habits. He wasprovided with information on recommended healthy diet options. (Patient was instructed on current BMI of 32.06 and a healthy BMI range of 18.5-25.) EXERCISE He is at risk for lack of exercise and has been provided with information to increase physical activity for the benefit of his well-being. FALL RISK He is at risk for falling and has been provided with information to reduce the risk of falling at home as well as outside the home. PAIN The patient was provided with information and appropriate referrals to address his pain problem. SLEEPING The patient was provided with suggestions to help him develop a regular sleeping pattern. (Patient states his problem sleeping is mostly related to pain.) UNSATISFACTORY HEALTH STATUS The patient was provided with suggestions to help him develop a healthy lifestyle. Specific health concerns will be addressed in detail at subsequent appointments. (Patient has concerns about his chronic severe pain for which a cause has never been diagnosed.) I reviewed all the information above with the patient and made screening recommendations based on my findings. MARGARITA THEODORE RN I reviewed the patient's history, vitals from today, answers to the assessment and the services recommended by MARGARITA THEODORE RN. I agree with the findings and recommendations. Cosigned by Jennifer Robbins NP at 09/04/2024 5:05 AM CDT documented in this encounter Plan of Treatment Upcoming Encounters Date Type Department Care Team (Late st Contact Info) Description 09/19/2024 9:30 AM CDT [facility] [address] [place] [address] Greta Garnica MD [facility]. [address] [place] [address] 12/16/2024 8:45 AM CDT App[place]ment [place] [address] Ethan Bermeo MD [address] [place] [address] 12/18/2024 8:00 AM CDT Office Visit [facility] Mult[facility] - [facility] [address] [facility], [address] [place] [phone] Ethan Bermeo MD [address] [place] [address] 04/07/2025 7:00 AM HEAD SETTER Office Visit [facility] [address] [place] [address] Nitish Izquierdo DO [address] [place] [address] 04/09/2025 9:00 AM HEAD SETTER Office Visit [address] [address] Nitish Izquierdo DO [address] [place] [address] 09/16/2025 8:00 AM CDT Office Visit [address] [address] Nitish Izquierdo DO [address] [place] [address] documented as of this encounter Goals Goal Patient Goal Type Associated Problems Recent Progress Patient-Stated? Author Family - family caregiver with be involved in care transitions and discharge planning Lifestyle No Danny Enriquez, RN documented as of this encounter Visit Diagnoses Diagnosis Routine general medical examination at a health care facility- Primary documented in this encounter Additional Health Concerns Assessment Noted Time PHQ-9 Depression Total Score: 3 09/03/19 25 9:29 AM CDT documented as of this encounter Care Teams Is Manager Relationship Specialty Start Date End Date Nitish Izquierdo DO 3 [facility] [address] [place] [address] PCP - General FAMILY PRACTICE 04/03/23 Greta Garnica MD Three [facility]. [address] [place], [place] [phone] Consulting Physician INTERVENTIONAL CARDIOLOGY 08/30/23 Ethan Bermeo MD 1 [place], [place] [phone] Surgeon NEUROLOGICAL SURGERY 09/03/24 Nitish Bautista MD [address] [facility] [address] [place] [phone] Consulting Physician UROLOGY 09/03/24 documented as of this encounter
--- OUTSIDE RECORDS SUMMARY | 2024-09-12 00:25 | XMS_ITS | CONTINUITY OF CARE DOCUMENT ---
Author Name karen jones Address Unknown Organization [facility] Address [address] [facility] [facility] [address] [place] [address] Phone [phone] Care Team Providers Care Fruit Raiser Name Role Phone karen jones Unavailable Unavailable INSURANCE PROVIDERS Payer name Policy type / Coverage type Hoople red green party ID [facility] [employer] insurance company [id number]
--- OUTSIDE RECORDS SUMMARY | 2024-09-12 00:25 | XMS_ITS | Encounter Summary ---
Author Organization [facility] Address [address] [place] [address] Care Team Providers Care Apparel Fashion Designer Name Role Phone Oneal Monzon MD Primary Care Provider [phone] Encounter Details Date Type Department Care Team (Late st Contact Info) Description 06/19/2024 Lab Requisition [facility] - DermPath Lab [address] [facility], [facility] [place] [address] Socorro Knight MD [address] [facility] 3 [place] [address] Social History Tobacco Use Types Packs/Day Years [...] Diagnosis Comments DERMATOPATHOLOGY Routine 06/19/2024 1:04 PM HUMAN GEOGRAPHY INSTRUCTOR documented in this encounter Results * DERMATOPATHOLOGY (06/19/2024 1:04 PM HUMAN GEOGRAPHY INSTRUCTOR) Case Report Dermatopathology Report Case: [id number] Authorizing Provider: Socorro Knight MD Collected: 06/19/2024 01:04 PM Ordering Location: [facility] Physician [facility] - Received: 06/20/2024 03:04 PM DermPath Lab Pathologist: Missy Rivera MD Specimens: A) - Skin, right ant thigh B) - Skin, right ant neck 3:54 PM HUMAN GEOGRAPHY INSTRUCTOR DERMATOPATHOLOGY LABORATORY Final Diagnosis Specimen A. SKIN, right ant thigh: ACTINIC KERATOSIS, LICHENOID (L57.0) Specimen B. SKIN, right ant neck: ACTINIC KERATOSIS, FOCAL (L57.0) CHRONIC PERIFOLLICULITIS (L73.8) 3:54 PM [facility] DERMATOPATHOLOGY LABORATORY Clinical History A: R/O SCC B: Cyst vs NMSC 3:54 PM [facility] DERMATOPATHOLOGY LABORATORY Gross Description Specimen [...] measuring 9x6x1 mm. Jar 0. 3:54 PM [facility] DERMATOPATHOLOGY LABORATORY Microscopic Description Specimen [...] of keratinocytes with nuclear pleomorphism. 3:54 PM [facility] DERMATOPATHOLOGY LABORATORY Disclaimer An external and internal positive and negative controls are appropriate for the histochemical, immunohistochemical and immunofluorescence stain(s) in this case (if any), except where stated explicitly. The performance characteristics of the stain(s) cited in this report were developed and its performance characteristic determined by the Dermatopathology Laboratory at [facility], directed by Dr. Torrie Marin. These tests need not be, and therefore are not, approved by the [place] Food and Drug Administration. The tests are used for clinical purposes. Billing Codes Specimen Charges Stain Charges 97755 35650 1 1 3:54 PM HUMAN GEOGRAPHY INSTRUCTOR DERMATOPATHOLOGY LABORATORY Embedded Images 3:54 PM [facility] DERMATOPATH[facility]Y LABORATORY Pathology/Cytology TISSUE SPECIMEN FROM SKIN / Unknown 06/19/2024 1:04 PM HUMAN GEOGRAPHY INSTRUCTOR 06/20/2024 3:04 PM HUMAN GEOGRAPHY INSTRUCTOR Miscellaneous samples (specimen) TISSUE SPECIMEN FROM SKIN / Unknown 06/19/2024 1:04 PM HUMAN GEOGRAPHY INSTRUCTOR 06/20/2024 3:04 PM HUMAN GEOGRAPHY INSTRUCTOR Socorro Knight MD LAB - PATHOLOGY/CYT OLOGY ORDERABLES DERMATOPATHOLOGY LABORATORY [facility] - Department of Dermatology [facility], 3rd Floor [address] [phone] documented in this encounter Visit Diagnoses Not on filedocumented in this encounter Care Teams Apparel Fashion Designer Relationship Specialty Start Date End Date Oneal Moznon MD [address] [place] [address] PCP - General 05/03/22 documented as of this encounter
--- OUTSIDE RECORDS SUMMARY | 2024-09-12 00:25 | XMS_ITS | Clinical Summary ---
Author Organization [facility] Address [address] [place] [address] Care Team Providers Care Bench Chemist Name Role Phone Nitish Izquierdo DO Primary Care Provider [phone] Greta Garnica MD Unavailable [phone] Ethan Bermeo MD Unavailable [phone] Nitish Bautista MD Unavailable [phone] Allergies Active Allergy Reactions Criticality Noted Date Comments Pravastatin Myalgias 11/26/2023 Medications BONE STIMULATOR, DME,Indications:Sp inal stenosis of cervical region Wear 4 hours daily. Can break up into multiple sessions totaling 4 hours. 1 Device 08/28/19 24 Active Calcium Carb-Cholecalcifer ol (CALCIUM 500 + D3 OR) Take 1 tablet by mouth 2 (two) times a day. Active vitamin D3, cholecalciferol, 125 mcg capsule Take 1 capsule (125 mcg total) by mouth daily. Active Coenzyme Q10 (COQ-10) 200 MG Cap Take 200 mg by mouth daily. 30 capsule 3 09/21/19 24 Active naloxone (NARCAN) 4 MG/0.1ML nasal sprayIndications:S /P cervical spinal fusion 1 spray by Nasal route as needed for Opioid reversal. may repeat every 2 to 3 minutes in alternating nostrils until medical assistance becomes available 1 each 12/26/19 24 025 Active diazePAM (VALIUM) 5 MG tabletIndications: S/P cervical spinal fusion Take 2 tablets (10 mg total) by mouth every 6 (six) hours as needed (Spasms). 30 tablet 01/09/20 24 Active Additional Information Patient not taking.Reported on 09/03/2024 metoprolol succinate ER (TOPROL-XL) 25 MG 24 hr tablet Take 1 tablet (25 mg total) by mouth every morning. 90 tablet 1 04/25/20 24 Active aspirin EC (ECOTRIN) 81 MG tablet Take 1 tablet (81 mg total) by mouth daily. 90 tablet 1 04/25/20 24 Active levothyroxine (SYNTHROID) 100 MCG tabletIndications: Acquired hypothyroidism Take 1 tablet (100 mcg total) by mouth every morning. 90 tablet 3 04/25/20 24 Active losartan (COZAAR) 50 MG tablet TAKE 1 TABLET(50 MG) BY MOUTH DAILY 90 tablet 1 06/20/19 25 Active clopidogrel (PLAVIX) 75 MG tablet TAKE 1 TABLET(75 MG) BY MOUTH DAILY 90 tablet 06/27/19 25 Active REPATHA SURECLICK 140 MG/ML injection (PEN)Indications:C oronary artery disease involving yuhaaviatam coronary artery of yuhaaviatam heart without angina pectoris ADMINISTER 1 ML(140 MG) UNDER THE SKIN EVERY 14 DAYS 2 mL 3 08/01/19 25 Active oxyCODONE-acetamin ophen (PERCOCET) 5-325 MG tabletIndications: Chronic Pain Take 1-2 tablets by mouth every 6 (six) hours as needed for Pain. Indications: Chronic Pain 40 tablet 08/29/19 25 Active oxyCODONE-acetamin ophen (PERCOCET) 5-325 MG tabletIndications: Acute Pain < 7 Day Supply Take 1-2 tablets by mouth every 6 (six) hours as needed for Pain. Indications: Acute Pain < 7 Day Supply 50 tablet 12/26/19 24 025 Discontin ued(Reord er) Active Problems Problem Noted Date Diagnosed Date Pure hypercholesterolemia 03/20/2024 Right calf pain 01/09/2024 Lumbar radiculopathy 01/09/2024 S/P cervical spinal fusion 12/24/2023 Dyslipidemia 09/21/2023 Spinal stenosis of lumbar re gion without neurogenic claudication 08/27/2023 Facet hypertrophy of lumbar region 08/27/2023 Cord compression myelopathy (CMS/HCC HHS/HCC) Other cervical disc degenera tion, unspecified cervical region 08/27/2023 Radiculopathy, cervical region 08/27/2023 Myelomalacia ([facility]) 08/27/2023 History of fusion of cervical spine 08/27/2023 Coronary artery disease invo lving yuhaaviatam coronary artery of yuhaaviatam heart without angina pectoris 08/27/2023 Elevated PSA, [...] Encounters Date Type Department Care Team Description 09/04/2024 Telephone [facility], [address] [address] Greta Garnica MD Surgical Clearance 09/03/2024 8:00 AM CDT Office Visit [facility] Family Medicine [address] [address] Nitish Izquierdo, DO Medicare Wellness (Patient presents today for their Medicare Annual Wellness Visit.) 09/03/2024 Travel 08/28/2024 8:26 AM CDT - 08/28/2024 11:59 PM CDT Hospital Encounter [facility] [place] [address] Ethan Bermeo MD Discharge Disposition: Home or Self Care (Routine Discharge) 08/28/2024 8:00 AM CDT Office Visit [facility] Multispecialty Care - [facility] [address] [facility], [address] [place] [address] Ethan Bermeo MD Follow Up (F/u xray) 08/28/2024 Travel 08/11/2024 Telephone [facility] [address] [place] [address] Nitish Izquierdo, DO Information 07/28/2024 Telephone [facility] [address] [place] [address] Nitish Izquierdo, DO Structural Heart Team Notes; Orders 07/10/2024 Scan [facility] HEALTH INFO SRVCS Scanned, Doc [facility] 06/26/2024 Telephone [facility], [place] [address] [place] [address] Shannon Parr, [facility] Prior Authorization (repatha) from Last 3 Months Immunizations Name Administration [...] from your doctor or pharmacy? Never 12/24/2023 C Utilities Answer Date Recorded In the past 12 months has th e electric, gas, oil, or water [employer] threatened to shut off services in your [...] Recorded Patient Health Questionnaire-2 Score 0 09/02/[address] [facility] - Occupational Stress Questionnaire Answer Date Recorded [...] any time in the past 12 m [facility], were you homeless or living in a jail (including now)? No 12/24/2023 Sex and Gender [...] Mass Index 32.06 09/03/2024 8:12 AM CDT Plan of Treatment Upcoming Encounters Date Type Department Care Team (Late st Contact Info) Description 09/19/2024 9:30 AM CDT [facility], [address] [address] Greta Garnica MD Three [facility]. [place] [address] [place] [address] 12/16/2024 8:45 AM CDT Appointment [facility] [place] [address] Ethan Bermeo MD [address] [place] [address] 12/18/2024 8:00 AM CDT Office Visit [facility] Multispecialty Care - [facility] [address] [facility], [address] [place] [address] Ethan Bermeo MD [address] [place] [address] 04/07/2025 7:00 AM WIRE TWISTING MACHINE OPERATOR Office Visit [address] [address] Nitish Izquierdo DO [address] [place] [address] 04/09/2025 9:00 AM WIRE TWISTING MACHINE OPERATOR Office Visit [address] [address] Nitish Izquierdo DO [address] [place] [address] 09/16/2025 8:00 AM CDT Office Visit [address] [address] Nitish Izquierdo DO [address] [place] [address] Health Maintenance Due Date Last Done Comments Colorectal Cancer Screening Colonoscopy (10 Years) 1960 Pneumococcal Vaccine: 65+ Years (1 of 2 - PCV) 1964 Hepatitis C 1976 RSV Immunization or 60+ Years (1 - Risk 60-74 years 1-dose series) 2018 COVID-19 Vaccine (1 - 2023-2 5 season) 2024 DTaP, Tdap and Td Vaccines ( 2 - Td or Tdap) 04/10/2024 04/10/2014 Annual Medicare Wellness Visit 09/04/2025 09/03/2024 Zoster Vaccines Completed 07/20/2021, 03/24/2021 PHQ-2 (Physician [place]) Completed 09/02/2024 Meningococcal B Vaccine Aged Out No l [...] Enriquez, RN Medical Devices Implanted Type Area Creative Writer Device Identifier Shelf Expiration Date Model / Serial / Lot Putty Alesha Matrix Dbm/Dbf Bone 3ml - [id number] Implanted:Qty: 1 on 12/24/2023 by Ethan Bermeo MD at [facility] Bone N/A: Spine Cervical [employer] [id number] 10/11/2025 [id number] / [id number] / . Medtronic Endoskeleton Tc Interbody System Implanted:Qty: 1 on 12/24/2023 by Ethan Bermeo MD at [facility] Cage N/A: Spine Cervical [employer] [id number] 08/22/2028 [id number] -N / / [id number] Description:C4-5 Medtronic Endoskeleton Tc Interbody System Implanted:Qty: 1 on 12/24/2023 by Ethan Bermeo MD at [facility] Cage N/A: Spine Cervical [employer] [id number] 08/29/2028 [id number] -N / / [id number] Description:C3-4 47.5 Mm Elite Plate Implanted:Qty: 1 on 12/24/2023 by Ethan Bermeo MD at [facility] Plate N/A: Spine Cervical [employer] . [id number] / / . 4.0 X 14 Mm Screws Implanted:Qty: 6 on 12/24/2023 by Ethan Bermeo MD at [facility] Screw N/A: Spine Cervical [employer] . [id number] / / . Explanted Type Area Creative Writer Device Identifier Shelf Expiration Date Model / Serial / Lot Plate Holding Pins Explanted:Qty: 1 on 12/24/2023 by Ethan Bermeo MD at [facility] Pin N/A: Spine Cervical [employer] . [id number] / / . Distration Pin 12mm - [id number] Explanted:Qty: 1 on 12/24/2023 by Ethan Bermeo MD at [facility] Pin N/A: Spine Cervical [employer] . DP-12-TB / / . Distration Pin 12mm - [id number] Explanted:Qty: 1 on 12/24/2023 by Ethan Bermeo MD at [facility] Pin N/A: Spine Cervical [employer] . DP-12-[id number] / / . Procedures Procedure Name Priority Date/Time Associated Diagnosis Comments XR CERV SPINE AP+LAT 2V Routine 08/28/2024 8:42 AM CDT S/P cervical spinal fusion from Last 3 Months Results * XR CERV SPINE AP+LAT 2V (08/28/2024 8:42 AM CDT) Anatomical Region Laterality Modality Spine Radiographic Terrie ging 09/08/2024 1:07 PM CDT Impressions 09/08/2024 1:11 PM CDT IMPRESSION: Unchanged appearance of the cervical spine. Referred By: Interpreted By: Melvin Rosario MD, 09/08/2024 1:07 PM Narrative 09/08/2024 1:11 PM CDT [address] [address] EXAM: XR CERV SPINE DATE: 08/28/2024 Comparison 02/20/2024 INDICATION: Cervical fusion September 2023 TECHNIQUE: 3 views FINDINGS: Anterior fusion C3-5 is unchanged. Portions of fusion hardware remain at C6. Normal vertebral body heights and alignment. Normal prevertebral soft tissue thickness. Procedure Note Melvin Rosario MD - 09/08/2024 [facility] [address] [place] [address] EXAM: XR CERV SPINE DATE: 08/28/2024 Comparison 02/20/2024 INDICATION: Cervical fusion September 2023 TECHNIQUE: 3 views FINDINGS: Anterior fusion C3-5 is unchanged. Portions of fusion hardwareremain at C6. Normal vertebral body heights and alignment. Normalprevertebral soft tissue thickness. IMPRESSION: Unchanged appearance of the cervical spine. Referred By: Interpreted By: Melvin Rosario MD, 09/08/2024 1:07 PM Ethan Bermeo MD GENERAL IMAGING Final Resul t from Last 3 Months Insurance MEDICARE Advance Directives * Full Code (Latest Code Status on File) Date Activated Date Inactivated Comments 12/24/2023 3:16 PM 12/27/2023 1:57 PM Care Teams Bench Chemist Relationship Specialty Start Date End Date Nitish Izquierdo DO 3 [facility] [address] [place] [phone] PCP - General FAMILY PRACTICE 04/03/23 Greta Garnica MD Three [facility] [address] [place], [place] [phone] Consulting Physician INTERVENTIONAL CARDIOLOGY 08/30/23 Ethan Bermeo MD [address] [place], [place] [id number] Surgeon NEUROLOGICAL SURGERY 09/03/24 Nitish Bautista MD [address] [facility] [address] [place] [address] Consulting Physician UROLOGY 09/03/24
--- OUTSIDE RECORDS SUMMARY | 2024-09-12 00:25 | XMS_ITS | Encounter Summary ---
Author Organization [facility] Address [address] [place] [address] Care Team Providers Care White Sourer Name Role Phone Nitish Izquierdo DO Primary Care Provider [phone] Greta Garnica MD Unavailable [phone] Ethan Bermeo MD Unavailable [phone] Nitish Bautista MD Unavailable [phone] Encounter Details Date Type Department Care Team (Late st Contact Info) Description 11/13/[address] [facility], [address] [address] Otilio Hall MA Social History Tobacco Use [...] 09/19/2024 9:30 AM CDT [facility] [address] [place] [address] Greta Garnica MD Three [facility]. [address] [place] [address] 12/16/2024 8:45 AM CDT Appointment [facility] [address] [facility] [address] Ethan Bermeo MD 3 [place] [address] 12/18/2024 8:00 AM CDT Office Visit [facility]ialty Care - [facility] 3 [facility], [address] [place] [address] Ethan Bermeo MD 3 [place] [address] 04/07/2025 7:00 AM NUMERICAL CONTROL ROUTER OPERATOR Office Visit [facility] 5 [place] [address] Nitish Izquierdo DO [address] [place] [address] 04/09/2025 9:00 AM NUMERICAL CONTROL ROUTER OPERATOR Office Visit [facility] - [address] [address] Nitish Izquierdo DO [address] [place] [address] 09/16/2025 8:00 AM CDT Office Visit [address] [address] Nitish Izquierdo DO [address] [place] [address] documented as of this encounter Procedures Procedure Name Priority Date/Time Associated Diagnosis Comments LIPID PANEL Routine 11/12/2023 documented in this encounter Results * LIPID PANEL (11/12/2023) CHOLESTEROL 181 HDL 28 TRIGLYCERIDES 322 NON HDL CHOLESTEROL 153 LDL (CALCULATED) 110 11/12/2023 us Default History Genericprovider LABORATORY Final Result documented in this encounter Visit Diagnoses Not on filedocumented in this encounter Care Teams White Sourer Relationship Specialty Start Date End Date Nitish Izquierdo DO 3 [facility] [address] [place] [phone] PCP - General FAMILY PRACTICE 04/03/23 Greta Garnica MD Three [facility]. [facility] [address] [place], [place] [address] Consulting Physician INTERVENTIONAL CARDIOLOGY 08/30/23 Ethan Bermeo MD 1 [place] [address] Surgeon NEUROLOGICAL SURGERY 09/03/24 Nitish Bautista MD [address] [place] [address] Consulting Physician UROLOGY 09/03/24 documented as of this encounter
--- OUTSIDE RECORDS SUMMARY | 2024-09-12 00:25 | XMS_ITS | Encounter Summary ---
Author Organization [facility] - [facility] Address [address] [place] [address] Care Team Providers Care Academic Affairs Manager Name Role Phone Nitish Izquierdo DO Primary Care Provider [phone] Greta Garnica MD Unavailable [phone] Ethan Bermeo MD Unavailable [phone] Nitish Bautista MD Unavailable [phone] Encounter Details Date Type Department Care Team (Latest Contact Info) Description 09/21/2023 MyCAcademic Eartht Message Enc [facility] Medical Group Multispecialty Care - [facility] 3 [facility], [address] [place] [phone] Samantha Beltran APRN 3 [facility] [address] [place] [address] Physical Restrictions Social History Tobacco Use Types [...] 09/19/2024 9:30 AM CDT Office Visit [facility] [address] [facility] [address], [address] [place] [address] Greta Garnica MD [address] [place] [address] 12/16/2024 8:45 AM CDT [place]ment [place] [address] Ethan Bermeo MD 3 [place] [address] 12/18/2024 8:00 AM CDT Office Visit [facility] Multispecialty Care - [facility] 3 [facility], [address] [place] [address] Ethan Bermeo MD 3 [place] [address] 04/07/2025 7:00 AM FITTING ROOM INSPECTOR Office Visit [facility] Family [facility] 5 [place] [phone] Nitish Izquierdo, DO [address] [place] [address] 04/09/2025 9:00 AM FITTING ROOM INSPECTOR Office Visit [facility] [place] 5 [place] [address] Nitish Izquierdo DO [address] [address] 09/16/2025 8:00 AM CDT Office Visit [facility] Medical Group Family Medicine - [place] 5 [place] [address] Nitish Izquierdo DO 5 [place] [address] documented as of this encounter Visit Diagnoses Not on filedocumented in this encounter Care Teams Academic Affairs Manager Relationship Specialty Start Date End Date Nitish Izquierdo DO 3 [facility] [address] [place] [address] PCP - General FAMILY PRACTICE 04/03/23 Greta Garnica MD Three [facility] [address] [place] [address] Consulting Physician INTERVENTIONAL CARDIOLOGY 08/30/23 Ethan Bermeo MD 1 [place] [address] Surgeon NEUROLOGICAL SURGERY 09/03/24 Nitish Bautista MD [address] [facility] [address] [place] [address] Consulting Physician UROLOGY 09/03/24 documented as of this encounter
--- NOTE | 2024-09-12 06:24 | WPDHPUPDATE1 ---
History and Physical Update Update Date/Time: 09/12/24 06:24 History and Physical has been reviewed, including an updated exam of the patient. There are NO changes in the patient's condition. Risks, benefits, and alternatives have been discussed and questions answered. Patient agrees to proceed with procedure.
--- NOTE | 2024-09-12 07:48 | WPDANESEPPF ---
Anes - Initial Pre Proc Eval Procedure: Operation Date: 09/12/24 08:30 Proposed Procedures p Left Extracorporeal Shock Wave Lithotripsy, - Nitish Bautista MD s Possible Cystoscopy, Left Stent Placement - Nitish Bautista MD Date/Time: 09/12/24 07:48 Surgeon: Nitish Bautista MD Pre Op Diagnosis: left renal pelvic stone Patient Data Age: 64 Gender: M Height: 1.8 m Weight: 101.8 kg Last Vital Signs Temp 36.2 C L 09/12/24 07:23 Pulse 65 09/12/24 07:23 BP 134/70 09/12/24 07:23 Pulse Ox 98 09/12/24 07:23 O2 Del Method Room Air 09/12/24 07:23 Allergies Allergy/AdvReac Type Severity Reaction Status Date / Time Jdfmnoj-WYS-ZvP Reductase AdvReac Joint Pain Verified 09/12/24 07:17 Inhibitor Home Medications ?Medication ?Instructions ?Recorded ?Confirmed ?Type hydrocodone 7.5 mg-acetaminophen 1 tablet PO Q6H PRN Pain 08/14/23 09/05/24 History 325 mg tablet aspirin 81 mg tablet,delayed 81 mg PO QAM #90 tabs 08/15/23 09/05/24 Rx release clopidogrel 75 mg tablet 75 mg PO DAILY 09/05/24 09/05/24 History evolocumab 140 mg/mL subcutaneous 140 mg subcut .every 2 wk 09/05/24 09/05/24 History syringe (Repatha Syringe) levothyroxine 100 mcg tablet 100 mcg PO DAILY 09/05/24 09/12/24 History losartan 50 mg tablet 50 mg PO HS 09/05/24 09/05/24 History Patient hx anesthesia problems: none Family hx anesthesia problems: none Results Review: All pre-operative results and documents have been reviewed as part of the pre-operative evaluation. [facility] Past Medical History Medical History Left ureteral stone (~04/2022) Idiopathic peripheral neuropathy Spinal stenosis Nasal polyps 2009 Open fracture of distal phalanx 07/2011 Essential (primary) hypertension controlled with lifestyle modifications Chronic back pain CKD (chronic kidney disease) stage 3, GFR 30-59 ml/min Dyslipidemia Vitamin D deficiency Unspecified osteoarthritis, unspecified site Hypogonadism in male Neck pain BPH NOS w/o ur obs/LUTS Secondary polycythemia Hypothyroidism (acquired) VIRAJ (obstructive sleep apnea) Surgical History Surgical History History of prostate surgery (~12/2021) UroLift placement History of cystoscopy (~04/2022) Cystoscopy, left ureteroscopy with laser lithotripsy, stone extraction and left ureteral stent placement H/O removal of cyst History of appendectomy 2004 History of neck surgery C5-C6 2007 History of cervical discectomy 09/2006 History of sinus surgery 09/2008 Family History Family History Father Diabetes mellitus Acute myocardial infarction Chronic obstructive pulmonary disease Congestive heart failure Hypertension Sibling Diabetes mellitus Mother Acute myocardial infarction Pulmonary fibrosis Hypertension Other Melanoma Social History Social History Smoking status: Never smoker Tobacco type: cigarettes Second hand tobacco smoke exposure: No Additional smoking assessment comments: only a few cigarettes here and there in the past. Not a regular smoker Alcohol intake: never Substance use: never Substance use type: does not use Do You Feel Safe in your Home?: Yes Lack of Transportation: No Lack of Food: Never True Current Housing: I Have Housing Concerned About Future Housing: No Difficulty Paying Gas/Electric Bills: No Difficulty Paying for Meds: No Currently Unemployed: No Education: Trade/Vocational Certificate Difficulty w/ Childcare or Family Care: No Living arrangements: with family Spiritual care concerns: No Anes - Eval Final PreProcedure Day of Procedure 09/12/24 07:48 Patient weight: obese Heart: regular rate and rhythm Lungs: decreased breath sounds Airway: Mallampati scale class II Neurological: alert and oriented Last oral intake: >/= 8 hours ASA classification: III Emergent: no Anesthetic plan: proceed Anesthesia type and monitoring: general LMA and standard monitoring Results Review: All pre-operative results and documents have been reviewed as part of the pre-operative evaluation. Informed Consent: The patient's anesthetic plan and its attendant risks and benefits were discussed with the patient/family/POA. Questions were solicited and answers provided to the satisfaction of the patient/family/POA.
[2024-09-12] MEDS: LACTATED RINGERS 1,000 ML 30 ML IV CONT ×2 (07:54→10:04)
[2024-09-12] MEDS: ceFAZolin 2 GM/D5W 50 ML 2 GM/50 ML BAG IVPB (08:29)
[2024-09-12] MEDS: LIDOCAINE 2% GEL UROJET 10 ML PKG MUCOUS MEM (08:39)
--- NOTE | 2024-09-12 09:03 | W.PM.PROC2 ---
Procedure Note - Detailed Date of Procedure 09/12/24 Pre-op Diagnosis Left renal pelvic stone Post-op Diagnosis Same Procedure Performed Cysto, left stent placement, left ESWL Surgeon Nitish Bautista MD Anesthesia General Description of Procedure The patient was brought to the operative suite where he was placed in the supine position on the Dornier lithotripter table. Flexible cystoscopy was undertaken with a 16F flexible cystoscopy. There were no urethral strictures. The prostatic urethra estimated length was 1.5cm. There was mild obstruction of the prostatic urethra with no median lobe enlargement. The bladder mucosa was normal and there was a single, orthotopic ureteral orifice bilaterally. A 0.035 glidewire was advanced into the left renal pelvis under fluoroscopy. A 4.8F J-J ureteral stent was positioned with the proximal coil in the renal pelvis and the distal coil in the bladder. The patient was then repositioned in the supine position with the focal point of the lithotriptor on a 14mm left renal calculus. A total of 2500 shocks were delivered at a power setting of 4. There appeared to be good fragmentation of the stone. The patient tolerated the procedure well and was taken to the recovery room in good condition. Drains No Packing No Pathology None sent Complications No immediate complications Condition Stable
[2024-09-12] MEDS: fentaNYL CITRATE INJ (*CRX) 100 MCG/2 ML VIAL 25 MCG IV PUSH ×8 (09:38→09:56)
[2024-09-12] MEDS: oxyCODONE HCL (*CRX) 5 MG TAB IR PO (10:43)
--- NOTE | 2024-09-12 11:19 | SUR.PHASEII ---
Called Dr. Bautista and left a message requesting a medication for spasms.
== END 2024-09-12 11:20 | disposition home or self-care (01) ==
PROVIDERS: Visit Provider Urology
PROC: (CPT 50590; principal; 2024-09-12 08:30)
PROC: (CPT 52352; 2024-09-12 08:30)
DX: N20.0 Calculus of kidney (principal)
CPT/HCPCS: 52332; 50590; 74018; A9270; C1769; C2617; J0690; J2003; J2250; J2405; J2704; J3010; J7120

== ENCOUNTER 2024-09-23 14:26 | Outpatient (CLI) | payer MEDICARE, BC, SELFPAY ==
--- NOTE | ~2024-09-23 | XR_ITS ---
XR abdomen/kub 1V Ordering provider: Nitish Bautista MD History: . FU LEFT STONE . Comparison: None. FINDINGS: BOWEL: Nonobstructive bowel gas pattern. ORGANOMEGALY: None. SIGNIFICANT PATHOLOGIC CALCIFICATIONS: Stone in the left kidney Left double-J stent. OTHER: No free air is seen under the diaphragm. Degenerative changes of the spine. Attempt of sacralization of L5 with pseudoarthrosis. Bilateral hip osteoarthritic changes. IMPRESSION: NO ACUTE ABDOMINAL FINDINGS. Stone in the left kidney with left double-J stent Reviewed, dictated and finalized at location A.
--- OUTSIDE RECORDS SUMMARY | 2024-09-23 16:44 | XMS_ITS | Encounter Summary ---
Author Organization [facility] Address [address] [place] [address] Care Team Providers Care Statistical Methods Professor Name Role Phone Nitish Izquierdo DO Primary Care Provider [phone] Greta Garnica MD Unavailable [phone] Ethan Bermeo MD Unavailable [phone] Nitish Bautista MD Unavailable [phone] Encounter Details Date Type Department Care Team (Late st Contact Info) Description 09/17/2024 Results Follow-Up [address] [address] Aixa Prajapati, RN LIPID PANEL Social History Tobacco Use Types Packs/Day Years Used Date Smoking Tobacco: Never Passive Smoke Exposure: Past Smokeless Tobacco: Never Alcohol Use Standard Drinks/Week Comments Not Currently 0 (1 standard drink = 0.6 oz pur e alcohol) B1300 Health Literacy Answer Date Recor ded How often do you need to hav e someone help you when you read instructions, pamphlets, or other written material from your doctor or pharmacy? Never 12/24/2023 [facility] Utilities Answer Date Recorded In the past 12 months has th e electric, gas, oil, or water company threatened to shut off services in your [...] Recorded Patient Health Questionnaire-2 Score 0 09/02/2024 [facility] - Occupational Stress Questionnaire Answer Date [...] time in the past 12 [facility], were you homeless or living in a [place] health care facility (including now)? No 12/24/2023 Sex and Gender Information Value Date Recorded Sex Assigned at Male 12/26/2022 9:36 AM CDT Legal Sex Male 4:34 PM CDT Gender Identity Male 12/26/2022 9:36 AM CDT Sexual Orientation Straight 12/26/2022 9: 36 AM CDT documented as of this encounter Functional Status * Are you deaf or do you have serious difficulty hearing Answer Date of Assessment Author Status No 12/24/2023 3:25 PM CDT Marcia Haddad RN Active * Are you blind or do you have serious difficulty seeing, even when wearing glasses? Answer Date of Assessment Author Status No 12/24/2023 3:25 PM MAGIT Marcia Haddad RN Active * Do you have serious difficulty walking or climbing stairs? Answer Date of Assessment Author Status No 12/24/2023 3:25 PM MAGIT Marcia Haddad RN Active * Do you have difficulty dressing or bathing? Answer Date of Assessment Author Status No 12/24/2023 3:25 PM MAGIT Marcia Haddad RN Active * Because of [...] Date Author Status No 12/24/2023 3:25 PM CDT Haddad, Marcia K , RN Active documented in this encounter Plan of Treatment Upcoming Encounters Date Type Department Care Team (Late st Contact Info) Description 09/29/2024 8:00 AM CDT Appointment [facility] ONE [facility] [place] [address] Greta Garnica MD Three [facility]. [address] [place] [address] 12/16/2024 8:45 AM CDT Appointment [facility] [address] [facility] [place] [place] [address] Ethan Bermeo MD 3 [place] [address] 12/18/2024 8:00 AM CDT Office Visit [facility] Mult[facility]pecialty Care - [facility] 3 [facility], [address] [place] [address] Ethan Bermeo MD 3 [place] [address] 03/20/2025 9:00 AM CDT Office Visit [facility] THREE [facility], [address] [place] [address] Maryann Falk PA-C 3 [facility], [address] [place] [address] 04/07/2025 7:00 AM YARD PIPE GRADER Office Visit [facility] Family Medicine - [address] [address] Nitish Izquierdo DO [address] [place] [address] 04/09/2025 9:00 AM YARD PIPE GRADER Office [facility] 5 [place] [address] Nitish Izquierdo DO [address] [place], [place] [address] 09/16/2025 8:00 AM CDT Office Visit [address] [address] Nitish Izquierdo, DO 5 [facility] [place], [place] [address] documented as of this encounter Goals Goal Patient Goal Type Associated Problems Recent Progress Patient-Stated? Author Family - family caregiver with be involved in care transitions and discharge planning Lifestyle No Danny Enriquez RN documented as of this encounter Visit Diagnoses Not on filedocumented in this encounter Additional Health Concerns Assessment Noted Time PHQ-9 Depression Total Score: 3 09/03/19 25 9:29 AM CDT documented as of this encounter Care Teams Statistical Methods Professor Relationship Specialty Start Date End Date Nitish Izquierdo DO 3 [facility] [address] [place] [address] PCP - General FAMILY PRACTICE 04/03/23 Greta Garnica MD Three [facility]. [facility] [address] [place] [address] Consulting Physician INTERVENTIONAL CARDIOLOGY 08/30/23 Ethan Bermeo MD 1 [place], [place] [address] Surgeon NEUROLOGICAL SURGERY 09/03/24 Nitish Bautista MD [address] [facility] [address] [place] [address] Consulting Physician UROLOGY 09/03/24 documented as of this encounter
--- OUTSIDE RECORDS SUMMARY | 2024-09-23 16:44 | XMS_ITS | Encounter Summary ---
Author Organization [facility] Address [address] [place] [address] Care Team Providers Care Cub Reporter Name Role Phone Nitish Izquierdo DO Primary Care Provider [phone] Greta Garnica MD Unavailable [phone] Ethan Bermeo MD Unavailable [phone] Nitish Bautista MD Unavailable [phone] Encounter Details Date Type Department Care Team (Latest Contact Info) Description 09/21/2023 MyCRow Sham Bowt Message Enc [facility] Medical Group Multispecialty Care - [facility] 3 [facility], [address] [place] [address] Samantha Beltran APRN 3 [facility] [address] [place] [address] Up coming surgery Social History [...] Info) Description 09/29/2024 8:[address] [facility] ONE [facility] [address] Greta Garnica MD Three [facility]. [address] [place] [address] 12/16/2024 8:45 AM CDT Appointment [place] [address] Ethan Bermeo MD 3 [place] [address] 12/18/2024 8:00 AM CDT Office Visit [facility] 3 [facility], [address] [place] [address] Ethan Bermeo MD 3 [place] [address] 03/20/2025 9:00 AM CDT Office Visit [facility] THREE [facility], [address] [place] [address] Maryann Falk PA-C 3 [facility], [address] [place] [address] 04/07/2025 7:00 AM LANDSCAPE DRAFTER Office Visit [facility] Family Medicine - [address] [address] Nitish Izquierdo, DO [address] [place] [address] 04/09/2025 9:00 AM LANDSCAPE DRAFTER Office Visit [facility] 5 [place] [address] Nitish Izquierdo DO [address] [address] 09/16/2025 8:00 AM CDT Office Visit [address] [address] Nitish Izquierdo DO [address] [address] documented as of this encounter Visit Diagnoses Not on filedocumented in this encounter Care Teams Cub Reporter Relationship Specialty Start Date End Date Nitish Izquierdo DO 3 [facility] [address] [place] [address] PCP - General FAMILY PRACTICE 04/03/23 Greta Garnica MD Three [facility]. [address] [place], [place] [address] Consulting Physician INTERVENTIONAL CARDIOLOGY 08/30/23 Ethan Bermeo MD 1 [place], [place] [address] Surgeon NEUROLOGICAL SURGERY 09/03/24 Nitish Bautista MD [address] [place] [address] Consulting Physician UROLOGY 09/03/24 documented as of this encounter
--- OUTSIDE RECORDS SUMMARY | 2024-09-23 16:44 | XMS_ITS | Encounter Summary ---
Author Organization [facility] - [facility] Address [address] [place] [address] Care Team Providers Care Geospatial Image Analyst Name Role Phone Nitish Izquierdo DO Primary Care Provider [phone] Greta Garnica MD Unavailable [phone] Ethan Bermeo MD Unavailable [phone] Nitish Bautista MD Unavailable [phone] Encounter Details Date Type Department Care Team (Late st Contact Info) Description 09/01/2023 MyChart Message Enc [facility] Medical Group Multispecialty Care - [facility] 3 [facility], [address] [place] [address] Samantha Beltran APRN 3 [facility] [address] [place], [place] [id number] Stimulator Social History Tobacco Use Types Packs/Day [...] Description 09/29/2024 8:[address] [facility] ONE [facility] [place] [address] Greta Garnica MD Three [facility]. [address] [place] [address] 12/16/2024 8:45 AM CDT [place] [address] Ethan Bermeo MD 3 [place] [address] 12/18/2024 8:00 AM CDT Office Visit [facility] 3 [facility], [address] [place] [address] Ethan Bermeo MD 3 [place] [address] 03/20/2025 9:00 AM CDT Office Visit [facility] THREE [facility], [address] [place] [address] Maryann Falk PA-C 3 [facility], [address] [place] [address] 04/07/2025 7:00 AM DIGESTER Office Visit [facility] Family Medicine - [address] [address] Nitish Izquierdo, DO [address] [place] [address] 04/09/2025 9:00 AM DIGESTER Office Visit [facility] 5 [place] [address] Nitish Izquierdo DO [address] [address] 09/16/2025 8:00 AM CDT Office Visit [facility] 5 [place] [address] Nitish Izquierdo DO [address] [address] documented as of this encounter Visit Diagnoses Not on filedocumented in this encounter Care Teams Geospatial Image Analyst Relationship Specialty Start Date End Date Nitish Izquierdo DO 3 [facility] [address] [place] [address] PCP - General FAMILY PRACTICE 04/03/23 Greta Garnica MD Three [facility]. [address] [place], [place] [address] Consulting Physician INTERVENTIONAL CARDIOLOGY 08/30/23 Ethan Bermeo MD 1 [facility] [place] [place] [address] Surgeon NEUROLOGICAL SURGERY 09/03/24 Nitish Bautista MD [address] [place] [address] Consulting Physician UROLOGY 09/03/24 documented as of this encounter
--- OUTSIDE RECORDS SUMMARY | 2024-09-23 16:44 | XMS_ITS | Encounter Summary ---
Author Organization [facility] Address [address] [place] [address] Care Team Providers Care Athletic Events Scorer Name Role Phone Nitish Izquierdo DO Primary Care Provider [phone] Greta Garnica MD Unavailable [phone] Ethan Bermeo MD Unavailable [phone] Nitish Bautista MD Unavailable [phone] Encounter Details Date Type Department Care Team (Late st Contact Info) Description 11/13/2023 Abstract [facility], [address] [address] Otilio Hall MA Social History Tobacco Use [...] Info) Description 09/29/2024 8:00 AM CDT Appointment [facility] [place] [address] Greta Garnica MD Three [facility]. [place] [address] [place] [address] 12/16/2024 8:45 AM CDT Appointment [place] [address] [facility] [place] [address] Ethan Bermeo MD 3 [place] [address] 12/18/2024 8:00 AM CDT Office Visit [facility]ialty Care - [facility] [address] [facility], [address] [place] [address] Ethan Bermeo MD 3 [place] [address] 03/20/2025 9:00 AM CDT Office Visit [facility], [place] [address] [place] [address] Maryann Falk PA-C [address] [facility], [address] [place] [address] 04/07/2025 7:00 AM MIXER TENDER Office Visit [facility] - [address] [phone] Nitish Izquierdo DO [address] [place] [address] 04/09/2025 9:00 AM MIXER TENDER Office Visit [facility] - [address] [place] [address] Nitish Izquierdo DO [address] [place], [place] [phone] 09/16/2025 8:00 AM CDT Office Visit [facility] - [place] [address] [place] [address] Nitish Izquierdo DO [address] [place], [place] [id number] documented as of this encounter Procedures Procedure Name Priority Date/Time Associated Diagnosis Comments LIPID PANEL Routine 11/12/2023 documented in this encounter Results * LIPID PANEL (11/12/2023) CHOLESTEROL 181 HDL 28 TRIGLYCERIDES 322 NON HDL CHOLESTEROL 153 LDL (CALCULATED) 110 11/12/2023 us Default History Genericprovider LABORATORY Final Result documented in this encounter Visit Diagnoses Not on filedocumented in this encounter Care Teams Athletic Events Scorer Relationship Specialty Start Date End Date Nitish Izquierdo DO 3 [facility] [address] [place] [address] PCP - General FAMILY PRACTICE 04/03/23 Greta Garnica MD Three [facility]. [facility] [address] [place] [address] Consulting Physician INTERVENTIONAL CARDIOLOGY 08/30/23 Ethan Bermeo MD 1 [place], [place] [id number] Surgeon NEUROLOGICAL SURGERY 09/03/24 Nitish Bautista MD [address] [facility] [address] [place] [phone] Consulting Physician UROLOGY 09/03/24 documented as of this encounter
--- OUTSIDE RECORDS SUMMARY | 2024-09-23 16:44 | XMS_ITS | Encounter Summary ---
Author Organization [facility] Address [address] [place] [address] Care Team Providers Care Sewing Machine Operator Paper Bags Name Role Phone Oneal Monzon MD Primary Care Provider [phone] Encounter Details Date Type Department Care Team (Late st Contact Info) Description 06/19/2024 Lab Requisition [facility] - [facility] Lab [address] [facility], [facility] [place] [address] Socorro Knight MD [address] [facility] 3 [place] [address] Social History Tobacco Use Types Packs/Day Years Used Date Smoking Tobacco: Never Assessed Sex and Gender Information Value Date Recorded Sex Assigned at Not on file Legal Sex Male 10:52 AM HEALTHCARE MANAGER Gender Identity Not on file Sexual Orientation Not on file documented as of this encounter Plan of Treatment Not on file documented as of this encounter Procedures Procedure Name Priority Date/Time Associated Diagnosis Comments DERMATOPATHOLOGY Routine 06/19/2024 1:04 PM HEALTHCARE MANAGER documented in this encounter Results * DERMATOPATHOLOGY (06/19/2024 1:04 PM HEALTHCARE MANAGER) Case Report Dermatopathology Report Case: [id number] Authorizing Provider: Socorro Knight MD Collected: 06/19/2024 01:04 PM Ordering Location: [facility] Physician [facility] - Received: 06/20/2024 03:04 PM [facility] Lab Pathologist: Missy Rivera MD Specimens: A) - Skin, right ant thigh B) - Skin, right ant neck 3:54 PM HEALTHCARE MANAGER DERMATOPATHOLOGY LABORATORY Final Diagnosis Specimen A. SKIN, right ant thigh: ACTINIC KERATOSIS, LICHENOID (L57.0) Specimen B. SKIN, right ant neck: ACTINIC KERATOSIS, FOCAL (L57.0) CHRONIC PERIFOLLICULITIS (L73.8) 3:54 PM [facility] DERMATOPATHOLOGY LABORATORY Clinical History A: R/O SCC B: Cyst vs NMSC 3:54 PM [facility] DERMATOPATHOLOGY LABORATORY Gross Description Specimen A: [...] measuring 9x6x1 mm. Jar 0. 3:54 PM [facility] DERMATOPATHOLOGY LABORATORY Microscopic Description Specimen A. [...] of keratinocytes with nuclear pleomorphism. 3:54 PM [facility] DERMATOPATHOLOGY LABORATORY Disclaimer An external and internal positive and negative controls are appropriate for the histochemical, immunohistochemical and immunofluorescence stain(s) in this case (if any), except where stated explicitly. The performance characteristics of the stain(s) cited in this report were developed and its performance characteristic determined by the Dermatopathology Laboratory at [facility], directed by Dr. Torrie Marin. These tests need not be, and therefore are not, approved by the [place] Food and Drug Administration. The tests are used for clinical purposes. Billing Codes Specimen Charges Stain Charges 03267 68428 1 1 3:54 PM [facility] DERMATOPATHOLOGY LABORATORY Embedded Images 3:54 PM [facility] DERMATOPATHOLOGY [facility]ORATORY Pathology/Cytology TISSUE SPECIMEN FROM SKIN / Unknown 06/19/2024 1:04 PM HEALTHCARE MANAGER 06/20/2024 3:04 PM HEALTHCARE MANAGER Miscellaneous samples (specimen) TISSUE SPECIMEN FROM SKIN / Unknown 06/19/2024 1:04 PM HEALTHCARE MANAGER 06/20/2024 3:04 PM HEALTHCARE MANAGER Socorro Knight MD LAB - PATHOLOGY/CYTOLOGY OR DERABLES Final Result DERMATOPATHOLOGY LABORATORY [facility] - Department of Dermatology [facility] Specialized Medicine [address] [place] [address], [address] [place] [address], [facility] [phone] documented in this encounter Visit Diagnoses Not on filedocumented in this encounter Care Teams Sewing Machine Operator Paper Bags Relationship Specialty Start Date End Date Oneal Monzon MD [address] [place] [address] PCP - General 05/03/22 documented as of this encounter
--- OUTSIDE RECORDS SUMMARY | 2024-09-23 16:44 | XMS_ITS | Encounter Summary ---
Author Organization [facility] Address [address] [place] [address] Care Team Providers Care Vat Overhauler Name Role Phone Nitish Izquierdo DO Primary Care Provider [phone] Greta Garnica MD Unavailable [phone] Ethan Bermeo MD Unavailable [phone] Nitish Bautista MD Unavailable [phone] Encounter Details Date Type Department Care Team (Latest Contact Info) Description 09/21/2023 MyCVir2ust Message Enc [facility] Multispecialty Care - [facility] 3 [facility], [address] [place] [phone] Samantha Beltran APRN [address] [facility] [address] [place] [address] Upcoming Surgery Social History Tobacco [...] Info) Description 09/29/2024 8:00 AM CDT Appointment [facility] [address] [facility] [place] [address] Greta Garnica MD Three [facility]. [facility] [address] [place] [address] 12/16/2024 8:45 AM CDT Appointment [facility] [address] [facility] [place] [address] Ethan Bermeo MD 3 [place] [address] 12/18/2024 8:00 AM CDT Office Visit [facility] Multispecialty Care - [facility] 3 [facility] [address], [address] [place] [address] Ethan Bermeo MD 3 [facility] [place] [address] 03/20/2025 9:00 AM CDT Office Visit [facility] [place] [address] [place] [address] Maryann Falk PA-C 3 [facility], [address] [place] [address] 04/07/2025 7:00 AM MOTOR COACH OPERATOR Office Visit [facility] [address] [place] [address] Nitish Izquierdo DO [address] [place], [place] [phone] 04/09/2025 9:00 AM MOTOR COACH OPERATOR Office Visit [address] [address] Nitish Izquierdo DO [address] [place] [address] 09/16/2025 8:00 AM CDT Office Visit [address] [address] Nitish Izquierdo DO [address] [address] documented as of this encounter Visit Diagnoses Not on filedocumented in this encounter Care Teams Vat Overhauler Relationship Specialty Start Date End Date Nitish Izquierdo DO 3 [facility] [address] [place] [phone] PCP - General FAMILY PRACTICE 04/03/23 Greta Garnica MD Three [facility]. [facility] [address] [place], [place] [address] Consulting Physician INTERVENTIONAL CARDIOLOGY 08/30/23 Ethan Bermeo MD 1 [place] [address] Surgeon NEUROLOGICAL SURGERY 09/03/24 Nitish Bautista MD [address] [address] Consulting Physician UROLOGY 09/03/24 documented as of this encounter
--- OUTSIDE RECORDS SUMMARY | 2024-09-23 16:44 | XMS_ITS | Clinical Summary ---
Author Organization [facility] Address [address] [place] [address] Care Team Providers Care Core Laying Machine Operator Name Role Phone Nitish Izquierdo DO Primary Care Provider [phone] Greta Garnica MD Unavailable [phone] Ethan Bermeo MD Unavailable [phone] Nitish Bautista MD Unavailable [phone] Allergies Active Allergy Reactions Criticality Noted Date [...] Additional Information Patient not taking.Reported on 09/03/2024 aspirin EC (ECOTRIN) 81 MG tablet Take 1 tablet (81 mg total) by mouth daily. 90 tablet 1 04/25/20 24 Active levothyroxine (SYNTHROID) 100 MCG tabletIndications: Acquired hypothyroidism Take 1 tablet (100 mcg total) by mouth every morning. 90 tablet 3 04/25/20 24 Active losartan (COZAAR) 50 MG tablet TAKE 1 TABLET(50 MG) BY MOUTH DAILY 90 tablet 1 06/20/19 25 Active REPATHA SURECLICK 140 MG/ML injection (PEN)Indications:C oronary artery disease involving shoalwater coronary artery of shoalwater heart without angina pectoris ADMINISTER 1 ML(140 MG) UNDER THE SKIN EVERY 14 DAYS 2 mL 3 08/01/19 25 Active oxyCODONE-acetamin ophen (PERCOCET) 5-325 MG tabletIndications: Chronic Pain Take 1-2 tablets by mouth every 6 (six) hours as needed for Pain. Indications: Chronic Pain 40 tablet 08/29/19 25 Active metoprolol succinate ER (TOPROL-XL) 25 MG 24 hr tablet Take 0.5 tablets (12.5 mg total) by mouth every morning. NEW DOSE 09/19/2024 OV 45 tablet 1 09/20/19 25 Active oxyCODONE-acetamin ophen (PERCOCET) 5-325 MG tabletIndications: Acute Pain < 7 Day Supply Take 1-2 tablets by mouth every 6 (six) hours as needed for Pain. Indications: Acute Pain < 7 Day Supply 50 tablet 12/26/19 24 025 Discontin ued(Reord er) metoprolol succinate ER (TOPROL-XL) 25 MG 24 hr tablet Take 1 tablet (25 mg total) by mouth every morning. 90 tablet 1 04/25/20 24 025 Discontin ued(Reord er) clopidogrel (PLAVIX) 75 MG tablet TAKE 1 TABLET(75 MG) BY MOUTH DAILY 90 tablet 06/27/19 25 025 Discontin ued(Order ing Physician ) Active Problems Problem Noted Date Diagnosed Date Pure hypercholesterolemia 03/20/2024 Right calf pain 01/09/2024 Lumbar radiculopathy 01/09/2024 S/P cervical spinal fusion 12/24/2023 Dyslipidemia 09/21/2023 Spinal stenosis of lumbar re gion without neurogenic claudication 08/27/2023 Facet hypertrophy of lumbar region 08/27/2023 Cord compression myelopathy ([facility]) Other cervical disc degenera tion, unspecified cervical region 08/27/2023 Radiculopathy, cervical region 08/27/2023 Myelomalacia ([facility]) 08/27/2023 History of fusion of cervical spine 08/27/2023 Coronary artery disease invo lving shoalwater coronary artery of sho[place] heart without angina pectoris 08/27/2023 Elevated PSA, [...] Encounters Date Type Department Care Team Description 09/19/2024 9:30 AM CDT Office Visit [facility] THREE [facility], [address] [address] Greta Garnica MD Coronary Artery Disease (6 mo follow up) 09/19/2024 Travel 09/17/2024 7:08 AM CDT - 09/17/2024 11:59 PM CDT Hospital Encounter [facility] [address] [place] [address] Greta Garnica MD Discharge Disposition: Home or Self Care (Routine Discharge) 09/17/2024 Results Follow-Up [facility], [address] [place] [address] Aixa Prajapati RN LIPID PANEL 09/17/2024 Travel 09/04/2024 Telephone [facility], [facility] [address] [place] [address] Greta Garnica MD Surgical Clearance 09/03/2024 8:00 AM CDT Office Visit [facility] [address] [place] [phone] Nitish Izquierdo, DO Medicare Wellness (Patient presents today for their Medicare Annual Wellness Visit.) 09/03/2024 Travel 08/28/2024 8:26 AM CDT - 08/28/2024 11:59 PM CDT Hospital Encounter [facility] Diagnostic Imaging [facility] [address] Ethan Bermeo MD Discharge Disposition: Home or Self Care (Routine Discharge) 08/28/2024 8:00 AM CDT Office Visit [facility] Multispecialty Care - [facility] 3 [facility], [address] [place] [address] Ethan Bermeo MD Follow Up (F/u xray) 08/28/2024 Travel 08/11/[address] [phone] Nitish Izquierdo, DO Information 07/28/[address] [phone] Nitish Izquierdo, DO Structural Heart Team Notes; Orders 07/10/2024 Scan [facility] INFO SRVCS Scanned, [facility] 06/26/2024 Telephone [facility], [facility] [address] [place] [address] Shannon Parr, ARMOR SENIOR SERGEANT Prior Authorization (repatha) from Last 3 Months Immunizations Immunization Administration Dates Next Due Influenza (Generic) 03/04/2013 [...] from your doctor or pharmacy? Never 12/24/2023 [facility] Utilities Answer Date Recorded In the past 12 months has [facility] [place], gas, oil, or water [employer] threatened to shut off services in your [...] Recorded Patient Health Questionnaire-2 Score 0 09/02/2024 [facility] - Occupational [...] any time in the past 12 m [facility], were you homeless or living in a nursing home (including now)? No 12/24/2023 Sex and Gender Information Value Date Recorded Sex Assigned at Male 12/26/2022 9:36 AM CDT Legal Sex Male 4:34 PM CDT Gender Identity Male 12/26/2022 9:36 AM CDT Sexual Orientation Straight 12/26/2022 9: 36 AM CDT Last Filed Vital Signs Vital Sign Reading Time Taken Comments Blood Pressure 120/76 09/19/2024 9:25 AM CDT Pulse 72 09/19/2024 9:25 AM CDT Temperature 37.2 C (98.9 F) 09/03/2024 8:12 AM CDT Respiratory Rate 16 09/03/2024 8:12 AM CDT Oxygen Saturation 98% 09/19/2024 9:25 AM CDT Inhaled Oxygen Concentration - - Weight 103.9 kg (229 lb) 09/19/2024 9:25 AM CDT Height 180.3 cm (5' 11 ) 09/19/2024 9:25 AM CDT Body Mass Index 31.94 09/19/2024 9:25 AM CDT Plan of Treatment Upcoming Encounters Date Type Department Care Team (Late st Contact Info) Description 09/29/2024 8:00 AM CDT Appointment [facility] [place] [address] Greta Garnica MD [facility] [address] [place] [address] 12/16/2024 8:45 AM CDT Appointment [place] [address] Ethan Bermeo MD 3 [place] [address] 12/18/2024 8:00 AM CDT Office Visit [facility] Multispecialty Care - [facility] 3 [facility], [address] [place] [address] Ethan Bermeo MD 3 [place] [address] 03/20/2025 9:00 AM CDT [facility], [address] [place] [address] Maryann Falk PA-C 3 [facility], [address] [place] [address] 04/07/2025 7:00 AM MARIONETTE PERFORMER Office Visit [facility] [address] [place] [address] Nitish Izquierdo DO [address] [place] [address] 04/09/2025 9:00 AM MARIONETTE PERFORMER Office Visit [address] [address] Nitish Izquierdo DO [address] [place] [address] 09/16/2025 8:00 AM CDT Office Visit [facility] [address] [place] [address] Nitish Izquierdo DO [address] [place] [address] Health Maintenance Due Date Last Done Comments Colorectal Cancer Screening Colonoscopy (10 Years) 1958 Hepatitis C 1976 Pneumococcal Vaccine: 50+ Years (1 of 2 - PCV) 1977 RSV Immunization or 60+ Years (1 - Risk 60-74 years 1-dose series) 2018 COVID-19 Vaccine (2023-2 5 season) 2024 DTaP, Tdap and Td Vaccines ( 2 - Td or Tdap) 04/10/2024 04/10/2014 Annual Medicare Wellness Visit 09/04/2025 09/03/2024 Zoster Vaccines Completed 07/20/2021, 03/24/2021 PHQ-2 (Physician [place]) Completed 09/02/2024 Meningococcal B Vaccine Aged Out [...] Enriquez, RN Medical Devices Implanted Type Area Maternal Fetal Physician Device Identifier Shelf Expiration Date Model / Serial / Lot Putty Jones Matrix Dbm/Dbf Bone 3ml - [id number] Implanted:Qty: 1 on 12/24/2023 by Ethan Bermeo MD at [facility] Bone N/A: Spine Cervical [employer] [id number] 10/11/2025 [id number] / [id number] / . Medtronic Endoskeleton Tc Interbody System Implanted:Qty: 1 on 12/24/2023 by Ethan Bermeo MD at [facility] Cage N/A: Spine Cervical [employer] [id number] 08/22/2028 [id number] -N / / [id number] Description:C4-5 Medtronic Endoskeleton Tc Interbody System Implanted:Qty: 1 on 12/24/2023 by Ethan Bermeo MD at [facility] Cage N/A: Spine Cervical [employer] [id number] 08/29/2028 [id number] -N / / [id number] Description:C3-4 47.5 Mm Elite Plate Implanted:Qty: 1 on 12/24/2023 by Ethan Bermeo MD at [facility] Plate N/A: Spine Cervical [employer] . [id number] / / . 4.0 X 14 Mm Screws Implanted:Qty: 6 on 12/24/2023 by Ethan Bermeo MD at [facility] Screw N/A: Spine Cervical [employer] . [id number] / / . Explanted Type Area Maternal Fetal Physician Device Identifier Shelf Expiration Date Model / Serial / Lot Plate Holding Pins Explanted:Qty: 1 on 12/24/2023 by Ethan Bermeo MD at [facility] Pin N/A: Spine Cervical [employer] . [id number] / / . Distration Pin 12mm - [id number] Explanted:Qty: 1 on 12/24/2023 by Ethan Bermeo MD at [facility] Pin N/A: Spine Cervical [employer] . DP-12-TB / / . Distration Pin 12mm - [id number] Explanted:Qty: 1 on 12/24/2023 by Ethan Bermeo MD at [facility] Pin N/A: Spine Cervical [employer] . DP-12-TB / / . Procedures Procedure Name Priority Date/Time Associated Diagnosis Comments LIPID PANEL Routine 09/17/2024 7:19 AM CDT Pure hypercholesterolemia XR CERV SPINE AP+LAT 2V Routine 08/28/2024 8:42 AM CDT S/P cervical spinal fusion from Last 3 Months Results * (ABNORMAL) LIPID PANEL (09/17/2024 7:19 AM CDT) CHOLESTEROL 98 <200.0 MG/DL 09/17/2024 7:[address] [facility] TRIGLYCERIDES 115 <150 MG/DL 09/17/2024 7:[address] [facility] HDL 40(L) >40.0 MG/DL 09/17/2024 7:[address] [facility] LDL (CALCULATED) 35 <100 MG/DL 09/18/19 25 7:[address] [facility] NON HDL CHOLESTEROL 58 <130 MG/DL 09/17 7:[address] [facility] CHOL/HDL RATIO 2.4 0.0 - 4.5 09/17/2024 7:[address] [facility] VLDL CALCULATION 23 5 - 55 MG/DL 09/17/2024 7:[address] [facility] LIPID INTERPRETATION 09/17/2024 7:[address] [facility] Comment: [facility] CONCENSUS REPORT RECOMMENDATIONS: ADULT CHILD LOW RISK: CHOLESTEROL <200 <170 TRIGLYCERIDE <150 --- HDL >=60 --- LDL <100 <110 BORDERLINE: CHOLESTEROL 200-239 170-199 TRIGLYCERIDE 150-199 --- HDL 40-59 --- LDL 100-159 110-129 HIGH RISK: CHOLESTEROL >=240 >=200 TRIGLYCERIDE >=200 --- HDL <40 --- LDL >=160 >=130 09/17/2024 7:19 AM CDT us Greta Garnica MD LABORATORY Final Result Performing Organization Address City/State/[facility] Co de Phone Number [facility] [address] [place] [address], * XR CERV SPINE AP+LAT 2V (08/28/2024 8:42 AM CDT) Anatomical Region Laterality Modality Spine Radiographic Terrie ging 09/08/2024 1:07 PM CDT Impressions 09/08/2024 1:11 PM CDT IMPRESSION: Unchanged appearance of the cervical spine. Referred By: Interpreted By: Melvin Rosario MD, 09/08/2024 1:07 PM Narrative 09/08/2024 1:11 PM CDT [address] [address] EXAM: XR CERV SPINE DATE: 08/28/2024 Comparison 02/20/2024 INDICATION: Cervical fusion September 2023 TECHNIQUE: 3 views FINDINGS: Anterior fusion C3-5 is unchanged. Portions of fusion hardware remain at C6. Normal vertebral body heights and alignment. Normal prevertebral soft tissue thickness. Procedure Note Melvin Rosario MD - 09/08/[address] [address] EXAM: XR CERV SPINE DATE: 08/28/2024 Comparison [...] 3:16 PM 12/27/2023 1:57 PM Care Teams Core Laying Machine Operator Relationship Specialty Start Date End Date Nitish Izquierdo DO 3 [facility] [address] [place] [phone] PCP - General FAMILY PRACTICE 04/03/23 Greta Garnica MD [facility] [address] [place], [place] [phone] Consulting Physician INTERVENTIONAL CARDIOLOGY 08/30/23 Ethan Bermeo MD 1 [place], [place] [id number] Surgeon NEUROLOGICAL SURGERY 09/03/24 Nitish Bautista MD [address] [facility] [address] [place] [address] Consulting Physician UROLOGY 09/03/24
--- OUTSIDE RECORDS SUMMARY | 2024-09-23 16:44 | XMS_ITS | Encounter Summary ---
Author Organization [facility] - [facility] Address [address] [place] [address] Care Team Providers Care Pet Training Instructor Name Role Phone Nitish Izquierdo DO Primary Care Provider [phone] Greta Garnica MD Unavailable [phone] Ethan Bermeo MD Unavailable [phone] Nitish Bautista MD Unavailable [phone] Encounter Details Date Type Department Care Team (Latest Contact Info) Description 09/21/2023 [employer] Groupt Message Enc [facility] Medical Group Multispecialty Care - [facility] 3 [facility], [address] [place] [phone] Samantha Beltran APRN 3 [facility] [address] [place] [address] Physical Restrictions Social History Tobacco [...] CDT Appointment [facility] [address] [facility] [place] [address] Greta Garnica MD Three [facility]. [address] [place] [address] 12/16/2024 8:45 AM CDT [place]ment [place] [address] Ethan Bermeo MD 3 [place] [address] 12/18/2024 8:00 AM CDT Office Visit [facility] - [facility] [address] [facility], [address] [place] [phone] Ethan Bermeo MD 3 [place] [address] 03/20/2025 9:00 AM CDT Office Visit [facility] THREE [facility], [address] [place] [address] Maryann Falk PA-C 3 [facility], [address] [place] [address] 04/07/2025 7:00 AM BUNCHER OPERATOR Office Visit [facility] Family Medicine - [address] [address] Nitish Izqueirdo, DO [address] [place] [address] 04/09/2025 9:00 AM BUNCHER OPERATOR Office Visit [facility] [address] [place] [address] Nitish Izquierdo DO [address] [place] [address] 09/16/2025 8:00 AM CDT Office Visit [facility] [address] [place] [address] Nitish Izquierdo DO [address] [place] [address] documented as of this encounter Visit Diagnoses Not on filedocumented in this encounter Care Teams Pet Training Instructor Relationship Specialty Start Date End Date Nitish Izquierdo DO 3 [facility] [address] [place] [address] PCP - General FAMILY PRACTICE 04/03/23 Greta Garnica MD Three [facility]. [address] [place], [place] [id number] Consulting Physician INTERVENTIONAL CARDIOLOGY 08/30/23 Ethan Bermeo MD 1 [facility] [place], [place] [address] Surgeon NEUROLOGICAL SURGERY 09/03/24 Nitish Bautista MD [address] [place] [address] Consulting Physician UROLOGY 09/03/24 documented as of this encounter
--- OUTSIDE RECORDS SUMMARY | 2024-09-23 16:44 | XMS_ITS | Encounter Summary ---
Author Organization [facility] - [facility] Address [address] [place] [address] Care Team Providers Care Freight Hustler Name Role Phone Nitish Izquierdo DO Primary Care Provider [phone] Greta Garnica MD Unavailable [phone] Ethan Bermeo MD Unavailable [phone] Nitish Bautista MD Unavailable [phone] Encounter Details Date Type Department Care Team (Latest Contact Info) Description 10/15/2023 Bracketrt Message Enc [facility] Medical Group Multispecialty Care - [facility] 3 [facility], [address] [place] [phone] Samantha Beltran APRN 3 [facility] [address] [place], [place] [phone] Refill for Oxycodone/Acetamino phen Social History Tobacco [...] - 10/15/2023 1:29 PM CDT Forwarding to [facility] documented in this encounter Plan of Treatment Upcoming Encounters Date Type Department Care Team (Late st Contact Info) Description 09/29/2024 8:00 AM CDT Appointment [facility] [address] [facility] [place] [address] Greta Garnica MD Three [facility]. [facility] [address] [place] [address] 12/16/2024 8:45 AM CDT [place] [address] Ethan Bermeo MD 3 [place] [address] 12/18/2024 8:00 AM CDT Office Visit [facility], [address] [place] [address] Ethan Bermeo MD 3 [place] [address] 03/20/2025 9:00 AM CDT Office Visit [facility] [address] [facility] [place] [address] [place] [address] Maryann Falk PA-C 3 [facility], [address] [place] [address] 04/07/2025 7:00 AM TEXTILES PRINTER Office Visit [facility] 5 [place] [address] Nitish Izquierdo, DO [address] [place], [place] [id number] 04/09/2025 9:00 AM TEXTILES PRINTER Office Visit [address] [address] Nitish Izquierdo DO [address] [place], [place] [phone] 09/16/2025 8:00 AM CDT Office Visit [address] [address] Nitish Izquierdo DO [address] [place] [id number] documented as of this encounter Visit Diagnoses Not on filedocumented in this encounter Care Teams Freight Hustler Relationship Specialty Start Date End Date Nitish Izquierdo DO 3 [facility] [address] [place] [phone] PCP - General FAMILY PRACTICE 04/03/23 Greta Garnica MD Three [facility]. [address] [place], [place] [address] Consulting Physician INTERVENTIONAL CARDIOLOGY 08/30/23 Ethan Bermeo MD 1 [place] [address] Surgeon NEUROLOGICAL SURGERY 09/03/24 Nitish Bautista MD [address] [facility] [address] [address] Consulting Physician UROLOGY 09/03/24 documented as of this encounter
--- OUTSIDE RECORDS SUMMARY | 2024-09-23 16:44 | XMS_ITS | CONTINUITY OF CARE DOCUMENT ---
Author Name karen jones Address Unknown Organization [facility] Address [address] [facility] [address] [place] [address] Phone [phone] Care Team Providers Care Purler Name Role Phone karen jones Unavailable Unavailable INSURANCE PROVIDERS Payer name Policy type / Coverage type [place] red constitution party ID [facility] [employer] insurance company [id number]
--- OUTSIDE RECORDS SUMMARY | 2024-09-23 16:44 | XMS_ITS | Clinical Summary ---
Author Organization [facility] Address [address] [place] [address] Care Team Providers Care Hospice Office Coordinator Name Role Phone Oneal Monzon MD Primary Care Provider [phone] Source Comments [facility],non-owned Affiliates and Associated Physician Practices is amultiple site organization consisting of ambulatory clinics and hospital sitesin [place], [place], [place] and [place]. This disclosure is being madepursuant to the Care Everywhere program and may not contain all information available regarding this patient. Last updated 18.[facility] Social History Tobacco Use Types Packs/Day Years Used Date Smoking Tobacco: Never Assessed Sex and Gender Information Value Date Recorded Sex Assigned at Not on file Legal Sex Male 10:52 AM MILLING MACHINE OPERATOR Gender Identity Not on file Sexual Orientation [...] TESTING 1958 MEDICARE AWV 12 MONTHS 1958 HEPATITIS C SCREENING 09/02/1976 DTAP/TDAP/TD VACCINES (1 - Tdap) 1977 PNEUMOCOCCAL VACCINE 50+ (1 of 1 - PCV) 2008 ZOSTER VACCINE (1 of 2) 2008 COVID-19 VACCINE ( - 2023-2 5 season) 2024 DEPRESSION SCREENING [...] on patient's age to complete this topic Insurance [facility] MEDICARE [facility] Care Teams Hospice Office Coordinator Relationship Specialty Start Date End Date Oneal Monzon MD [address] [place] [address] PCP - General 05/03/22
== END 2024-09-23 14:27 | disposition home or self-care (01) ==
PROVIDERS: Visit Provider Urology
DX: N20.1 Calculus of ureter (principal)
CPT/HCPCS: 74018

== ENCOUNTER 2024-11-22 08:21 | Outpatient (CLI) | payer MEDICARE, BC, SELFPAY ==
[2024-11-22 09:30] LABS: Prothrombin Time 12.9 Seconds (11.1-14.7)
[2024-11-22 09:31] LABS: Partial Thromboplastin Time 26.5 Seconds (22.3-36.8)
[2024-11-22 09:47] LABS: Anion Gap 8 mmol/L (4-12); Blood Urea Nitrogen 20 mg/dL (9-20); Calcium 9.9 mg/dL (8.4-10.2); Carbon Dioxide 33 mmol/L (22-30); Chloride 98 mmol/L (98-107); Estimated Glomerular Filt Rate 57; Glucose 112 mg/dL (65-110); Potassium 4.1 mmol/L (3.4-5.0); Sodium 139 mmol/L (137-145)
== END 2024-11-22 08:22 | disposition home or self-care (01) ==
PROVIDERS: Anesthesiology; Visit Provider Urology
DX: N20.0 Calculus of kidney (principal); N18.30 Chronic kidney disease, stage 3 unspecified; Z01.818 Encounter for other preprocedural examination
CPT/HCPCS: 36415; 80048; 85610; 85730; 87086

== ENCOUNTER 2024-11-28 00:37 | Day surgery (SDC) | payer MEDICARE, BC, SELFPAY ==
[2024-11-21 14:52] VITALS: BMI 31.0
--- NOTE | 2024-11-21 15:24 | PC.NURSE ---
Report to the Outpatient Waiting Room, entrance under the green pavilion located off [facility], at time ___11:00AM____ on date ___11/28/24____. Planned Procedure Time: ___1:00PM .? Time changes happen often and if your time is changed the preop area will call you the afternoon before. - You and your visitor will be asked to self-screen and do not enter if you have any COVID symptoms. Please call surgeon if you need to reschedule. - A mask is optional within the hospital at this time. Patients may have clear liquids (water, carbonated beverages, clear teas, apple juice) until 3 hours prior to surgery (10:00AM) with a maximum of 20 ounces. - No food from midnight until time of surgery and no smoking, or chewing tobacco (or any form of nicotine). No chewing gum, candy or mints. Take only the following medications with a SIP of water on the morning of surgery: LEVOTHYROXINE MAY TAKE HYDROCODONE OR OXYCODONE NEEDED FOR PAIN. DO NOT STOP ANY OF YOUR OTHER PRESCRIPTION MEDICATIONS PRIOR TO SURGERY EXCEPT THE FOLLOWING Hold all vitamins and supplements for 3 days per anesthesiologist. LAST DOSE 11/24/24. Medications to discontinue per physician ____HOLD ASPIRIN 7 DAYS PRE-OP PER DR MAO Date to take last dose 11/20/24. Please no make-up, nail german, hairspray, perfume, deodorant, or body powder the day of surgery.? No jewelry (including any body piercings) or valuables the day of surgery, leave them at home.? Please take a shower or bath the night before, or the morning of, surgery with an antibacterial soap.? Wear comfortable, loose fitting clothing.? - Jewelry must be removed prior to entering the operating room.? Rings and piercings that are not removed may be cut off. - The hospital will not accept responsibility for valuables.? - Please leave all valuables, including medications, at home the day of surgery. If you are going home after surgery, a licensed set key driver must drive you home.? - NO public transportation without another adult if you receive anesthesia. - We recommend that an adult stay with you for 24 hours following discharge. - We also recommend that you do not drive, make important decision, drink alcoholic beverages, or take any drugs that were not prescribed by your health care provider for at least 24 hours after your discharge time. Follow any additional instructions given to you from your surgeon. Telephone instructions given to ____PATIENT and asked if any additional questions and then verbalized understanding. Patient advised to call surgeon office or pre surgery nurse liaison [phone] if any additional questions.
--- NOTE | 2024-11-26 10:00 | P.HP_ITS ---
History of Present Illness History of Present Illness Consent: Risks, benefits, and alternatives have been discussed and questions answered. Patient agrees to proceed with procedure. Chief complaint: Lt Renal Stones Narrative: Austin Sherman is a 64 year old male With a history of recurrent urolithiasis. Underwent ESWL for a large stone in his left kidney in September. Following stent removal he remains symptomatic from small residual fragment. After discussion of options he has elected for repeat left ESWL Review of Systems Cardiovascular: Cardiovascular: Denies chest pain, Denies lightheadedness, Denies palpitations and Denies dyspnea Respiratory: Respiratory: Denies dyspnea Gastrointestinal: Gastrointestinal: Denies diarrhea, Denies nausea and Denies vomiting Genitourinary: Genitourinary: Denies hematuria and Denies dysuria Endocrine: Endocrine: Denies palpitations PMFSH Past Medical History Medical History Left ureteral stone (~04/2022) Idiopathic peripheral neuropathy Spinal stenosis Nasal polyps 2008 Open fracture of distal phalanx 07/2011 Essential (primary) hypertension controlled with lifestyle modifications Chronic back pain CKD (chronic kidney disease) stage 3, GFR 30-59 ml/min Dyslipidemia Vitamin D deficiency Unspecified osteoarthritis, unspecified site Hypogonadism in male Neck pain BPH NOS w/o ur obs/LUTS Secondary polycythemia Hypothyroidism (acquired) VIRAJ (obstructive sleep apnea) Surgical History Surgical History History of prostate surgery (~12/2021) UroLift placement History of cystoscopy (~04/2022) Cystoscopy, left ureteroscopy with laser lithotripsy, stone extraction and left ureteral stent placement H/O removal of cyst History of appendectomy 2004 History of neck surgery C5-C6 2007 History of cervical discectomy 09/2006 History of sinus surgery 09/2008 Family History Family History Father Diabetes mellitus Acute myocardial infarction Chronic obstructive pulmonary disease Congestive heart failure Hypertension Sibling Diabetes mellitus Mother Acute myocardial infarction Pulmonary fibrosis Hypertension Other Melanoma Social History Social History Smoking status: Never smoker Tobacco type: cigarettes Second hand tobacco smoke exposure: No Additional smoking assessment comments: only a few cigarettes here and there in the past. Not a regular smoker Alcohol intake: never Substance use: never Substance use type: does not use Do You Feel Safe in your Home?: Yes Lack of Transportation: No Lack of Food: Never True Current Housing: I Have Housing Concerned About Future Housing: No Difficulty Paying Gas/Electric Bills: No Difficulty Paying for Meds: No Currently Unemployed: No Education: Trade/Vocational Certificate Difficulty w/ Childcare or Family Care: No Living arrangements: with family Additional living arrangements comments: Spiritual care concerns: No Meds Home Medications and Allergies Home Medications ?Medication ?Instructions ?Recorded ?Confirmed ?Type hydrocodone 7.5 mg-acetaminophen 1 tablet PO Q6H PRN Pain 08/14/23 11/21/24 History 325 mg tablet aspirin 81 mg tablet,delayed 81 mg PO QAM #90 tabs 08/15/23 11/21/24 Rx release evolocumab 140 mg/mL subcutaneous 140 mg subcut .every 2 wk 09/05/24 11/21/24 History syringe (Repatha Syringe) levothyroxine 100 mcg tablet 100 mcg PO DAILY 09/05/24 11/21/24 History losartan 50 mg tablet 50 mg PO HS 09/05/24 11/21/24 History hyoscyamine sulfate 0.125 mg tablet 0.125 mg PO Q6H PRN bladder spasms 09/12/24 11/21/24 Rx #20 tabs oxycodone-acetaminophen 5 mg-325 1 - 2 tablet PO Q6H PRN pain #20 09/12/24 11/21/24 Rx mg tablet (Percocet) tabs calcium 600 mg (as 2 tablet PO DAILY 11/21/24 11/21/24 History carbonate)-vitamin D3 5 mcg (200 unit) tablet (Calcium 600 + D(3)) cholecalciferol (vitamin D3) 125 5,000 unit PO DAILY 11/21/24 11/21/24 History mcg (5,000 unit) capsule diphenhydramine 25 1 tablet PO HS 11/21/24 11/21/24 History mg-acetaminophen 500 mg tablet (Acetaminophen PM) hydrochlorothiazide 25 mg tablet 25 mg PO QAM 11/21/24 11/21/24 History magnesium 250 mg tablet 750 mg PO DAILY 11/21/24 11/21/24 History potassium 99 mg tablet 99 mg PO DAILY 11/21/24 11/21/24 History Allergies Allergy/AdvReac Type Severity Reaction Status Date / Time Xxkpfoc-WBJ-IeH Reductase AdvReac Joint Pain Verified 11/21/24 14:46 Inhibitor Exam Const: General: no acute distress Resp: Effort & Inspection: normal respiratory effort GI: Inspection: non-distended GI Palp: No abdominal tenderness and No Guarding due to palpation present (GI) Auscultation: normal bowel sounds Assessment and Plan Assessment and plan (1) Kidney stone on left side: Code(s): N20.0 - Calculus of kidney Status: Inactive Assessment and Plan: * Left ESWL
[2024-11-28] VITALS (7 sets, daily range): BP systolic 105–131; BP diastolic 60–79; PULSE 60–75; RESP 15–20; TEMP 36.1–36.4; O2SAT 97–100
--- NOTE | ~2024-11-28 | XR_ITS ---
XR abdomen/kub 1V Ordering provider: Nitish Bautista MD History: . ESWL . Comparison: July 26, 2024 FINDINGS: BOWEL: Nonobstructive bowel gas pattern. ORGANOMEGALY: None. SIGNIFICANT PATHOLOGIC CALCIFICATIONS: Possible tiny stone in the left kidney upper pole. Status post removal of the left double-J stent. OTHER: No free air is seen under the diaphragm. Degenerative changes of the spine. Bilateral sacroiliitis. Bilateral hip osteoarthritic changes. IMPRESSION: NO ACUTE ABDOMINAL FINDINGS. Status post removal of the left double-J stent. Reviewed, dictated and finalized at location A.
--- NOTE | 2024-11-28 06:22 | WPDHPUPDATE1 ---
History and Physical Update Update Date/Time: 11/28/24 06:22 History and Physical has been reviewed, including an updated exam of the patient. There are NO changes in the patient's condition. Risks, benefits, and alternatives have been discussed and questions answered. Patient agrees to proceed with procedure.
--- NOTE | 2024-11-28 12:23 | P.PNAN_ITS ---
Anes - Initial Pre Proc Eval Procedure: Operation Date: 11/28/24 13:00 Proposed Procedures p Left Extracorporeal Shock Wave Lithotripsy - Nitish Bautista MD Date/Time: 11/28/24 12:23 Surgeon: Nitish Bautista MD Pre Op Diagnosis: Lt Renal Stones Patient Data Age: 64 Gender: M Height: 1.8 m Weight: 101.4 kg Last Vital Signs Temp 36.4 C 11/28/24 11:20 Pulse 69 11/28/24 11:20 Resp 18 11/28/24 11:20 BP 129/73 11/28/24 11:20 Pulse Ox 98 11/28/24 11:20 O2 Del Method Room Air 11/28/24 11:20 Allergies Allergy/AdvReac Type Severity Reaction Status Date / Time Yolsvfc-JHP-ZgU Reductase AdvReac Joint Pain Verified 11/28/24 11:16 Inhibitor Home Medications ?Medication ?Instructions ?Recorded ?Confirmed ?Type hydrocodone 7.5 mg-acetaminophen 1 tablet PO Q6H PRN Pain 08/14/23 11/28/24 Hist ory 325 mg tablet aspirin 81 mg tablet,delayed 81 mg PO QAM #90 tabs 08/15/23 11/28/24 Rx release evolocumab 140 mg/mL subcutaneous 140 mg subcut .every 2 wk 09/05/24 11/21/24 History syringe (Repatha Syringe) levothyroxine 100 mcg tablet 100 mcg PO DAILY 09/05/24 11/28/24 History losartan 50 mg tablet 50 mg PO HS 09/05/24 11/28/24 History hyoscyamine sulfate 0.125 mg tablet 0.125 mg PO Q6H PRN bladder spasms 09/12/24 11/28/24 Rx #20 tabs oxycodone-acetaminophen 5 mg-325 1 - 2 tablet PO Q6H PRN pain #20 09/12/24 11/21/24 Rx mg tablet (Percocet) tabs calcium 600 mg (as 2 tablet PO DAILY 11/21/24 11/28/24 History carbonate)-vitamin D3 5 mcg (200 unit) tablet (Calcium 600 + D(3)) cholecalciferol (vitamin D3) 125 5,000 unit PO DAILY 11/21/24 11/28/24 History mcg (5,000 unit) capsule diphenhydramine 25 1 tablet PO HS 11/21/24 11/21/24 History mg-acetaminophen 500 mg tablet (Acetaminophen PM) hydrochlorothiazide 25 mg tablet 25 mg PO QAM 11/21/24 11/28/24 History magnesium 250 mg tablet 750 mg PO DAILY 11/21/24 11/28/24 History potassium 99 mg tablet 99 mg PO DAILY 11/21/24 11/28/24 History Patient hx anesthesia problems: none Family hx anesthesia problems: none Results Review: All pre-operative results and documents have been reviewed as part of the pre- operative evaluation. [facility] Past Medical History Medical History Left ureteral stone (~04/2022) Idiopathic peripheral neuropathy Spinal stenosis Nasal polyps 2009 Open fracture of distal phalanx 07/2011 Essential (primary) hypertension controlled with lifestyle modifications Chronic back pain CKD (chronic kidney disease) stage 3, GFR 30-59 ml/min Dyslipidemia Vitamin D deficiency Unspecified osteoarthritis, unspecified site Hypogonadism in male Neck pain BPH NOS w/o ur obs/LUTS Secondary polycythemia Hypothyroidism (acquired) VIRAJ (obstructive sleep apnea) Surgical History Surgical History History of prostate surgery (~12/2021) UroLift placement History of cystoscopy (~04/2022) Cystoscopy, left ureteroscopy with laser lithotripsy, stone extraction and left ureteral stent placement H/O removal of cyst History of appendectomy 2004 History of neck surgery C5-C6 2007 History of cervical discectomy 09/2006 History of sinus surgery 09/2008 Family History Family History Father Diabetes mellitus Acute myocardial infarction Chronic obstructive pulmonary disease Congestive heart failure Hypertension Sibling Diabetes mellitus Mother Acute myocardial infarction Pulmonary fibrosis Hypertension Other Melanoma Social History Social History Smoking status: Never smoker Tobacco type: cigarettes Second hand tobacco smoke exposure: No Additional smoking assessment comments: only a few cigarettes here and there in the past. Not a regular smoker Alcohol intake: never Substance use: never Substance use type: does not use Do You Feel Safe in your Home?: Yes Lack of Transportation: No Lack of Food: Never True Current Housing: I Have Housing Concerned About Future Housing: No Difficulty Paying Gas/Electric Bills: No Difficulty Paying for Meds: No Currently Unemployed: No Education: Trade/Vocational Certificate Difficulty w/ Childcare or Family Care: No Living arrangements: with family Additional living arrangements comments: Spiritual care concerns: No Anes - Eval Final PreProcedure Day of Procedure 11/28/24 12:23 Patient weight: obese Heart: regular rate and rhythm Lungs: clear to auscultation Airway: Mallampati scale class II Neurological: alert and oriented Last oral intake: >/= 8 hours ASA classification: III Emergent: no Anesthetic plan: proceed Anesthesia type and monitoring: general LMA and standard monitoring Results Review: All pre-operative results and documents have been reviewed as part of the pre- operative evaluation. Informed Consent: The patient's anesthetic plan and its attendant risks and benefits were discussed with the patient/family/POA. Questions were solicited and answers p rovided to the satisfaction of the patient/family/POA.
[2024-11-28] MEDS: ceFAZolin 2 GM/D5W 50 ML 2 GM/50 ML BAG IVPB (12:33)
[2024-11-28] MEDS: LACTATED RINGERS 1,000 ML 30 ML IV CONT (12:42)
--- NOTE | 2024-11-28 12:46 | W.PM.PROC2 ---
Procedure Note - Detailed Date of Procedure 11/28/24 Pre-op Diagnosis Lt Renal Stones Post-op Diagnosis Same Procedure Performed Left ESWL Surgeon Nitish Bautista MD Anesthesia General Description of Procedure The patient was brought to the operative suite where he was placed in the supine position on the Dornier lithotripsy table. patient has 2 small residual fragments in his left kidney. With the Lithotripter a total of 2500 shocks were delivered at a power setting of 1-4 at least 2 small stones. There appeared to be good fragmentation of the stone. The patient tolerated the procedure well and was taken to the recovery room in good condition. Drains No Packing No Pathology None sent Complications No immediate complications Condition Stable
--- NOTE | 2024-11-28 15:36 | SUR.PHASEII ---
patient states painful right forearm from IV instructed to keep an eye on it and report to primary any problems.
== END 2024-11-28 14:39 | disposition home or self-care (01) ==
PROVIDERS: Visit Provider Urology
PROC: (CPT 50590; principal; 2024-11-28 13:00)
DX: N20.0 Calculus of kidney (principal); E55.9 Vitamin D deficiency, unspecified; E29.1 Testicular hypofunction; N40.0 Benign prostatic hyperplasia without lower urinary tract symptoms; D75.1 Secondary polycythemia; E03.9 Hypothyroidism, unspecified; G47.33 Obstructive sleep apnea (adult) (pediatric); I12.9 Hypertensive chronic kidney disease with stage 1 through stage 4 chronic kidney disease, or unspecified chronic kidney disease; N18.30 Chronic kidney disease, stage 3 unspecified; G60.9 Hereditary and idiopathic neuropathy, unspecified; M48.00 Spinal stenosis, site unspecified; G89.29 Other chronic pain; M54.9 Dorsalgia, unspecified; M19.90 Unspecified osteoarthritis, unspecified site; E66.9 Obesity, unspecified; Z68.31 Body mass index [BMI] 31.0-31.9, adult; Z79.891 Long term (current) use of opiate analgesic; Z79.82 Long term (current) use of aspirin; Z98.890 Other specified postprocedural states; Z98.1 Arthrodesis status; Z87.891 Personal history of nicotine dependence; Z80.8 Family history of malignant neoplasm of other organs or systems; Z82.49 Family history of ischemic heart disease and other diseases of the circulatory system
CPT/HCPCS: 50590; 74018; J0690; J2003; J2405; J2704; J3010; J7120

== ENCOUNTER 2024-12-19 18:09 | Emergency (ER) | payer MEDICARE, BC, SELFPAY ==
--- NOTE | ~2024-12-19 | XR_ITS ---
EXAM: XR wrist RT min 3V DATE: 12/19/2024 18:33 HISTORY: Dorsiflexion of rt wrist, pain and swelling . COMPARISON: None available. FINDINGS: Normal mineralization. No fracture or dislocation. No lytic or blastic lesion. Mild scatte red degenerative changes. No erosion or periosteal change. Soft tissue swelling about the wrist. IMPRESSION: No acute osseous finding in the right wrist. Reviewed, dictated and finalized at location K.
--- OUTSIDE RECORDS SUMMARY | 2024-12-19 18:12 | XMS_ITS | Encounter Summary ---
Author Organization [facility] Address [address] [place] [address] Care Team Providers Care Mechanical Estimator Name Role Phone Oneal Monzon MD Primary Care Provider [phone] Encounter Details Date Type Department Care Team (Late st Contact Info) Description 06/19/2024 Lab Requisition [facility] - DermPath Lab [address] [facility], [facility] [place] [address] Socorro Knight MD [address] [facility] 3 [place] [address] Social History Tobacco Use Types Packs/Day Years Used Date Smoking Tobacco: Never Assessed Sex and Gender Information Value Date Recorded Sex Assigned at Not on file Legal Sex Male 10:52 AM SHOE HANDLER Gender Identity Not on file Sexual Orientation Not on file documented as of this encounter Plan of Treatment Not on file documented as of this encounter Procedures Procedure Name Priority Date/Time Associated Diagnosis Comments DERMATOPATHOLOGY Routine 06/19/2024 1:04 PM SHOE HANDLER documented in this encounter Results * DERMATOPATHOLOGY (06/19/2024 1:04 PM SHOE HANDLER) Case Report Dermatopathology Report Case: [id number] Authorizing Provider: Socorro Knight MD Collected: 06/19/2024 01:04 PM Ordering Location: [facility] Physician [facility] - Received: 06/20/2024 03:04 PM DermPath Lab Pathologist: Missy Rivera MD Specimens: A) - Skin, right ant thigh B) - Skin, right ant neck 3:54 PM SHOE HANDLER DERMATOPATHOLOGY LABORATORY Final Diagnosis Specimen A. SKIN, right ant thigh: ACTINIC KERATOSIS, LICHENOID (L57.0) Specimen B. SKIN, right ant neck: ACTINIC KERATOSIS, FOCAL (L57.0) CHRONIC PERIFOLLICULITIS (L73.8) 3:54 PM [facility] DERMATOPATHOLOGY LABORATORY at [address]54 SHOE HANDLER Clinical History A: R/O SCC B: Cyst vs NMSC 3:54 PM [facility] DERMATOPATHOLOGY LABORATORY Gross Description Specimen [...] measuring 9x6x1 mm. Jar 0. 3:54 PM [facility] DERMATOPATHOLOGY [...] characteristic determined by the Dermatopathology Laboratory at [facility], directed by Dr. Torrie Marin. These tests need not be, and therefore are not, approved by the [place] Food and Drug Administration. The tests are used for clinical purposes. Billing Codes Specimen Charges Stain Charges 54175 73884 1 1 3:54 PM [facility] DERMATOPATHOLOGY LABORATORY Embedded Images 3:54 PM [facility] DERMATOPATHOLOGY LABORATORY Pathology/Cytology TISSUE SPECIMEN FROM SKIN / Unknown 06/19/2024 1:04 PM SHOE HANDLER 06/20/2024 3:04 PM SHOE HANDLER Miscellaneous samples (specimen) TISSUE SPECIMEN FROM SKIN / Unknown 06/19/2024 1:04 PM SHOE HANDLER 06/20/2024 3:04 PM SHOE HANDLER Socorro Knight MD LAB - PATHOLOGY/CYTOLOGY OR DERABLES Final Result DERMATOPATHOLOGY LABORATORY [facility] - Department of Dermatology [facility] Specialized Medicine [address] [place] [address], 3rd [place] [address], [facility] [phone] documented in this encounter Visit Diagnoses Not on filedocumented in this encounter Care Teams Mechanical Estimator Relationship Specialty Start Date End Date Oneal Monzon MD [address] [place] [phone] PCP - General 05/03/22 documented as of this encounter
--- OUTSIDE RECORDS SUMMARY | 2024-12-19 18:12 | XMS_ITS | Encounter Summary ---
Author Organization [facility] Address [address] [place] [address] Care Team Providers Care Leak Operator Paraffin Plant Name Role Phone Nitish Izquierdo DO Primary Care Provider [phone] Greta Garnica MD Unavailable [phone] Ethan Bermeo MD Unavailable [phone] Nitish Bautista MD Unavailable [phone] Encounter Details Date Type Department Care Team (Latest Contact Info) Description 10/15/2023 I3 Precisiont Message Enc [facility] Medical Group Multispecialty Care - [facility] [address] [facility], [address] [place] [phone] Samantha Beltran APRN 3 [facility] [address] [place], [place] [phone] Refill for Oxycodone/Acetamino phen Social History Tobacco [...] Care Team (Late st Contact Info) Description 12/26/2024 3:00 PM CDT Appointment [facility] [place] [address] [place] [address] Ethan Bermeo MD 3 [place] [address] 01/02/2025 8:30 AM CDT Appointment [facility] [address] [place] [address] Ethan Bermeo MD 3 [place] [address] [place] [address] [place] [address] 03/20/2025 9:00 AM CDT Office Visit [facility] [address] [facility] [place] [address] [place] [address] Maryann Falk PA-C 3 [facility], [address] [place] [address] 03/20/2025 9:40 AM CDT Office Visit [facility] Medical Group Multispecialty Care - [facility] [address] [facility], [address] [place] [address] Ethan Bermeo MD 3 [place] [address] 04/07/2025 7:00 AM SUPERINTENDENT W[employer] Office Visit [address] [address] Nitish Izquierdo, [address] [place] [address] 04/09/2025 9:00 AM [employer] Office Visit [address] [address] Nitish Izquierdo DO [address] [place] [address] 09/16/2025 8:00 AM CDT Office Visit [address] [address] Nitish Izquierdo DO [address] [place], [place] [phone] documented as of this encounter Visit Diagnoses Not on filedocumented in this encounter Care Teams Leak Operator Paraffin Plant Relationship Specialty Start Date End Date Nitish Izquierdo DO 3 [facility] [address] [place] [phone] PCP - General FAMILY PRACTICE 04/03/23 Greta Garnica MD Three [facility] [address] [place], [place] [phone] Consulting Physician INTERVENTIONAL CARDIOLOGY 08/30/23 Ethan Bermeo MD 1 [place] [address] Surgeon NEUROLOGICAL SURGERY 09/03/24 Nitish Bautista MD [address] [facility] [address] [place] [address] Consulting Physician UROLOGY 09/03/24 documented as of this encounter
--- OUTSIDE RECORDS SUMMARY | 2024-12-19 18:12 | XMS_ITS | Encounter Summary ---
Author Organization [facility] Address [address] [place] [address] Care Team Providers Care Curing Machine Operator Name Role Phone Nitish Izquierdo DO Primary Care Provider [phone] Greta Garnica MD Unavailable [phone] Ethan Bermeo MD Unavailable [phone] Nitish Bautista MD Unavailable [phone] Reason for Referral * Imaging (Routine) - Authorized Specialty Diagnoses / Procedures Referred By Jair ahn Referred To Contact RADIOLOGY Diagnoses Radiculopathy, lumbar region Procedures MRI LUMB SPINE WO CON Ethan Bermeo MD 3 [place] [address] Phone: tel: fax: Referral ID Status Reason Start Date Expiration Date V isits Requested Visits Authorized [id number] Authorized 12/18/2024 12/18/2025 1 1 * Physical Medicine (Routine) - New Request Specialty Diagnoses / Procedures Referred By Jair ahn Referred To Contact PHYSICAL THERAPY Diagnoses Radiculopathy, lumbar region Procedures OFFICE/OUTPATIENT NEW LOW MDM 30-44 MINUTES OFFICE/OUTPT VISIT,NEW,LEVL IV OFFICE/OUTPT VISIT,NEW,LEVL V OFFICE/OUTPT VISIT,EST,LEVL III OFFICE/OUTPT VISIT,EST,LEVL IV OFFICE/OUTPT VISIT,PALAK TRIANA Abdulaziz S, MD [address] [place] [address] Phone: tel: fax: Referral ID Status Reason Start Date Expiration Date Visits Requested Visits Authorized [id number] New Request Physical Therapy 12/18/2024 01/17/2026 1 1 Scheduling Instructions Please send a referral to [place] Reason for Visit * Reason Comments Follow Up F/u CT Scan Encounter Details Date Type Department Care Team (Late st Contact Info) Description 12/18/2024 8:00 AM CDT Office Visit [facility] Medical Group Multispecialty Care - [address], [address] [place] [address] Ethan Bermeo MD [address] [place] [address] Follow Up (F/u CT Scan) Social History Tobacco Use Types Packs/Day Years [...] from your doctor or pharmacy? Never 12/24/2023 [facility] Utilities Answer Date Recorded In the past 12 months has e [employer], gas, oil, or water [employer] threatened to shut off services in your [...] Recorded Patient Health Questionnaire-2 Score 0 09/02/2024 [facility] - Occupational Stress Questionnaire Answer [...] any time in the past 12 m [facility], were you homeless or living [...] Sign Reading Time Taken Comments Blood Pressure 128/76 12/18/2024 8:01 AM CDT Pulse 77 12/18/2024 8:01 AM CDT Temperature 36.8 C (98.2 F) 12/18/2024 8:01 AM CDT Respiratory Rate - - Oxygen Saturation 97% 12/18/2024 8:01 AM CDT Inhaled Oxygen Concentration - - Weight 101 kg (222 lb 9.6 oz) 12/18/2024 8:01 AM CDT Height 180.3 cm (5' 11) 12/18/2024 8:01 AM CDT Body Mass Index 31.05 12/18/2024 8:01 AM CDT documented in this encounter Functional [...] 3:25 PM CDT Marcia Haddad RN Active documented as of this encounter Mental Status * Because of a physical, mental, or emotional condition, do you have serious difficulty concentrating, remembering, or making decisions? Answer Entry Date Author Status No 12/24/2023 3:25 PM CDT Marcia Haddad RN Active documented in this encounter Progress Notes * Dasia Rivas LPN - 12/18/2024 8:00 AM CDT PCP-- Nitish Izquierdo, DO 12/24/23 Removal of upper part of C5-6 hardware, C3-4,C4-5 ACDF 12/16/24 CT Cervical Spine wo con Still has constant soreness in posterior neck worse when turning neck to right side Bone stimulator--4 hours daily Calcium 1200 mg daily Vitamin D3 5000 units daily No smoking * Ethan Bermeo MD - 12/18/2024 8:00 AM CDT Images from the original note were not included. Neurosurgery Established Patient Post-Op Office Visit Note CHIEF COMPLAINT Chief Complaint Patient presents with Follow Up F/u CT Scan Review of patient's allergies indicates: Allergen Reactions Pravastatin Myalgias Medications Taking[1] Filed Vitals: 12/18/24 0801 BP: 128/76 Pulse: 77 Temp: 98.2 ??F (36.8 ??C) SpO2: 97% Weight: 101 kg (222 lb 9.6 oz) Height: 1.803 m (5' 11) ENCOUNTER DIAGNOSES SNOMED CT(R) 1. S/P cervical spinal fusion HISTORY OF CERVICAL SPINE FUSION 2. Radiculopathy, lumbar region LUMBAR RADICULOPATHY HPI / NEURO EXAM / IMAGING / DIAGNOSTICS / DISCUSSION/PLAN Austin Sherman is a 64-year-old male. H/o prior cervical fusion in 2006. Reported postoperatively doing well with residual chronic numbness of his entire left hand and all fingers. Now status postremoval anterior cervical plate fixation, C3-4, C4-5 ACDF, anterior plate fixation, IOM, performed 12/27/2023. Preoperative 50% diffuse cervical spinal pain, 50% interscapular pain radiating to his shoulders resolved. He reports fullness in his neck when he rotates. Preoperative numbness to left hand and all fingers that preexisted his initial cervical fusion without notable change. He came today to review the results of the CT scan. His main complaint is lower back pain and bilateral hip pain in addition to right leg numbness which are both chronic. He had multiple rounds of injections by pain management in the past with transient relief. He was accompanied by his . Physical Exam: Alert and oriented x 3 Imaging: I reviewed the cervical spine CT and it shows intact hardware and satisfactory fusion. Plan: Discontinue bone stimulator and vitamin D. MRI lumbar spine to reevaluate his lumbar spine given his previous MRIs more than a-year-old. Referral to physical therapy for lumbar radiculopathy. I spent 40 minutes today reviewing the patient's medical record, obtaining history, performing an exam, reviewing imaging, ordering medications, tests, and/or procedures, documenting in the medical record, counseling and educating the patient/family/caregiver and coordination of care. WINIFRED BERMEO MD 12/18/2024 [1] Outpatient Medications Marked as Taking for the 12/18/24 encounter (Office Visit) with Ethan Bermeo MD Medication Sig Dispense Refill hydroCHLOROthiazide (HYDRODIURIL) 25 MG tablet Take 1 tablet (25 mg total) by mouth daily. HYDROcodone-acetaminophen (NORCO) 5-325 MG tablet Take by mouth every 6 (six) hours as needed. hyoscyamine (LEVSIN) 0.125 MG tablet TAKE 1 TABLET BY MOUTH EVERY 6 HOURS NEEDED FOR BLADDER SPASMS hyoscyamine (LEVSIN/SL) 0.125 MG SL tablet DISSOLVE 1 TABLET UNDER THE TONGUE EVERY 6 HOURS NEEDED FOR BLADDER SPASMS documented in this encounter Plan of Treatment Upcoming Encounters Date Type Department Care Team (Late st Contact Info) Description 12/26/2024 3:[address] [facility] [address] [place] [address] Ethan Bermeo MD 3 [place] [address] 01/02/2025 8:[address] [facility] [address] [place] [address] Ethan Bermeo MD 3 [place] [address] [place] [address] [place] [address] 03/20/2025 9:00 AM CDT Office Visit [facility] THREE [facility] [place] [address] [place] [address] Maryann Falk PA-C 3 [facility], [address] [place] [address] 03/20/2025 9:40 AM CDT Office Visit [facility] Multispecialty Care - [facility] 3 [facility], [address] [place] [address] Ethan Bermeo MD 3 [place] [address] 04/07/2025 7:00 AM SECURITY ALARM INSTALLER Office Visit [facility] Family Medicine - [place] [address] [place] [address] Nitish Izquierdo DO [address] [place] [address] 04/09/2025 9:00 AM SECURITY ALARM INSTALLER Office [facility] [address] [place] [phone] Nitish Izquierdo, [address] [place] [address] 09/16/2025 8:00 AM CDT Office Visit [facility] [address] [place] [address] Nitish Izquierdo, [address] [place] [address] Scheduled Orders Name Type Priority Associated Diagnoses Orde r Schedule MRI LUMB SPINE WO CON MRI Routine Radiculopathy, lumbar region Expected: 12/18/2024, Expires: 12/18/2025 Scheduled Referrals Name Type Priority Associated Diagnoses Orde r Schedule Ambulatory referral to Physical Therapy Referral Routine Radiculopathy, lumbar region Ordered: 12/18/2024 documented as of this encounter Goals Goal Patient Goal Type Associated Problems Recent Progress Patient-Stated? Author Family - family caregiver with be involved in care transitions and discharge planning Lifestyle No Danny Enriquez RN documented as of this encounter Visit Diagnoses Diagnosis S/P cervical spinal fusion- Primary Arthrodesis status Radiculopathy, lumbar region Thoracic or lumbosacral neuritis or radiculitis, unspecified documented in this encounter Additional Health Concerns Assessment Noted Time PHQ-9 Depression Total Score: 3 09/03/19 25 9:29 AM CDT documented as of this encounter Care Teams Curing Machine Operator Relationship Specialty Start Date End Date Nitish Izquierdo DO [address] [address] PCP - General FAMILY PRACTICE 04/03/23 Greta Garnica MD Three [facility] [address] [place] [address] Consulting Physician INTERVENTIONAL CARDIOLOGY 08/30/23 Ethan Bermeo MD 1 [place] [address] Surgeon NEUROLOGICAL SURGERY 09/03/24 Nitish Bautista MD [address] [facility] [address] [place] [address] Consulting Physician UROLOGY 09/03/24 documented as of this encounter
--- OUTSIDE RECORDS SUMMARY | 2024-12-19 18:12 | XMS_ITS | Encounter Summary ---
Author Organization [facility] Address [address] [place] [address] Care Team Providers Care Weight Caller Name Role Phone Nitish Izquierdo DO Primary Care Provider [phone] Greta Garnica MD Unavailable [phone] Ethan Bermeo MD Unavailable [phone] Nitish Bautista MD Unavailable [phone] Encounter Details Date Type Department Care Team (Latest Contact Info) Description 12/18/2024 Travel Social History Tobacco Use Types Packs/Day Years [...] from your doctor or pharmacy? Never 12/24/2023 [facility] Utilities Answer Date Recorded In the past 12 months has e [employer], gas, oil, or water [employer] threatened to shut off services in your [...] Recorded Patient Health Questionnaire-2 Score 0 09/02/2024 [facility] - Occupational Stress Questionnaire Answer Date [...] any time in the past 12 m [facility], were you homeless or living in a halfway (including now)? No 12/24/2023 Sex and Gender [...] Haddad RN Active documented in this encounter Plan of Treatment Upcoming Encounters Date Type Department Care Team (Late st Contact Info) Description 12/26/2024 3:00 PM CDT Appointment [facility] [address] [place] [address] Ethan Bermeo MD 3 [place] [address] 01/02/2025 8:30 AM CDT Appointment [facility] [address] [place] [address] Ethan Bermeo MD 3 [place] [address] [place] [address] [place] [address] 03/20/2025 9:00 AM CDT Office Visit [facility] [address] [facility] [place] [address] [place] [address] Maryann Falk PA-C 3 [facility], [address] [place] [address] 03/20/2025 9:40 AM CDT Office Visit [facility] Multispecialty Care - [facility] 3 [facility], [address] [place] [address] Ethan Bermeo MD 3 [place] [address] 04/07/2025 7:00 AM CURTAIN SUPERVISOR Office Visit [facility] Medical [facility] [place] 5 [facility] [place] [address] Nitish Izquierdo DO [address] [address] 04/09/2025 9:00 AM CURTAIN SUPERVISOR Office Visit [facility] 5 [place] [address] Nitish Izquierdo, DO 5 [place], [place] [phone] 09/16/2025 8:00 AM CDT Office Visit [facility] 5 [place] [address] Nitish Izquierdo, DO 5 [place] [address] documented as of this encounter Goals Goal [...] documented as of this encounter Care Teams Weight Caller Relationship Specialty Start Date End Date Nitish Izquierdo DO 3 [facility] [address] [place] [address] PCP - General FAMILY PRACTICE 04/03/23 Greta Garnica MD Three [facility] [address] [place], [place] [address] Consulting Physician INTERVENTIONAL CARDIOLOGY 08/30/23 Ethan Bermeo MD 1 [place], [place] [phone] Surgeon NEUROLOGICAL SURGERY 09/03/24 Nitish Bautista MD [address] [facility] [address] [place] [address] Consulting Physician UROLOGY 09/03/24 documented as of this encounter
--- OUTSIDE RECORDS SUMMARY | 2024-12-19 18:12 | XMS_ITS | Encounter Summary ---
Author Organization [facility] Address [address] [place] [address] Care Team Providers Care Elevator Erector Helper Name Role Phone Nitish Izquierdo DO Primary Care Provider [phone] Greta Garnica MD Unavailable [phone] Ethan Bermeo MD Unavailable [phone] Nitish Bautista MD Unavailable [phone] Encounter Details Date Type Department Care Team (Latest Contact Info) Description 09/21/2023 [email or web address] Message Enc [facility] Medical Group Multispecialty Care - [facility] 3 [facility], [address] [place] [phone] Samantha Beltran APRN 3 [facility] [address] [place] [address] Physical Restrictions Social History Tobacco [...] Description 12/26/2024 3:[address] [facility] [address] [place] [address] Ethan Bermeo MD 3 [place] [address] 01/02/2025 8:[address] [facility] [address] [place] [address] Ethan Bermeo MD 3 [place] [address] [place] [address] [place] [address] 03/20/2025 9:00 AM CDT Office Visit [facility] THREE [facility] [place] [address] [place] [address] Maryann Falk PA-C 3 [facility], [address] [place] [address] 03/20/2025 9:40 AM CDT Office Visit [facility] Multispecialty Care - [facility] 3 [facility], [address] [place] [address] Ethan Bermeo MD 3 [place] [address] 04/07/2025 7:00 AM ELECTRIC APPLIANCE INSTALLER Office Visit [facility] 5 [place] [address] Nitish Izquierdo DO [address] [place], [place] [phone] 04/09/2025 9:00 AM ELECTRIC APPLIANCE INSTALLER Office Visit [address] [address] Nitish Izquierdo DO [address] [place], [place] [address] 09/16/2025 8:00 AM CDT Office Visit [address] [address] Nitish Izquierdo DO [address] [place], [place] [address] documented as of this encounter Visit Diagnoses Not on filedocumented in this encounter Care Teams Elevator Erector Helper Relationship Specialty Start Date End Date Nitish Izquierdo DO 3 [facility] [address] [place] [address] PCP - General FAMILY PRACTICE 04/03/23 Greta Garnica MD Three [facility] [address] [place], [place] [phone] Consulting Physician INTERVENTIONAL CARDIOLOGY 08/30/23 Ethan Bermeo MD 1 [place], [place] [phone] Surgeon NEUROLOGICAL SURGERY 09/03/24 Nitish Bautista MD [address] [facility] [address] [facility] [address] [place] [address] Consulting Physician UROLOGY 09/03/24 documented as of this encounter
--- OUTSIDE RECORDS SUMMARY | 2024-12-19 18:12 | XMS_ITS | Clinical Summary ---
Author Organization [facility] Address [address] [facility] [place] [address] Care Team Providers Care Apartment Leasing Agent Name Role Phone Oneal Monzon MD Primary Care Provider [phone] Source Comments [facility],non-owned Affiliates and Associated Physician Practices is amultiple site organization consisting of ambulatory clinics and hospital sitesin [place], [place], [place] and [place]. This disclosure is being madepursuant to the Care Everywhere program and may not contain all information available regarding this patient. Last updated 18.[facility] Social History Tobacco Use Types Packs/Day Years Used Date Smoking Tobacco: Never Assessed Sex and Gender Information Value Date Recorded Sex Assigned at Not on file Legal Sex Male 10:52 AM CYLINDER DEVALVER Gender Identity Not on file Sexual Orientation [...] season) 2024 DEPRESSION SCREENING 06/04/2024 INFLUENZA VACCINE (#1) 2025 Respiratory Syncytial Virus (RSV) Vaccine Pt: [...] patient's age to complete this topic Insurance [facility] MEDICARE [facility] Care Teams Apartment Leasing Agent Relationship Specialty Start Date End Date Oneal Monzon MD [address] [place] [address] PCP - General 05/03/22
--- OUTSIDE RECORDS SUMMARY | 2024-12-19 18:12 | XMS_ITS | Encounter Summary ---
Author Organization [facility] - [facility] Address [address] [place] [address] Care Team Providers Care Area Coordinator Name Role Phone Nitish Izquierdo DO Primary Care Provider [phone] Greta Garnica MD Unavailable [phone] Ethan Bermeo MD Unavailable [phone] Nitish Bautista MD Unavailable [phone] Encounter Details Date Type Department Care Team (Latest Contact Info) Description 09/21/2023 MyCChoreMonstert Message Enc [facility] Medical Group Multispecialty Care - [facility] [address] [facility], [address] [place] [phone] Samantha Beltran APRN 3 [facility] [address] [place] [address] Up coming surgery Social History [...] 3:[address] [facility] [address] [place] [address] Ethan Bermeo MD 3 [place] [address] 01/02/2025 8:[address] [facility] [address] [place] [address] Ethan Bermeo MD 3 [place] [address] [place] [address] [place] [address] 03/20/2025 9:00 AM CDT Office Visit [facility] THREE [facility] [place] [address] [place] [address] Maryann Falk PA-C 3 [facility], [address] [place] [address] 03/20/2025 9:40 AM CDT Office Visit [facility] Multispecialty Care - [facility] [address] [facility], [address] [place] [phone] Ethan Bermeo MD 3 [place] [address] 04/07/2025 7:00 AM PARTS CONSULTANT Office Visit [facility] [address] [place] [address] Nitish Izquierdo DO [address] [place], [place] [phone] 04/09/2025 9:00 AM PARTS CONSULTANT Office Visit [address] [address] Nitish Izquierdo DO [address] [address] 09/16/2025 8:00 AM CDT Office Visit [address] [address] Nitish Izquierdo DO [address] [place], [place] [id number] documented as of this encounter Visit Diagnoses Not on filedocumented in this encounter Care Teams Area Coordinator Relationship Specialty Start Date End Date Nitish Izquierdo DO 3 [facility] [address] [place] [phone] PCP - General FAMILY PRACTICE 04/03/23 Greta Garnica MD Three [facility] [address] [place], [place] [phone] Consulting Physician INTERVENTIONAL CARDIOLOGY 08/30/23 Ethan Bermeo MD 1 [place], [place] [phone] Surgeon NEUROLOGICAL SURGERY 09/03/24 Nitish Bautista MD [address] [facility] [address] [facility] [address] [place] [address] Consulting Physician UROLOGY 09/03/24 documented as of this encounter
--- OUTSIDE RECORDS SUMMARY | 2024-12-19 18:12 | XMS_ITS | Encounter Summary ---
Author Organization [facility] - [facility] Address [address] [place] [address] Care Team Providers Care Marine Rigger Name Role Phone Nitish Izquierod DO Primary Care Provider [phone] Greta Garnica MD Unavailable [phone] Ethan Bermeo MD Unavailable [phone] Nitish Bautista MD Unavailable [phone] Encounter Details Date Type Department Care Team (Latest Contact Info) Description 09/21/2023 MyCIntizat Message Enc [facility] Medical Group Multispecialty Care - [facility] 3 [facility], [address] [place] [phone] Samantha Beltran APRN 3 [facility] [address] [place] [address] Upcoming Surgery Social History Tobacco [...] Description 12/26/2024 3:[address] [facility] [address] [place] [address] Ethan Bermeo MD 3 [place] [address] 01/02/2025 8:30 AM CDT Appointment [facility] [address] [place] [address] Ethan Bermeo MD 3 [place] [address] [place] [address] [place] [address] 03/20/2025 9:00 AM CDT Office Visit [facility] THREE [facility] [place] [address] [place] [address] Maryann Falk PA-C 3 [facility], [address] [place] [address] 03/20/2025 9:40 AM CDT Office Visit [facility] Medical Group Multispecialty Care - [facility] [address] [facility], [address] [place] [address] Ethan Bermeo MD 3 [place] [address] 04/07/2025 7:00 AM CHEMICAL PUMPER Office Visit [address] [address] Nitish Izquierdo, DO [address] [place] [address] 04/09/2025 9:00 AM CHEMICAL PUMPER Office Visit [address] [address] Nitish Izquierdo DO [address] [place], [place] [phone] 09/16/2025 8:00 AM CDT Office Visit [address] [address] Nitish Izquierdo DO [address] [place], [place] [id number] documented as of this encounter Visit Diagnoses Not on filedocumented in this encounter Care Teams Marine Rigger Relationship Specialty Start Date End Date Nitish Izquierdo DO 3 [facility] [address] [place] [phone] PCP - General FAMILY PRACTICE 04/03/23 Greta Garnica MD Three [facility] [address] [place] [address] Consulting Physician INTERVENTIONAL CARDIOLOGY 08/30/23 Ethan Bermeo MD 1 [place] [address] Surgeon NEUROLOGICAL SURGERY 09/03/24 Nitish Bautista MD [address] [facility] [address] [place] [phone] Consulting Physician UROLOGY 09/03/24 documented as of this encounter
--- OUTSIDE RECORDS SUMMARY | 2024-12-19 18:12 | XMS_ITS | Encounter Summary ---
Author Organization [facility] Address [address] [place] [address] Care Team Providers Care Glassware Finisher Name Role Phone Nitish Izquierdo DO Primary Care Provider [phone] Greta Garnica MD Unavailable [phone] Ethan Bermeo MD Unavailable [phone] Nitish Bautista MD Unavailable [phone] Encounter Details Date Type Department Care Team (Late st Contact Info) Description 11/13/2023 Abstract [facility] [address] Otilio Hall MA Social History Tobacco Use [...] Info) Description 12/26/2024 3:00 PM CDT Appointment [facility] [address] [place] [phone] Ethan Bermeo MD 3 [place] [address] 01/02/2025 8:30 AM CDT Appointment [facility] [address] [place] [address] Ethan Bermeo MD 3 [place] [address] [place] [address] [place] [address] 03/20/2025 9:00 AM CDT Office Visit [facility] THREE [facility] [place] [address] [place] [address] Maryann Falk PA-C 3 [facility], [address] [place] [address] 03/20/2025 9:40 AM CDT Office Visit [facility] Multispecialty Care - [facility] 3 [facility], [address] [place] [address] Ethan Bermeo MD 3 [place] [address] 04/07/2025 7:00 AM AUTO BODY PAINTER Office Visit [facility] Medical [facility] [place] [address] [place] [address] Nitish Izquierdo DO [address] [place] [address] 04/09/2025 9:00 AM AUTO BODY PAINTER Office Visit [facility] 5 [place] [address] Nitish Izquierdo DO [address] [address] 09/16/2025 8:00 AM CDT Office Visit [facility] 5 [place] [address] Nitish Izquierdo DO [address] [place], [place] [phone] documented as of this encounter Procedures Procedure Name Priority Date/Time Associated Diagnosis Comments LIPID PANEL Routine 11/12/2023 documented in this encounter Results * LIPID PANEL (11/12/2023) CHOLESTEROL 181 HDL 28 TRIGLYCERIDES 322 NON HDL CHOLESTEROL 153 LDL (CALCULATED) 110 11/12/2023 us Default History Genericprovider LABORATORY Final Result documented in this encounter Visit Diagnoses Not on filedocumented in this encounter Care Teams Glassware Finisher Relationship Specialty Start Date End Date Nitish Izquierdo DO 3 [facility] [address] [place] [address] PCP - General FAMILY PRACTICE 04/03/23 Greta Garnica MD Three [facility]. [facility] [address] [place], [place] [phone] Consulting Physician INTERVENTIONAL CARDIOLOGY 08/30/23 Ethan Bermeo MD 1 [place], [place] [phone] Surgeon NEUROLOGICAL SURGERY 09/03/24 Nitish Bautista MD [address] [facility] [address] [facility] [address] [place] [address] Consulting Physician UROLOGY 09/03/24 documented as of this encounter
--- OUTSIDE RECORDS SUMMARY | 2024-12-19 18:12 | XMS_ITS | Encounter Summary ---
Author Organization [facility] Address [address] [place] [address] Care Team Providers Care Legal Office Administrator Name Role Phone Nitish Izquierdo DO Primary Care Provider [phone] Greta Garnica MD Unavailable [phone] Ethan Bermeo MD Unavailable [phone] Nitish Bautista MD Unavailable [phone] Encounter Details Date Type Department Care Team (Late st Contact Info) Description 09/01/2023 MyChart Message Enc [facility] Medical Group Multispecialty Care - [facility] 3 [facility], [address] [place] [address] Samantha Beltran APRN 3 [facility] [address] [place], [place] [phone] Stimulator Social History Tobacco Use Types Packs/Day [...] 3:[address] [facility] [address] [place] [address] Ethan Bermeo MD 3 [place] [address] 01/02/2025 8:[address] [facility] [address] [place] [address] Ethan Bermeo MD 3 [place] [address] [place] [address] [place] [address] 03/20/2025 9:00 AM CDT Office Visit [facility] THREE [facility] [place] [address] [place] [address] Maryann Falk PA-C 3 [facility], [address] [place] [address] 03/20/2025 9:40 AM CDT Office Visit [facility] Multispecialty Care - [facility] 3 [facility], [address] [place] [address] Ethan Bermeo MD 3 [place] [address] 04/07/2025 7:00 AM DIRECTOR PUBLIC Office Visit [facility] 5 [place] [address] Nitish Izquierdo DO [address] [place], [place] [phone] 04/09/2025 9:00 AM DIRECTOR PUBLIC Office Visit [address] [address] Nitish Izquierdo DO [address] [place], [place] [phone] 09/16/2025 8:00 AM CDT Office Visit [address] [address] Nitish Izquierdo DO [address] [place], [place] [address] documented as of this encounter Visit Diagnoses Not on filedocumented in this encounter Care Teams Legal Office Administrator Relationship Specialty Start Date End Date Nitish Izquierdo DO 3 [facility] [address] [place] [address] PCP - General FAMILY PRACTICE 04/03/23 Greta Garnica MD Three [facility] [address] [place], [place] [phone] Consulting Physician INTERVENTIONAL CARDIOLOGY 08/30/23 Ethan Bermeo MD 1 [place], [place] [address] Surgeon NEUROLOGICAL SURGERY 09/03/24 Nitish Bautista MD [address] [facility] [address] [facility] 200 [place] [address] Consulting Physician UROLOGY 09/03/24 documented as of this encounter
--- OUTSIDE RECORDS SUMMARY | 2024-12-19 18:12 | XMS_ITS | Clinical Summary ---
Author Organization [facility] Address [address] [place] [address] Care Team Providers Care Arc Welding Machine Operator Name Role Phone Nitish Izquierdo DO Primary Care Provider [phone] Greta Garnica MD Unavailable [phone] Ethan Bermeo MD Unavailable [phone] Nitish Bautista MD Unavailable Allergies Active Allergy Reactions Criticality Noted Date [...] mouth daily. 30 capsule 3 024 Active naloxone (NARCAN) 4 MG/0.1ML nasal [...] as needed (Spasms). 30 tablet 024 Active Additional Information Patient not taking.Reported on 09/03/2024 levothyroxine (SYNTHROID) 100 MCG tabletIndications :Acquired hypothyroidism Take 1 tablet (100 mcg total) by mouth every morning. 90 tablet 3 024 Active oxyCODONE-acetami nophen (PERCOCET) 5-325 MG tabletIndications :Chronic Pain Take 1-2 tablets by mouth every 6 (six) hours as needed for Pain. Indications: Chronic Pain 40 tablet 025 Active metoprolol succinate ER (TOPROL-XL) 25 MG 24 hr tablet Take 0.5 tablets (12.5 mg total) by mouth every morning. NEW DOSE 09/19/2024 OV 45 tablet 1 025 Active losartan (COZAAR) 50 MG tablet TAKE 1 TABLET(50 MG) BY MOUTH DAILY 90 tablet 1 025 Active ASPIRIN LOW DOSE 81 MG tablet TAKE 1 TABLET BY MOUTH DAILY 90 tablet 1 025 Active REPATHA SURECLICK 140 MG/ML injection (PEN)Indications: Coronary artery disease involving [place] coronary artery of [place] heart without angina pectoris ADMINISTER 1 ML(140 MG) UNDER THE SKIN EVERY 14 DAYS 2 mL 3 Active hydroCHLOROthiazi de (HYDRODIURIL) 25 MG tablet Take 1 tablet (25 mg total) by mouth daily. Active HYDROcodone-aceta minophen (NORCO) 5-325 MG tablet Take by mouth every 6 (six) hours as needed. Active hyoscyamine (LEVSIN/SL) 0.125 MG SL tablet DISSOLVE 1 TABLET UNDER THE TONGUE EVERY 6 HOURS NEEDED FOR BLADDER SPASMS 025 Active hyoscyamine (LEVSIN) 0.125 MG tablet TAKE 1 TABLET BY MOUTH EVERY 6 HOURS NEEDED FOR BLADDER SPASMS 025 Active REPATHA SURECLICK 140 MG/ML injection (PEN)Indications: Coronary artery disease involving [place] coronary artery of [place] heart without angina pectoris ADMINISTER 1 ML(140 MG) UNDER THE SKIN EVERY 14 DAYS 2 mL 3 025 2024 Discontinued Active Problems Problem Noted Date Diagnosed Date Pure hypercholesterolemia 03/20/2024 Right calf pain 01/09/2024 Lumbar radiculopathy 01/09/2024 S/P cervical spinal fusion 12/24/2023 Dyslipidemia 09/21/2023 Spinal stenosis of lumbar re gion without neurogenic claudication 08/27/2023 Facet hypertrophy of lumbar region 08/27/2023 Cord compression myelopathy ([facility]) Other cervical disc degenera tion, unspecified cervical region 08/27/2023 Radiculopathy, cervical region 08/27/2023 Myelomalacia ([facility]) 08/27/2023 History of fusion of cervical spine 08/27/2023 Coronary artery disease invo lving [place] coronary artery of [place] heart without angina pectoris 08/27/2023 Elevated PSA, [...] Encounters Date Type Department Care Team Description 12/18/2024 8:00 AM CDT Office Visit [facility] Medical [facility] Multispecialty Care - [facility] [address] [facility], [address] [place] [id number] Ethan Bermeo MD Follow Up (F/u CT Scan) 12/18/2024 Travel 12/16/2024 8:30 AM CDT - 12/16/2024 11:59 PM CDT Hospital Encounter [facility] [place] [address] [place] [address] Ethan Bermeo MD Arrived Discharge Disposition: Home or Self Care (Routine Discharge) 12/16/2024 Travel 11/28/2024 Scan HEALTH INFO SRVCS Scanned, [facility] Procedure (SCAN) 09/29/2024 7:26 AM CDT - 09/29/2024 11:59 PM CDT Hospital Encounter [facility] [address] Greta Garnica MD Discharge Disposition: Home or Self Care (Routine Discharge) 09/29/2024 Results Follow-Up [facility], [address] [address] Ariana Strauss, RN USV ART REST W JAMEL LOW EXT 09/29/2024 Travel 09/23/2024 Scan [facility] HEALTH INFO SRVCS Scanned, [facility] Image (SCAN) 09/19/2024 9:30 AM CDT Office Visit [facility], [address] [address] Greta Garnica MD Coronary Artery Disease (6 mo follow up) 09/19/2024 Travel from Last 3 Months Immunizations Immunization Administration [...] from your doctor or pharmacy? Never 12/24/2023 [facility] Utilities Answer Date Recorded In [...] Recorded Patient Health Questionnaire-2 Score 0 09/02/2024 [employer] [facility] [employer] - Occupational Stress [...] any time in the past 12 m [facility], were you homeless or living in a long term (including now)? No 12/24/2023 Sex and Gender [...] F) 12/18/2024 8:01 AM CDT Respiratory Rate 16 09/03/2024 8:12 AM CDT Oxygen Saturation 97% 12/18/2024 8:01 AM CDT Inhaled Oxygen Concentration - - Weight 101 kg (222 lb 9.6 oz) 12/18/2024 8:01 AM CDT Height 180.3 cm (5' 11) 12/18/2024 8:01 AM CDT Body Mass Index 31.05 12/18/2024 8:01 AM CDT Plan of Treatment Upcoming Encounters Date Type Department Care Team (Late st Contact Info) Description 12/26/2024 3:[address] [facility] [address] [place] [address] Ethan Bermeo MD [address] [place] [address] 01/02/2025 8:[address] [facility] [address] [place] [address] Ethan Bermeo MD [address] [place] [address] [place] [address] [place] [address] 03/20/2025 9:00 AM CDT Office Visit [facility], [address] [place] [address] Maryann Falk PA-C [address] [facility], [address] [place] [address] 03/20/2025 9:40 AM CDT Office Visit [facility] Multispecialty Care - [facility] [address] [facility], [address] [place] [phone] Ethan Bermeo MD [address] [place] [address] 04/07/2025 7:00 AM HANDYMAN Office Visit [facility] Medical Group Family Medicine - [address] [phone] Nitish Izquierdo DO [address] [place], [place] [id number] 04/09/2025 9:00 AM HANDYMAN Office Visit [facility] [address] [place] [address] Nitish Izquierdo DO [address] [place], [place] [id number] 09/16/2025 8:00 AM CDT Office Visit [address] [address] Nitish Izquierdo DO [address] [place], [place] [id number] Health Maintenance Due Date Last Done Comments Colorectal Cancer Screening Colonoscopy (10 Years) 1960 Hepatitis C 1976 Pneumococcal Vaccine: 50+ Years (1 of 2 - PCV) 1977 RSV Immunization or 60+ Years (1 - Risk 60-74 years 1-dose series) 2018 COVID-19 Vaccine ( - 2023-2 5 season) 2024 DTaP, Tdap and Td Vaccines ( 2 - Td or Tdap) 04/10/2024 04/10/2014 Annual Medicare Wellness Visit 09/04/2025 09/03/2024 Zoster Vaccines Completed 07/20/2021, 03/24/2021 PHQ-2 (Physician [place]) Completed 09/02/2024 Meningococcal B Vaccine Aged Out [...] Enriquez, RN Medical Devices Implanted Type Area Loading Unit Operator Powder Charging Device Identifier Shelf Expiration Date Model / Serial / Lot Putty Colony Matrix Dbm/Dbf Bone 3ml - [id number] Implanted:Qty: 1 on 12/24/2023 by Ethan Bermeo MD at [facility] Bone N/A: Spine Cervical [employer] [id number] 10/11/2025 [id number] / [id number] / . Medtronic Endoskeleton Tc Interbody System Implanted:Qty: 1 on 12/24/2023 by Ethan Bermeo MD at [facility] Cage N/A: Spine Cervical [employer] [id number] 08/22/2028 [id number] -N / / [id number] Description:C4-5 Medtronic Endoskeleton Tc Interbody System Implanted:Qty: 1 on 12/24/2023 by Ethan Bermeo MD at [facility] Cage N/A: Spine Cervical [employer] [id number] 08/29/2028 [id number] -N / / [id number] Description:C3-4 47.5 Mm Elite Plate Implanted:Qty: 1 on 12/24/2023 by Ethan Bermeo MD at [facility] Plate N/A: Spine Cervical [employer] . [id number] / / . 4.0 X 14 Mm Screws Implanted:Qty: 6 on 12/24/2023 by Ethan Bermeo MD at [facility] Screw N/A: Spine Cervical [employer] . [id number] / / . Explanted Type Area Loading Unit Operator Powder Charging Device Identifier Shelf Expiration Date Model / Serial / Lot Plate Holding Pins Explanted:Qty: 1 on 12/24/2023 by Ethan Bermeo MD at [facility] Pin N/A: Spine Cervical [employer] . [id number] / / . Distration Pin 12mm - [id number] Explanted:Qty: 1 on 12/24/2023 by Ethan Bermeo MD at [facility] Pin N/A: Spine Cervical [employer] . DP-12-TB / / . Distration Pin 12mm - [id number] Explanted:Qty: 1 on 12/24/2023 by Ethan Bermeo MD at [facility] Pin N/A: Spine Cervical [employer] . DP-12-TB / / . Procedures Procedure Name Priority Date/Time Associated Diagnosis Comments PROCEDURE GENERIC (SCAN ORDER) 11/28/2024 USV ART REST W JAMEL LOW EXT Routine 09/29/2024 8:32 AM CDT Pain in both lower extremities Claudication IMAGE GENERIC 09/23/2024 from Last 3 Months Results * PROCEDURE GENERIC (SCAN ORDER) (11/28/2024) 11/28/2024 us [facility] Scanned SCANNING Final Resu lt * USV ART REST W JAMEL LOW EXT (09/29/2024 8:32 AM CDT) Anatomical Region Laterality Modality Extremity Vascular Ultraso und 09/29/2024 7:40 AM CDT Narrative 10/02/2024 7:21 AM CDT ARTERIAL DOPPLER - JAMEL BILATERAL LOWER EXTREMITY VASCULAR LAB Pat.Name: HENRIETTA SHERMAN Pat.ID: [id number] .Date: 09/29/2024 Exam Time: 7:40:00 AM Study Type:DEANA VS Arterial Doppler Legs ALEXANDRA Age: 2 1960,64Y Sex: M Sonogrphr: Manjula Alvarez RVT/Tanna Emery Pat. Stat.:Outpatient History / Clinical:Bilateral calf claudication Procedures: Doppler waveforms, Digit PPG, Systolic Pressures w/JAMEL Race: W ++++++++++++++++++++++++++++++++++++ SUMMARY: ++++++++++++++++++++++++++++++++++++ Kehinde JAMEL Criteria: >1.30 = falsely elevated, calcified vessels; 1.00-1.29 = no signif ischemia at rest ; .80-.99 = mild PAD, asymptomatic; .50-.79 = moderate PAD, claudication; <.50 = severe PAD, rest pain; <.30 = critical PAD, necrosis, poor healing (Digits: DBI >.60 Normal; <.60 Abnormal) (Positive Stress eval: JAMEL decrease of >.20 or >20% pressure drop) Right leg: Common Femoral waveform is triphasic, high amplitude; Popliteal triphasic, high amplitude; Posterior Tibial triphasic, high amplitude with JAMEL 1.23 ; DP/Anterior Tibial triphasic, high amplitude with JAMEL 1.09 . Digit flow by PPG is high amplitude with DBI 0.943 . Left leg: Common Femoral waveform is triphasic, high amplitude; Popliteal triphasic, high amplitude; Posterior Tibial triphasic, high amplitude with JAMEL 1.32 ; DP/Anterior Tibial triphasic, high amplitude with JAMEL 1.27 . Digit flow by PPG is high amplitude with DBI 0.993 . Post heel raise stress test, right JAMEL decreases 0.1; left JAMEL decreases 0.17. Patient maintained exercise for 60 heel raises, and experienced bilateral calf pain. CONCLUSION: There is no evidence of hemodynamically significant arterial disease at rest or after exercise. Bilateral ankle brachial indices and toe brachial indices are within normal limits. ++++++++++++++++++++++++++++++++++++ MEASUREMENTS: ++++++++++++++++++++++++++++++++++++ PRESSURES Right Brachial Brach P 141 mmHg Right Ankle DP AnkleDP P 153 mmHg Right Ankle PT AnklePT P 174 mmHg Right Great Toe GreatToe P 133 mmHg Right JAMEL PT JAMEL PT 1.23 Right JAMEL DP JAMEL DP 1.09 Right TBI TBI 0.943 Left Brachial Brach P 140 mmHg Left Ankle DP AnkleDP P 179 mmHg Left Ankle PT AnklePT P 186 mmHg Left Great Toe GreatToe P 140 mmHg Left JAMEL PT JAMEL PT 1.32 Left JAMEL DP JAMEL DP 1.27 Left TBI TBI 0.993 STRESS 1 Minute 1 Min ARM 157 mmHg 1 Min JAMEL 1.13 1 Min Ankle 177 mmHg 1 Min LT JAMEL 1.15 1 Min LT Ankle 181 mmHg <Electronic Signature> 10/02/2024 07:21 AM Jessica Dong M.D. Procedure Note Jessica Dong MD - 10/02/2024 ARTERIAL DOPPLER - JAMEL BILATERAL LOWER EXTREMITY VASCULAR LAB Pat.Name: HENRIETTA SHERMANN Pat.ID: [id number] .Date: 09/29/2024 Exam Time: 7:40:00 AM Study Type:DEANA VS Arterial Doppler Legs ALEXANDRA Age: 2 1960,64Y Sex: M Sonogrphr: Manjula Alvarez RVT/Tanna Forte. Stat.:Outpatient History / Clinical:Bilateral calf claudication Procedures: Doppler waveforms, Digit PPG, Systolic Pressures w/JAMEL Race: W ++++++++++++++++++++++++++++++++++++ SUMMARY: ++++++++++++++++++++++++++++++++++++ Kehinde JAMEL Criteria: >1.30 = falsely elevated, calcified vessels; 1.00-1.29 = no signif ischemia at rest ; .80-.99 = mild PAD, asymptomatic; .50-.79 = moderate PAD, claudication; <.50 = severe PAD, rest pain; <.30 = critical PAD, necrosis, poor healing (Digits: DBI >.60 Normal; <.60 Abnormal) (Positive Stress eval: JAMEL decrease of >.20 or >20% pressure drop) Right leg: Common Femoral waveform is triphasic, high amplitude; Popliteal triphasic, high amplitude; Posterior Tibial triphasic, high amplitude with JAMEL 1.23 ; DP/Anterior Tibial triphasic, high amplitude with JAMEL 1.09 . Digit flow by PPG is high amplitude with DBI 0.943 . Left leg: Common Femoral waveform is triphasic, high amplitude; Popliteal triphasic, high amplitude; Posterior Tibial triphasic, high amplitude with JAMEL 1.32 ; DP/Anterior Tibial triphasic, high amplitude with JAMEL 1.27 . Digit flow by PPG is high amplitude with DBI 0.993 . Post heel raise stress test, right JAMEL decreases 0.1; left JAMEL decreases 0.17. Patient maintained exercise for 60 heel raises, and experienced bilateral calf pain. CONCLUSION: There is no evidence of hemodynamically significant arterial disease at rest or after exercise. Bilateral ankle brachial indices and toe brachial indices are within normal limits. ++++++++++++++++++++++++++++++++++++ MEASUREMENTS: ++++++++++++++++++++++++++++++++++++ PRESSURES Right Brachial Brach P 141 mmHg Right Ankle DP AnkleDP P 153 mmHg Right Ankle PT AnklePT P 174 mmHg Right Great Toe GreatToe P 133 mmHg Right JAMEL PT JAMEL PT 1.23 Right JAMEL DP JAMEL DP 1.09 Right TBI TBI 0.943 Left Brachial Brach P 140 mmHg Left Ankle DP AnkleDP P 179 mmHg Left Ankle PT AnklePT P 186 mmHg Left Great Toe GreatToe P 140 mmHg Left JAMEL PT JAMEL PT 1.32 Left JAMEL DP JAMEL DP 1.27 Left TBI TBI 0.993 STRESS 1 Minute 1 Min ARM 157 mmHg 1 Min JAMEL 1.13 1 Min Ankle 177 mmHg 1 Min LT JAMEL 1.15 1 Min LT Ankle 181 mmHg <Electronic Signature> 10/02/2024 07:21 AM Jessica Dong M.D. Greta Garnica MD VAS Final Result * IMAGE GENERIC (09/23/2024) Anatomical Region Laterality Modality Other 09/23/2024 [facility] Scanned SCANNING Final Resu lt from Last 3 Months Insurance MEDICARE Advance Directives * Full Code (Latest Code Status on File) Date Activated Date Inactivated Comments 12/24/2023 3:16 PM 12/27/2023 1:57 PM Care Teams Arc Welding Machine Operator Relationship Specialty Start Date End Date Nitish Izquierdo DO 3 [facility] [address] [place] [id number] PCP - General FAMILY PRACTICE 04/03/23 Greta Garnica MD [facility] [address] [place], [place] [address] Consulting Physician INTERVENTIONAL CARDIOLOGY 08/30/23 Ethan Bermeo MD [address] [place], [place] [id number] Surgeon NEUROLOGICAL SURGERY 09/03/24 Nitish Bautista MD [address] [place] [phone] Consulting Physician UROLOGY 09/03/24
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
[2024-12-19 18:20] VITALS: BP 150/81; PULSE 96; RESP 16; TEMP 37.2; O2SAT 100
== END 2024-12-19 19:00 | disposition home or self-care (01) ==
PROVIDERS: Emergency Provider Nurse Practitioner
DX: S63.501A Unspecified sprain of right wrist, initial encounter (principal); V28.49XA Other motorcycle driver injured in noncollision transport accident in traffic accident, initial encounter; I12.9 Hypertensive chronic kidney disease with stage 1 through stage 4 chronic kidney disease, or unspecified chronic kidney disease; N18.30 Chronic kidney disease, stage 3 unspecified; N40.0 Benign prostatic hyperplasia without lower urinary tract symptoms; E03.9 Hypothyroidism, unspecified; G60.9 Hereditary and idiopathic neuropathy, unspecified; E55.9 Vitamin D deficiency, unspecified
CPT/HCPCS: 73110; 99213; G0463

== ENCOUNTER 2024-12-20 10:48 | Outpatient (CLI) | payer MEDICARE, BC, SELFPAY ==
--- NOTE | ~2024-12-20 | XR_ITS ---
Supine and upright views of the abdomen Clinical history: Renal stone Findings: Bowel gas pattern is nonspecific. No evidence for obstruction or free air. Possible small l eft lower pole renal stone. Questionable tiny stone projecting just lateral of the right L1 transvers e process. Stable calcifications right lower quadrant.. Osseous structures are intact. Impression: Questionable tiny stone projecting just lateral of the right L1 transverse process. Possible small left lower pole renal stone. Stable right lower quadrant calcifications, nonspecific. Reviewed, dictated and finalized at location M. Impression: Questionable tiny stone projecting just lateral of the right L1 transverse proc ess. Possible small left lower pole renal stone. Stable right lower quadrant calcifications, nonspecific.
--- OUTSIDE RECORDS SUMMARY | 2024-12-20 10:51 | XMS_ITS | Encounter Summary ---
Author Organization [facility] Address [address] [place] [address] Care Team Providers Care Public Health Informatician Name Role Phone Oneal Monzon MD Primary Care Provider [phone] Encounter Details Date Type Department Care Team (Late st Contact Info) Description 06/19/2024 Lab Requisition [facility] - DermPath Lab [address] [facility], [facility] [place] [address] Socorro Knight MD [address] [facility] 3 [place] [address] Social History Tobacco Use Types Packs/Day Years Used Date Smoking Tobacco: Never Assessed Sex and Gender Information Value Date Recorded Sex Assigned at Not on file Legal Sex Male 10:52 AM CHIEF DEPUTY CLERK/BAILIFF Gender Identity Not on file Sexual Orientation Not on file documented as of this encounter Plan of Treatment Not on file documented as of this encounter Procedures Procedure Name Priority Date/Time Associated Diagnosis Comments DERMATOPATHOLOGY Routine 06/19/2024 1:04 PM CHIEF DEPUTY CLERK/BAILIFF documented in this encounter Results * DERMATOPATHOLOGY (06/19/2024 1:04 PM CHIEF DEPUTY CLERK/BAILIFF) Case Report Dermatopathology Report Case: [id number] Authorizing Provider: Socorro Knight MD Collected: 06/19/2024 01:04 PM Ordering Location: [facility] - Received: 06/20/2024 03:04 PM DermPath Lab Pathologist: Missy Rivera MD Specimens: A) - Skin, right ant thigh B) - Skin, right ant neck 3:54 PM CHIEF DEPUTY CLERK/BAILIFF DERMATOPATHOLOGY LABORATORY Final Diagnosis Specimen A. SKIN, right ant thigh: ACTINIC KERATOSIS, LICHENOID (L57.0) Specimen B. SKIN, right ant neck: ACTINIC KERATOSIS, FOCAL (L57.0) CHRONIC PERIFOLLICULITIS (L73.8) 3:54 PM [facility] DERMATOPATH[facility]Y [facility]ORATORY at 1554 CHIEF DEPUTY CLERK/BAILIFF Clinical History A: R/O SCC B: Cyst [...] determined by the Dermatopathology Laboratory at [facility], directed by Dr. Torrie Marin. These tests need not be, and therefore are not, approved by the [place] Food and Drug Administration. The tests are used for clinical purposes. Billing Codes Specimen Charges Stain Charges 96550 58919 1 1 3:54 PM [facility] DERMATOPATHOLOGY LABORATORY Embedded Images 3:54 PM [facility] DERMATOPATH[facility]Y [facility]ORATORY Pathology/Cytology TISSUE SPECIMEN FROM SKIN / Unknown 06/19/2024 1:04 PM CHIEF DEPUTY CLERK/BAILIFF 06/20/2024 3:04 PM CHIEF DEPUTY CLERK/BAILIFF Miscellaneous samples (specimen) TISSUE SPECIMEN FROM SKIN / Unknown 06/19/2024 1:04 PM CHIEF DEPUTY CLERK/BAILIFF 06/20/2024 3:04 PM CHIEF DEPUTY CLERK/BAILIFF Socorro Knight MD LAB - PATHOLOGY/CYTOLOGY OR DERABLES Final Result DERMATOPATHOLOGY LABORATORY [facility] - Department of Dermatology [facility] Specialized Medicine [address] [place] [address], [address] [place] [address], [facility] [phone] documented in this encounter Visit Diagnoses Not on filedocumented in this encounter Care Teams Public Health Informatician Relationship Specialty Start Date End Date Oneal Monzon MD [address] [place] [phone] PCP - General 05/03/22 documented as of this encounter
--- OUTSIDE RECORDS SUMMARY | 2024-12-20 10:51 | XMS_ITS | Clinical Summary ---
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 ADMINISTER 1 ML(140 [...] MG/ML injection (PEN)Indications: Coronary artery disease involving p[place]enta coronary artery of p[place]enta heart without angina pectoris ADMINISTER 1 ML(140 MG) UNDER THE SKIN EVERY 14 DAYS 2 mL 3 025 2024 Discontinued Active Problems Problem Noted Date Diagnosed Date Pure hypercholesterolemia 03/20/2024 Right calf pain 01/09/2024 Lumbar radiculopathy 01/09/2024 S/P cervical spinal fusion 12/24/2023 Dyslipidemia 09/21/2023 Spinal stenosis of lumbar re gion without neurogenic claudication 08/27/2023 Facet hypertrophy of lumbar region 08/27/2023 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 Multispecialty Care - [facility] [address] [facility] [facility] [address], [address] [place] [phone] Ethan Bermeo MD Follow Up (F/u CT Scan) 12/18/2024 Travel 12/16/2024 8:30 AM CDT - 12/16/2024 11:59 PM CDT Hospital Encounter [facility] [place] [address] Ethan Bermeo MD Discharge Disposition: Home or Self Care (Routine Discharge) 12/16/2024 Travel 11/28/2024 Scan [facility] INFO SRVCS Scanned, Doc Med Group Procedure (SCAN) 09/29/2024 7:26 AM CDT - 09/29/2024 11:59 PM CDT Hospital Encounter [facility] [place] [address] Greta Garnica MD Discharge Disposition: Home or Self Care (Routine Discharge) 09/29/2024 Results [facility] [address] [facility] [place] [address] Ariana Strauss, RN USV ART REST W JAMEL LOW EXT 09/29/2024 Travel 09/23/2024 Scan [facility] INFO SRVCS Scanned, Doc Med Group Image (SCAN) from Last 3 Months Immunizations Immunization Administration [...] from your doctor or pharmacy? Never 12/24/2023 [employer] Utilities Answer Date Recorded In the past 12 months has [facility] [employer], [employer] water systems, or [employer] threatened to shut off services in your [...] Recorded Patient Health Questionnaire-2 Score 0 09/02/2024 [facility] - [...] any time in the past 12 m [facility], were you homeless or living in a senior care (including now)? No 12/24/2023 Sex and Gender [...] Info) Description 12/26/2024 3:00 PM CDT Appointment [facility] [address] [place], [place] [id number] Ethan Bermeo MD [address] [place] [address] 01/02/2025 8:30 AM CDT Appointment [facility] [address] [place] [address] Ethan Bermeo MD [address] [place] [address] [place] [address] [place] [address] 03/20/2025 9:00 AM CDT Office Visit [facility] [place] [address] [facility] [place] [address] Maryann Falk PA-C [address] [facility], [address] [place] [address] 03/20/2025 9:40 AM CDT Office Visit [facility] Multispecialty Care - [facility] [address] [facility], [address] [place] [address] Ethan Bermeo MD [address] [place] [address] 04/07/2025 7:00 AM TRUCK AND TRANSPORT MECHANIC Office Visit [facility] Family Medicine - [address] [phone] Nitish Izquierdo DO [address] [place] [address] 04/09/2025 9:00 AM TRUCK AND TRANSPORT MECHANIC Office Visit [facility] - [address] [address] Nitish Izquierdo DO [address] [place], [place] [phone] 09/16/2025 8:00 AM CDT Office Visit [facility] Family Medicine - [place] [address] [place] [address] Nitish Izquierdo DO [address] [place] [address] Health Maintenance Due Date Last Done Comments [...] Zoster Vaccines Completed 07/20/2021, 03/24/2021 PHQ-2 (Physician [place]) Completed 09/02/2024 Meningococcal B Vaccine Aged Out [...] Enriquez, RN Medical Devices Implanted Type Area Decision Support Analyst Device Identifier Shelf Expiration Date Model / Serial / Lot Putty [place] Matrix Dbm/Dbf Bone 3ml - [id number] Implanted:Qty: 1 on 12/24/2023 by Ethan Bermeo MD at [facility] Bone N/A: Spine Cervical [employer] [id number] 10/11/2025 [id number] / [id number] / . Medtronic Endoskeleton Tc Interbody System Implanted:Qty: 1 on 12/24/2023 by Ethan Bermeo MD at [facility] Cage N/A: Spine Cervical [employer] [id number] 08/22/2028 [id number] -N / / [id number] Description:C4-5 Medtronic Endoskeleton Tc Interbody System Implanted:Qty: 1 on 12/24/2023 by Ethan Bermeo MD at [facility] Cage N/A: Spine Cervical [employer] [id number] 08/29/2028 [id number] -N / / [id number] Description:C3-4 47.5 Mm Elite Plate Implanted:Qty: 1 on 12/24/2023 by Ethan Bermeo MD at [facility] Plate N/A: Spine Cervical [employer] . [id number] / / . 4.0 X 14 Mm Screws Implanted:Qty: 6 on 12/24/2023 by Ethan Bermeo MD at [facility] Screw N/A: Spine Cervical [employer] . [id number] / / . Explanted Type Area Decision Support Analyst Device Identifier Shelf Expiration Date Model / Serial / Lot Plate Holding Pins Explanted:Qty: 1 on 12/24/2023 by Ethan Bermeo MD at [facility] Pin N/A: Spine Cervical [employer] . [id number] / / . Distration Pin 12mm - [id number] Explanted:Qty: 1 on 12/24/2023 by Ethan Bermeo MD at [facility] Pin N/A: Spine Cervical [employer] . DP-12-TB / / . Distration Pin 12mm - [id number] Explanted:Qty: 1 on 12/24/2023 by Ethan Bermeo MD at [facility] Pin N/A: Spine Cervical [employer] . DP-12-TB / / . [...] [facility] Pat.Name: RUSSELL HENRIETTA KAYLEE Pat.ID: [id number] .Date: 09/29/2024 Exam Time: 7:40:00 AM Study Type:DEANA VS Arterial Doppler Legs ALEXANDRA Age: 4 1960,64Y Sex: M Sonogrphr: Manjula Alvarez Silvia/Tanna Emery Pat. Stat.:Outpatient History / Clinical:Bilateral calf [...] EXTREMITY [facility]ASC[facility] Pat.Name: HENRIETTA SHERMAN Pat.ID: [id number] .Date: 09/29/2024 Exam Time: 7:40:00 AM Study Type:DEANA VS Arterial Doppler Legs ALEXANDRA Age: 4 1960,64Y Sex: M Sonogrphr: Manjula Alvarez [facility]/Tanna Emery Pat. Stat.:Outpatient History / Clinical:Bilateral calf [...] AM Jessica Dong M.D. Greta Garnica MD [facility] Final Result * IMAGE GENERIC (09/23/2024) Anatomical Region Laterality Modality Other 09/23/2024 us Doc Med Group Scanned SCANNING Final Resu lt from Last 3 Months Insurance MEDICARE Advance Directives * Full Code (Latest Code Status on File) Date Activated Date Inactivated Comments 12/24/2023 3:16 PM 12/27/2023 1:57 PM Care Teams Valet Runner Relationship Specialty Start Date End Date Nitish Izquierdo DO [address] [facility] [address] [place] [address] PCP - General FAMILY PRACTICE 04/03/23 Greta Garnica MD [address] [facility] [address] [place] [address] Consulting Physician INTERVENTIONAL CARDIOLOGY 08/30/23 Ethan Bermeo MD [address] [place] [address] Surgeon NEUROLOGICAL SURGERY 09/03/24 Nitish Bautista MD [address] [facility] [address] [place] [address] Consulting Physician UROLOGY 09/03/24
--- OUTSIDE RECORDS SUMMARY | 2024-12-20 10:51 | XMS_ITS | Clinical Summary ---
Author Organization [facility] Address [address] [facility] [address] [place] [address] Care Team Providers Care Regulatory Internship Name Role Phone Oneal Monzon MD Primary Care Provider [phone] [facility],non-owned Affiliates and Associated Physician Practices is amultiple site organization consisting of ambulatory clinics and hospital sitesin [place], [place] and [place]. This disclosure is being madepursuant to the Care Everywhere program and may not contain all information available regarding this patient. Last updated 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
--- OUTSIDE RECORDS SUMMARY | 2024-12-20 10:51 | XMS_ITS | Encounter Summary ---
Author Organization [facility] Address [address] [place] [address] Care Team Providers Care Slot Floor Supervisor Name Role Phone Nitish Izquierdo DO Primary Care Provider [phone] Greta Garnica MD Unavailable [phone] Ethan Bermeo MD Unavailable [phone] Nitish Bautista MD Unavailable [phone] Encounter Details Date Type Department Care Team (Late st Contact Info) Description 11/13/2023 Abstract [facility] [address] Otilio Hall MA Social History [...] Info) Description 12/26/2024 3:00 PM CDT Appointment [facility] [address] [id number] Ethan Bermeo MD 3 [place] [address] 01/02/2025 8:30 AM CDT Appointment [facility] [address] [place] [address] Ethan Bermeo MD 3 [place] [address] [place] [address] [place] [address] 03/20/2025 9:00 AM CDT Office [facility] THREE [facility] [place] [address] [place] [address] Maryann Falk PA-C 3 [facility], [address] [place] [address] 03/20/2025 9:40 AM CDT Office Visit [facility] Multispecialty Care - [facility] 3 [facility], [address] [place] [address] Ethan Bermeo MD 3 [place] [address] 04/07/2025 7:00 AM CLOTH EXAMINER Office Visit [facility] Medical [facility] [place] [address] [place] [address] Nitish Izquierdo DO [address] [place] [address] 04/09/2025 9:00 AM CLOTH EXAMINER Office Visit [facility] 5 [place] [address] Nitish Izquierdo DO [address] [place] [address] 09/16/2025 8:00 AM CDT Office Visit [facility] 5 [place] [address] Nitish Izquierdo DO [address] [place], [place] [address] documented as of this encounter Procedures Procedure Name Priority Date/Time Associated Diagnosis Comments LIPID PANEL Routine 11/12/2023 documented in this encounter Results * LIPID PANEL (11/12/2023) CHOLESTEROL 181 HDL 28 TRIGLYCERIDES 322 NON HDL CHOLESTEROL 153 LDL (CALCULATED) 110 11/12/2023 us Default History Genericprovider LABORATORY Final Result documented in this encounter Visit Diagnoses Not on filedocumented in this encounter Care Teams Slot Floor Supervisor Relationship Specialty Start Date End Date Nitish Izquierdo DO 3 [facility] [address] [place] [address] PCP - General FAMILY PRACTICE 04/03/23 Greta Garnica MD Three [facility]. [facility] [address] [place], [place] [phone] Consulting Physician INTERVENTIONAL CARDIOLOGY 08/30/23 Ethan Bermeo MD 1 [place], [place] [id number] Surgeon NEUROLOGICAL SURGERY 09/03/24 Nitish Bautista MD 6812 [facility] [address] [facility] [address] [place] [address] Consulting Physician UROLOGY 09/03/24 documented as of this encounter
--- OUTSIDE RECORDS SUMMARY | 2024-12-20 10:51 | XMS_ITS | Encounter Summary ---
Author Organization [facility] Address [address] [place] [address] Care Team Providers Care Glove Turner And Former Automatic Name Role Phone Nitish Izquierdo DO Primary Care Provider [phone] Greta Garnica MD Unavailable [phone] Ethan Bermeo MD Unavailable [phone] Nitish Bautista MD Unavailable [phone] Encounter Details Date Type Department Care Team (Latest Contact Info) Description 09/21/2023 MyCM2TECHt Message Enc [facility] Medical Group Multispecialty Care - [facility] 3 [facility], [address] [place] [address] Samantha Beltran APRN 3 [facility] [address] [place] [address] Physical Restrictions Social History Tobacco [...] 3:[address] [facility] [address] [place] [address] Ethan Bermeo MD 3 [place] [address] 01/02/2025 8:[address] [facility] [address] [place] [address] Ethan Bermeo MD 3 [place] [address] [place] [address] [place] [address] 03/20/2025 9:00 AM CDT Office Visit [facility] THREE [facility] [place] [address] [place] [address] Maryann Falk PA-C 3 [facility], [address] [place] [address] 03/20/2025 9:40 AM CDT Office Visit [facility] Multispecialty Care - [facility] 3 [facility], [address] [place] [address] Ethan Bermeo MD 3 [place] [address] 04/07/2025 7:00 AM GEM SETTER Office Visit [facility] 5 [place] [address] Nitish Izquierdo DO [address] [place], [place] [address] 04/09/2025 9:00 AM GEM SETTER Office Visit [address] [address] Nitish Izquierdo DO [address] [place], [place] [address] 09/16/2025 8:00 AM CDT Office Visit [address] [address] Nitish Izquierdo DO [address] [place] [address] documented as of this encounter Visit Diagnoses Not on filedocumented in this encounter Care Teams Glove Turner And Former Automatic Relationship Specialty Start Date End Date Nitish Izquierdo DO 3 [facility] [address] [place] [address] PCP - General FAMILY PRACTICE 04/03/23 Greta Garnica MD Three [facility] [address] [place], [place] [phone] Consulting Physician INTERVENTIONAL CARDIOLOGY 08/30/23 Ethan Bermeo MD 1 [place], [place] [address] Surgeon NEUROLOGICAL SURGERY 09/03/24 Niitsh Bautista MD 6812 [facility] [address] [facility] 200 [place] [address] Consulting Physician UROLOGY 09/03/24 documented as of this encounter
--- OUTSIDE RECORDS SUMMARY | 2024-12-20 10:51 | XMS_ITS | Encounter Summary ---
Author Organization [facility] Address [address] [place] [address] Care Team Providers Care Hospital Admissions Officer Name Role Phone Nitish Izquierdo DO Primary Care Provider [phone] Greta Garnica MD Unavailable [phone] Ethan Bermeo MD Unavailable [phone] Nitish Bautista MD Unavailable [phone] Encounter Details Date Type Department Care Team (Latest Contact Info) Description 09/21/2023 MyCPanTerra Networkst Message Enc [facility] Medical Group Multispecialty Care - [facility] 3 [facility], [address] [place] [address] Samantha Beltran APRN 3 [facility] [address] [place] [address] Upcoming Surgery Social History Tobacco [...] 3:[address] [facility] [address] [place] [address] Ethan Bermeo MD 3 [place] [address] 01/02/2025 8:30 AM CDT Appointment [facility] [address] [place] [address] Ethan Bermeo MD 3 [place] [address] [place] [address] [place] [address] 03/20/2025 9:00 AM CDT Office Visit [facility] THREE [facility] [place] [address] [place] [address] Maryann Falk PA-C 3 [facility], [address] [place] [address] 03/20/2025 9:40 AM CDT Office Visit [facility] Medical Group Multispecialty Care - [facility] 3 [facility], [address] [place] [address] Ethan Bermeo MD 3 [place] [address] 04/07/2025 7:00 AM WOOD POLE TREATER Office Visit [address] [address] Niitsh Izquierdo, DO [address] [address] 04/09/2025 9:00 AM WOOD POLE TREATER Office Visit [address] [address] Nitish Izquierdo DO [address] [place] [address] 09/16/2025 8:00 AM CDT Office Visit [address] [address] Nitish Izquierdo DO [address] [place], [place] [address] documented as of this encounter Visit Diagnoses Not on filedocumented in this encounter Care Teams Hospital Admissions Officer Relationship Specialty Start Date End Date Nitish Izquierdo DO 3 [facility] 4000 [place] [address] PCP - General FAMILY PRACTICE 04/03/23 Greta Garnica MD Three [facility] [address] [place] [address] Consulting Physician INTERVENTIONAL CARDIOLOGY 08/30/23 Ethan Bermeo MD 1 [place] [address] Surgeon NEUROLOGICAL SURGERY 09/03/24 Nitish Bautista MD [address] [facility] 200 [place] [address] Consulting Physician UROLOGY 09/03/24 documented as of this encounter
--- OUTSIDE RECORDS SUMMARY | 2024-12-20 10:51 | XMS_ITS | Encounter Summary ---
Author Organization [facility] Address [address] [place] [address] Care Team Providers Care Infusion Rn Name Role Phone Nitish Izquierdo DO Primary Care Provider [phone] Greta Garnica MD Unavailable [phone] Ethan Bermeo MD Unavailable [phone] Nitish Bautista MD Unavailable [phone] Encounter Details Date Type Department Care Team (Latest Contact Info) Description 10/15/2023 Lodgeot Message Enc [facility] Medical Group Multispecialty Care - [facility] 3 [facility], [address] [place] [address] Samantha Beltran APRN 3 [facility] [address] [place], [place] [address] Refill for Oxycodone/Acetamino phen Social History Tobacco [...] - 10/15/2023 1:29 PM CDT Forwarding to [facility] documented in this encounter Plan of Treatment Upcoming Encounters Date Type Department Care Team (Late st Contact Info) Description 12/26/2024 3:00 PM CDT Appointment [facility] [address] [place] [address] Ethan Bermeo MD 3 [place] [address] 01/02/2025 8:30 AM CDT Appointment [facility]hab [address] [place] [address] Ethan Bermeo MD 3 [place] [address] [place] [address] [place] [address] 03/20/2025 9:00 AM CDT Office Visit [facility] THREE [facility] [place] [address] [place] [address] Maryann Falk PA-C 3 [facility], [address] [place] [address] 03/20/2025 9:40 AM CDT Office Visit [facility] Medical Group Multispecialty Care - [facility] 3 [facility], [address] [place] [address] Ethan Bermeo MD 3 [place] [address] 04/07/2025 7:00 AM NATURAL DEVELOPER Office Visit [address] [address] Nitish Izquierdo, [address] [address] 04/09/2025 9:00 AM NATURAL DEVELOPER Office Visit [address] [address] Nitish Izquierdo DO [address] [address] 09/16/2025 8:00 AM CDT Office Visit [address] [address] Nitish Izquierdo DO [address] [place], [place] [address] documented as of this encounter Visit Diagnoses Not on filedocumented in this encounter Care Teams Infusion Rn Relationship Specialty Start Date End Date Nitish Izquierdo DO 3 [facility] [address] [place] [address] PCP - General FAMILY PRACTICE 04/03/23 Greta Garnica MD Three [facility] [address] [place], [place] [address] Consulting Physician INTERVENTIONAL CARDIOLOGY 08/30/23 Ethan Bermeo MD 1 [place] [address] Surgeon NEUROLOGICAL SURGERY 09/03/24 Nitish Bautista MD [address] [facility] 200 [place] [address] Consulting Physician UROLOGY 09/03/24 documented as of this encounter
--- OUTSIDE RECORDS SUMMARY | 2024-12-20 10:51 | XMS_ITS | Encounter Summary ---
Author Organization [facility] Address [address] [place] [address] Care Team Providers Care Electric Razor Mechanic Name Role Phone Nitish Izquierdo DO Primary Care Provider [phone] Greta Garnica MD Unavailable [phone] Ethan Bermeo MD Unavailable [phone] Nitish Bautista MD Unavailable [phone] Encounter Details Date Type Department Care Team (Late st Contact Info) Description 09/01/2023 MyChart Message Enc [facility] Medical Group Multispecialty Care - [facility] 3 [facility], [address] [place] [address] Samantha Beltran APRN 3 [facility] [address] [place], [place] [phone] Stimulator Social History Tobacco Use Types Packs/Day [...] 3:[address] [facility] [facility] [place] [address] [place] [address] Ethan Bermeo MD 3 [place] [address] 01/02/2025 8:[address] [facility] [address] [place] [address] Ethan Bermeo MD 3 [place] [address] [place] [address] [place] [address] 03/20/2025 9:00 AM CDT Office Visit [facility] [address] [facility] [place] [address] [place] [address] Maryann Falk PA-C 3 [facility], [address] [place] [address] 03/20/2025 9:40 AM CDT Office Visit [facility] Multispecialty Care - [facility] 3 [facility], [address] [place] [address] Ethan Bermeo MD 3 [place] [address] 04/07/2025 7:00 AM WEIGH AND CHARGE WORKER Office [facility] 5 [place] [address] Nitish Izquierdo DO [address] [place], [place] [address] 04/09/2025 9:00 AM WEIGH AND CHARGE WORKER Office Visit [address] [address] Nitish Izquierdo DO [address] [place], [place] [address] 09/16/2025 8:00 AM CDT Office Visit [address] [address] Nitish Izquierdo DO [address] [place], [place] [address] documented as of this encounter Visit Diagnoses Not on filedocumented in this encounter Care Teams Electric Razor Mechanic Relationship Specialty Start Date End Date Nitish Izquierdo DO 3 [facility] 4000 [place] [address] PCP - General FAMILY PRACTICE 04/03/23 Greta Garnica MD Three [facility] [address] [place], [place] [phone] Consulting Physician INTERVENTIONAL CARDIOLOGY 08/30/23 Ethan Bermeo MD 1 [place], [place] [address] Surgeon NEUROLOGICAL SURGERY 09/03/24 Nitish Bautista MD 6812 [facility] [address] [facility] 200 [place] [address] Consulting Physician UROLOGY 09/03/24 documented as of this encounter
--- OUTSIDE RECORDS SUMMARY | 2024-12-20 10:51 | XMS_ITS | Encounter Summary ---
Author Organization [facility] Address [address] [place] [address] Care Team Providers Care Real Estate Rep Name Role Phone Nitish Izquierdo DO Primary Care Provider [phone] Greta Garnica MD Unavailable [phone] Ethan Bermeo MD Unavailable [phone] Nitish Bautista MD Unavailable [phone] Encounter Details Date Type Department Care Team (Latest Contact Info) Description 09/21/2023 MyCApplication Expertst Message Enc [facility] Medical Group Multispecialty Care - [facility] 3 [facility], [address] [place] [address] Samantha Beltran APRN 3 [facility] [address] [place] [address] Up coming surgery Social History [...] 3:[address] [address] [place] [address] Ethan Bermeo MD 3 [place] [address] 01/02/2025 8:[address] [facility] [address] [place] [address] Ethan Bermeo MD 3 [place] [address] [place] [address] [place] [address] 03/20/2025 9:00 AM CDT Office Visit [facility] THREE [facility] [place] [address] [place] [address] Maryann Falk PA-C 3 [facility], [address] [place] [address] 03/20/2025 9:40 AM CDT Office Visit [facility] Multispecialty Care - [facility] 3 [facility], [address] [place] [address] Ethan Bermeo MD 3 [place] [address] 04/07/2025 7:00 AM DIRECTOR FEDERAL Office Visit [facility] 5 [place] [address] Nitish Izquierdo DO [address] [place], [place] [address] 04/09/2025 9:00 AM DIRECTOR FEDERAL Office Visit [address] [address] Nitish Izquierdo DO [address] [address] 09/16/2025 8:00 AM CDT Office Visit [address] [address] Nitish Izquierdo DO [address] [place], [place] [address] documented as of this encounter Visit Diagnoses Not on filedocumented in this encounter Care Teams Real Estate Rep Relationship Specialty Start Date End Date Nitish Izquierdo DO 3 [facility] [address] [place] [address] PCP - General FAMILY PRACTICE 04/03/23 Greta Garnica MD Three [facility] [address] [place], [place] [address] Consulting Physician INTERVENTIONAL CARDIOLOGY 08/30/23 Ethan Bermeo MD 1 [place], [place] [address] Surgeon NEUROLOGICAL SURGERY 09/03/24 Nitish Bautista MD 68[address] [facility] [address] [facility] 200 [place] [address] Consulting Physician UROLOGY 09/03/24 documented as of this encounter
== END 2024-12-20 10:49 | disposition home or self-care (01) ==
PROVIDERS: Visit Provider Urology
DX: N20.0 Calculus of kidney (principal)
CPT/HCPCS: 74018

== ENCOUNTER 2025-04-22 09:07 | Outpatient (CLI) | payer MEDICARE, BC, SELFPAY ==
--- NOTE | ~2025-04-22 | XR_ITS ---
EXAM/PROCEDURE: XR abdomen/kub 1V HISTORY: HX of left Ureteral stone COMPARISON: December 20, 2024 TECHNIQUE: KUB FINDINGS: Minimal small bowel gas present in the central abdomen. No grossly distended loops of bowel or large amount of free air. Small calcifications overlying the right kidney unchanged in appearance or size with the largest measuring approximately 6 x 4 mm. Punctate calcification adjacent to the right transverse process of L1 and L2 also again noted. No definite stones over the left kidney. Prostate clips unchanged. The bones appear intact. IMPRESSION: Calcifications overlying the right kidney area not significantly changed from the December KUB. Nonspecific bowel gas pattern. Reviewed, dictated and finalized at location A. [facility] IMPRESSION: Calcifications overlying the right kidney area not significantly changed from t he December KUB. Nonspecific bowel gas pattern.
--- OUTSIDE RECORDS SUMMARY | 2025-04-22 11:45 | XMS_ITS | Clinical Summary ---
Author Organization [facility] [employer] Address [address] [place] [address] Care Team Providers Care Director Cost Name Role Phone Oneal Monzon MD Primary Care Provider [phone] Source Comments [facility] [employer],non-owned Affiliates and Associated Physician Practices is amultiple site organization consisting of ambulatory clinics and hospital sitesin [place], [place], [place] and [place]. This disclosure is being madepursuant to the Care Everywhere program and may not contain all information available regarding this patient. 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
--- OUTSIDE RECORDS SUMMARY | 2025-04-22 11:45 | XMS_ITS | Encounter Summary ---
Author Organization [facility] Address [address] [place] [address] Care Team Providers Care Robotics Technician Name Role Phone Oneal Monzon MD Primary Care Provider [phone] Encounter Details Date Type Department Care Team (Late st Contact Info) Description 06/19/2024 Lab Requisition [facility] - [facility]erm[facility] Lab [address] [facility] [place] [address] Socorro Knight MD [address] [facility] 3 [place] [address] Social History Tobacco Use Types Packs/Day Years Used Date Smoking Tobacco: Never Assessed Sex and Gender Information Value Date Recorded Sex Assigned at Not on file Legal Sex Male 10:52 AM FLOORING INSTALLER Gender Identity Not on file Sexual Orientation Not on file documented as of this encounter Plan of Treatment Not on file documented as of this encounter Procedures Procedure Name Priority Date/Time Associated Diagnosis Comments DERMATOPATHOLOGY Routine 06/19/2024 1:04 PM FLOORING INSTALLER documented in this encounter Results * DERMATOPATHOLOGY (06/19/2024 1:04 PM FLOORING INSTALLER) Case Report Dermatopathology Report Case: [id number] Authorizing Provider: Socorro Knight MD Collected: 06/19/2024 01:04 PM Ordering Location: [facility] Physician [facility] - Received: 06/20/2024 03:04 PM DermPath Lab Pathologist: Missy Rivera MD Specimens: A) - Skin, right ant thigh B) - Skin, right ant neck 3:54 PM FLOORING INSTALLER DERMATOPATHOLOGY LABORATORY Final Diagnosis Specimen A. SKIN, right ant thigh: ACTINIC KERATOSIS, LICHENOID (L57.0) Specimen B. SKIN, right ant neck: ACTINIC KERATOSIS, FOCAL (L57.0) CHRONIC PERIFOLLICULITIS (L73.8) 3:54 PM [facility] DERMATOPATHOLOGY LABORATORY at 1554 FLOORING INSTALLER Clinical History A: R/O SCC B: Cyst vs NMSC 3:54 PM [facility] DERMATOPATHOLOGY LABORATORY Gross Description [...] measuring 9x6x1 mm. Jar 0. 3:54 PM [facility] DERMATOPATHOLOGY LABORATORY Microscopic Description [...] of keratinocytes with nuclear pleomorphism. 3:54 PM [facility] DERMATOPATHOLOGY LABORATORY Disclaimer An external and internal positive and negative controls are appropriate for the histochemical, immunohistochemical and immunofluorescence stain(s) in this case (if any), except where stated explicitly. The performance characteristics of the stain(s) cited in this report were developed and its performance characteristic determined by the Dermatopathology Laboratory at [facility], directed by Dr. Torrie Marin. These tests need not be, and therefore are not, approved by the [place] Food and Drug Administration. The tests are used for clinical purposes. Billing Codes Specimen Charges Stain Charges 40613 63198 1 1 3:54 PM [facility] DERMATOPATHOLOGY LABORATORY Embedded Images 3:54 PM [facility] DERMATOPATHOLOGY LABORATORY Pathology/Cytology TISSUE SPECIMEN FROM SKIN / Unknown 06/19/2024 1:04 PM FLOORING INSTALLER 06/20/2024 3:04 PM FLOORING INSTALLER Miscellaneous samples (specimen) TISSUE SPECIMEN FROM SKIN / Unknown 06/19/2024 1:04 PM FLOORING INSTALLER 06/20/2024 3:04 PM FLOORING INSTALLER Socorro Knight MD LAB - PATHOLOGY/CYTOLOGY OR DERABLES Final Result DERMATOPATHOLOGY LABORATORY [facility] - Department of Dermatology [facility] Specialized Medicine [address] [place] [address], [address] [place] [address], [facility] [phone] documented in this encounter Visit Diagnoses Not on filedocumented in this encounter Care Teams Robotics Technician Relationship Specialty Start Date End Date Oneal Monzon MD [address] [place] [address] PCP - General 05/03/22 documented as of this encounter
== END 2025-04-22 09:08 | disposition home or self-care (01) ==
PROVIDERS: Visit Provider Urology
DX: R93.422 Abnormal radiologic findings on diagnostic imaging of left kidney (principal); N20.1 Calculus of ureter
CPT/HCPCS: 74018